=== PATIENT | female | born 1960 | race Caucasian/White ===

== ENCOUNTER 2019-12-07 16:00 | Inpatient (IN) | payer MEDICARE, SELFPAY ==
[2019-12-07] VITALS (21 sets, daily range): BP systolic 151–164; BP diastolic 84–93; PULSE 75–108; RESP 14–24; TEMP 36.2–36.4; O2SAT 92–100; BMI 41.8
--- NOTE | ~2019-12-07 | XR_ITS ---
EXAMINATION: XR chest 1V portable INDICATION: Shortness of breath TECHNIQUE: Portable AP chest at 1655 hours COMPARISON: 07/29/2019, 01/17/2019 FINDINGS: There is stable cardiomegaly. There are airspace opacities of the left lung base. No pleura l effusion or pneumothorax is identified. A triple lead cardiac pacemaker of the left chest wall ends with leads in expected locations. IMPRESSION: 1. Airspace opacity of the left lung base, consistent with atelectasis versus pneumonia. 2. Stable cardiomegaly. Reviewed, dictated and finalized at location A. IMPRESSION: 1. Airspace opacity of the left lung base, consistent with atelectasis versus p neumonia. 2. Stable cardiomegaly.
--- NOTE | 2019-12-07 16:13 | ECG_ITS ---
Measurements Intervals [place] Rate: 86 P: 59 IA: 135 QRS: 261 QRSD: 250 T: 64 QT: 494 QTc: 594 Interpretive Statements ATRIAL SENSE- ELECTRONIC VENTRICULAR PACEMAKER BASELINE ARTIFACT- I, III, AVL NO FURTHER INTERPRETATION IS POSSIBLE ATYPICAL ECG Electronically Signed On 12-07-2019 16:51:43 CDT by Juan R Avilez D.O.
--- NOTE | 2019-12-07 16:13 | ED.SOB ---
HPI - SOB/Dyspnea General Chief Complaint: Shortness of Breath/Dyspnea Stated Complaint: DIFF BREATHING Time Seen by Provider: 12/07/19 16:03 Source: patient and RN notes reviewed Mode of arrival: EMS Limitations: no limitations History of Present Illness HPI Narrative: A 58 y/o female presents to the ED via EMS with worsening SOB for the past 4 days. Patient denies any sick contacts. She has been using breathing treatments without improvement. No chest pain/pressure/dizziness. She denies runny nose/sore throat. Mild cough but cannot report if it is productive. She reports initially she noticed that some IN her family had increased her oxygen to 5 L and she was concerned she is becoming hypercapnic. She began wearing her BiPAP more frequently in an effort to fix this issue but still feels like she is often more short of breath and weak. MD elicited complaint: shortness of breath Pertinent past history: COPD, congestive heart failure and pneumonia Onset (ago): day(s) (4) Known history of: COPD and congestive heart failure Treatment prior to arrival: oxygen Related Data Home Medications Medication Instructions Recorded Confirmed albuterol sulfate [Ventolin HFA] 2 puff INHALATION PRN PRN 07/29/19 12/07/19 atorvastatin 40 mg PO HS 07/29/19 12/07/19 buspirone 15 mg PO TID 07/29/19 12/07/19 carvedilol 25 mg PO BID 07/29/19 12/07/19 citalopram 40 mg PO DAILY 07/29/19 12/07/19 diazepam 5 mg PO Q8-10H PRN 07/29/19 12/07/19 furosemide 20 mg PO DAILY 07/29/19 12/07/19 ropinirole 0.25 mg PO DAILY 07/29/19 12/07/19 spironolactone 25 mg PO DAILY 07/29/19 12/07/19 tramadol 50 mg PO Q6-8H PRN 07/29/19 12/07/19 azithromycin 500 mg PO DAILY 12/07/19 12/07/19 prednisone 50 mg PO DAILY 12/07/19 12/07/19 tiotropium-olodaterol [Stiolto 2 puff INHALATION DAILY 12/07/19 12/07/19 Respimat] Allergies Allergy/AdvReac Type Severity Reaction Status Date / Time No Known Allergies Allergy Unverified 12/07/19 16:12 Review of Systems Review of Systems: All systems reviewed & are unremarkable except as noted in HPI and below Respiratory: Respiratory: Reports dyspnea PMFSH Past Medical History Medical History (Updated 12/07/19 @ 23:28 by Hussein Camilo MD) Anxiety Back pain Bronchitis CHF (congestive heart failure) Chronic respiratory failure with hypoxia and hypercapnia 1 prior intubation about 10 years ago COPD (chronic obstructive pulmonary disease) Depression Emphysema of lung Essential hypertension History of rectal polyps Hyperlipidemia Morbid obesity with BMI of 45.0-49.9, adult Nonischemic cardiomyopathy Present since 2006. With EF as low as 10% in June 2017. Thought to be due to viral myocarditis with subsequent AICD placement. Obesity hypoventilation syndrome Obstructive sleep apnea On BiPAP 19/06 with 3 L of oxygen bleed in at home Rectal polyp Surgical History Surgical History (Updated 12/07/19 @ 21:25 by Rosalva Limon DO) Biventricular cardiac pacemaker in situ Placed in 2006 History of cardiac cath With no significant coronary artery disease noted with last cardiac catheterization June 2017 demonstrating only 30-40% lesion of the left anterior descending artery. History of colonoscopy September 2017 with rectal polypectomy History of dilation and curettage November 2016 History of tubal ligation 1989 Family History Family History (Updated 12/07/19 @ 20:56 by Rosalva Limon DO) Mother Diabetes mellitus Acute myocardial infarction Hypertension Sibling Diabetes mellitus Acute myocardial infarction Cerebrovascular accident Hypertension Schizophrenia Father Congestive heart failure Cerebrovascular accident Hypertension Schizophrenia Social History Social History (Updated 12/07/19 @ 20:54 by Rosalva Limon DO) Social History: 2 of the patient's children who struggle with drug addiction. Primary care physician: Dr. Darren Barnes Code status: Full code
[2019-12-07 16:40] LABS: Basophils Percent Auto 0.5 % (0.2-1.2); Eosinophils Percent Auto 0.1 % (0-4.4); Hematocrit 43.4 % (37.0-47.0); Hemoglobin 12.6 g/dL (12.0-15.0); Immature Granulocyte Absolute 0.03 K/mm3 (0.00-0.031); Immature Granulocyte Percent A 0.4 % (0-0.5); Lymphocytes Absolute Auto 0.43 K/mm3 (0.9-3.2); Lymphocytes Percent Auto 5.2 % (18.3-44.2); Mean Corpuscular Hemoglobin 28.6 pg (26-34); Mean Corpuscular Volume 98.6 fl (80-100); Mean Platelet Volume 9.9 fl (7.4-10.4); Monocytes Absolute Auto 0.3 K/mm3 (0.1-0.6); Neutrophils Absolute Auto 7.6 K/mm3 (1.3-6.7); Neutrophils Percent Auto 90.8 % (45.5-73.1); Platelet Count Result 250 k/mm3 (150-375); Red Cell Distribution Width 12.8 % (11.5-14.5); White Blood Count 8.3 K/mm3 (4.5-10.0)
[2019-12-07 16:58] LABS: Blood Urea Nitrogen 19 mg/dL (7-17); Carbon Dioxide > 40 mmol/L (22-30); Chloride 89 mmol/L (98-107); Estimated Glomerular Filt Rate > 60; Glucose 115 mg/dL (65-105); Potassium 4.5 mmol/L (3.4-5.0); Sodium 135 mmol/L (137-145)
[2019-12-07 17:07] LABS: Hypochromasia 1+ (NORMAL); Platelet Estimate Adequate (Adequate); Stomatocytes 2+ (NORMAL)
[2019-12-07 17:51] LABS: Alveolar/Arterial O2 Gradient 41.2 mmHg; Base Excess ABG 13.6 mEq/l (+/-2.0); Carboxyhemoglobin 1.9 % THb (0-2.0); Fractional Inspired Oxygen 28 %; HCO3 ABG 42.7 mEq/l (22.0-26.0); Methemoglobin ABG 0.2 %THb (0-1.5); Oxygen Saturation ABG 91.9 % (95.0-100.0); Oxyhemoglobin 91.2 % THb (90.0-100.0); PO2 ABG 67.6 mmHg (80.0-100.0); PO2 FiO2 Ratio Arterial Blood 2.41 %; Reduced Hemoglobin 6.7 %THb (0-5.0); pH ABG 7.362 (7.350-7.450)
[2019-12-07 17:54] LABS: Modified Allen's Test Pass; Site Drawn RIGHT RADIAL
[2019-12-07 17:55] LABS: Device NASAL CANNULA
--- NOTE | 2019-12-07 20:47 | PM.IMHP ---
H&P: HPI History of Present Illness Chief complaint: Shortness of breath for 4 days Narrative: Date and time of patient contact: 12/27/2019 at 10:00 p.m. Olivia Burdick is a 58 year old female with a past medical history of nonischemic cardiomyopathy, COPD and chronic hypoxic hypercapnic respiratory failure who presented to the ER with shortness of breath for 4 days. The patient reports that she has been feeling great compared to when I saw her 2 years ago. She has also 100 lb through diet and lifestyle modification. This had significantly improved her shortness of breath and functional status. However she still requires 2 L nasal cannula at all times with activity. However over the last 4 days she has noticed significant dyspnea on exertion and orthopnea. She denies any lower extremity swelling but has never really had much lower extremity swelling with her history of CHF. She states that she has become discouraged with the scale because last time she wait a little over week ago her weight had jumped from 212 lb up to 220 lb. It is only been a couple of days between those 2 weights. She reports in the fast that her edema is usually in her abdomen. However she has significant loose skin now and cannot tell is easily for closer fitting differently. She denies having any chest pain, pressure, palpitations or dizziness. She has been compliant with her home medications. She has a mild nonproductive cough but has not had any recent ill contacts. She does live at home with her daughter, son-in-law and their 3 children. However both her daughter and son-in-law traffic workforce representative and the children have been off of school. Her daughter has been leaving the house to do shopping but goes through a cleaning process as she brings materials into the house. She denies any unexpected arthralgias, fatigue, fevers or chills. She has tried using her nebulizers every 4 hours at home for the last few days but this has not been helping her shortness of breath. She has been feeling more anxious due to air hunger. She has been having hypoxia when she lays down with oxygen saturations down to 83% despite increasing her oxygen to 3 L nasal cannula and wearing her BiPAP. She had also noticed over the last 24-48 hours some periods of confusion and she was concerned that her carbon dioxide may be climbing. She thought that some of her symptoms could be due to her home oxygen concentrator accidentally being increased to 5 L nasal cannula. She has been in contact with her primary care physician through tele medicine she had started prednisone on the morning of the 3rd as well as azithromycin. Despite antibiotic steroids and breathing treatments her shortness of breath was persisting and she was still hypoxic with lying down. She even tried taking an extra dose of her home Valium to help with her anxiety and shortness of breath but her shortness of breath persisted and she decided to come to the ER. Review of Systems Review of Systems: Narrative: 12 systems were reviewed with pertinent positives and negatives per HPI. Except as documented in the HPI, all other systems were reviewed and are negative. [facility] Past Medical History Medical History (Updated 12/08/19 @ 01:40 by Rosalva Limon DO) Anxiety Back pain Bronchitis CHF (congestive heart failure) Chronic respiratory failure with hypoxia and hypercapnia 1 prior intubation about 10 years ago COPD (chronic obstructive pulmonary disease) Depression Emphysema of lung Essential hypertension History of rectal polyps Hyperlipidemia Nonischemic cardiomyopathy Present since 2006. With EF as low as 10% in June 2017. Thought to be due to viral myocarditis with subsequent AICD placement. Obesity hypoventilation syndrome Obstructive sleep apnea On BiPAP 19/06 with 3 L of oxygen bleed in at home Rectal polyp Surgical History Surgical History (Updated 12/07/19 @ 21:25 by Rosalva Limon DO) Biventricula
--- NOTE | 2019-12-07 21:14 | ADMIMU ---
This patient, Olivia Burdick, was admitted to IMU status, and placed in IMU Room 200-01 on 12/07/19 at 2024. Patient/family oriented to hospital policies and general routines including ID bracelet, bed and alarms, visiting hours, pain management, procedures, bathroom and other care routines, personal items, smoking policy, room service/diet, and visiting hours. Valuables list has been completed. Information on how to activate the Rapid Response Team has been discussed. Patient/Family are encouraged to report perceived risks to care and to ask questions if they do not understand what they are told or what they should do.
[2019-12-07] MEDS: CALCIUM CARBONATE (TUMS) 500 MG (200 MG ELEMENTAL) PO (21:40)
[2019-12-08] VITALS (20 sets, daily range): BP systolic 101–138; BP diastolic 60–85; PULSE 68–98; RESP 18–20; TEMP 35.6–36.5; O2SAT 92–98
[2019-12-08] MEDS: FUROSEMIDE INJ 40 MG/4 ML VIAL IV PUSH ×2 (01:34→16:47)
[2019-12-08] MEDS: ALBUTEROL SULFATE NEB 2.5 MG/0.5 ML INH 5 MG INHALATION ×4 (02:07→20:57)
[2019-12-08] MEDS: IPRATROPIUM BR 0.02% INH SOLN 0.5 MG/2.5 ML VIAL INHALATION ×4 (02:08→20:57)
[2019-12-08 06:08] LABS: Sodium 136 mmol/L (137-145)
[2019-12-08] MEDS: DIAZEPAM 5 MG TABLET PO ×2 (06:09→14:12)
[2019-12-08 07:52] LABS: Blood Urea Nitrogen 19 mg/dL (7-17); Calcium 9.3 mg/dL (8.4-10.2); Carbon Dioxide > 40 mmol/L (22-30); Chloride 89 mmol/L (98-107); Estimated CRCL calculation 82 ml/min; Estimated Glomerular Filt Rate > 60; Glucose 64 mg/dL (65-105); Potassium 4.1 mmol/L (3.4-5.0)
[2019-12-08 08:07] LABS: Glucose Point of Care 82 (65-105)
[2019-12-08] MEDS: SPIRONOLACTONE 25 MG TABLET PO (08:56)
[2019-12-08] MEDS: predniSONE 20 MG TABLET 40 MG PO (08:56)
[2019-12-08] MEDS: busPIRone HCL 5 MG TABLET 15 MG PO ×3 (08:56→16:46)
[2019-12-08] MEDS: CITALOPRAM HYDROBROMIDE 20 MG TABLET 40 MG PO (08:56)
[2019-12-08] MEDS: predniSONE 10 MG TABLET PO (08:56)
[2019-12-08] MEDS: ENOXAPARIN 40 MG/0.4 ML SYRINGE SUB-Q (08:57)
[2019-12-08] MEDS: carvediloL 25 MG TABLET PO ×2 (08:57→21:46)
--- NOTE | 2019-12-08 11:35 | PM.CNCAR ---
Assessment and Plan Assessment and plan (1) CHF exacerbation: Code(s): I50.9 - Heart failure, unspecified Status: Acute Assessment and Plan: 58-year-old female with severe nonischemic cardiomyopathy, status post Bi V ICD placement. She presents with 4 day history worsening shortness of breath. Of worsening dyspnea is multifactorial-from CHF exacerbation (acute on chronic systolic and diastolic CHF), and COPD exacerbation. EKG shows atrial sensed ventricular paced rhythm. -continue diuresis with IV furosemide, may switch to p.o. tomorrow if patient continues to have improvement in volume status and symptoms. Monitor ins and outs, BMP. -check NT BNP -continue carvedilol, spironolactone. Review of patient's medical records do not show any ACEI or Arb. Will start low-dose sacubitril/valsartan, dose to be optimized as tolerated. (2) COPD exacerbation: Code(s): J44.1 - Chronic obstructive pulmonary disease with (acute) exacerbation Status: Acute Assessment and Plan: Supplemental oxygen, BiPAP, steroids, bronchodilators as per primary team (3) Acute on chronic respiratory failure with hypoxia and hypercapnia: Code(s): J96.21 - Acute and chronic respiratory failure with hypoxia; J96.22 - Acute and chronic respiratory failure with hypercapnia Status: Acute Assessment and Plan: Management as per primary team History of Present Illness History of Present Illness Consult date/time: 12/08/19 11:35 Date of consult-12/08/2019 Requesting physician- Ashleigh Figueroa PA-C Reason for consult-congestive heart failure Chief complaint-worsening shortness of breath x4 days [id number]-oxph-old female with severe nonischemic cardiomyopathy, status post Bi V ICD placement; COPD and chronic hypoxic hypercapnic respiratory failure. Patient [facility] 12[facility]07[facility] via EMS with worsening shortness of breath that started about 4 days prior to arrival. At baseline, she has NYHA function class 3 symptoms. For last few days, she has been experiencing worsening shortness of breath associated with abdominal distention. She denies chest pain, palpitation, dizziness or syncope. She denies fever, chills, or recent sick contacts. She denies any recent ICD shocks. Patient reports compliance with medical regimen and low-salt diet. She is on home O2, and also uses BiPAP at night. EKG on admission which I personally evaluated showed atrial sensed, ventricular paced rhythm. Chest x-ray showed airspace opacity of the left lung base, consistent with atelectasis versus pneumonia; stable cardiomegaly. ABG showed hypoxemic and hypercarbic respiratory failure with CO2 77, O2 67. Review of patient's previous medical records indicate that she had echocardiogram done on 06/14/2017 which reported moderate LVH, severe LV systolic and diastolic dysfunction, ejection fraction 10%, severe left atrial enlargement, RV hypokinesis. 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 She follows up with for cardiac care Reason For Visit: Shortness of breath for 4 days Review of Systems Constitutional: Constitutional: Denies chills, Denies fatigue, Denies fever(s) and Denies headache(s) Eyes: Eyes: Reports as per HPI, Denies change in vision, Denies loss of vision and Denies eye pain ENT: Reports as per HPI, Reports Normal hearing present, Denies headache(s), Denies lip swelling, Denies epistaxis and Denies sore throat Cardiovascular: Cardiovascular: Reports as per HPI, Denies chest pain, Denies syncope, Denies irregular heart rhythm, Denies lightheadedness and Reports dyspnea Respiratory: Respiratory: Reports as per HPI, Reports dyspnea and Reports wheezing Gastrointestinal: Gastrointestinal: Reports as per HPI, Denies melena, Denies nausea and Denies vomiting Comments: Abdominal distension Michelle
--- NOTE | 2019-12-08 12:05 | PM.IMPN ---
Progress Note: A&P Assessment and Plan (1) Acute on chronic respiratory failure with hypoxia and hypercapnia: Code(s): J96.21 - Acute and chronic respiratory failure with hypoxia; J96.22 - Acute and chronic respiratory failure with hypercapnia Status: Acute Assessment and Plan: -----patient had significant shortness of breath upon presentation. Chest x-ray reviewed which shows atelectasis versus pneumonia but with her clinical history (sudden weight gain) and labs I suspect this to be more CHF. She has an increased CO2 level but a normal pH and elevated bicarb. Will continue her normal BiPAP at night. She is feeling much better with IV diuretics today which also decreases the likelihood of pneumonia as an etiology at this time. Patient is usually on 20 mg of Lasix and she received 1 time dose of 40 mg overnight IV. We will continue with 40 mg of IV Lasix b.i.d. at this time. She looks like she has had 1200 in and 800 out so far today. I will place her on a fluid restriction. She is also on oral steroids for possible COPD exacerbation. Patient is doing well today and has showed improvement. Okay to move out of the IMU and possible discharge in 1-2 days if she continues to improve (2) COPD exacerbation: Code(s): J44.1 - Chronic obstructive pulmonary disease with (acute) exacerbation Status: Acute Assessment and Plan: -------Given her decreased breath sounds patient may have a component of COPD exacerbation but again I feel CHF is the more likely culprit as stated above. Will continue the patient on p.o. prednisone 50 mg a day for 5 days. She started the prednisone on the morning of the . Scheduled albuterol and Atrovent nebulizers have been ordered. Continue on her 2L of o2 that she takes at home. (3) CHF exacerbation: Qualifiers: Heart failure type: systolic Qualified Code(s): I50.23 - Acute on chronic systolic (congestive) heart failure Code(s): I50.9 - Heart failure, unspecified Status: Acute Assessment and Plan: ------As stated above. Last EF 10%. Lasix now BID and Entresto started. continue fluid restriction and daily weights. Cardiology following. (4) Morbid obesity with BMI of 40.0-44.9, adult: Code(s): E66.01 - Morbid (severe) obesity due to excess calories; Z68.41 - Body mass index (BMI) 40.0-44.9, adult Status: Acute Assessment and Plan: ------ weight loss of 100 lb over the last 2 years. Previous provider discussed low-sodium diet. She is not eating any canned foods or prepackaged foods. Time Spent With Patient Time with patient: 25 - 35 minutes Subjective Date/time seen: 12/08/19 12:05 Interval history: Pt is a 58-year-old female here for CHF exacerbation. Patient was seen today and states she is doing a lot better compared to yesterday. She said yesterday she could not even talk without feeling short of breath. She is not able to sit up in her bed and have a conversation and work on the computer. She says that she has not had any lower extremity swelling but never does usually. She says her diet has not significantly changed but does drink a good amount of fluids. Her dyspnea on exertion and orthopnea have improved as well but she is still not 100%. She is wearing her BiPAP at night. She denies nausea, vomiting, fevers, chills, abdominal pain, or chest pain Review of Systems Review of Systems: All systems reviewed & are unremarkable except as noted in HPI and below Exam Narrative: Exam Narrative: General: Well developed well nourished patient resting comfortably in bed in NAD HEENT: normocephalic Neck: supple Neuro: Alert and oriented x4 CV:RRR. Telemetry shows V paced Resp: Decreased breath sounds with slight crackling. Able to speak in full sentences without conversational dyspnea. 2 L of O2 applied Abd: Soft, non distended. No pain to palpation. Positive bowel sounds Extremities: No swelling,
[2019-12-08 12:23] LABS: NT Pro B Type Natriuretic Pept 5580 PG/ML (5-100)
--- NOTE | 2019-12-08 14:20 | PC.NURSE ---
This patient, Olivia Burdick, was transferred to [facility] on 12/08/19 at 1420. Personal belongings sent with patient. Belongings list checked and signed with receiving RN. Report given to DARCI Marquez. Appropriate documentation sent with patient.
--- NOTE | 2019-12-08 14:37 | PC.NURSE ---
Received patient from IMU. Patient alert and oriented resting comfortably at this time. Will continue to monitor patient.
[2019-12-08] MEDS: ATORVASTATIN 40 MG TABLET PO (21:46)
[2019-12-08] MEDS: SACUBITRIL/VALSARTAN 24-26 MG TABLET 1 TAB PO (21:46)
[2019-12-09] VITALS (10 sets, daily range): BP systolic 111–136; BP diastolic 66–86; PULSE 62–94; RESP 14–20; TEMP 36.4; O2SAT 93–98
[2019-12-09] MEDS: DIAZEPAM 5 MG TABLET PO ×2 (00:27→11:22)
[2019-12-09] MEDS: ALBUTEROL SULFATE NEB 2.5 MG/0.5 ML INH 5 MG INHALATION ×2 (02:46→08:02)
[2019-12-09] MEDS: IPRATROPIUM BR 0.02% INH SOLN 0.5 MG/2.5 ML VIAL INHALATION ×2 (02:46→08:02)
[2019-12-09 06:22] LABS: Blood Urea Nitrogen 20 mg/dL (7-17); Calcium 8.6 mg/dL (8.4-10.2); Carbon Dioxide 39 mmol/L (22-30); Chloride 91 mmol/L (98-107); Estimated CRCL calculation 94 ml/min; Estimated Glomerular Filt Rate > 60; Glucose 64 mg/dL (65-105); Potassium 4.3 mmol/L (3.4-5.0); Sodium 136 mmol/L (137-145)
[2019-12-09] MEDS: predniSONE 20 MG TABLET 40 MG PO (08:45)
[2019-12-09] MEDS: busPIRone HCL 5 MG TABLET 15 MG PO ×2 (08:46→12:52)
[2019-12-09] MEDS: carvediloL 25 MG TABLET PO (08:46)
[2019-12-09] MEDS: CITALOPRAM HYDROBROMIDE 20 MG TABLET 40 MG PO (08:46)
[2019-12-09] MEDS: predniSONE 10 MG TABLET PO (08:46)
[2019-12-09] MEDS: FUROSEMIDE INJ 40 MG/4 ML VIAL IV PUSH (08:47)
[2019-12-09] MEDS: ENOXAPARIN 40 MG/0.4 ML SYRINGE SUB-Q (08:47)
[2019-12-09] MEDS: SPIRONOLACTONE 25 MG TABLET PO (08:48)
[2019-12-09] MEDS: SACUBITRIL/VALSARTAN 24-26 MG TABLET 1 TAB PO (08:48)
--- NOTE | 2019-12-09 11:46 | PM.PNCARD ---
Progress Note: A&P Assessment and Plan (1) CHF exacerbation: Qualifiers: Heart failure type: systolic Qualified Code(s): I50.23 - Acute on chronic systolic (congestive) heart failure Code(s): I50.9 - Heart failure, unspecified Status: Acute Assessment and Plan: 58-year-old female with severe nonischemic cardiomyopathy, status post Bi V ICD placement. She presents with 4 day history worsening shortness of breath. Of worsening dyspnea is multifactorial-from CHF exacerbation (acute on chronic systolic and diastolic CHF), and COPD exacerbation. EKG shows atrial sensed ventricular paced rhythm. Patient is symptomatically better today. - Change IV furosemide to p.o. furosemide 40 mg p.o. b.i.d. for maintenance diuresis. -continue carvedilol, spironolactone. Review of patient's medical records Did not show any ACEI or Arb. yesterday, she was started on low-dose sacubitril/valsartan, dose to be optimized as tolerated as an outpatient. - okay to discharge home from cardiac standpoint. Follow up with Dr. Soliman as an outpatient. (2) Acute on chronic respiratory failure with hypoxia and hypercapnia: Code(s): J96.21 - Acute and chronic respiratory failure with hypoxia; J96.22 - Acute and chronic respiratory failure with hypercapnia Status: Acute Subjective Date/time seen: 12/09/19 11:46 DATE OF SERVICE: 12/09/2019 Chief complaint: Shortness of breath 8-year-old female with severe nonischemic cardiomyopathy, status post Bi V ICD placement. She presents with 4 day history worsening shortness of breath. Of worsening dyspnea is multifactorial-from CHF exacerbation (acute on chronic systolic and diastolic CHF), and COPD exacerbation. EKG shows atrial sensed ventricular paced rhythm. 12/09/2019-patient reports improvement in shortness of breath.She denies chest pain. She is eager to go home. Exam Const: General: no acute distress, alert and awake HENMT: Head: normocephalic and atraumatic Ears: hearing grossly normal bilaterally and external ears normal General nose exam: Normal external nose present and no epistaxis Face and sinus: normal facial exam and no ecchymosis Mouth: Yes tongue normal and Yes moist mucous membranes Teeth and gingiva: dentition normal Eyes: Conjunctivae: conjunctivae normal Sclera: sclerae normal Pupils: Equal, round and reactive pupils present EOM: EOMs intact bilaterally Neck: Neck: normal visual inspection, supple and no JVD Thyroid: thyroid normal Carotids: normal carotid upstroke Resp: Effort & Inspection: normal respiratory effort and able to speak in complete sentences Auscultation: diminished lung sounds Cardio: Jugular venous distension: no JVD Rate: regular rate Rhythm: regular rhythm (Paced rhythm) Heart sounds: Other heart sounds present (Distant heart sounds) GI: Inspection: distended Auscultation: normal bowel sounds Skin: Other: no rash on exposed areas, no cyanosis Neuro: Cranial nerves: Yes Equal, round and reactive pupils present and Yes Normal hearing present Other: alert, oriented, no major focal deficits on gross neurological examination Extrem: Other: no edema, no cyanosis, no major deformities Psych: Appearance: grossly normal Mental Status: mental status grossly normal Objective Data Vital Signs Vital Signs: Vital Signs - 24 hr 12/08/19 12:00 12/08/19 14:30 12/08/19 15:12 Temperature 35.6 C L 36.3 C L Pulse Rate 69 72 73 Respiratory Rate 18 18 18 Blood Pressure 101/60 138/85 Pulse Oximetry 96 94 12/08/19 15:20 12/08/19 16:00 12/08/19 20:00 Temperature 36.4 C L 36.5 C Pulse Rate 89 86 75 Respiratory Rate 18 18 18 Blood Pressure 129/76 136/77 Pulse Oximetry 97 97 12/08/19 20:59 12/08/19 21:02 12/08/19 21:11 Temperature Pulse Rate 88 79 Respiratory Rate 20 20 Blood Pressure Pulse Oximetry 92 12/08/19 21:46 12/08/19 22:35 12/09/19 00:00 Temperature 36.4 C Pulse Rate 68 70 62
--- NOTE | 2019-12-09 13:42 | PM.DS ---
DS: Diagnosis Admitting Diagnosis Admitting Diagnosis: Acute and chronic respiratory failure with hypoxia Discharge Diagnosis (1) Acute on chronic respiratory failure with hypoxia and hypercapnia: Code(s): J96.21 - Acute and chronic respiratory failure with hypoxia; J96.22 - Acute and chronic respiratory failure with hypercapnia Status: Acute (2) COPD exacerbation: Code(s): J44.1 - Chronic obstructive pulmonary disease with (acute) exacerbation Status: Acute (3) CHF exacerbation: Qualifiers: Heart failure type: systolic Qualified Code(s): I50.23 - Acute on chronic systolic (congestive) heart failure Code(s): I50.9 - Heart failure, unspecified Status: Acute Assessment and Plan: ------ Last EF 10%. Lasix now BID and Entresto started. (4) Morbid obesity with BMI of 40.0-44.9, adult: Code(s): E66.01 - Morbid (severe) obesity due to excess calories; Z68.41 - Body mass index (BMI) 40.0-44.9, adult Status: Acute DS: Summary Hospital Course Reason for hospitalization: respiratory failure Hospital Course: Pt is a 58 y/o female who presented to the ED for SOB. Temp 97.2, pulse 91, RR 18, bp 152/87, pulse o2 98% on home o2. CBC WNL. BMP WNL exception of co2 which was >40. CXR: 1. Airspace opacity of the left lung base, consistent with atelectasis versus pneumonia. 2. Stable cardiomegaly. pH 7.362, pco2 77, p02 67, Hco3 42.7. Pt was started on bipap (she also wears it at home), give IV diuretics, and was admitted to the hospitalist service. Pt improved significantly with this treatment. She was placed on steroids for a possible COPD exacerbation as well. Cardiology was consulted and had her last Echo which showed an EF of 10% and made medicine adjustments as showned below. Pt imporoved significantly with this treatment and was able to be discharged on 12/09/19 in stable condition. she is to follow up with her pcp in 1-2 weeks as well as cardiology. Status at Discharge Functional status at discharge: independent ambulation Overall status at discharge: patient is back to baseline Time Spent with Patient Time attestation: Total time spent providing and/or coordinating discharge services:34 min Exam Narrative: Exam Narrative: General: Well developed well nourished patient resting comfortably in bed in NAD HEENT: normocephalic Neck: supple Neuro: Alert and oriented x4 CV:RRR. Telemetry shows V paced Resp: Decreased breath sounds with slight crackling. Able to speak in full sentences without conversational dyspnea. 2 L of O2 applied Abd: Soft, non distended. No pain to palpation. Positive bowel sounds Extremities: No swelling, erythema, or pain to palpation. DS: Data Data Completed and Pending Labs on day of discharge: Labs from last 24 hours 12/09/19 12/09/19 04:58 04:58 Sodium 136 L Potassium 4.3 Chloride 91 L Carbon Dioxide 39 H BUN 20 H Creatinine 0.60 L Estim Creat Clear Calc 94 Estimated GFR > 60 Glucose 64 L Calcium 8.6 TSH (Reflex) 1.720 Discharge Plan Discharge Attending physician on discharge: Irma Escalera Consulting providers: Larry Menendez ; Ashleigh Pagan ; Juan R Avilez ; Diego Aragon Discharging Clinician: Ashleigh Pagan Patient Disposition: Home, Self-Care Activity: as tolerated Diet: heart healthy Discharge Instructions: -please note your medications have changed. Take them as directed. Finish your steroids that you have at home. -follow-up with your primary care physician in 1-2 weeks about this stay. -follow-up with her angiographer. Call them for an appointment.You need a blood draw in one week. This result will be sent to the angiographer. -worrisome signs and symptoms to come back to emergency room for: Fevers 100.4 or greater, chest pain, worsening shortness of breath, progressive significant weakness, or any other worrisome symptom Patient Instructions: Antibiotic F
--- NOTE | 2019-12-09 14:20 | PC.NURSE ---
Called Ashleigh HARVEY to clarify discharge order for IV Doxycycline. Left voice message for Ashleigh. Patient has a ride waiting downstairs. Discharged patient and instructed her that I would call her at home to notify her of instructions for po antibiotic to be ordered.
--- NOTE | 2019-12-09 14:40 | PC.NURSE ---
Received call from Ashleigh HARVEY clarifying po antibiotic order for discharge. Called patient's daughter Kia at home (patient lives with her) and notified her that antibiotic will be Doxycycline 100 mg po daily. Also instructed her that medication was transmitted to [facility] and that next dose is not due until tomorrow. Daughter Kia verbalized her understanding.
== END 2019-12-09 14:20 | disposition home or self-care (01) | DRG 291 ==
LOC: ANHED 19:16 → ANHIMU 19:47 → ANH3MED 12-09 13:42 → ANHIMU 12-12 09:07
PROVIDERS: Internal Medicine Cardiovascular Disease; Physician Assistant; Admitting Provider Internal Medicine; Emergency Provider Emergency Medicine; Visit Provider Family Medicine
DX: I11.0 Hypertensive heart disease with heart failure (principal); J96.22 Acute and chronic respiratory failure with hypercapnia; J18.9 Pneumonia, unspecified organism; J96.21 Acute and chronic respiratory failure with hypoxia; J44.0 Chronic obstructive pulmonary disease with (acute) lower respiratory infection; Z68.41 Body mass index [BMI] 40.0-44.9, adult; E66.2 Morbid (severe) obesity with alveolar hypoventilation; J44.1 Chronic obstructive pulmonary disease with (acute) exacerbation; I50.23 Acute on chronic systolic (congestive) heart failure; E78.5 Hyperlipidemia, unspecified
CPT/HCPCS: 36415; 36600; 71045; 80048; 82375; 82805; 83050; 83880; 84443; 85025; 93005; 94640; 96365; 99285; A9270; J0456; J0696; J1650; J1940; J7512

== ENCOUNTER 2020-04-19 18:55 | Inpatient (IN) | payer MEDICARE, MEDICAID, SELFPAY ==
--- NOTE | ~2020-04-19 | XR_ITS ---
EXAMINATION: XR chest 2V DATE: 04/23/2020 08:41 INDICATION: Increased shortness of breath TECHNIQUE: Frontal and lateral views of the chest are obtained COMPARISON: 04/19/2020 FINDINGS: Bibasilar airspace opacities persist but have decreased. There is stable cardiomegaly. No p leural effusion or pneumothorax is identified. A triple lead cardiac pacemaker of the left chest wall ends with leads in expected locations. There is mild thoracic spondylosis. IMPRESSION: 1. Stable cardiomegaly. 2. Persistent but decreased airspace opacities of the lung bases, likely atelectasis. Reviewed, dictated and finalized at location A. IMPRESSION: 1. Stable cardiomegaly. 2. Persistent but decreased airspace opacities of the lung bases, likely atelec tasis.
--- NOTE | ~2020-04-19 | XR_ITS ---
XR chest 1V portable DATE: 04/19/2020 20:30 INDICATION: Shortness of breath. COPD. TECHNIQUE: Portable AP chest on 04/19/2020 at 2031 hours COMPARISON: 12/07/2019 portable AP chest at 1655 hours FINDINGS: There is cardiomegaly. There is pulmonary vascular congestion and redistribution. There is mild prominence of the minor fissure. There are mild infiltrates or atelectasis in the right lower yesenia ng and increased density in the left pericardiac area consistent with left lower lobe atelectasis and /or consolidation. Left pleural effusion is not excluded. No pneumothorax is evident. Left-sided defibrillator/triple lead pacemaker device. Diffuse osteopenia. IMPRESSION: Congestive heart failure Left lower lobe atelectasis//or consolidation Reviewed, dictated and finalized at location A.
--- NOTE | ~2020-04-19 | CT_ITS ---
EXAMINATION: CTA chest PE protocol DATE: 04/19/2020 21:11 INDICATION: TECHNIQUE: Computed tomography angiography (CTA) of the chest was performed with 100 mL Omnipaque-350 intravenous contrast timed to evaluate the pulmonary arteries. Coronal maximum intensity projection 3D-reconstructions were created by the technologist. Automated exposure control and iterative reconst ruction technique were employed. Exam dose: 877.31 mGy-cm total exam DLP. COMPARISON: None. FINDINGS: There is diagnostic contrast enhancement of the pulmonary arteries. There is no evidence of pulmonary embolism. There is severe cardiomegaly. There is mild pericardial effusion. Triple lead pacemaker device. No thoracic aortic aneurysm is evident. No hilar or mediastinal mass lesion or lymphadenopathy is detected. There is left lower lobe discoid atelectasis. There are patchy groundglass infiltrates scattered in b oth lungs. No pleural effusion. No pneumothorax. Degenerative changes of the cervical, thoracic and lumbar spine. IMPRESSION: No evidence of pulmonary embolus Severe cardiomegaly Mild pericardial effusion Patchy bilateral groundglass infiltrates and left lower lobe discoid atelectasis Reviewed, dictated and finalized at Location A. Reviewed, dictated and finalized at location A. IMPRESSION: No evidence of pulmonary embolus Severe cardiomegaly Mild pericardial effusion Patchy bilateral groundglass infiltrates and left lower lobe discoid atelectasi s
[2020-04-19 18:58] VITALS: BP 124/70; PULSE 81; RESP 18; TEMP 36.7; O2SAT 100
--- NOTE | 2020-04-19 18:59 | ED.SOB ---
HPI - SOB/Dyspnea General Chief Complaint: Shortness of Breath/Dyspnea Stated Complaint: sob Time Seen by Provider: 04/19/20 18:59 Source: patient and EMS Mode of arrival: EMS Limitations: no limitations History of Present Illness HPI Narrative: The patient is a 59 yo female with a history of COPD, chronically on 3 L at home, congestive heart failure, CABG, hypertension who presents for evaluation of shortness of breath. Patient reports a 2-day history of worsening shortness of breath. She states that she has been having some extreme anxiety although she can identify a trigger. She denies current chest pain, states that she has increased her oxygen from 3 to 3-1/2 L with some improvement in her oxygen saturations. Patient denies any wheezing or productive cough, no fever or chills. She reports a chronic runny nose. Denies any sore throat. Patient states she is having some extreme body aches and fatigue. She states she feels sore all over. She denies any rashes. She denies recent falls or injury. No recent sick contacts that she is aware of. Patient also reports a 2-week history of intermittent dull, aching epigastric pain. No current nausea or vomiting. Patient reports diarrhea yesterday, resolved today. Related Data Home Medications Medication Instructions Recorded Confirmed albuterol sulfate [Ventolin HFA] 2 puff INHALATION PRN PRN 07/29/19 04/19/20 atorvastatin 40 mg PO HS 07/29/19 04/19/20 buspirone 15 mg PO TID 07/29/19 04/19/20 carvedilol 25 mg PO BID 07/29/19 04/19/20 citalopram 40 mg PO DAILY 07/29/19 04/19/20 diazepam 5 mg PO Q8-10H PRN 07/29/19 04/19/20 ropinirole 0.25 mg PO DAILY 07/29/19 04/19/20 spironolactone 25 mg PO DAILY 07/29/19 04/19/20 tramadol 50 mg PO Q6-8H PRN 07/29/19 04/19/20 Stiolto Respimat 2 puff INHALATION DAILY 12/07/19 04/19/20 Allergies Allergy/AdvReac Type Severity Reaction Status Date / Time No Known Allergies Allergy Verified 04/19/20 20:57 Review of Systems Review of Systems: Narrative: CONSTITUTIONAL: Denies fever, chills, or sweats. EYES: Denies visual changes, redness, or discharge. ENT: Reports rhinorrhea, denies sore throat or otalgia CARDIOVASCULAR: Denies chest pain, palpitations, or edema. RESPIRATORY: Denies cough, reports shortness of breath GASTROINTESTINAL: Reports history of epigastric abdominal pain, denies nausea or vomiting, reports history of diarrhea GENITOURINARY: Denies dysuria or hematuria. SKIN: Denies rash or itching. MUSCULOSKELETAL: Denies back pain, joint pain, reports myalgias throughout body NEUROLOGIC: Denies headache, numbness, or weakness. PSYCHIATRIC: Reports anxiety PMFSH Past Medical History Medical History Anxiety Back pain Bronchitis CHF (congestive heart failure) Chronic respiratory failure with hypoxia and hypercapnia 1 prior intubation about 10 years ago COPD (chronic obstructive pulmonary disease) Depression Emphysema of lung Essential hypertension History of rectal polyps Hyperlipidemia Nonischemic cardiomyopathy Present since 2006. With EF as low as 10% in June 2017. Thought to be due to viral myocarditis with subsequent AICD placement. Obesity hypoventilation syndrome Obstructive sleep apnea On BiPAP 19/06 with 3 L of oxygen bleed in at home Rectal polyp Surgical History Surgical History Biventricular cardiac pacemaker in situ Placed in 2006 History of cardiac cath With no significant coronary artery disease noted with last cardiac catheterization June 2017 demonstrating only 30-40% lesion of the left anterior descending artery. History of colonoscopy September 2017 with rectal polypectomy History of dilation and curettage November 2016 History of tubal ligation 1989 Social History Social History Social History: 2 of the patient's children who struggle
[2020-04-19 19:05] VITALS: PULSE 83
[2020-04-19 19:21] VITALS: BP 120/50; PULSE 84; RESP 18; O2SAT 100
--- NOTE | 2020-04-19 19:27 | ECG_ITS ---
Measurements Intervals [place] Rate: 73 P: 43 AK: 136 QRS: 267 QRSD: 249 T: 77 QT: 518 QTc: 574 Interpretive Statements ATRIAL SENSE- ELECTRONIC VENTRICULAR PACEMAKER NO FURTHER INTERPRETATION IS POSSIBLE ATYPICAL ECG Electronically Signed On 04-20-2020 7:54:27 CDT by Juan R Avilez D.O.
[2020-04-19] MEDS: methylPREDNISolone SOD SUCC 125 MG VIAL IV PUSH (19:36)
[2020-04-19] MEDS: MAGNESIUM SULF 2 GM/WATER 50ML 2 GM/50 ML BAG IVPB (19:37)
[2020-04-19 19:53] LABS: Base Excess ABG 13.3 mEq/l (+/-2.0); Fractional Inspired Oxygen 32 %; HCO3 ABG 43.2 mEq/l (22.0-26.0); Oxygen Saturation ABG 98.2 % (95.0-100.0); Oxyhemoglobin 96.6 % THb (90.0-100.0); PO2 FiO2 Ratio Arterial Blood 4.09 %; Total Hemoglobin 13.1 g/dL (12.0-18.0)
[2020-04-19 19:55] LABS: Device NASAL CANNULA; Modified Allen's Test Pass; PCO2 ABG 85.7 mmHg (35.0-45.0); Site Drawn RIGHT RADIAL
[2020-04-19 20:12] LABS: Basophils Percent Auto 0.4 % (0.2-1.2); Eosinophils Percent Auto 0.4 % (0-4.4); Hematocrit 42.1 % (37.0-47.0); Hemoglobin 12.4 g/dL (12.0-15.0); Immature Granulocyte Absolute 0.04 K/mm3 (0.00-0.031); Immature Granulocyte Percent A 0.5 % (0-0.5); Lymphocytes Absolute Auto 1.32 K/mm3 (0.9-3.2); Lymphocytes Percent Auto 17.4 % (18.3-44.2); Mean Corpuscular HGB Conc 29.5 g/dl (32-36); Mean Corpuscular Hemoglobin 29.1 pg (26-34); Mean Corpuscular Volume 98.8 fl (80-100); Mean Platelet Volume 9.9 fl (7.4-10.4); Monocytes Absolute Auto 0.6 K/mm3 (0.1-0.6); Monocytes Percent Auto 8.2 % (2.6-8.5); Neutrophils Absolute Auto 5.6 K/mm3 (1.3-6.7); Neutrophils Percent Auto 73.1 % (45.5-73.1); Platelet Count Result 153 k/mm3 (150-375); Red Blood Count 4.26 M/mm3 (4.2-5.4); Red Cell Distribution Width 12.1 % (11.5-14.5); White Blood Count 7.6 K/mm3 (4.5-10.0)
[2020-04-19 20:25] LABS: INR 0.9; Prothrombin Time 11.9 Seconds (11.1-14.7)
[2020-04-19 20:26] LABS: Alanine Aminotransferase 10 U/L (4-35); Albumin Level 3.7 g/dL (3.5-5.1); Alkaline Phosphatase 58 U/L (38-126); Anion Gap 5.99999 mmol/L (8-16); Aspartate Amino Transferase 18 U/L (14-36); Bilirubin,Total 0.2 mg/dL (0.2-1.3); Blood Urea Nitrogen 16 mg/dL (7-17); Calcium 8.1 mg/dL (8.4-10.2); Carbon Dioxide > 40 mmol/L (22-30); Chloride 89 mmol/L (98-107); Estimated CRCL calculation 94 ml/min; Estimated Glomerular Filt Rate > 60; Glucose 96 mg/dL (65-105); Lipase 62 U/L (23-300); Partial Thromboplastin Time 26.9 SECONDS (22.3-36.8); Sodium 135 mmol/L (137-145)
[2020-04-19 20:30] LABS: Platelet Estimate Adequate (Adequate)
[2020-04-19 20:31] LABS: Hypochromasia 1+ (NORMAL)
[2020-04-19 20:38] LABS: NT Pro B Type Natriuretic Pept 949 PG/ML (5-100); Troponin I 0.043 ng/mL (0.000-0.034)
[2020-04-19 20:53] LABS: Add Urine Microscopic? YES; Appearance Urine Clear (Clear); Bilirubin Urine Negative (Negative); Blood Urine Negative (Negative); Color Urine Straw (Yellow); Glucose Urine UA Negative (Negative); Ketones Urine Negative (Negative); Leukocyte Esterase Ur Trace LEU/UL (Negative); Nitrate Urine Negative (Negative); Protein Urine Negative (Negative); RBC Urine 0-2 /hpf (0-2); Squamous Epithelial Cell Urine Occasional /hpf (Few); Urobilinogen Urine Negative mg/dL (<2.0)
[2020-04-19] MEDS: FUROSEMIDE INJ 40 MG/4 ML VIAL IV PUSH (21:25)
[2020-04-19 21:28] VITALS: BP 125/75; PULSE 82; RESP 16; O2SAT 96
[2020-04-19 22:43] VITALS: BP 129/88; PULSE 76; RESP 18; O2SAT 97
[2020-04-19 22:56] VITALS: BP 133/88; PULSE 85; RESP 18; O2SAT 98
--- NOTE | 2020-04-19 23:09 | PM.IMHP ---
H&P: HPI History of Present Illness Date/Time: 04/19/20 23:09 Chief complaint: Increased shortness of breath Narrative: This is a morbidly obese female with known chronic respiratory failure on 3 liters of home oxygen, Systolic CHF w/ EF of 10%, and COPD who presented to the hospital with a complaint of three days of increased shortness of breath. The patient has had to increase her home supplemental oxygen to maintain her oxygen sats. She also reports mild increased abdominal distension which is characteristic for when she is fluid overloaded but denies any LE swelling. She also denies any significant fevers, chills, cough, chest pain, palpitations, dysuria, hematuria, nausea, vomiting or diarrhea. Associated symptoms include body aches. She reports that overnight the past week she has not been compliant with her normal low sodium diet and that their family stayed at a [place] and [facility] and she has been eating very poorly. She reports drinking soda, eating pizza, and nichole. She realizes that this has likely contributed to her current condition. The patient was evaluated in the ER tonight and routine labs were obtained. CTA chest demonstrated patchy bilateral groundglass infiltrates. The patient was treated with IV lasix and swabbed for coronavirus. Review of Systems Review of Systems: All systems reviewed & are unremarkable except as noted in HPI and below PMFSH Past Medical History Medical History Anxiety Back pain Bronchitis CHF (congestive heart failure) Chronic respiratory failure with hypoxia and hypercapnia 1 prior intubation about 10 years ago COPD (chronic obstructive pulmonary disease) Depression Emphysema of lung Essential hypertension History of rectal polyps Hyperlipidemia Nonischemic cardiomyopathy Present since 2006. With EF as low as 10% in June 2017. Thought to be due to viral myocarditis with subsequent AICD placement. Obesity hypoventilation syndrome Obstructive sleep apnea On BiPAP 19/06 with 3 L of oxygen bleed in at home Rectal polyp Surgical History Surgical History Biventricular cardiac pacemaker in situ Placed in 2006 History of cardiac cath With no significant coronary artery disease noted with last cardiac catheterization June 2017 demonstrating only 30-40% lesion of the left anterior descending artery. History of colonoscopy September 2017 with rectal polypectomy History of dilation and curettage November 2016 History of tubal ligation 1989 Family History Family History Mother Diabetes mellitus Acute myocardial infarction Hypertension Sibling Diabetes mellitus Acute myocardial infarction Cerebrovascular accident Hypertension Schizophrenia Father Congestive heart failure Cerebrovascular accident Hypertension Schizophrenia Social History Social History Social History: 2 of the patient's children who struggle with drug addiction. Primary care physician: Dr. Darren Barnes Code status: Full code Smoking packs per day: 1 Smoking cigarettes per day: 20.0 Years smoked: 34 Smoking pack-years: 34.00 Smoking status: Former smoker Tobacco type: cigarettes Second hand tobacco smoke exposure: Yes Smoking end date: 09/05/09 Alcohol intake: never Substance use: never Substance use type: does not use Other substance usage details: used to abuse prescription pills Last use: 2014 Additional living arrangements comments: She lives with her daughter and son-in-law all and their children. Additional occupation/education comments: She is on disability due to her chronic respiratory failure and nonischemic cardiomyopathy. Gender identity (if verbalized by the patient): Female Spiritual care concerns: No Agree to blood product
--- NOTE | 2020-04-19 23:17 | PC.NURSE ---
charge nurse rn is going to attempt new IV on pt.
[2020-04-19] MEDS: MORPHINE SULFATE 4 MG/ML INJ IV PUSH (23:52)
[2020-04-20] VITALS (22 sets, daily range): BP systolic 98–145; BP diastolic 51–83; PULSE 65–88; RESP 14–94; TEMP 34.7–36.8; O2SAT 93–98; BMI 41.8
--- NOTE | 2020-04-20 | ADMGEN ---
This patient, Olivia Burdick, was admitted to Intensive Care Unit-5. Patient/family oriented to hospital policies and general routines including ID bracelet, bed and alarms, visiting hours, pain management, procedures, bathroom and other care routines, personal items, smoking policy, room service/diet, and visiting hours. Valuables list has been completed. Information on how to activate the Rapid Response Team has been discussed. Patient/Family are encouraged to report perceived risks to care and to ask questions if they do not understand what they are told or what they should do.
[2020-04-20 01:00] LABS: Troponin I 0.049 ng/mL (0.000-0.034)
[2020-04-20] MEDS: IPRATROPIUM BR 0.02% INH SOLN 0.5 MG/2.5 ML VIAL INHALATION ×2 (01:38→08:43)
[2020-04-20] MEDS: ALBUTEROL SULFATE NEB 2.5 MG/0.5 ML INH 5 MG INHALATION ×2 (01:39→08:43)
[2020-04-20] MEDS: diazePAM 5 MG TABLET PO ×2 (02:26→20:49)
[2020-04-20] MEDS: ACETAMINOPHEN 325 MG TABLET 650 MG PO ×2 (02:26→18:18)
[2020-04-20 03:14] LABS: Troponin I 0.045 ng/mL (0.000-0.034)
[2020-04-20 03:38] LABS: Anion Gap 8.99999 mmol/L (8-16); Blood Urea Nitrogen 16 mg/dL (7-17); Calcium 8.5 mg/dL (8.4-10.2); Carbon Dioxide > 40 mmol/L (22-30); Chloride 86 mmol/L (98-107); Estimated CRCL calculation 94 ml/min; Estimated Glomerular Filt Rate > 60; Glucose 142 mg/dL (65-105); Potassium 4.2 mmol/L (3.4-5.0); Sodium 135 mmol/L (137-145)
[2020-04-20 05:18] LABS: Alveolar/Arterial O2 Gradient 105.4 mmHg; Base Excess ABG 14.4 mEq/l (+/-2.0); Fractional Inspired Oxygen 35 %; HCO3 ABG 42.9 mEq/l (22.0-26.0); Oxygen Saturation ABG 90.2 % (95.0-100.0); Oxyhemoglobin 91.4 % THb (90.0-100.0); PO2 ABG 60.9 mmHg (80.0-100.0); PO2 FiO2 Ratio Arterial Blood 1.74 %; pH ABG 7.395 (7.350-7.450)
[2020-04-20 05:20] LABS: Device NON-INVASIVE VENT; Modified Allen's Test Pass; Non-Invasive Expiratory Pressure 6 CMH2O; Non-Invasive Inspiratory Pressure 12 CMH2O; Non-Invasive Vent Rate 4 /MIN; PCO2 ABG 71.6 mmHg (35.0-45.0); Site Drawn LEFT RADIAL
[2020-04-20] MEDS: SPIRONOLACTONE 25 MG TABLET PO (08:23)
[2020-04-20] MEDS: traMADol HCL 50 MG TABLET PO ×3 (08:24→21:52)
[2020-04-20] MEDS: CITALOPRAM HYDROBROMIDE 20 MG TABLET 40 MG PO (08:24)
[2020-04-20] MEDS: busPIRone HCL 5 MG TABLET 15 MG PO ×3 (08:24→16:15)
[2020-04-20] MEDS: carvediloL 25 MG TABLET PO ×2 (08:24→16:15)
[2020-04-20] MEDS: FUROSEMIDE INJ 40 MG/4 ML VIAL IV PUSH (08:24)
--- NOTE | 2020-04-20 12:48 | PC.NURSE ---
This patient, Olivia Burdick, was transferred to [facility] on 04/20/20 at 1240. Personal belongings sent with patient. Belongings list checked. Report given to Gloria BEJARANO. Appropriate documentation sent with patient.
--- NOTE | 2020-04-20 13:00 | PC.NURSE ---
This patient, Olivia Burdick, was received from [ICU] on 04/20/20 at 1242. Personal belongings list checked and signed. Patient/family oriented to unit policies and routines
--- NOTE | 2020-04-20 15:03 | PCRCNOTE ---
Patient is a PUI. She cannot receive a nebulizer treatment while in med/surg. Dr. Gauthier has been notified.
[2020-04-20] MEDS: ALBUTEROL SULFATE (*SP) AEROSOL 1 PUFF 2 PUFF INHALATION ×2 (16:20→20:48)
--- NOTE | 2020-04-20 17:27 | PM.IMPN ---
Progress Note: A&P Assessment and Plan (1) Acute on chronic respiratory failure with hypoxia and hypercapnia: Code(s): J96.21 - Acute and chronic respiratory failure with hypoxia; J96.22 - Acute and chronic respiratory failure with hypercapnia Status: Acute Assessment and Plan: Appears to be secondary to CHF exacerbation. r/o possible COVID-19 infection though low probability - Continue IV antibiotics and wean when approrpiate. Continue treatment for CHF. Continue oxygen supplementation to maintain pulse ox > 92%. albuterol meter dose inhaler with Spiriva (2) CHF exacerbation: Qualifiers: Heart failure type: systolic Qualified Code(s): I50.23 - Acute on chronic systolic (congestive) heart failure Code(s): I50.9 - Heart failure, unspecified Status: Acute Assessment and Plan: Systolic heart failure w/known EF of 10% likely secondary to increased sodium diet this past week. Continue IV lasix therapy. low-sodium diet (3) Suspected 2019 novel coronavirus infection: Code(s): Z20.828 - Contact with and (suspected) exposure to other viral communicable diseases Status: Acute Assessment and Plan: COVID-19 results pending. though suspect will be negative. Dexamethasone 6 mg IV daily. (4) COPD (chronic obstructive pulmonary disease): Qualifiers: COPD type: unspecified COPD Qualified Code(s): J44.9 - Chronic obstructive pulmonary disease, unspecified Code(s): J44.9 - Chronic obstructive pulmonary disease, unspecified Status: Chronic Assessment and Plan: Continue bronchodilators. (5) Essential hypertension: Code(s): I10 - Essential (primary) hypertension Status: Chronic Assessment and Plan: Monitor blood pressure. Continue Coreg (6) Obstructive sleep apnea: Code(s): G47.33 - Obstructive sleep apnea (adult) (pediatric) Status: Chronic Assessment and Plan: Continue bipap. Subjective Date/time seen: 04/20/20 17:27 Interval history: date of visit 04/20. 51-year-old hypertensive white female with nonischemic cardiomyopathy and COPD with chronic respiratory failure admitted with increasing shortness of breath and abdominal distension. BNP was elevated and CT of the chest showed ground-glass opacities so patient was swabbed and admitted to ICU. She has had no fever or chills and does feel better after IV diuresis. Exam Narrative: Exam Narrative: Blood pressure 116/54 pulse is 66 regular sat 98% on 2 L pupils equal reactive to light sclera anicteric lungs clear CV regular rate rhythm no murmurs abdomen is soft nontender no masses extremities without edema good distal pulses neuro alert pleasant cooperative no focal deficits Objective Data Vital Signs Vital Signs: Vital Signs - 24 hr 04/19/20 18:58 04/19/20 19:05 04/19/20 19:21 Temperature 36.7 C Pulse Rate 81 83 84 Respiratory Rate 18 18 Blood Pressure 124/70 120/50 L Pulse Oximetry 100 100 04/19/20 21:28 04/19/20 22:43 04/19/20 22:56 Temperature Pulse Rate 82 76 85 Respiratory Rate 16 18 18 Blood Pressure 125/75 129/88 133/88 Pulse Oximetry 96 97 98 04/20/20 00:00 04/20/20 01:50 04/20/20 01:51 Temperature 36.1 C L Pulse Rate 79 77 77 Respiratory Rate 16 18 18 Blood Pressure 145/78 H Pulse Oximetry 97 96 04/20/20 02:00 04/20/20 04:00 04/20/20 05:14 Temperature 35.6 C L Pulse Rate 88 81 72 Respiratory Rate 18 16 Blood Pressure 139/83 Pulse Oximetry 94 97 04/20/20 06:00 04/20/20 08:00 04/20/20 08:24 Temperature 34.7 C L Pulse Rate 77 71 71 Respiratory Rate 14 Blood Pressure 132/75 Pulse Oximetry 98 04/20/20 08:44 04/20/20 08:50 04/20/20 08:51 Temperature Pulse Rate 70 68 66 Respiratory Rate 16 94 H Blood Pressure Pulse Oximetry 94 04/20/20 08:52 04/20/20 10:00 04/20/20 11:27 Temperature 36.4 C L Pulse Rate 73 72 67 Respiratory Rate 19 18 Bl
[2020-04-20] MEDS: ATORVASTATIN 40 MG TABLET PO (20:48)
[2020-04-20] MEDS: rOPINIRole HCL 0.25 MG TABLET PO (20:48)
[2020-04-21] VITALS (15 sets, daily range): BP systolic 102–127; BP diastolic 48–65; PULSE 65–89; RESP 16–20; TEMP 36.2–36.7; O2SAT 93–98
[2020-04-21] MEDS: diazePAM 5 MG TABLET PO ×2 (05:25→22:57)
[2020-04-21 08:26] LABS: Anion Gap 7.99999 mmol/L (8-16); Blood Urea Nitrogen 25 mg/dL (7-17); Calcium 8.3 mg/dL (8.4-10.2); Carbon Dioxide > 40 mmol/L (22-30); Chloride 85 mmol/L (98-107); Estimated CRCL calculation 84 ml/min; Estimated Glomerular Filt Rate > 60; Glucose 86 mg/dL (65-105); Potassium 4.8 mmol/L (3.4-5.0); Sodium 133 mmol/L (137-145)
[2020-04-21] MEDS: ACETAMINOPHEN 325 MG TABLET 650 MG PO (08:35)
[2020-04-21] MEDS: carvediloL 25 MG TABLET PO ×2 (08:36→17:18)
[2020-04-21] MEDS: CITALOPRAM HYDROBROMIDE 20 MG TABLET 40 MG PO (08:36)
[2020-04-21] MEDS: FUROSEMIDE INJ 40 MG/4 ML VIAL IV PUSH (08:36)
[2020-04-21] MEDS: busPIRone HCL 5 MG TABLET 15 MG PO ×3 (08:36→17:18)
[2020-04-21] MEDS: SPIRONOLACTONE 25 MG TABLET PO (08:37)
[2020-04-21 12:10] LABS: SARS-CoV-2 RNA PCR Negative
--- NOTE | 2020-04-21 12:56 | PM.IMPN ---
Progress Note: A&P Assessment and Plan (1) Acute on chronic respiratory failure with hypoxia and hypercapnia: Code(s): J96.21 - Acute and chronic respiratory failure with hypoxia; J96.22 - Acute and chronic respiratory failure with hypercapnia Status: Acute Assessment and Plan: Appears to be secondary to CHF exacerbation. COVID-19 negative. stop IV antibiotics with no evidence of infection. Continue IV Lasix beta-ayla and add a ZEESHAN (2) CHF exacerbation: Qualifiers: Heart failure type: systolic Qualified Code(s): I50.23 - Acute on chronic systolic (congestive) heart failure Code(s): I50.9 - Heart failure, unspecified Status: Acute Assessment and Plan: Systolic heart failure w/known EF of 10% likely secondary to increased sodium diet this past week. Continue IV lasix therapy. low-sodium diet beta-ayla and add ZEESHAN. had been on Entresto short time in the past but insurance would not pay for it. no coronary disease at cath before (3) Suspected 2019 novel coronavirus infection: Code(s): Z20.828 - Contact with and (suspected) exposure to other viral communicable diseases Status: Acute Assessment and Plan: COVID-19 results negative. (4) COPD (chronic obstructive pulmonary disease): Qualifiers: COPD type: unspecified COPD Qualified Code(s): J44.9 - Chronic obstructive pulmonary disease, unspecified Code(s): J44.9 - Chronic obstructive pulmonary disease, unspecified Status: Chronic Assessment and Plan: Continue bronchodilators. (5) Essential hypertension: Code(s): I10 - Essential (primary) hypertension Status: Chronic Assessment and Plan: Continue Coreg and add zeeshan too for chf. bp actually toward low side which is expected with poor EF (6) Obstructive sleep apnea: Code(s): G47.33 - Obstructive sleep apnea (adult) (pediatric) Status: Chronic Assessment and Plan: Continue bipap. Subjective Date/time seen: 04/21/20 12:56 Interval history: date of visit 04/21. 51-year-old hypertensive white female with nonischemic cardiomyopathy and COPD with chronic respiratory failure admitted with increasing shortness of breath and abdominal distension. BNP was elevated and CT of the chest showed ground-glass opacities so patient was swabbed and admitted . She has had no fever or chills and does feel better after IV diuresis but headache and nausea this am Exam Narrative: Exam Narrative: Blood pressure 106/50 pulse is 68 regular sat 98% on 2 L pupils equal reactive to light sclera anicteric lungs bibasilar post crackles CV regular rate rhythm no murmurs abdomen is soft nontender no masses extremities without edema good distal pulses neuro alert pleasant cooperative no focal deficits Objective Data Vital Signs Vital Signs: Vital Signs - 24 hr 04/20/20 13:35 04/20/20 16:00 04/20/20 16:15 Temperature 36.5 C Pulse Rate 67 79 75 Respiratory Rate 18 18 Blood Pressure 108/52 L Pulse Oximetry 98 93 04/20/20 16:21 04/20/20 20:00 04/20/20 20:45 Temperature 36.8 C Pulse Rate 79 77 Respiratory Rate 18 Blood Pressure 110/51 L Pulse Oximetry 93 93 04/21/20 00:00 04/21/20 04:00 04/21/20 08:00 Temperature 36.6 C 36.4 C 36.4 C L Pulse Rate 71 70 70 Respiratory Rate 18 20 20 Blood Pressure 104/65 102/49 L 127/61 Pulse Oximetry 95 96 94 04/21/20 08:36 04/21/20 08:56 04/21/20 09:00 Temperature Pulse Rate 70 70 Respiratory Rate 18 Blood Pressure Pulse Oximetry 94 93 04/21/20 12:00 Temperature 36.5 C Pulse Rate 68 Respiratory Rate 16 Blood Pressure 107/48 L Pulse Oximetry 97 Intake/Output Intake/Output: Intake & Output 04/18/20 04/19/20 04/20/20 04/21/20 23:59 23:59 23:59 23:59 Intake Total 2150 120 Output Total 900 Balance 1250 120 Meds/Results Medications: Active Medications Generic Name Dose Route Start Last
[2020-04-21] MEDS: ALBUTEROL SULFATE NEB 2.5 MG/0.5 ML INH 5 MG INHALATION ×2 (13:28→21:01)
[2020-04-21] MEDS: lisinopriL 2.5 MG TABLET PO (13:45)
[2020-04-21] MEDS: ONDANSETRON INJ 4 MG/2 ML VIAL IV PUSH (18:31)
[2020-04-21] MEDS: ATORVASTATIN 40 MG TABLET PO (20:16)
[2020-04-21] MEDS: ENOXAPARIN 40 MG/0.4 ML SYRINGE SUB-Q (20:16)
[2020-04-21] MEDS: rOPINIRole HCL 0.25 MG TABLET PO (20:16)
[2020-04-22] VITALS (13 sets, daily range): BP systolic 104–114; BP diastolic 47–59; PULSE 68–79; RESP 13–20; TEMP 36.1–36.9; O2SAT 93–96
[2020-04-22] MEDS: ALBUTEROL SULFATE NEB 2.5 MG/0.5 ML INH 5 MG INHALATION ×4 (01:43→22:20)
[2020-04-22] MEDS: ONDANSETRON INJ 4 MG/2 ML VIAL IV PUSH ×2 (02:53→20:34)
[2020-04-22] MEDS: traMADol HCL 50 MG TABLET PO ×5 (05:53→23:46)
[2020-04-22 06:51] LABS: Anion Gap 6.99999 mmol/L (8-16); Blood Urea Nitrogen 26 mg/dL (7-17); Calcium 8.1 mg/dL (8.4-10.2); Carbon Dioxide > 40 mmol/L (22-30); Chloride 87 mmol/L (98-107); Estimated CRCL calculation 77 ml/min; Estimated Glomerular Filt Rate > 60; Glucose 76 mg/dL (65-105); Potassium 4.7 mmol/L (3.4-5.0); Sodium 134 mmol/L (137-145)
[2020-04-22] MEDS: ACETAMINOPHEN 325 MG TABLET 650 MG PO ×2 (10:00→11:00)
[2020-04-22] MEDS: CITALOPRAM HYDROBROMIDE 20 MG TABLET 40 MG PO (10:01)
[2020-04-22] MEDS: SPIRONOLACTONE 25 MG TABLET PO (10:02)
[2020-04-22] MEDS: lisinopriL 2.5 MG TABLET PO (10:02)
[2020-04-22] MEDS: busPIRone HCL 5 MG TABLET 15 MG PO (10:03)
[2020-04-22] MEDS: diazePAM 5 MG TABLET PO ×2 (11:13→22:48)
--- NOTE | 2020-04-22 11:44 | PM.IMPN ---
Progress Note: A&P Assessment and Plan (1) Acute on chronic respiratory failure with hypoxia and hypercapnia: Code(s): J96.21 - Acute and chronic respiratory failure with hypoxia; J96.22 - Acute and chronic respiratory failure with hypercapnia Status: Acute Assessment and Plan: Appears to be secondary to CHF exacerbation. COVID-19 negative. IV antibiotics stopped with no evidence of infection. Continue IV Lasix beta-ayla and ZEESHAN. Monitor BP closely. (2) CHF exacerbation: Qualifiers: Heart failure type: systolic Qualified Code(s): I50.23 - Acute on chronic systolic (congestive) heart failure Code(s): I50.9 - Heart failure, unspecified Status: Acute Assessment and Plan: Systolic heart failure w/known EF of 10% likely secondary to increased sodium diet this past week. Continue IV lasix therapy. Continue low-sodium diet; continue beta-ayla and add ZEESHAN. had been on Entresto short time in the past but insurance would not pay for it. no coronary disease at cath before. Repeat CXR in the morning. Watch BP (3) Suspected 2019 novel coronavirus infection: Code(s): Z20.828 - Contact with and (suspected) exposure to other viral communicable diseases Status: Acute Assessment and Plan: COVID-19 results negative. (4) COPD (chronic obstructive pulmonary disease): Qualifiers: COPD type: unspecified COPD Qualified Code(s): J44.9 - Chronic obstructive pulmonary disease, unspecified Code(s): J44.9 - Chronic obstructive pulmonary disease, unspecified Status: Chronic Assessment and Plan: Stable. Continue bronchodilators. (5) Essential hypertension: Code(s): I10 - Essential (primary) hypertension Status: Chronic Assessment and Plan: Patient's blood pressure was reviewed on 04/22/20 Blood pressure remains well controlled. Will continue current medications with Coreg, lisinopril bp actually toward low side which is expected with poor EF (6) Obstructive sleep apnea: Code(s): G47.33 - Obstructive sleep apnea (adult) (pediatric) Status: Chronic Assessment and Plan: stable.Continue bipap. Subjective Date/time seen: 04/22/20 11:44 Interval history: date of visit 04/22. 59-year-old hypertensive white female with nonischemic cardiomyopathy and COPD with chronic respiratory failure admitted with increasing shortness of breath and abdominal distension. BNP was elevated and CT of the chest showed ground-glass opacities. COVID negative. slept well last night. She did tolerate the mask last night. She wears this nightly at home. She did have a headache and nausea yesterday but better today. She believes the headache was related to being off the mask the night before due to COVID testing. She has been up walking to the bathroom with only minimal dyspnea on exertion. She is on home O2 2 L nasal cannula chronically. She denies any chest pain or palpitations. Shortness of breath is better. She feels that her abdominal bloating has improved. She never has pedal edema she states. Exam Narrative: Exam Narrative: AF 106/50 68 16 96% 2L Gen - NARD Lying semi recumbent in bed Chest - bibasilar inspiratory rhonchi. Normal respiratory rate. CV - RRR S1/S2. 2/6 systolic murmur heard loudest left lower sternal border Abd - soft. Obese. Nontender. Positive bowel sounds Ext - No pedal edema Psych - Nml mood and affect Skin - Warm and dry Objective Data Vital Signs Vital Signs: Vital Signs - 24 hr 04/21/20 12:00 04/21/20 13:31 04/21/20 13:38 Temperature 97.7 F Pulse Rate 68 67 89 Respiratory Rate 16 18 20 Blood Pressure 107/48 L Pulse Oximetry 97 04/21/20 14:00 04/21/20 17:18 04/21/20 21:06 Temperature 98.0 F Pulse Rate 65 78 70 Respiratory Rate 16 18 Blood Pressure 115/53 L Pulse Oximetry 98 04/21/20 21:07 04/21/20 21:20 04/21/20
[2020-04-22] MEDS: ATORVASTATIN 40 MG TABLET PO (20:35)
[2020-04-22] MEDS: ENOXAPARIN 40 MG/0.4 ML SYRINGE SUB-Q (20:35)
[2020-04-22] MEDS: rOPINIRole HCL 0.25 MG TABLET PO (20:36)
--- NOTE | 2020-04-23 02:43 | PC.NURSE ---
Tanesha Garza RN came onto shift at 1900 04/22/20 and noticed that medications from 0900 and 1700 on 04/22/20 were still in red and not scanned as given in the MAR. Dinora Webb RN was the day shift nurse. Patient stated that she received her medication at both 0900 and 1700. Medications were marked as non-administered by Tanesha Garza RN.
[2020-04-23 03:02] VITALS: PULSE 68; RESP 13; O2SAT 94
[2020-04-23] MEDS: ALBUTEROL SULFATE NEB 2.5 MG/0.5 ML INH 5 MG INHALATION ×2 (03:05→09:08)
[2020-04-23 03:06] VITALS: PULSE 68; RESP 13
[2020-04-23 03:10] VITALS: PULSE 67; RESP 15
[2020-04-23] MEDS: traMADol HCL 50 MG TABLET PO (05:38)
[2020-04-23 06:00] VITALS: BP 115/54; PULSE 76; RESP 20; TEMP 36.3; O2SAT 98
[2020-04-23 06:32] LABS: Anion Gap 6.99999 mmol/L (8-16); Blood Urea Nitrogen 18 mg/dL (7-17); Calcium 8.9 mg/dL (8.4-10.2); Carbon Dioxide > 40 mmol/L (22-30); Chloride 89 mmol/L (98-107); Estimated CRCL calculation 87 ml/min; Estimated Glomerular Filt Rate > 60; Glucose 82 mg/dL (65-105); Magnesium 2.6 mg/dL (1.6-2.3); Potassium 4.8 mmol/L (3.4-5.0); Sodium 136 mmol/L (137-145)
[2020-04-23 09:20] VITALS: PULSE 68; RESP 20; O2SAT 93
[2020-04-23] MEDS: busPIRone HCL 5 MG TABLET 15 MG PO ×4 (09:40→16:37)
[2020-04-23 09:41] VITALS: PULSE 80
[2020-04-23] MEDS: carvediloL 25 MG TABLET PO ×3 (09:41→16:38)
[2020-04-23] MEDS: SPIRONOLACTONE 25 MG TABLET PO (09:42)
[2020-04-23] MEDS: lisinopriL 2.5 MG TABLET PO (09:42)
[2020-04-23] MEDS: CITALOPRAM HYDROBROMIDE 20 MG TABLET 40 MG PO (09:42)
[2020-04-23] MEDS: FUROSEMIDE INJ 40 MG/4 ML VIAL IV PUSH ×2 (09:43→15:50)
[2020-04-23] MEDS: ONDANSETRON INJ 4 MG/2 ML VIAL IV PUSH ×2 (09:49→16:36)
--- NOTE | 2020-04-23 14:58 | PM.DS ---
DS: Admitting Diagnosis Admitting Diagnosis Admitting Diagnosis: Increased shortness of breath DS: Discharge Diagnosis Discharge Diagnosis (1) Acute on chronic respiratory failure with hypoxia and hypercapnia: Code(s): J96.21 - Acute and chronic respiratory failure with hypoxia; J96.22 - Acute and chronic respiratory failure with hypercapnia Status: Acute Assessment and Plan: ABG showing 7.32/86/131 on 3L. Secondary to CHF exacerbation and possibly uncontrolled (noncomplinat?) ZAHEER. COVID-19 negative. IV antibiotics stopped with no evidence of infection. Treated with IV Lasix. Repeat ABG better. Clinically improved. Still has chronic hypercapnea and hypoxia. Able to wean her down to her home levels of 2L NC while awake. (2) CHF exacerbation: Qualifiers: Heart failure type: systolic Qualified Code(s): I50.23 - Acute on chronic systolic (congestive) heart failure Code(s): I50.9 - Heart failure, unspecified Status: Acute Assessment and Plan: Acute on chronic systolic heart failure w/known EF of 10% likely secondary to increased sodium diet this past week. She had gained 12# prior to admission. Treated with IV lasix therapy. Continue low-sodium diet; continue beta-ayla and added ZEESHAN. She had been on Entresto short time in the past but insurance would not pay for it. No coronary disease at cath before. Repeat CXR today showing atelectasis. (3) Suspected 2019 novel coronavirus infection: Code(s): Z20.828 - Contact with and (suspected) exposure to other viral communicable diseases Status: Acute Assessment and Plan: COVID-19 results negative. (4) COPD (chronic obstructive pulmonary disease): Qualifiers: COPD type: unspecified COPD Qualified Code(s): J44.9 - Chronic obstructive pulmonary disease, unspecified Code(s): J44.9 - Chronic obstructive pulmonary disease, unspecified Status: Chronic Assessment and Plan: Stable. Continue bronchodilators. (5) Essential hypertension: Code(s): I10 - Essential (primary) hypertension Status: Chronic Assessment and Plan: Patient's blood pressure was reviewed closely Blood pressure remained well controlled. We continued current medications with Coreg, lisinopril (6) Obstructive sleep apnea: Code(s): G47.33 - Obstructive sleep apnea (adult) (pediatric) Status: Chronic Assessment and Plan: stable.Continue bipap. DS: Summary Hospital Course Reason for hospitalization: 59yo female here for CHF exacerbation. Please see H&P for details Hospital Course: As above Time Spent with Patient Time attestation: Total time spent providing and/or coordinating discharge services:32 minutes Time spent: Greater than 30 minutes Exam Narrative: Exam Narrative: Slept well. no CP. SOB better. Up walking in the room AF 115/54 80 20 93% 2L Gen - NARD lying semi recumbent in bed Chest - few scattered basilar rhonchi o/w clear. Normal respiratory rate. CV - RRR S1/S2 Abd - soft. Obese. Nontender. Positive bowel sounds Ext - No pedal edema Psych - Nml mood and affect Skin - Warm and dry DS: Data Data Completed and Pending Labs on day of discharge: Labs from last 24 hours 04/23/20 05:53 Sodium 136 L Potassium 4.8 Chloride 89 L Carbon Dioxide > 40 H Anion Gap 6.36102 L BUN 18 H Creatinine 0.70 Estim Creat Clear Calc 87 Estimated GFR > 60 Glucose 82 Calcium 8.9 Magnesium 2.6 H Discharge Plan Discharge Attending physician on discharge: Nolberto Roa Discharging Clinician: Nolberto Roa Anticipated Discharge Date/Time: 04/23/20 15:11 Patient Disposition: Home, Self-Care Activity: as tolerated Diet: heart healthy Discharge Instructions: Please avoid large gathering, wear face coverings in public and practice social distance. Take precautions to avoid falls. Renialdo
== END 2020-04-23 17:24 | disposition home or self-care (01) | DRG 291 ==
LOC: ANHED 22:53 → ANHICU 23:01 → ANH3MEDSUR 04-20 16:44 → ANHICU 04-24 13:17
PROVIDERS: Internal Medicine; Admitting Provider Family Medicine; Emergency Provider Emergency Medicine; PCP Family Medicine; Visit Provider Internal Medicine
DX: I11.0 Hypertensive heart disease with heart failure (principal); J96.21 Acute and chronic respiratory failure with hypoxia; J96.22 Acute and chronic respiratory failure with hypercapnia; E66.2 Morbid (severe) obesity with alveolar hypoventilation; Z68.41 Body mass index [BMI] 40.0-44.9, adult; I50.23 Acute on chronic systolic (congestive) heart failure; I42.8 Other cardiomyopathies; Z99.81 Dependence on supplemental oxygen; Z20.828 Contact with and (suspected) exposure to other viral communicable diseases; J43.9 Emphysema, unspecified; E78.5 Hyperlipidemia, unspecified; F41.9 Anxiety disorder, unspecified; Z79.899 Other long term (current) drug therapy
CPT/HCPCS: 36415; 36600; 71045; 71046; 71275; 80048; 80053; 81001; 82805; 83690; 83735; 83880; 84484; 85025; 85610; 85730; 87086; 87088; 87635; 93005; 94002; 94003; 94640; 96365; 96366; 96368; 96375; 96376; 99291; A9270; C9803; G0378; J0456; J0696; J1650; J1940; J2060; J2270; J2405; J2930; J3475; Q9967; U0003

== ENCOUNTER 2020-05-17 02:36 | Observation (INO) | payer MEDICARE, MEDICAID, SELFPAY ==
[2020-05-17] VITALS (24 sets, daily range): BP systolic 100–178; BP diastolic 57–95; PULSE 62–107; RESP 16–20; TEMP 35.7–36.6; O2SAT 94–100; BMI 42.7; BMI 42.6
--- NOTE | ~2020-05-17 | XR_ITS ---
XR chest 1V portable 05/17/2020 03:18 Indication: Shortness of breath. COPD. Procedure: AP portable chest Comparison: Comparison to multiple prior studies sequentially, with oldest reviewed study dated 07/07. Findings: Cardiomegaly. Mild interstitial edema. This may relate are stable. Retrocardiac airspace di sease may represent atelectasis or pneumonia. Possible small left effusion. Impression: 1: Cardiomegaly with interstitial edema. 2: Retrocardiac consolidation, atelectasis versus pneumonia. Reviewed, dictated and finalized at location A. Impression: 1: Cardiomegaly with interstitial edema. 2: Retrocardiac consolidation, atelectasis versus pneumonia.
[2020-05-17 02:54] LABS: Basophils Percent Auto 0.6 % (0.2-1.2); Eosinophils Absolute Auto 0.1 K/mm3 (0-0.3); Eosinophils Percent Auto 0.7 % (0-4.4); Hematocrit 44.7 % (37.0-47.0); Hemoglobin 12.6 g/dL (12.0-15.0); Immature Granulocyte Absolute 0.03 K/mm3 (0.00-0.031); Immature Granulocyte Percent A 0.4 % (0-0.5); Lymphocytes Absolute Auto 1.07 K/mm3 (0.9-3.2); Lymphocytes Percent Auto 15.4 % (18.3-44.2); Mean Corpuscular HGB Conc 28.2 g/dl (32-36); Mean Corpuscular Hemoglobin 29.4 pg (26-34); Mean Corpuscular Volume 104.2 fl (80-100); Mean Platelet Volume 9.8 fl (7.4-10.4); Monocytes Absolute Auto 0.7 K/mm3 (0.1-0.6); Monocytes Percent Auto 10.2 % (2.6-8.5); Neutrophils Absolute Auto 5.1 K/mm3 (1.3-6.7); Neutrophils Percent Auto 72.7 % (45.5-73.1); Platelet Count Result 152 k/mm3 (150-375); Red Blood Count 4.29 M/mm3 (4.2-5.4); Red Cell Distribution Width 12.6 % (11.5-14.5)
[2020-05-17 03:10] LABS: Alanine Aminotransferase 11 U/L (4-35); Albumin Level 3.9 g/dL (3.5-5.1); Alkaline Phosphatase 56 U/L (38-126); Anion Gap 10.99999 mmol/L (8-16); Aspartate Amino Transferase 26 U/L (14-36); Bilirubin,Total 0.5 mg/dL (0.2-1.3); Blood Urea Nitrogen 20 mg/dL (7-17); Calcium 8.4 mg/dL (8.4-10.2); Carbon Dioxide > 40 mmol/L (22-30); Chloride 88 mmol/L (98-107); Estimated CRCL calculation 114 ml/min; Estimated Glomerular Filt Rate > 60; Glucose 115 mg/dL (65-105); Potassium 4.6 mmol/L (3.4-5.0); Sodium 139 mmol/L (137-145)
--- NOTE | 2020-05-17 03:35 | ED.SOB ---
HPI - SOB/Dyspnea General Chief Complaint: Shortness of Breath/Dyspnea Stated Complaint: sob History of Present Illness HPI Narrative: 59 yo female w/ CHF, COPD, CAD presents for SOB. She was hospitalized here about a month ago for a CHF exacerbation. She reports that ever since that time she has continued to be SOB. She says that she is barely able to get around the house due to her symtpoms. Is on 2 liters O2 all the time. Related Data Home Medications Medication Instructions Recorded Confirmed albuterol sulfate [Ventolin HFA] 2 puff INHALATION PRN PRN 07/29/19 05/17/20 atorvastatin 40 mg PO HS 07/29/19 05/17/20 buspirone 15 mg PO TID 07/29/19 05/17/20 carvedilol 25 mg PO BID 07/29/19 05/17/20 citalopram 40 mg PO DAILY 07/29/19 05/17/20 diazepam 5 mg PO Q8-10H PRN 07/29/19 05/17/20 ropinirole 0.25 mg PO HS 07/29/19 05/17/20 spironolactone 25 mg PO DAILY 07/29/19 05/17/20 tramadol 50 mg PO Q6-8H PRN 07/29/19 05/17/20 Stiolto Respimat 2 puff INHALATION DAILY 12/07/19 05/17/20 furosemide 20 mg PO DAILY 04/20/20 05/17/20 Allergies Allergy/AdvReac Type Severity Reaction Status Date / Time No Known Allergies Allergy Verified 04/19/20 20:57 Review of Systems Review of Systems: All systems reviewed & are unremarkable except as noted in HPI and below Constitutional: Constitutional: Denies fever(s) Cardiovascular: Cardiovascular: Reports chest pain Respiratory: Respiratory: Reports cough and Reports dyspnea Gastrointestinal: Gastrointestinal: Denies abdominal pain Musculoskeletal: Musculoskeletal: Reports back pain Neurologic: Reports weakness PMFSH Past Medical History Medical History Anxiety Back pain Bronchitis CHF (congestive heart failure) Chronic respiratory failure with hypoxia and hypercapnia 1 prior intubation about 10 years ago COPD (chronic obstructive pulmonary disease) Depression Emphysema of lung Essential hypertension History of rectal polyps Hyperlipidemia Nonischemic cardiomyopathy Present since 2006. With EF as low as 10% in June 2017. Thought to be due to viral myocarditis with subsequent AICD placement. Obesity hypoventilation syndrome Obstructive sleep apnea On BiPAP 19/06 with 3 L of oxygen bleed in at home Rectal polyp Surgical History Surgical History Biventricular cardiac pacemaker in situ Placed in 2006 History of cardiac cath With no significant coronary artery disease noted with last cardiac catheterization June 2017 demonstrating only 30-40% lesion of the left anterior descending artery. History of colonoscopy September 2017 with rectal polypectomy History of dilation and curettage November 2016 History of tubal ligation 1989 Family History Family History Mother Diabetes mellitus Acute myocardial infarction Hypertension Sibling Diabetes mellitus Acute myocardial infarction Cerebrovascular accident Hypertension Schizophrenia Father Congestive heart failure Cerebrovascular accident Hypertension Schizophrenia Social History Social History Social History: 2 of the patient's children who struggle with drug addiction. Primary care physician: Dr. Darren Barnes Code status: Full code Smoking packs per day: 1 Smoking cigarettes per day: 20.0 Years smoked: 40 Smoking pack-years: 40.00 Smoking status: Heavy tobacco smoker Tobacco type: cigarettes Second hand tobacco smoke exposure: No Smoking end date: 09/05/09 Alcohol intake: never Substance use: never Substance use type: does not use Other substance usage details: used to abuse prescription pills Last use: 2014 Additional living arrangements comments: She lives with her daughter and son-in-law all and their children. Additional
[2020-05-17 04:37] LABS: Partial Thromboplastin Time 29.2 SECONDS (22.3-36.8); Prothrombin Time 12.5 Seconds (11.1-14.7)
[2020-05-17 04:39] LABS: NT Pro B Type Natriuretic Pept 963 PG/ML (5-100); Troponin I 0.052 ng/mL (0.000-0.034)
--- NOTE | 2020-05-17 06:08 | PC.NURSE ---
This patient, Olivia Burdick, was admitted to IMU Room 210-01. Patient/family oriented to hospital policies and general routines including ID bracelet, bed and alarms, visiting hours, pain management, procedures, bathroom and other care routines, personal items, smoking policy, room service/diet, and visiting hours. Valuables list has been completed. Information on how to activate the Rapid Response Team has been discussed. Patient/Family are encouraged to report perceived risks to care and to ask questions if they do not understand what they are told or what they should do.
--- NOTE | 2020-05-17 08:33 | ECG_ITS ---
Measurements Intervals [place] Rate: 86 P: 53 WY: 146 QRS: -67 QRSD: 233 T: 59 QT: 479 QTc: 575 Interpretive Statements ATRIAL SENSE- ELECTRONIC VENTRICULAR PACEMAKER NO FURTHER INTERPRETATION IS POSSIBLE ATYPICAL ECG Electronically Signed On 05-17-2020 11:44:05 CDT by Juan R Avilez D.O.
[2020-05-17 08:56] LABS: Troponin I 0.064 ng/mL (0.000-0.034)
[2020-05-17] MEDS: diazePAM 5 MG TABLET PO (09:12)
[2020-05-17] MEDS: FUROSEMIDE INJ 40 MG/4 ML VIAL IV PUSH ×2 (09:13→21:35)
[2020-05-17] MEDS: IPRATROPIUM BR 0.02% INH SOLN 0.5 MG/2.5 ML VIAL INHALATION ×3 (09:41→21:57)
[2020-05-17] MEDS: ALBUTEROL SULFATE NEB 2.5 MG/0.5 ML INH 5 MG INHALATION ×3 (09:41→21:57)
[2020-05-17 11:43] LABS: Troponin I 0.053 ng/mL (0.000-0.034)
[2020-05-17] MEDS: busPIRone HCL 5 MG TABLET 15 MG PO ×2 (12:37→17:43)
--- NOTE | 2020-05-17 13:04 | PM.IMHP ---
H&P: HPI History of Present Illness Date/Time: 05/17/20 13:04 Chief complaint: CHF exacerbation Narrative: Olivia Burdick is a 59 year old female with history of chronic hypoxemic/hypercarbic respiratory failure due to COPD, CHF with systolic dysfunction EF 10%, ZAHEER, obesity that presented to the hospital with gradual onset of progressive dyspnea with orthopnea and chest pain. The chest pain is not associated with physical activity and has no specific radiation. She also denies cough, fever, chills, no urinary of GI symptoms. Denies syncope or presyncope. She reports some improvement on her symptoms after she received furosemide. She states that she might have been drinking more fluids than usual and probably not watching her salt intake. Review of Systems Review of Systems: All systems reviewed & are unremarkable except as noted in HPI and below PMFSH Past Medical History Medical History Anxiety Back pain Bronchitis CHF (congestive heart failure) Chronic respiratory failure with hypoxia and hypercapnia 1 prior intubation about 10 years ago COPD (chronic obstructive pulmonary disease) Depression Emphysema of lung Essential hypertension History of rectal polyps Hyperlipidemia Nonischemic cardiomyopathy Present since 2006. With EF as low as 10% in June 2017. Thought to be due to viral myocarditis with subsequent AICD placement. Obesity hypoventilation syndrome Obstructive sleep apnea On BiPAP 15/10 with 3 L of oxygen bleed in at home Rectal polyp Surgical History Surgical History Biventricular cardiac pacemaker in situ Placed in 2006 History of cardiac cath With no significant coronary artery disease noted with last cardiac catheterization June 2017 demonstrating only 30-40% lesion of the left anterior descending artery. History of colonoscopy September 2017 with rectal polypectomy History of dilation and curettage November 2016 History of tubal ligation 1989 Family History Family History Mother Diabetes mellitus Acute myocardial infarction Hypertension Sibling Diabetes mellitus Acute myocardial infarction Cerebrovascular accident Hypertension Schizophrenia Father Congestive heart failure Cerebrovascular accident Hypertension Schizophrenia Social History Social History Social History: 2 of the patient's children who struggle with drug addiction. Primary care physician: Dr. Darren Schoenherr Code status: Full code Smoking packs per day: 1 Smoking cigarettes per day: 20.0 Years smoked: 40 Smoking pack-years: 40.00 Smoking status: Heavy tobacco smoker Tobacco type: cigarettes Second hand tobacco smoke exposure: No Smoking end date: 09/05/09 Alcohol intake: never Substance use: never Substance use type: does not use Other substance usage details: used to abuse prescription pills Last use: 2014 Additional living arrangements comments: She lives with her daughter and son-in-law all and their children. Additional occupation/education comments: She is on disability due to her chronic respiratory failure and nonischemic cardiomyopathy. Gender identity (if verbalized by the patient): Female Spiritual care concerns: No Agree to blood products: Yes Meds Home Medications and Allergies Home Medications Medication Instructions Recorded Confirmed Type albuterol sulfate [Ventolin HFA] 2 puff INHALATION PRN PRN 07/29/19 05/17/20 History atorvastatin 40 mg PO HS 07/29/19 05/17/20 History buspirone 15 mg PO TID 07/29/19 05/17/20 History carvedilol 25 mg PO BID 07/29/19 05/17/20 History citalopram 40 mg PO DAILY 07/29/19 05/17/20 History diazepam 5 mg PO Q8-10H PRN 07/29/19 05/17/20 History ropinirole 0.25 m
--- NOTE | 2020-05-17 14:14 | PM.CNCAR ---
Assessment and Plan Additional Plan 59-year-old patient with a well characterize nonischemic cardiomyopathy presenting with some shortness of breath and very mild pulmonary vascular congestion on x-ray. There is an error in her medication as I mentioned above which I will correct in the orders. She is taking Entresto , not lisinopril. I did have a long talk with the patient about noncompliance with follow-up. She has missed at least 6-7 consecutive appointments with my partner was supposed to follow her in the office and obviously this is unacceptable and we are not capable of providing reasonable care to this patient if she does not come in for appointments. She understands this and indicates that she will make a new effort to try to be compliant. On the positive side she did lose a considerable amount of weight which will help her health many ways including her cardiomyopathy. We will follow her with you while she is in the hospital for now she is also receiving some IV furosemide which I think is appropriate for at least 24-48 hours. Patrick Mccabe MD [facility] History of Present Illness History of Present Illness Consult date/time: 05/17/20 14:14 Consult reason: shortness of breath Reason For Visit: CHF exacerbation Narrative: this is a 59-year-old woman I am seeing at the request of the hospitalist for evaluation and management of her cardiomyopathy. The patient has a known history of a documented nonischemic cardiomyopathy since 2006. Entered the hospital yesterday with increasing problems with shortness of breath for a number of days and came into the emergency room where her chest x-ray demonstrated some mild pulmonary interstitial congestion she was admitted for evaluation and management of a decompensation in her heart failure. She is not reporting any accumulating lower extremity edema she has some mild positional dyspnea as well. The patient was previously seen initially by another cardiology group who evaluated her with cardiac catheterization at the time of diagnosis and at least once since then and has been known to have normal coronary arteries. The patient had a very low ejection fraction of 10% at the time of her initial diagnosis which subsequently improved to 30 to 40% with medical treatment. The patient several years ago requested to transition her care from her previous cardiology is to our practice. I was consulted to see her today for assistance with her case. I went to the office to review her records to find that she has not been seen by Dr. Soliman for over 2 years because she has failed at least 6 or 7 appointments in that period of time. For that reason she also has not had her ICD checked for a long time. She was seen in this hospital by Dr. Correa in December of this year for some shortness of breath and he recommended transitioning her from lisinopril to Entresto. The patient states that she is taking the Entresto at the dosage and that her primary care physician with whom she is following is providing refills for this and samples. The medication list provided here at [place] is not correct it still lists lisinopril as her vaso dilator. Patient states that she is regret full and remorseful for not making so many appointments with Dr. Soliman and would like to reestablish follow-up with him. She appears to be quite comfortable upon entering the room to see her in does not appear to be in any distress of any kind. Even though she is known not to have coronary artery disease troponin levels were sampled they are minimally elevated but as expected not indicative of an acute coronary syndrome. Review of Systems Constitutional: Constitutional: Reports no additional constitutional complaints Eyes: Eyes: Reports no additional eye complaints ENT: Reports system reviewed and no additional complaints, except as documented Cardiovascular: Cardiovascular: Reports as per HPI Respiratory: Respiratory: Reports dyspne
[2020-05-17] MEDS: ENOXAPARIN 40 MG/0.4 ML SYRINGE SUB-Q (15:19)
[2020-05-17] MEDS: carvediloL 25 MG TABLET PO (17:43)
[2020-05-17] MEDS: ATORVASTATIN 40 MG TABLET PO (21:35)
[2020-05-17] MEDS: SACUBITRIL/VALSARTAN 24-26 MG TABLET 1 TAB PO (21:35)
[2020-05-17] MEDS: rOPINIRole HCL 0.25 MG TABLET PO (21:35)
[2020-05-18] VITALS (27 sets, daily range): BP systolic 85–134; BP diastolic 41–81; PULSE 63–91; RESP 16–20; TEMP 35.7–36.1; O2SAT 93–99
[2020-05-18] MEDS: diazePAM 5 MG TABLET PO ×2 (00:13→09:16)
[2020-05-18] MEDS: IPRATROPIUM BR 0.02% INH SOLN 0.5 MG/2.5 ML VIAL INHALATION ×4 (03:04→20:05)
[2020-05-18] MEDS: ALBUTEROL SULFATE NEB 2.5 MG/0.5 ML INH 5 MG INHALATION ×4 (03:04→20:05)
[2020-05-18 04:53] LABS: Basophils Percent Auto 0.6 % (0.2-1.2); Eosinophils Absolute Auto 0.1 K/mm3 (0-0.3); Eosinophils Percent Auto 0.9 % (0-4.4); Hematocrit 44.1 % (37.0-47.0); Hemoglobin 13.1 g/dL (12.0-15.0); Immature Granulocyte Absolute 0.02 K/mm3 (0.00-0.031); Immature Granulocyte Percent A 0.3 % (0-0.5); Lymphocytes Absolute Auto 1.55 K/mm3 (0.9-3.2); Lymphocytes Percent Auto 23.8 % (18.3-44.2); Mean Corpuscular HGB Conc 29.7 g/dl (32-36); Mean Corpuscular Hemoglobin 29.8 pg (26-34); Mean Corpuscular Volume 100.2 fl (80-100); Mean Platelet Volume 9.9 fl (7.4-10.4); Monocytes Absolute Auto 0.7 K/mm3 (0.1-0.6); Monocytes Percent Auto 11.1 % (2.6-8.5); Neutrophils Absolute Auto 4.1 K/mm3 (1.3-6.7); Neutrophils Percent Auto 63.3 % (45.5-73.1); Platelet Count Result 163 k/mm3 (150-375); Red Cell Distribution Width 12.8 % (11.5-14.5); White Blood Count 6.5 K/mm3 (4.5-10.0)
[2020-05-18 08:23] LABS: Anion Gap 9.99999 mmol/L (8-16); Blood Urea Nitrogen 22 mg/dL (7-17); Calcium 8.4 mg/dL (8.4-10.2); Carbon Dioxide > 40 mmol/L (22-30); Chloride 85 mmol/L (98-107); Estimated CRCL calculation 95 ml/min; Estimated Glomerular Filt Rate > 60; Glucose 99 mg/dL (65-105); Potassium 3.7 mmol/L (3.4-5.0); Sodium 135 mmol/L (137-145)
[2020-05-18] MEDS: busPIRone HCL 5 MG TABLET 15 MG PO ×2 (09:10→13:01)
[2020-05-18] MEDS: carvediloL 25 MG TABLET PO (09:10)
[2020-05-18] MEDS: SACUBITRIL/VALSARTAN 24-26 MG TABLET 1 TAB PO ×2 (09:10→21:38)
[2020-05-18] MEDS: ENOXAPARIN 40 MG/0.4 ML SYRINGE SUB-Q (09:11)
[2020-05-18] MEDS: SPIRONOLACTONE 25 MG TABLET PO (09:11)
[2020-05-18] MEDS: FUROSEMIDE INJ 40 MG/4 ML VIAL IV PUSH (09:11)
--- NOTE | 2020-05-18 10:44 | PM.PNCARD ---
Progress Note: A&P Additional Plan 59-year-old female with significant dilated nonischemic cardiomyopathy. Short of breath on admission with very modest CHF decompensation. She seems to be euvolemic by exam today. I am going to stop her IV furosemide and transition back to her baseline dose of oral furosemide. Patient states she is anticipating discharge tomorrow which is fine with me. We will arrange for reconnecting with follow-up with Dr. Soliman as well as with our pacemaker[facility]ibrill[facility] in the office. She does follow up regularly with her PCP but I did stress the today and previously that follow-up in our office is also important Patrick Mccabe MD [facility] Subjective Date/time seen: Date of service: 05/18/20 10:44 Interval history: Follow-up visit in this 59-year-old woman with nonischemic dilated cardiomyopathy. Long history of noncompliance with follow-up with our practice Patient looks and feels well today no longer short of breath. She states she for some reason is very nervous about the concept of being discharged. Not really clear as to the reason for this as her cardiomyopathy diagnosis is not new. Exam Const: General: comfortable and no acute distress HENMT: Mouth: Yes moist mucous membranes Eyes: Sclera: sclerae normal Pupils: Equal, round and reactive pupils present Neck: Neck: supple and no JVD Thyroid: thyroid normal Resp: Effort & Inspection: normal respiratory effort Auscultation: clear to auscultation bilaterally Other: Breath sounds distant but clear Cardio: Rate: regular rate Rhythm: regular rhythm Other: PMI not palpable GI: Auscultation: normal bowel sounds Skin: General skin exam: normal color Neuro: Cognition (Neuro): normal cognition Extrem: General: normal to inspection Objective Data Vital Signs Vital Signs: Vital Signs - 24 hr 05/17/20 11:58 05/17/20 12:00 05/17/20 14:00 Temperature 35.7 C L Pulse Rate 79 78 80 Respiratory Rate 16 Blood Pressure 100/78 Pulse Oximetry 98 05/17/20 14:37 05/17/20 14:45 05/17/20 16:00 Temperature 36.2 C L Pulse Rate 89 89 86 Respiratory Rate 16 16 16 Blood Pressure 121/57 L Pulse Oximetry 94 05/17/20 17:43 05/17/20 18:00 05/17/20 19:42 Temperature 36.0 C L Pulse Rate 78 84 64 Respiratory Rate 16 Blood Pressure 130/64 Pulse Oximetry 97 05/17/20 20:00 05/17/20 21:57 05/17/20 22:00 Temperature Pulse Rate 64 64 65 Respiratory Rate 18 Blood Pressure Pulse Oximetry 97 05/17/20 22:06 05/17/20 22:07 05/17/20 23:52 Temperature 36.1 C L Pulse Rate 64 62 68 Respiratory Rate 18 18 Blood Pressure 138/71 Pulse Oximetry 97 98 05/18/20 00:00 05/18/20 02:00 05/18/20 03:05 Temperature Pulse Rate 72 66 69 Respiratory Rate 18 Blood Pressure Pulse Oximetry 98 05/18/20 03:11 05/18/20 03:50 05/18/20 04:00 Temperature 36.1 C L Pulse Rate 72 73 70 Respiratory Rate 18 16 Blood Pressure 134/68 Pulse Oximetry 96 96 05/18/20 06:00 05/18/20 08:00 05/18/20 08:05 Temperature Pulse Rate 71 69 78 Respiratory Rate 18 Blood Pressure Pulse Oximetry 96 05/18/20 08:16 05/18/20 08:45 05/18/20 09:10 Temperature 35.9 C L Pulse Rate 80 75 91 Respiratory Rate 18 16 Blood Pressure 115/57 L Pulse Oximetry 97 05/18/20 10:09 Temperature Pulse Rate 85 Respiratory Rate Blood Pressure Pulse Oximetry Intake/Output Intake/Output: Intake & Output 05/15/20 05/16/20 05/17/20 05/18/20 23:59 23:59 23:59 23:59 Intake Total 1170 400 Output Total 1150 1500 Balance 20 -1100 Meds/Results Medications: Active Medications Generic Name Dose Route Start Last Admin Trade Name Freq PRN Reason Stop Dose Admin Hydrocodone Bitart/Acetaminophen 1 tab 05/17/20 08:47 05/18/20 06:50 Reeds 5-325 Mg PO 1 tab Q6H PRN Administration Pain Rated 4-6 Albuterol 5 mg 05/17/20 08:00 05/18/20 08:05 Albuterol Sulf Neb 2.
--- NOTE | 2020-05-18 13:52 | ECG_ITS ---
Measurements Intervals [place] Rate: 72 P: 39 DC: 135 QRS: 239 QRSD: 263 T: 33 QT: 557 QTc: 611 Interpretive Statements ATRIAL SENSE- ELECTRONIC VENTRICULAR PACEMAKER NO FURTHER INTERPRETATION IS POSSIBLE ATYPICAL ECG Electronically Signed On 05-18-2020 15:43:56 CDT by Juan R Avilez D.O.
--- NOTE | 2020-05-18 14:52 | PM.IMPN ---
Progress Note: A&P Assessment and Plan (1) CHF exacerbation: Qualifiers: Heart failure type: unspecified Qualified Code(s): I50.9 - Heart failure, unspecified Code(s): I50.9 - Heart failure, unspecified Status: Acute Assessment and Plan: Per previous records she has systolic dysfunction with an EF of 10%. Furosemide switched to PO today, fluid balance -740 ml. Chest x ray showed pulmonary edema. She is on carvedilol, lisinopril and aldactone. This exacerbation was triggered most likely due to non compliance with diet. Likely going home tomorrow. (2) Acute and chronic respiratory failure: Code(s): J96.20 - Acute and chronic respiratory failure, unspecified whether with hypoxia or hypercapnia Status: Acute Assessment and Plan: Her oxygen requirement is back to baseline. Most likely due to CHF exacerbation (3) Troponin level elevated: Code(s): R79.89 - Other specified abnormal findings of blood chemistry Status: Acute Assessment and Plan: Likely demand ischemia from CHF, her troponin elevation is mild. Cardiology has been consulted. (4) QT prolongation: Code(s): R94.31 - Abnormal electrocardiogram [ECG] [EKG] Status: Acute Assessment and Plan: Qtc still prolonged, avoid medications that prologue the Qt interval. Stop tramadol and citalopram for now. (5) Essential hypertension: Code(s): I10 - Essential (primary) hypertension Status: Chronic Assessment and Plan: Resume her home meidcations. (6) COPD (chronic obstructive pulmonary disease): Qualifiers: COPD type: unspecified COPD Qualified Code(s): J44.9 - Chronic obstructive pulmonary disease, unspecified Code(s): J44.9 - Chronic obstructive pulmonary disease, unspecified Status: Chronic Assessment and Plan: Currently compensated, no wheezing on exam, she is not coughing, no fever. (7) Obstructive sleep apnea: Code(s): G47.33 - Obstructive sleep apnea (adult) (pediatric) Status: Chronic Subjective Date/time seen: Doing better, getting closer to her baseline. 05/18/20 14:52 Exam Const: General: comfortable and no acute distress Eyes: Pupils: Equal, round and reactive pupils present Neck: Neck: supple and no JVD Resp: Effort & Inspection: normal respiratory effort Auscultation: rales and diminished lung sounds Other: Mild rales at the bases, no wheezing. Cardio: Rate: regular rate Rhythm: regular rhythm Other: No bradycardia or tachycardia. GI: Other: Non distended, no rebound tenderness. Neuro: Cranial nerves: Yes Equal, round and reactive pupils present Speech: normal speech Motor exam (neuro): 5/5 motor strength present throughout and Normal motor muscle tone present throughout Sensory Exam: normal sensation Extrem: General: normal to inspection Other: No edema, no peripheral cyanosis. Psych: Mental Status: mental status grossly normal Objective Data Vital Signs Vital Signs: Vital Signs - 24 hr 05/17/20 16:00 05/17/20 17:43 05/17/20 18:00 Temperature 97.1 F L Pulse Rate 86 78 84 Respiratory Rate 16 Blood Pressure 121/57 L Pulse Oximetry 94 05/17/20 19:42 05/17/20 20:00 05/17/20 21:57 Temperature 96.8 F L Pulse Rate 64 64 64 Respiratory Rate 16 18 Blood Pressure 130/64 Pulse Oximetry 97 97 05/17/20 22:00 05/17/20 22:06 05/17/20 22:07 Temperature Pulse Rate 65 64 62 Respiratory Rate 18 Blood Pressure Pulse Oximetry 97 05/17/20 23:52 05/18/20 00:00 05/18/20 02:00 Temperature 96.9 F L Pulse Rate 68 72 66 Respiratory Rate 18 Blood Pressure 138/71 Pulse Oximetry 98 98 05/18/20 03:05 05/18/20 03:11 05/18/20 03:50 Temperature 97 F L Pulse Rate 69 72 73 Respiratory Rate 18 18 16 Blood Pressure 134/68 Pulse Oximetry 96 05/18/20 04:00 05/18/20 06:00 05/18/20 08:00 Temperature Pulse Rate 70 71 69
[2020-05-18] MEDS: ATORVASTATIN 40 MG TABLET PO (21:38)
[2020-05-18] MEDS: rOPINIRole HCL 0.25 MG TABLET PO (21:38)
[2020-05-19] VITALS (14 sets, daily range): BP systolic 80–104; BP diastolic 40–63; PULSE 65–80; RESP 18–22; TEMP 36.2–36.9; O2SAT 94–100
[2020-05-19] MEDS: IPRATROPIUM BR 0.02% INH SOLN 0.5 MG/2.5 ML VIAL INHALATION ×3 (02:29→14:08)
[2020-05-19] MEDS: ALBUTEROL SULFATE NEB 2.5 MG/0.5 ML INH 5 MG INHALATION ×3 (02:29→14:08)
[2020-05-19 05:05] LABS: Basophils Percent Auto 0.5 % (0.2-1.2); Eosinophils Absolute Auto 0.1 K/mm3 (0-0.3); Eosinophils Percent Auto 1.4 % (0-4.4); Hematocrit 43.6 % (37.0-47.0); Immature Granulocyte Absolute 0.03 K/mm3 (0.00-0.031); Immature Granulocyte Percent A 0.5 % (0-0.5); Mean Corpuscular HGB Conc 29.8 g/dl (32-36); Mean Corpuscular Volume 100.7 fl (80-100); Monocytes Absolute Auto 0.7 K/mm3 (0.1-0.6); Neutrophils Absolute Auto 3.2 K/mm3 (1.3-6.7); Neutrophils Percent Auto 55.6 % (45.5-73.1); Platelet Count Result 140 k/mm3 (150-375); Red Blood Count 4.33 M/mm3 (4.2-5.4); Red Cell Distribution Width 13.1 % (11.5-14.5); White Blood Count 5.7 K/mm3 (4.5-10.0)
[2020-05-19 05:24] LABS: Anion Gap 7.99999 mmol/L (8-16); Blood Urea Nitrogen 28 mg/dL (7-17); Calcium 8.3 mg/dL (8.4-10.2); Carbon Dioxide > 40 mmol/L (22-30); Chloride 88 mmol/L (98-107); Estimated CRCL calculation 74 ml/min; Estimated Glomerular Filt Rate > 60; Glucose 92 mg/dL (65-105); Sodium 136 mmol/L (137-145)
[2020-05-19 08:31] LABS: Glucose Point of Care 73 (65-105)
[2020-05-19] MEDS: ENOXAPARIN 40 MG/0.4 ML SYRINGE SUB-Q (08:36)
[2020-05-19] MEDS: busPIRone HCL 5 MG TABLET 15 MG PO ×2 (08:37→12:42)
[2020-05-19] MEDS: carvediloL 25 MG TABLET PO (08:37)
[2020-05-19] MEDS: SACUBITRIL/VALSARTAN 24-26 MG TABLET 1 TAB PO (08:38)
[2020-05-19] MEDS: SPIRONOLACTONE 25 MG TABLET PO (08:38)
[2020-05-19] MEDS: FUROSEMIDE 20 MG TABLET PO (08:38)
--- NOTE | 2020-05-19 09:05 | ECG_ITS ---
Measurements Intervals [place] Rate: 75 P: 48 ND: 145 QRS: 261 QRSD: 276 T: 64 QT: 563 QTc: 629 Interpretive Statements ATRIAL SENSE- ELECTRONIC VENTRICULAR PACEMAKER NO FURTHER INTERPRETATION IS POSSIBLE ATYPICAL ECG Electronically Signed On 05-19-2020 11:17:02 CDT by Juan R Avilez D.O.
--- NOTE | 2020-05-19 12:32 | PM.PNCARD ---
Progress Note: A&P Assessment and Plan (1) CHF exacerbation: Qualifiers: Heart failure type: unspecified Qualified Code(s): I50.9 - Heart failure, unspecified Code(s): I50.9 - Heart failure, unspecified Status: Acute Assessment and Plan: Acute on chronic heart failure with reduced ejection fraction. Dilated nonischemic cardiomyopathy. Diuresed well. Transitioned back to baseline dose of oral furosemide. Continue carvedilol , Entresto and spironolactone. Long discussion regarding sodium restriction. Also discussed this fluid intake. Will check BMP and magnesium in a week. Follow-up appointments for her ICD check as well as to be seen in the office have been provided. (2) Obstructive sleep apnea: Code(s): G47.33 - Obstructive sleep apnea (adult) (pediatric) Status: Chronic Assessment and Plan: Compliant with CPAP. Additional Plan OK to discharge from cardiac standpoint. Plan discussed with Dr. Mccabe [id number] 05/19/2020 Subjective Date/time seen: 05/19/20 12:32 Interval history: Follow-up for:nonischemic dilated cardiomyopathy, [employer] ICD, history of noncompliance with follow-up with our practice Date of service: 05/19/2020 Subjective: Feeling much better. Denied chest discomfort. Shortness of breath significantly improved. Able to sleep through the night with CPAP. No lightheadedness or palpitations. Review of Systems Constitutional: Constitutional: Denies chills and Denies fatigue Eyes: Eyes: Denies blurry vision ENT: Reports Normal hearing present Cardiovascular: Cardiovascular: Denies dyspnea, Denies dyspnea on exertion and Denies orthopnea Respiratory: Respiratory: Denies dyspnea Gastrointestinal: Gastrointestinal: Denies abdominal pain, Denies nausea and Denies vomiting Musculoskeletal: Musculoskeletal: Denies joint swelling Integumentary/Breasts: Skin/Breast: Denies unusual bruising Neurologic: Reports Normal hearing present and Denies dizziness Psychiatric: Psychiatric: Reports anxiety Endocrine: Endocrine: Denies fatigue Hematologic/Lymphatic: Hematologic/Lymphatic: Denies easy bruising Allergic/Immunologic: Allergic/Immunologic: Denies lip swelling and Denies throat swelling Exam Const: General: comfortable and no acute distress Other: Laying comfortably in bed. No distress. Cooperative. Pleasant. HENMT: Mouth: Yes moist mucous membranes Eyes: Sclera: sclerae normal Pupils: Equal, round and reactive pupils present Neck: Neck: supple and no JVD Resp: Effort & Inspection: normal respiratory effort Auscultation: clear to auscultation bilaterally Cardio: Rate: regular rate Rhythm: regular rhythm GI: GI Palp: Yes Soft to palpation Auscultation: normal bowel sounds Skin: General skin exam: normal color and no rashes or lesions noted Neuro: General: patient oriented x3 Cranial nerves: Yes Equal, round and reactive pupils present Cognition (Neuro): normal cognition Speech: normal speech Extrem: General: normal to inspection and no clubbing, cyanosis or edema Psych: Appearance: grossly normal Speech and movement: Normal speech and movement present Affect: normal affect Attitude: cooperative Thought process: Normal thought process present Thought content: Yes Normal thought content present Insight: Good insight present (Psych) Judgement: Good judgement present (Psych) Objective Data Vital Signs Vital Signs: Vital Signs - 24 hr 05/18/20 14:00 05/18/20 14:41 05/18/20 14:51 Temperature Pulse Rate 73 77 79 Respiratory Rate 18 18 Blood Pressure Pulse Oximetry 05/18/20 16:00 05/18/20 17:24 05/18/20 18:00 Temperature 35.8 C L Pulse Rate 72 68 70 Respiratory Rate 16 Blood Pressure 85/41 L Pulse Oximetry 99 05/18/20 20:00 05/18/20 20:06 05/18/20 20:14 Temperature 35.9 C L Pulse Rate 71 74 74 Respiratory Rate 18 18 18 Blood Pressure 95/55 L
[2020-05-19] MEDS: diazePAM 5 MG TABLET PO (12:43)
--- NOTE | 2020-05-19 14:18 | PC.NURSE ---
Discharge instructions provided, patient awaiting ride home.
--- NOTE | 2020-05-19 16:45 | PM.DS ---
DS: Admitting Diagnosis Admitting Diagnosis Admitting Diagnosis: CHF exacerbation DS: Discharge Diagnosis Discharge Diagnosis (1) CHF exacerbation: Qualifiers: Heart failure type: unspecified Qualified Code(s): I50.9 - Heart failure, unspecified Code(s): I50.9 - Heart failure, unspecified Status: Acute (2) QT prolongation: Code(s): R94.31 - Abnormal electrocardiogram [ECG] [EKG] Status: Acute (3) Troponin level elevated: Code(s): R79.89 - Other specified abnormal findings of blood chemistry Status: Acute (4) Essential hypertension: Code(s): I10 - Essential (primary) hypertension Status: Chronic (5) Acute and chronic respiratory failure: Code(s): J96.20 - Acute and chronic respiratory failure, unspecified whether with hypoxia or hypercapnia Status: Acute (6) COPD (chronic obstructive pulmonary disease): Qualifiers: COPD type: unspecified COPD Qualified Code(s): J44.9 - Chronic obstructive pulmonary disease, unspecified Code(s): J44.9 - Chronic obstructive pulmonary disease, unspecified Status: Chronic (7) Obstructive sleep apnea: Code(s): G47.33 - Obstructive sleep apnea (adult) (pediatric) Status: Chronic DS: Summary Hospital Course Reason for hospitalization: CHF exacerbation Hospital Course: 59 yo with history of CHF with systolic dysfunction EF around 10%, chronic hypoxemic/hypercapneic resp failure , COPD presented to the hospital with an acute exacerbation of CHF, she had evidence of pulmonary edema on chest x ray, the most likely underlying cause of this exacerbation is non compliance with diet and fluid restriction. The patient received Iv lasix , had good urine output and now is back at her baseline home oxygen dose, she feels better. There was no evidence of ischemia on her admission EKG, of notice she had evidence of Qt prolongation. I stopped her citalopram and tramadol however her QT interval remains prolonged. She is hesitant about stopping her citalopram for instance I advised her to at least decrease the dose to half and eventually stop if the Qt stays prolonged. The rest of her home medications will remain the same. Status at Discharge Cognitive/behavioral status at discharge: Alert and oriented. Functional status at discharge: independent ambulation Overall status at discharge: patient is back to baseline Time Spent with Patient Time attestation: Total time spent providing and/or coordinating discharge services: Time spent: Greater than 30 minutes Exam Const: General: comfortable and no acute distress Eyes: Pupils: Equal, round and reactive pupils present Neck: Neck: supple and no JVD Resp: Effort & Inspection: normal respiratory effort Auscultation: diminished lung sounds Other: No rales, no wheezing. Cardio: Rate: regular rate Rhythm: regular rhythm Other: No bradycardia or tachycardia. GI: Other: Non distended, no rebound tenderness. Neuro: Cranial nerves: Yes Equal, round and reactive pupils present Speech: normal speech Motor exam (neuro): 5/5 motor strength present throughout and Normal motor muscle tone present throughout Sensory Exam: normal sensation Extrem: General: normal to inspection Other: No edema, no peripheral cyanosis. Psych: Mental Status: mental status grossly normal DS: Data Data Completed and Pending Labs on day of discharge: Labs from last 24 hours 05/19/20 05/19/20 05/19/20 07:48 05:00 05:00 WBC 5.7 RBC 4.33 Hgb 13.0 Hct 43.6 MCV 100.7 H MCH 30.0 MCHC 29.8 L RDW 13.1 Plt Count 140 L MPV 10.0 Immature Gran % (Auto) 0.5 Neut % (Auto) 55.6 Lymph % (Auto) 30.0 [place] % (Auto) 12.0 H Eos % (Auto) 1.4 Baso % (Auto) 0.5 Lymph # (Auto) 1.70 [place] # (Auto) 0.7 H Eos # (Auto) 0.1 Baso # (Auto) 0.0 Abs Immat Gran (auto) 0.03 Absolute Neuts (auto) 3.2 Absolute Nucleated RBC 0.0
== END 2020-05-19 16:42 | disposition home or self-care (01) ==
LOC: ANHED 03:28 → ANHIMU 06:08
PROVIDERS: Admitting Provider Family Medicine; Emergency Provider Emergency Medicine; Visit Provider Hospitalist
DX: I11.0 Hypertensive heart disease with heart failure (principal); I50.23 Acute on chronic systolic (congestive) heart failure; J96.20 Acute and chronic respiratory failure, unspecified whether with hypoxia or hypercapnia; I43 Cardiomyopathy in diseases classified elsewhere; J43.9 Emphysema, unspecified; I45.81 Long QT syndrome; Z95.0 Presence of cardiac pacemaker; G47.33 Obstructive sleep apnea (adult) (pediatric); F17.210 Nicotine dependence, cigarettes, uncomplicated; Z91.19 Patient's noncompliance with other medical treatment and regimen; E78.5 Hyperlipidemia, unspecified; F41.9 Anxiety disorder, unspecified
CPT/HCPCS: 36415; 71045; 80048; 80053; 83880; 84484; 85025; 85610; 85730; 93005; 94640; 96372; 96374; 96376; 99285; A9270; G0378; J1650; J1940

== ENCOUNTER 2020-05-26 16:13 | Outpatient (CLI) | payer MEDICARE, MEDICAID, SELFPAY ==
[2020-05-26 16:52] LABS: Anion Gap 4 mmol/L (8-16); Blood Urea Nitrogen 25 mg/dL (7-17); Calcium 8.4 mg/dL (8.4-10.2); Carbon Dioxide 37 mmol/L (22-30); Chloride 94 mmol/L (98-107); Estimated Glomerular Filt Rate > 60; Glucose 97 mg/dL (65-105); Magnesium 2.1 mg/dL (1.6-2.3); Potassium 5.4 mmol/L (3.4-5.0); Sodium 135 mmol/L (137-145)
== END 2020-05-26 16:14 | disposition home or self-care (01) ==
LOC: ANHLAB 16:27
PROVIDERS: Visit Provider Nurse Practitioner Adult Health
DX: I50.20 Unspecified systolic (congestive) heart failure (principal)
CPT/HCPCS: 36415; 80048; 83735

== ENCOUNTER 2020-06-04 14:58 | Outpatient (CLI) | payer MEDICARE, MEDICAID, SELFPAY ==
[2020-06-04 15:42] LABS: Anion Gap 5.99999 mmol/L (8-16); Blood Urea Nitrogen 23 mg/dL (7-17); Calcium 8.7 mg/dL (8.4-10.2); Carbon Dioxide > 40 mmol/L (22-30); Chloride 93 mmol/L (98-107); Estimated Glomerular Filt Rate > 60; Glucose 94 mg/dL (65-105); Potassium 4.8 mmol/L (3.4-5.0); Sodium 139 mmol/L (137-145)
== END 2020-06-04 14:59 | disposition home or self-care (01) ==
LOC: ANHLAB 15:01
PROVIDERS: Visit Provider Nurse Practitioner Adult Health
DX: I50.9 Heart failure, unspecified (principal)
CPT/HCPCS: 36415; 80048

== ENCOUNTER 2020-12-31 18:00 | Outpatient (RCR) | payer MEDICARE, MEDICAID, SELFPAY ==
[2020-10-02 12:26] VITALS: BP 138/70; PULSE 68; RESP 20; TEMP 36.4; O2SAT 98
[2020-10-02 12:33] VITALS: PULSE 68
--- NOTE | 2020-10-20 13:18 | PCCPR ---
Absent today due to inclement weather.
--- NOTE | 2020-10-23 18:21 | PCCPR ---
Absent-states she fell on the ice walking to the car & has a scraped up knee.
--- NOTE | 2020-11-06 08:11 | PCCPR ---
pt [facility] on 3 due to not feeling well, plans to return 11/06
--- NOTE | 2020-12-17 16:56 | PCCPR ---
Olivia absent tonight, not feeling well.
--- NOTE | 2020-12-29 18:23 | PCCPR ---
Absent Called to say she over slept and is not feeling well.
--- NOTE | 2021-01-07 18:19 | PCCPR ---
Addendum entered by Thalia Vieira RN 01/14/21 18:26: Msg left for Olivia letting her know tomorrow is her last scheduled day in Cardiac rehab. We hope all is well with her however if we do not hear from her tomorrow we willsend a note to her MD cain dc her from the program. She has not attended since 12/31/20 without call or show. Original Note: Absent for the past 3 sessions-Called Crystal to check in as she has no called/no showed the last 3 sessions. Unable to reach-left voicemail.
== END 2021-01-15 18:38 | disposition home or self-care (01) ==
LOC: ANHCPREHAB 18:00
PROVIDERS: Visit Provider Nurse Practitioner Adult Health
DX: I50.89 Other heart failure (principal)
CPT/HCPCS: 93798

== ENCOUNTER 2021-04-01 14:43 | Inpatient (IN) | payer MEDICARE, MEDICAID, SELFPAY ==
[2021-04-01] VITALS (14 sets, daily range): BP systolic 91–142; BP diastolic 57–88; PULSE 71–82; RESP 13–26; TEMP 36.4–37; O2SAT 96–100; BMI 46.5
--- NOTE | ~2021-04-01 | XR_ITS ---
EXAMINATION: XR thoracic spine 2V DATE: 04/04/2021 10:17 INDICATION: Upper back pain TECHNIQUE: AP, lateral and lateral swimmer's views of the thoracic spine were obtained. COMPARISON: None. FINDINGS: There is no fracture. The vertebral body heights and alignment are normal. There is mild lo ss of intervertebral disc space height at multiple levels in the thoracic spine. Small degenerative o steophytes project from the anterior endplates of multiple vertebral bodies. Moderate to severe cervi jenni spondylosis is incidentally noted. IMPRESSION: 1. Mild thoracic spondylosis without acute findings. Reviewed, dictated and finalized at location A.
--- NOTE | ~2021-04-01 | XR_ITS ---
EXAMINATION: XR chest 1V portable INDICATION: Shortness of breath, history of COPD TECHNIQUE: Portable AP chest at 1617 hours COMPARISON: 05/17/2020 FINDINGS: Cardiomegaly is noted. There is a mild diffuse interstitial pattern. No pleural effusion or pneumothorax is identified. A triple lead cardiac pacemaker of the left chest wall ends with leads i n expected locations. IMPRESSION: 1. Cardiomegaly with likely mild pulmonary edema. Reviewed, dictated and finalized at location A.
--- NOTE | ~2021-04-01 | XR_ITS ---
EXAMINATION: XR knee LT min 4V DATE: 04/01/2021 16:26 INDICATION: Left knee pain after fall TECHNIQUE: Four views of the left knee were obtained. COMPARISON: None. FINDINGS: Alignment is normal. No fracture or osteochondral lesion. There is mild tricompartmental os teoarthritis characterized by tiny marginal osteophytes. No joint effusion/synovitis. Soft tissues a re unremarkable. IMPRESSION: 1. No acute osseous abnormality. Reviewed, dictated and finalized at location A.
--- NOTE | ~2021-04-01 | XR_ITS ---
EXAMINATION: XR shoulder RT min 2V INDICATION: Right shoulder pain TECHNIQUE: Four views of the left shoulder are submitted. COMPARISON: None FINDINGS: Normal alignment. No fracture. There is mild osteoarthritis of the glenohumeral and acromio clavicular joints. Soft tissues are unremarkable. IMPRESSION: 1. Mild osteoarthritis without acute findings. Reviewed, dictated and finalized at location A.
--- NOTE | 2021-04-01 15:16 | ECG_ITS ---
Measurements Intervals [place] Rate: 72 P: 77 [place]: 148 QRS: 239 QRSD: 254 T: 64 QT: 530 QTc: 581 Interpretive Statements ELECTRONIC VENTRICULAR PACEMAKER BASELINE ARTIFACT- I, III, AVL NO FURTHER INTERPRETATION IS POSSIBLE ATYPICAL ECG Electronically Signed On 04-01-2021 16:11:50 CDT by Juan R Avilez D.O.
--- NOTE | 2021-04-01 15:20 | ED.FALL ---
HPI - Fall General Chief Complaint: Fall Stated Complaint: fall Time Seen by Provider: 04/01/21 15:01 Source: patient Mode of arrival: ambulatory Limitations: no limitations History of Present Illness HPI Narrative: This is 60 year old female with history of COPD, on home oxygen 2 L NC who presents for evaluation of left knee pain and lethargy. She reports she has been lethargic for the past 2 weeks. She reports increased sleepiness. She denies chest pain, worsening cough or shortness of breath. She denies abdominal pain , nausea or vomiting. Her family has been requesting for her to come to ER but she refused. She finally came in today because she hurt her left knee this morning. This morning accidentally tripped over the oxygen hose, and she fell down the stairs. She denies hitting her head or LOC. She also denies neck pain. She has left anterior knee pain. She has been able to walk but with pain. Related Data Home Medications Medication Instructions Recorded Confirmed albuterol sulfate [Ventolin HFA] 2 puff INHALATION PRN PRN 07/29/19 05/17/20 atorvastatin 40 mg PO HS 07/29/19 05/17/20 buspirone 15 mg PO TID 07/29/19 05/17/20 carvedilol 25 mg PO BID 07/29/19 05/17/20 diazepam 5 mg PO Q8-10H PRN 07/29/19 05/17/20 ropinirole 0.25 mg PO HS 07/29/19 05/17/20 spironolactone 25 mg PO DAILY 07/29/19 05/17/20 Stiolto Respimat 2 puff INHALATION USEASDIRECTD PRN 12/07/19 10/02/20 furosemide 20 mg PO DAILY 04/20/20 05/17/20 sacubitril-valsartan [Entresto] 1 tablet PO BID 10/02/20 10/02/20 Allergies Allergy/AdvReac Type Severity Reaction Status Date / Time No Known Allergies Allergy Verified 04/19/20 20:57 Review of Systems Review of Systems: All systems reviewed & are unremarkable except as noted in HPI and below PMFSH Past Medical History Medical History (Updated 04/01/21 @ 19:36 by Kinsey Aaron MD) Anxiety Back pain Bronchitis CHF (congestive heart failure) Chronic respiratory failure with hypoxia and hypercapnia 1 prior intubation about 10 years ago COPD (chronic obstructive pulmonary disease) Depression Emphysema of lung Essential hypertension History of rectal polyps Hyperlipidemia Nonischemic cardiomyopathy Present since 2006. With EF as low as 10% in June 2017. Thought to be due to viral myocarditis with subsequent AICD placement. Obesity hypoventilation syndrome Obstructive sleep apnea On BiPAP 15/10 with 3 L of oxygen bleed in at home Rectal polyp Surgical History Surgical History Biventricular cardiac pacemaker in situ Placed in 2006 History of cardiac cath With no significant coronary artery disease noted with last cardiac catheterization June 2017 demonstrating only 30-40% lesion of the left anterior descending artery. History of colonoscopy September 2017 with rectal polypectomy History of dilation and curettage November 2016 History of tubal ligation 1989 Family History Family History Mother Diabetes mellitus Acute myocardial infarction Hypertension Sibling Diabetes mellitus Acute myocardial infarction Cerebrovascular accident Hypertension Schizophrenia Father Congestive heart failure Cerebrovascular accident Hypertension Schizophrenia Social History Social History Social History: 2 of the patient's children who struggle with drug addiction. Primary care physician: Dr. Darren Barnes Code status: Full code Smoking packs per day: 1 Smoking cigarettes per day: 20.0 Years smoked: 30 Smoking pack-years: 30.00 Smoking status: Former smoker Tobacco type: cigarettes Second hand tobacco smoke exposure: No Smoking end date: 09/05/06 Alcohol intake: never Substance use: never Substance use type: does not use Other substance usage details:
[2021-04-01 15:41] LABS: Carboxyhemoglobin 1.5 % THb (0-2.0); Fractional Inspired Oxygen 21 %; HCO3 ABG 38.7 mEq/l (22.0-26.0); Methemoglobin ABG 0.1 %THb (0-1.5); Oxygen Content ABG 14.4 %vol (16.0-22.0); Oxyhemoglobin 79.6 % THb (90.0-100.0); Reduced Hemoglobin 18.8 %THb (0-5.0); Total Hemoglobin 12.9 g/dL (12.0-18.0)
[2021-04-01 15:42] LABS: pH ABG 7.242 (7.350-7.450)
[2021-04-01 15:43] LABS: Device ROOM AIR; Modified Allen's Test Pass; PO2 ABG 41.9 mmHg (80.0-100.0); Site Drawn RIGHT RADIAL
[2021-04-01 15:58] LABS: Basophils Percent Auto 0.4 % (0.2-1.2); Eosinophils Absolute Auto 0.1 K/mm3 (0-0.3); Eosinophils Percent Auto 1.1 % (0-4.4); Hematocrit 42.7 % (37.0-47.0); Hemoglobin 12.4 g/dL (12.0-15.0); Immature Granulocyte Absolute 0.06 K/mm3 (0.00-0.031); Immature Granulocyte Percent A 0.6 % (0-0.5); Lymphocytes Absolute Auto 1.28 K/mm3 (0.9-3.2); Lymphocytes Percent Auto 13.8 % (18.3-44.2); Mean Corpuscular Hemoglobin 30.4 pg (26-34); Mean Corpuscular Volume 104.7 fl (80-100); Mean Platelet Volume 9.7 fl (7.4-10.4); Monocytes Absolute Auto 0.7 K/mm3 (0.1-0.6); Monocytes Percent Auto 7.6 % (2.6-8.5); Neutrophils Absolute Auto 7.1 K/mm3 (1.3-6.7); Neutrophils Percent Auto 76.5 % (45.5-73.1); Platelet Count Result 225 k/mm3 (150-375); Red Blood Count 4.08 M/mm3 (4.2-5.4); Red Cell Distribution Width 12.5 % (11.5-14.5); White Blood Count 9.3 K/mm3 (4.5-10.0)
[2021-04-01 16:09] LABS: Lactic Acid Reflex 0.7 mmol/L (0.7-2.1)
[2021-04-01 16:10] LABS: Alanine Aminotransferase 16 U/L (4-35); Albumin Level 4.2 g/dL (3.5-5.1); Alkaline Phosphatase 68 U/L (38-126); Anion Gap 5 mmol/L (8-16); Aspartate Amino Transferase 26 U/L (14-36); Bilirubin,Total 0.4 mg/dL (0.2-1.3); Blood Urea Nitrogen 29 mg/dL (7-17); Calcium 8.5 mg/dL (8.4-10.2); Carbon Dioxide 38 mmol/L (22-30); Chloride 95 mmol/L (98-107); Estimated CRCL calculation 61 ml/min; Estimated Glomerular Filt Rate 57; Glucose 93 mg/dL (65-110); Potassium 5.5 mmol/L (3.4-5.0); Sodium 138 mmol/L (137-145)
[2021-04-01 16:11] LABS: Magnesium 2.2 mg/dL (1.6-2.3)
[2021-04-01 16:19] LABS: NT Pro B Type Natriuretic Pept 468 pg/mL (5-100)
[2021-04-01 16:23] LABS: Hypochromasia 1+ (NORMAL); Platelet Estimate Adequate (Adequate)
[2021-04-01 17:24] LABS: INR 0.8; Prothrombin Time 10.9 Seconds (11.1-14.7)
[2021-04-01 17:30] LABS: Partial Thromboplastin Time 25.5 SECONDS (22.3-36.8)
[2021-04-01 18:16] LABS: Alveolar/Arterial O2 Gradient 49.3 mmHg; Base Excess ABG 8.3 mEq/l (+/-2.0); Fractional Inspired Oxygen 60 %; HCO3 ABG 38.9 mEq/l (22.0-26.0); Oxygen Content ABG 18.2 %vol (16.0-22.0); Oxygen Saturation ABG 99.5 % (95.0-100.0); Oxyhemoglobin 97.5 % THb (90.0-100.0); PO2 ABG 278.5 mmHg (80.0-100.0); PO2 FiO2 Ratio Arterial Blood 4.64 %; Total Hemoglobin 12.8 g/dL (12.0-18.0)
[2021-04-01 18:17] LABS: pH ABG 7.249 (7.350-7.450)
[2021-04-01 18:18] LABS: Device NON-INVASIVE VENT; Modified Allen's Test Pass; Non-Invasive Expiratory Pressure 6 CMH2O; Non-Invasive Inspiratory Pressure 14 CMH2O; Non-Invasive Vent Rate 4 /MIN; PCO2 ABG 90.9 mmHg (35.0-45.0); Site Drawn RIGHT RADIAL
[2021-04-01] MEDS: predniSONE 20 MG TABLET 60 MG PO (18:18)
[2021-04-01 18:43] LABS: Add Urine Microscopic? YES; Appearance Urine Clear (Clear); Bacteria Urine Trace /hpf; Bilirubin Urine Negative (Negative); Blood Urine Negative (Negative); Color Urine Yellow (Yellow); Glucose Urine UA Negative (Negative); Hyaline Casts Urine 15-19 /lpf; Ketones Urine Negative (Negative); Leukocyte Esterase Ur 2+ LEU/UL (Negative); Mucus Urine Rare /lpf; Nitrate Urine Negative (Negative); Protein Urine Negative (Negative); RBC Urine 0-2 /hpf (0-2); Specific Grav Ur 1.015 (1.001-1.035); Squamous Epithelial Cell Urine Few /hpf (Few); Urobilinogen Urine Negative mg/dL (<2.0); WBC Urine 21-30 /hpf
--- NOTE | 2021-04-01 19:40 | PC.NURSE ---
Report received from DARCI Angela.
--- NOTE | 2021-04-01 20:24 | ADMGEN ---
This patient, Olivia Burdick, was admitted to IMU Room 210-01 on 04-01-21 at 2019. Patient/family oriented to hospital policies and general routines including ID bracelet, bed and alarms, visiting hours, pain management, procedures, bathroom and other care routines, personal items, smoking policy, room service/diet, and visiting hours. Information on how to activate the Rapid Response Team has been discussed. Patient/Family are encouraged to report perceived risks to care and to ask questions if they do not understand what they are told or what they should do.
[2021-04-01] MEDS: ALBUTEROL SULFATE (*SP) AEROSOL 1 PUFF 4 PUFF INHALATION (21:21)
[2021-04-01] MEDS: ALBUTEROL SULFATE NEB 2.5 MG/0.5 ML INH 5 MG INHALATION (21:21)
[2021-04-02] VITALS (19 sets, daily range): BP systolic 87–106; BP diastolic 33–75; PULSE 60–88; RESP 16–20; TEMP 36.1–37.2; O2SAT 94–100
[2021-04-02] MEDS: traMADol HCL (*CRX) 50 MG TABLET PO (01:07)
--- NOTE | 2021-04-02 04:26 | PM.IMHP ---
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 PATIENT PRESENTED TO THE EMERGENCY ROOM AFTER SHE HAD A FALL DOWNSTAIRS AFTER SHE TRIPPED OVER HER OXYGEN TUBING. STATES THAT SHE HAS BEEN VERY SLEEPY AND TIRED LATELY WITH LACK OF ENERGY PRELIMINARY WORKUP WAS SIGNIFICANT ABG WITH PH OF 7.241, PCO2 OF 92 AND PO2 41 A REPEAT ARTERIAL BLOOD GAS SHOWED A PH OF 7.249, PCO2 OF 90 AND PO2 OF 278. X-RAY OF THE KNEE WAS NOT SIGNIFICANT FOR ACUTE FRACTURE. Review of Systems Review of Systems: FALL, ALTERED MENTAL STATUS Constitutional: Constitutional: Denies chills, Reports daytime sleepiness, Reports fatigue and Reports lethargy Eyes: Eyes: Denies change in vision ENT: Denies dysphagia, Denies nasal discharge and Denies odynophagia Cardiovascular: Cardiovascular: Denies edema, Denies irregular heart rhythm, Denies lightheadedness, Denies radiating jaw, neck or arm pain, Denies palpitations, Denies dyspnea on exertion and Denies orthopnea Respiratory: Respiratory: Denies cough, Denies dyspnea, Denies stridor and Denies wheezing Comments: WORSE OF 4 L BY NASAL CANNULA OF OXYGEN BIPAP AT NIGHTTIME AND DURING DAYTIME FOR NAPS Gastrointestinal: Gastrointestinal: Denies abdominal pain, Denies nausea and Denies vomiting Genitourinary: Genitourinary: Reports no additional female genitourinary complaints Musculoskeletal: Musculoskeletal: Reports arthralgias ( LEFT KNEE AFTER FALL) Integumentary/Breasts: Skin/Breast: Reports system reviewed and no additional complaints, except as docu Neurologic: Reports system reviewed and no additional complaints, except as documented Psychiatric: Psychiatric: Reports no additional psychiatric complaints Endocrine: Endocrine: Reports no additional endocrine complaints Hematologic/Lymphatic: Hematologic/Lymphatic: Reports no additional hematologic/lymphatic complaints Allergic/Immunologic: Allergic/Immunologic: Reports no additional allergic/immunologic complaints [facility] Past Medical History Medical History (Updated 04/02/21 @ 04:43 by Francisco Maciel MD) Anxiety Back pain Bronchitis CHF (congestive heart failure) Chronic respiratory failure with hypoxia and hypercapnia 1 prior intubation about 10 years ago COPD (chronic obstructive pulmonary disease) Depression Emphysema of lung Essential hypertension History of rectal polyps Hyperlipidemia Nonischemic cardiomyopathy Present since 2006. With EF as low as 10% in June 2017. Thought to be due to viral myocarditis with subsequent AICD placement. Obesity hypoventilation syndrome Obstructive sleep apnea On BiPAP 19/06 with 3 L of oxygen bleed in at home Rectal polyp Surgical History Surgical History Biventricular cardiac pacemaker in situ Placed in 2006 History of cardiac cath With no significant coronary artery disease noted with last cardiac catheterization June 2017 demonstrating only 30-40% lesion of the left anterior descending artery. History of colonoscopy September 2017 with rectal polypectomy History of dilation and curettage November 2016 History of tubal ligation 1989 Family History Family History Mother Diabetes mellitus Acute myocardial infarction Hypertension Sibling Diabetes mellitus Acute myocardial infarction Cerebrovascular accident Hypertension Schizophrenia Father Congestive heart failure Cerebrovascular accident Hypertension Schizophrenia Social History Social History Social History:
[2021-04-02 05:20] LABS: Basophils Percent Auto 0.1 % (0.2-1.2); Hematocrit 40.1 % (37.0-47.0); Hemoglobin 11.7 g/dL (12.0-15.0); Immature Granulocyte Absolute 0.03 K/mm3 (0.00-0.031); Immature Granulocyte Percent A 0.4 % (0-0.5); Lymphocytes Absolute Auto 0.61 K/mm3 (0.9-3.2); Lymphocytes Percent Auto 9.1 % (18.3-44.2); Mean Corpuscular HGB Conc 29.2 g/dl (32-36); Mean Corpuscular Hemoglobin 29.3 pg (26-34); Mean Corpuscular Volume 100.5 fl (80-100); Mean Platelet Volume 9.7 fl (7.4-10.4); Monocytes Absolute Auto 0.1 K/mm3 (0.1-0.6); Monocytes Percent Auto 1.6 % (2.6-8.5); Neutrophils Absolute Auto 5.9 K/mm3 (1.3-6.7); Neutrophils Percent Auto 88.8 % (45.5-73.1); Platelet Count Result 232 k/mm3 (150-375); Red Blood Count 3.99 M/mm3 (4.2-5.4); Red Cell Distribution Width 12.1 % (11.5-14.5); White Blood Count 6.7 K/mm3 (4.5-10.0)
[2021-04-02 05:31] LABS: Alanine Aminotransferase 16 U/L (4-35); Albumin Level 3.9 g/dL (3.5-5.1); Alkaline Phosphatase 66 U/L (38-126); Anion Gap 3 mmol/L (8-16); Aspartate Amino Transferase 24 U/L (14-36); Bilirubin,Total 0.3 mg/dL (0.2-1.3); Blood Urea Nitrogen 23 mg/dL (7-17); Calcium 8.4 mg/dL (8.4-10.2); Carbon Dioxide 37 mmol/L (22-30); Chloride 95 mmol/L (98-107); Estimated CRCL calculation 88 ml/min; Estimated Glomerular Filt Rate > 60; Glucose 100 mg/dL (65-110); Potassium 5.1 mmol/L (3.4-5.0); Sodium 135 mmol/L (137-145)
[2021-04-02] MEDS: ALBUTEROL SULFATE (*SP) AEROSOL 1 PUFF 4 PUFF INHALATION ×4 (08:00→20:14)
[2021-04-02] MEDS: busPIRone HCL 5 MG TABLET 15 MG PO ×2 (09:31→17:57)
[2021-04-02] MEDS: CITALOPRAM HYDROBROMIDE 20 MG TABLET PO (09:32)
[2021-04-02] MEDS: SPIRONOLACTONE 25 MG TABLET PO (09:36)
[2021-04-02] MEDS: carvediloL 25 MG TABLET PO ×2 (09:36→17:57)
[2021-04-02] MEDS: SACUBITRIL/VALSARTAN 49-51 MG TABLET 1 TABLET PO ×2 (09:36→20:22)
--- NOTE | 2021-04-02 16:56 | PM.IMPN ---
Progress Note: A&P Assessment and Plan (1) Acute on chronic respiratory failure with hypoxia and hypercapnia: Code(s): J96.21 - Acute and chronic respiratory failure with hypoxia; J96.22 - Acute and chronic respiratory failure with hypercapnia Status: Acute Assessment and Plan: CONTINUES BIPAP CONTINUE HOME MEDS BREATHING TREATMENTS CONTINUOUS PULSE OX (2) Obstructive sleep apnea: Code(s): G47.33 - Obstructive sleep apnea (adult) (pediatric) Status: Chronic Assessment and Plan: PATIENT IS ON BIPAP AT NIGHTTIME She will get her home in (3) Nonischemic cardiomyopathy: Code(s): I42.8 - Other cardiomyopathies Status: Acute Assessment and Plan: BNP WITHIN NORMAL LIMITS CONTINUE ENTRESTO CONTINUE SPIRONOLACTONE CONTINUE CARVEDILOL WILL HOLD LASIX DUE TO CONTRACTION ALKALOSIS (4) Contusion of knee, left: Code(s): S80.02XA - Contusion of left knee, initial encounter Status: Acute Assessment and Plan: NO FRACTURE SUPPORTIVE CARE PT OT (5) Morbid obesity with BMI of 40.0-44.9, adult: Code(s): E66.01 - Morbid (severe) obesity due to excess calories; Z68.41 - Body mass index [BMI]40.0-44.9, adult Status: Acute Assessment and Plan: LIFESTYLE AND DIET MODIFICATION 1800 CALORIE RESTRICTED DIET CARB CONSISTENT Additional Plan THIS IS A 60-YEAR-OLD FEMALE WITH PAST MEDICAL HISTORY SIGNIFICANT FOR COPD / EMPHYSEMA CHRONICALLY ON 4 L OF OXYGEN AT HOME AND BIPAP AT NIGHTTIME AND DURING THE DAYTIME FOR NAPS ALSO NONISCHEMIC CARDIOMYOPATHY PACEMAKER IMPLANTED CHRONIC HYPERCARBIC RESPIRATORY FAILURE 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 PATIENT PRESENTED TO THE EMERGENCY ROOM AFTER SHE HAD A FALL DOWNSTAIRS AFTER SHE TRIPPED OVER HER OXYGEN TUBING. STATES THAT SHE HAS BEEN VERY SLEEPY AND TIRED LATELY WITH LACK OF ENERGY PRELIMINARY WORKUP WAS SIGNIFICANT ABG WITH PH OF 7.241, PCO2 OF 92 AND PO2 41 A REPEAT ARTERIAL BLOOD GAS SHOWED A PH OF 7.249, PCO2 OF 90 AND PO2 OF 278. X-RAY OF THE KNEE WAS NOT SIGNIFICANT FOR ACUTE FRACTURE. Fall no obvious fracture Increased somnolence the past 2 weeks Acute on chronic respiratory failure with hypercapnea and hypoxia chest x-ray with mild pulmonary edema with cardiomegaly will resume 20 mg IV Lasix was given p.o. prednisone for possible COPD flare up will continue that as well Obstructive sleep apnea On BiPAP 15/10 with 3 L oxygen bleed in at home Questionable UTI given ceftriaxone yesterday will continue same follow urine culture Nonischemic cardiomyopathy Left knee contusion pacemaker placement in 2006 Hypertension COPD home oxygen history of rectal polyp DVT prophylaxis Lovenox Subjective Date/time seen: 04/02/21 16:56 Interval history: Patient feels much better. Reports no shortness of breath or chest pain. No fever chills Review of Systems Review of Systems: - CONSTITUTIONAL: Denies weight loss, fever and chills. - HEENT: Denies changes in vision and hearing - RESPIRATORY: Denies SOB and cough. - CV: Denies palpitations and CP. - GI: Denies abdominal pain, nausea, vomiting and diarrhea. - : Denies dysuria and urinary frequency. - MSK: Denies myalgia and joint pain. - SKIN: Denies rash and pruritus. - NEUROLOGICAL: Denies headache and syncope. - PSYCHIATRIC: Denies recent changes in mood. Denies anxiety and depression. All systems reviewed & are unremarkable except as noted in HPI and below Constitutional: Constitutional: Reports fatigue and Reports weakness Neurologic: Reports weakness Endocrine: Endocrine: Reports fatigue Exam Narrative: GENERAL: The patient is well developed, not in acute distress HEENT: Nonicteric sclerae, PERRLA, EOMI. Oropharynx clear. Moist mucous membranes. Conjunctivae appear well perfused. CHEST: Chest wall is nontender. HEART: Regular rate and rhythm without murmur, rubs, or gallops LUNGS: Clear to auscultation bilaterally. no respirato
[2021-04-02] MEDS: FUROSEMIDE INJ 40 MG/4 ML VIAL 20 MG IV PUSH (17:56)
[2021-04-02] MEDS: ACETAMINOPHEN/CODEINE (*CRX) 300/30 MG TABLET 1 TAB PO (20:21)
[2021-04-02] MEDS: ATORVASTATIN 40 MG TABLET PO (20:22)
[2021-04-02] MEDS: rOPINIRole HCL 0.25 MG TABLET PO (20:22)
[2021-04-03] VITALS (15 sets, daily range): BP systolic 80–132; BP diastolic 35–67; PULSE 63–77; RESP 14–22; TEMP 35.9–36.4; O2SAT 90–98
--- NOTE | 2021-04-03 | ECHO_ITS ---
Patient Info Name: Olivia Burdick Age: 60 years : 1960 Gender: Female Ht: 61 in Wt: 251 lbs BSA: 2.29 m2 HR: 72 bpm BP: 109 / 67 mmHg Heart Rhythm: Paced Exam Date: 04/03/2021 10:00 AM Exam Location: [facility] Patient Status: Inpatient Admit Date: 04/01/2021 Staff Ordering Physician: Jan Jimenez MD Cheese Sprayer: Scott Coates, RDCS, RT Attending Provider: Sophie Bergman MD Exam Type: CA echo dop color flow w con Study Info Indications I50.9 - Heart failure, unspecified Complete two-dimensional, color flow and Doppler transthoracic echocardiogram is performed with contrast to opacify the left ventricle and to improve the deliniation of the left ventricle endocardial borders. Summary 1. Technically difficult echocardiogram, definity contrast injected to improve visualization. 2. Left ventricular dilation with moderate global systolic dysfunction estimated ejection fraction 35%. 3. Calcified mitral valve annulus. 4. Pacemaker leads identified. Left Ventricle Left ventricular chamber dimension is moderately enlarged. Left ventricular systolic function is moderately reduced, estimated at 35-40%. The left ventricular diastolic function is indeterminate. Right Ventricle Right ventricular chamber dimension is normal. Linear artifact in right ventricle suggestive of catheter(s), pacemaker lead(s), or ICD lead(s). Left Atria Left atrial chamber dimension is moderately enlarged. Right Atria Right atrial chamber dimension is normal. Aortic Valve The aortic valve is not well visualized. Pulmonic Valve The pulmonic valve is not well visualized. Mitral Valve The mitral valve has normal leaflets. The mitral valve annulus is moderately calcified. Tricuspid Valve The tricuspid valve leaflets are not well visualized. Pericardium/Pleural The pericardium appears normal. Aorta The aortic root size at the sinus of Valsalva is normal. Left Ventricular Outflow Tract Name Value Normal LVOT 2D LVOT Diameter 2.11 cm LVOT Doppler LVOT Peak Gradient 6 mmHg LVOT Mean Gradient 3 mmHg LVOT VTI 25.41 cm LVOT VTI/AV VTI Ratio 0.68 LVOT Stroke Volume 89.13 ml LVOT CO 4.96 l/min LVOT CI 2.17 L/min/m2 Mitral Valve Name Value Normal MV Doppler MV Decel [place] 376.37 cm/s2 MV PHT 0 s MV Area (PHT) 3.16 cm2 4.00-5.00 MV Diastolic Function MV E Peak Velocity 90.46 cm/s MV A Peak Velocity 113.03 cm/s MV E/A
[2021-04-03] MEDS: ACETAMINOPHEN/CODEINE (*CRX) 300/30 MG TABLET 1 TAB PO ×4 (02:56→20:49)
[2021-04-03 05:54] LABS: Basophils Absolute Auto 0.1 K/mm3 (0.0-0.1); Basophils Percent Auto 0.8 % (0.2-1.2); Eosinophils Absolute Auto 0.1 K/mm3 (0-0.3); Eosinophils Percent Auto 1.3 % (0-4.4); Hematocrit 39.3 % (37.0-47.0); Hemoglobin 11.3 g/dL (12.0-15.0); Immature Granulocyte Absolute 0.03 K/mm3 (0.00-0.031); Immature Granulocyte Percent A 0.5 % (0-0.5); Lymphocytes Absolute Auto 1.77 K/mm3 (0.9-3.2); Lymphocytes Percent Auto 28.8 % (18.3-44.2); Mean Corpuscular HGB Conc 28.8 g/dl (32-36); Mean Corpuscular Hemoglobin 29.7 pg (26-34); Mean Corpuscular Volume 103.4 fl (80-100); Monocytes Absolute Auto 0.6 K/mm3 (0.1-0.6); Monocytes Percent Auto 10.3 % (2.6-8.5); Neutrophils Absolute Auto 3.6 K/mm3 (1.3-6.7); Neutrophils Percent Auto 58.3 % (45.5-73.1); Platelet Count Result 211 k/mm3 (150-375); Red Cell Distribution Width 12.5 % (11.5-14.5); White Blood Count 6.1 K/mm3 (4.5-10.0)
[2021-04-03 06:10] LABS: Anion Gap 6 mmol/L (8-16); Blood Urea Nitrogen 27 mg/dL (7-17); Calcium 8.1 mg/dL (8.4-10.2); Carbon Dioxide 34 mmol/L (22-30); Chloride 93 mmol/L (98-107); Estimated CRCL calculation 79 ml/min; Estimated Glomerular Filt Rate > 60; Glucose 87 mg/dL (65-110); Potassium 4.7 mmol/L (3.4-5.0); Sodium 133 mmol/L (137-145)
[2021-04-03 06:16] LABS: Alveolar/Arterial O2 Gradient 31.2 mmHg; Base Excess ABG 7.5 mEq/l (+/-2.0); Fractional Inspired Oxygen 28 %; HCO3 ABG 36.2 mEq/l (22.0-26.0); Oxygen Content ABG 16.5 %vol (16.0-22.0); Oxygen Saturation ABG 94.4 % (95.0-100.0); Oxyhemoglobin 94.2 % THb (90.0-100.0); PO2 FiO2 Ratio Arterial Blood 2.89 %; Total Hemoglobin 12.4 g/dL (12.0-18.0); pH ABG 7.307 (7.350-7.450)
[2021-04-03 06:20] LABS: Device NASAL CANNULA; Modified Allen's Test Pass; PCO2 ABG 74.1 mmHg (35.0-45.0); Site Drawn LEFT RADIAL
--- NOTE | 2021-04-03 07:45 | WPDCDIQUERY2 ---
CDI Query Clarification Request 1) - chest x-ray with mild pulmonary edema with cardiomegaly will resume 20 mg IV Lasix has been documented -Coders cannot code diagnosis from CXR findings Please further specify: if pulmonary edema is a current diagnosis, please document as a problem instead of a CXR finding. Also, if it is a current diagnosis, also specify acuity: acute, chronic, acute on chronic, unable to determine. 2) - was given p.o. prednisone for possible COPD flare up will continue that as well was documented. Please further clarify COPD flare up: COPD exacerbation, COPD stable, other, unable to determine. <Zayra Lindo RN - Last Filed: 04/03/21 07:52> Clarified Diagnosis (1) CHF exacerbation: Qualifiers: Heart failure type: unspecified Qualified Code(s): I50.9 - Heart failure, unspecified <Zayra Lindo RN - Last Filed: 04/03/21 07:52> Code(s): I50.9 - Heart failure, unspecified <Zayra Lindo RN - Last Filed: 04/03/21 07:52> Status: Acute <Zayra Lindo RN - Last Filed: 04/03/21 07:52> (2) Acute on chronic systolic heart failure: Code(s): I50.23 - Acute on chronic systolic (congestive) heart failure <Zayra Lindo RN - Last Filed: 04/03/21 07:52> Status: Acute <Zayra Lindo RN - Last Filed: 04/03/21 07:52> (3) COPD exacerbation: Code(s): J44.1 - Chronic obstructive pulmonary disease with (acute) exacerbation <Zayra Lindo RN - Last Filed: 04/03/21 07:52> Status: Acute <Zayra Lindo RN - Last Filed: 04/03/21 07:52>
[2021-04-03] MEDS: ENOXAPARIN 40 MG/0.4 ML SYRINGE SUB-Q (08:49)
[2021-04-03] MEDS: busPIRone HCL 5 MG TABLET 15 MG PO ×3 (08:49→17:42)
[2021-04-03] MEDS: CITALOPRAM HYDROBROMIDE 20 MG TABLET PO (08:50)
[2021-04-03] MEDS: predniSONE 20 MG TABLET 40 MG PO (08:50)
[2021-04-03] MEDS: ALBUTEROL SULFATE (*SP) AEROSOL 1 PUFF 4 PUFF INHALATION ×3 (09:34→21:07)
[2021-04-03] MEDS: PERFLUTREN LIPID MICROSPHERES 1.5 ML VIAL DILUTED TO 10 ML TOTAL VOLUME IV PUSH (10:30)
[2021-04-03] MEDS: carvediloL 25 MG TABLET PO ×2 (11:32→17:42)
[2021-04-03] MEDS: SACUBITRIL/VALSARTAN 49-51 MG TABLET 1 TABLET PO ×2 (11:32→20:40)
[2021-04-03] MEDS: FUROSEMIDE INJ 40 MG/4 ML VIAL 20 MG IV PUSH (11:33)
[2021-04-03] MEDS: SPIRONOLACTONE 25 MG TABLET PO (11:33)
--- NOTE | 2021-04-03 14:09 | PM.IMPN ---
Progress Note: A&P Assessment and Plan (1) CHF exacerbation: Qualifiers: Heart failure type: unspecified Qualified Code(s): I50.9 - Heart failure, unspecified Code(s): I50.9 - Heart failure, unspecified Status: Acute (2) Acute on chronic systolic heart failure: Code(s): I50.23 - Acute on chronic systolic (congestive) heart failure Status: Acute (3) COPD exacerbation: Code(s): J44.1 - Chronic obstructive pulmonary disease with (acute) exacerbation Status: Acute Additional Plan THIS IS A 60-YEAR-OLD FEMALE WITH PAST MEDICAL HISTORY SIGNIFICANT FOR COPD / EMPHYSEMA CHRONICALLY ON 4 L OF OXYGEN AT HOME AND BIPAP AT NIGHTTIME AND DURING THE DAYTIME FOR NAPS ALSO NONISCHEMIC CARDIOMYOPATHY PACEMAKER IMPLANTED CHRONIC HYPERCARBIC RESPIRATORY FAILURE 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 PATIENT PRESENTED TO THE EMERGENCY ROOM AFTER SHE HAD A FALL DOWNSTAIRS AFTER SHE TRIPPED OVER HER OXYGEN TUBING. STATES THAT SHE HAS BEEN VERY SLEEPY AND TIRED LATELY WITH LACK OF ENERGY PRELIMINARY WORKUP WAS SIGNIFICANT ABG WITH PH OF 7.241, PCO2 OF 92 AND PO2 41 A REPEAT ARTERIAL BLOOD GAS SHOWED A PH OF 7.249, PCO2 OF 90 AND PO2 OF 278. X-RAY OF THE KNEE WAS NOT SIGNIFICANT FOR ACUTE FRACTURE. Fall no obvious fracture on Tylenol 3 p.r.n. for pain control Increased somnolence the past 2 weeks more alert and awake air. Acute on chronic respiratory failure with hypercapnea and hypoxia chest x-ray with mild pulmonary edema with cardiomegaly will resume 20 mg IV Lasix was given p.o. prednisone for possible COPD flare up will continue that as well Continue with IV 20 mg Lasix and prednisone 40 mg a day as ordered ABG slightly better 04/03 will recheck it in the morning continue with BiPAP during night and p.r.n. during daytime Obstructive sleep apnea On BiPAP 15/10 with 3 L oxygen bleed in at home Questionable UTI given ceftriaxone yesterday will continue same follow urine culture. Urine culture with multiple organisms will finish the course of ceftriaxone Nonischemic cardiomyopathy Left knee contusion pacemaker placement in 2006 Hypertension COPD home oxygen history of rectal polyp DVT prophylaxis Lovenox 04/03 see above recheck ABG in a.m. labs reviewed Subjective Date/time seen: 04/03/21 14:09 Interval history: patient is sore but otherwise doing okay. Shortness of breath on exertion however is improving. No fever chills Review of Systems Review of Systems: All systems reviewed & are unremarkable except as noted in HPI and below Exam Narrative: GENERAL: The patient is well developed, not in acute distress HEENT: Nonicteric sclerae, PERRLA, EOMI. Oropharynx clear. Moist mucous membranes. Conjunctivae appear well perfused. CHEST: Chest wall is nontender. HEART: Regular rate and rhythm without murmur, rubs, or gallops LUNGS: Clear to auscultation bilaterally. no respiratory distress ABDOMEN: Soft, positive bowel sounds, non-tender, no organomegaly. SKIN: No rash, no excessive bruising, petechiae, or purpura. NEUROLOGIC: Cranial nerves II-XII intact, alert and oriented x 3, no gross motor deficits EXTREMITIES: no edema, cyanosis or clubbing Objective Data Vital Signs Vital Signs: Vital Signs - 24 hr 04/02/21 16:00 04/02/21 17:04 04/02/21 17:57 Temperature 99.0 F Pulse Rate 76 75 Respiratory Rate 17 Blood Pressure 87/59 L 105/75 Pulse Oximetry 94 04/02/21 19:38 04/02/21 20:00 04/02/21 20:53 Temperature 97 F L Pulse Rate 74 69 72 Respiratory Rate 16 20 20 Blood Pressure 106/33 L Pulse Oximetry 97 96 96 04/02/21 22:00 04/03/21 00:00 04/03/21 00:45 Temperature 96.6 F L Pulse Rate 70 63 Respiratory Rate 16 22 H Blood Pressure 80/35 L Pulse Oximetry 98 04/03/21 02:00 04/03/21 04:00 04/03/21 06:14 Temperature 96.9 F L Pulse Rate 74 69 76 Respiratory Rate 16 Blood Pressure 109/67 Pulse Oximetry 96 04/03/21 08:00 04/03/21 09:38 04/03/21 10:49 [place]
--- NOTE | 2021-04-03 15:51 | PC.NURSE ---
This patient, Olivia Burdick, was transferred to [facility] on 04/03/21 at 1551. Personal belongings sent with patient. Report given to DARCI Echeverria. Appropriate documentation sent with patient.
[2021-04-03] MEDS: rOPINIRole HCL 0.25 MG TABLET PO (20:40)
[2021-04-03] MEDS: ATORVASTATIN 40 MG TABLET PO (20:40)
[2021-04-04] VITALS (13 sets, daily range): BP systolic 109–126; BP diastolic 51–65; PULSE 67–76; RESP 16–22; TEMP 35.8–36.4; O2SAT 87–100
[2021-04-04] MEDS: ACETAMINOPHEN/CODEINE (*CRX) 300/30 MG TABLET 1 TAB PO ×2 (00:34→05:10)
[2021-04-04 04:45] LABS: Alveolar/Arterial O2 Gradient 38.3 mmHg; Base Excess ABG 8.4 mEq/l (+/-2.0); Fractional Inspired Oxygen 30 %; HCO3 ABG 36.3 mEq/l (22.0-26.0); Oxygen Content ABG 17.8 %vol (16.0-22.0); Oxygen Saturation ABG 96.9 % (95.0-100.0); PO2 ABG 96.9 mmHg (80.0-100.0); PO2 FiO2 Ratio Arterial Blood 3.23 %; Total Hemoglobin 13.1 g/dL (12.0-18.0); pH ABG 7.352 (7.350-7.450)
[2021-04-04 04:47] LABS: Device NON-INVASIVE VENT; Modified Allen's Test Pass; Non-Invasive Expiratory Pressure 6 CMH2O; Non-Invasive Inspiratory Pressure 20 CMH2O; Non-Invasive Vent Rate 20 /MIN; Site Drawn LEFT RADIAL
[2021-04-04 05:01] LABS: Basophils Percent Auto 0.4 % (0.2-1.2); Eosinophils Percent Auto 0.2 % (0-4.4); Hematocrit 40.4 % (37.0-47.0); Hemoglobin 12.1 g/dL (12.0-15.0); Immature Granulocyte Absolute 0.05 K/mm3 (0.00-0.031); Immature Granulocyte Percent A 0.6 % (0-0.5); Lymphocytes Absolute Auto 1.45 K/mm3 (0.9-3.2); Lymphocytes Percent Auto 17.9 % (18.3-44.2); Mean Corpuscular Volume 100.2 fl (80-100); Mean Platelet Volume 9.6 fl (7.4-10.4); Monocytes Absolute Auto 0.7 K/mm3 (0.1-0.6); Monocytes Percent Auto 8.3 % (2.6-8.5); Neutrophils Absolute Auto 5.9 K/mm3 (1.3-6.7); Neutrophils Percent Auto 72.6 % (45.5-73.1); Platelet Count Result 226 k/mm3 (150-375); Red Blood Count 4.03 M/mm3 (4.2-5.4); Red Cell Distribution Width 12.3 % (11.5-14.5); White Blood Count 8.1 K/mm3 (4.5-10.0)
[2021-04-04 05:14] LABS: Anion Gap 8 mmol/L (8-16); Blood Urea Nitrogen 18 mg/dL (7-17); Calcium 8.5 mg/dL (8.4-10.2); Carbon Dioxide 35 mmol/L (22-30); Chloride 89 mmol/L (98-107); Estimated CRCL calculation 102 ml/min; Estimated Glomerular Filt Rate > 60; Glucose 77 mg/dL (65-110); Potassium 4.6 mmol/L (3.4-5.0); Sodium 132 mmol/L (137-145)
[2021-04-04] MEDS: ALBUTEROL SULFATE (*SP) AEROSOL 1 PUFF 4 PUFF INHALATION ×2 (09:05→11:36)
[2021-04-04] MEDS: carvediloL 25 MG TABLET PO ×2 (09:25→17:08)
[2021-04-04] MEDS: SACUBITRIL/VALSARTAN 49-51 MG TABLET 1 TABLET PO (09:25)
[2021-04-04] MEDS: busPIRone HCL 5 MG TABLET 15 MG PO ×3 (09:26→17:09)
[2021-04-04] MEDS: predniSONE 20 MG TABLET 40 MG PO (09:26)
[2021-04-04] MEDS: ENOXAPARIN 40 MG/0.4 ML SYRINGE SUB-Q (09:26)
[2021-04-04] MEDS: CITALOPRAM HYDROBROMIDE 20 MG TABLET PO (09:26)
[2021-04-04] MEDS: SPIRONOLACTONE 25 MG TABLET PO (09:27)
[2021-04-04] MEDS: FUROSEMIDE INJ 40 MG/4 ML VIAL 20 MG IV PUSH (09:27)
[2021-04-04] MEDS: traMADol HCL (*CRX) 50 MG TABLET PO ×2 (09:37→15:37)
--- NOTE | 2021-04-04 12:07 | HOMEO2EVAL ---
Evaluation was performed at [facility] Home Oxygen Evaluation RC: Home Oxygen (O2) Evaluation Start: 04/04/21 09:32 Freq: ONCE Status: Active Protocol: RPE Activity Type Activity Date Activity User E-Sign Co-Sign Detail Recorded Client Recorded Date Recorded By Document 04/04/21 11:38 CLC [email or web address] 04/04/21 12:07 CLC Document 04/04/21 12:06 CLC [email or web address] 04/04/21 12:07 CLC Document 04/04/21 12:06 CLC [email or web address] 04/04/21 12:07 CLC Document 04/04/21 12:07 CLC [email or web address] 04/04/21 12:07 CLC 04/04/21 04/04/21 04/04/21 11:38 12:06 12:06 Home O2 Evaluation Test Phase Resting Resting Exercise Oxygen Delivery Room Air Nasal Cannula Nasal Cannula Oxygen Flow Rate (L/min) 2 2 Pulse Oximetry (90-100 %) 87 L 92 87 L Pulse Rate (60-100 beats/min) 68 67 75 Activity Tolerance Fair Rating of Perceived Dyspnea (PD) +2 Mild, Some Difficulty, Noticeable to the Observer Rate of Perceived Exertion (PE) 13 Somewhat Hard Ambulation Distance (feet) 100 Treatment Charges O2 Evaluation - Inpatient 04/04/21 12:07 Home O2 Evaluation Test Phase Exercise Oxygen Delivery Nasal Cannula Oxygen Flow Rate (L/min) 3 Pulse Oximetry (90-100 %) 92 Pulse Rate (60-100 beats/min) 72 Activity Tolerance Rating of Perceived Dyspnea (PD) Rate of Perceived Exertion (PE) Ambulation Distance (feet) Treatment Charges
--- NOTE | 2021-04-04 16:40 | PM.DS ---
DS: Admitting Diagnosis Admitting Diagnosis fall, hypercapnic respiratory failure, CHF DS: Discharge Diagnosis Discharge Diagnosis (1) Back pain: Code(s): M54.9 - Dorsalgia, unspecified Status: Acute (2) Right shoulder pain: Code(s): M25.511 - Pain in right shoulder Status: Acute (3) Acute on chronic systolic heart failure: Code(s): I50.23 - Acute on chronic systolic (congestive) heart failure Status: Acute (4) Nonischemic cardiomyopathy: Code(s): I42.8 - Other cardiomyopathies Status: Acute (5) Hyperkalemia: Code(s): E87.5 - Hyperkalemia Status: Acute (6) UTI (urinary tract infection): Code(s): N39.0 - Urinary tract infection, site not specified Status: Acute (7) Obstructive sleep apnea: Code(s): G47.33 - Obstructive sleep apnea (adult) (pediatric) Status: Chronic (8) Essential hypertension: Code(s): I10 - Essential (primary) hypertension Status: Chronic (9) Acute and chronic respiratory failure: Code(s): J96.20 - Acute and chronic respiratory failure, unspecified whether with hypoxia or hypercapnia Status: Acute (10) COPD exacerbation: Code(s): J44.1 - Chronic obstructive pulmonary disease with (acute) exacerbation Status: Acute DS: Summary Hospital Course Hospital Course: THIS IS A 60-YEAR-OLD FEMALE WITH PAST MEDICAL HISTORY SIGNIFICANT FOR COPD / EMPHYSEMA CHRONICALLY ON 4 L OF OXYGEN AT HOME AND BIPAP AT NIGHTTIME AND DURING THE DAYTIME FOR NAPS ALSO NONISCHEMIC CARDIOMYOPATHY PACEMAKER IMPLANTED CHRONIC HYPERCARBIC RESPIRATORY FAILURE 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 PATIENT PRESENTED TO THE EMERGENCY ROOM AFTER SHE HAD A FALL DOWNSTAIRS AFTER SHE TRIPPED OVER HER OXYGEN TUBING. STATES THAT SHE HAS BEEN VERY SLEEPY AND TIRED LATELY WITH LACK OF ENERGY PRELIMINARY WORKUP WAS SIGNIFICANT ABG WITH PH OF 7.241, PCO2 OF 92 AND PO2 41 A REPEAT ARTERIAL BLOOD GAS SHOWED A PH OF 7.249, PCO2 OF 90 AND PO2 OF 278. X-RAY OF THE KNEE WAS NOT SIGNIFICANT FOR ACUTE FRACTURE. She was admitted for further evaluation and management. Her chest x-ray showed mild pulmonary edema with cardiomegaly. This started on IV diuresis with 20 mg IV Lasix there is also possibility of COPD exacerbation and hands prednisone 40 mg a day was also ordered. ABG was monitored on a daily basis with continued improvement with continued BiPAP at nighttime and p.r.n. during daytime. She had a questionable UTI and was given ceftriaxone. Her urine culture grew multiple organisms likely relating contamination. She finished a course of ceftriaxone. Her ABG was normal on the day of discharge on 04/04/2021. She did complain of right shoulder pain which is chronic and back pain for which x-rays were performed which showed no acute fractures but arthritis. She was on tramadol p.r.n. for pain at home which was switched to Tylenol 3 here risks with narcotic use along with benzodiazepines were discussed during the hospital stay. She was evaluated for home oxygen therapy during the hospital stay and was at baseline level. She also had an echocardiogram done which showed ejection fraction of 30% which is much improved from will Originally noted of 10% in the past. she did well with physical therapy and will be discharged home. For her right shoulder pains he has a follow-up schedule with orthopedics in near future with her fall and increased pain she would benefit from having physical therapy initiated which is ordered at the time of discharge for her to continue as an outpatient basis. Status at Discharge Overall status at discharge: patient is progressing back to baseline Time Spent with Patient Time attestation: Total time spent providing and/or coordinating discharge services: 45 minutes Exam Narrative: GENERAL: The patient is well developed, not in acute distress HEENT: Nonicteric sclerae, PERRLA, EOMI. Oropharynx clear. Moist mucous membrane
== END 2021-04-04 18:35 | disposition home or self-care (01) | DRG 291 ==
LOC: ANHED 16:10 → ANHIMU 19:36 → ANH2MED 04-04 16:34 → ANHIMU 04-06 17:03
PROVIDERS: Admitting Provider Hospitalist; Emergency Provider General Practice; Visit Provider Internal Medicine
DX: I11.0 Hypertensive heart disease with heart failure (principal); J96.21 Acute and chronic respiratory failure with hypoxia; J96.22 Acute and chronic respiratory failure with hypercapnia; N39.0 Urinary tract infection, site not specified; Z68.42 Body mass index [BMI] 45.0-49.9, adult; J44.1 Chronic obstructive pulmonary disease with (acute) exacerbation; I50.23 Acute on chronic systolic (congestive) heart failure; I42.8 Other cardiomyopathies; E87.5 Hyperkalemia; T14.8XXA Other injury of unspecified body region, initial encounter; W10.9XXA Fall (on) (from) unspecified stairs and steps, initial encounter; G47.33 Obstructive sleep apnea (adult) (pediatric); J44.9 Chronic obstructive pulmonary disease, unspecified; E66.01 Morbid (severe) obesity due to excess calories; Z99.81 Dependence on supplemental oxygen; M54.9 Dorsalgia, unspecified
CPT/HCPCS: 36415; 36600; 71045; 72070; 73030; 73564; 80048; 80053; 81001; 82375; 82805; 83050; 83605; 83735; 83880; 85025; 85610; 85730; 87086; 87088; 93005; 94002; 94003; 94618; 94640; 94660; 97165; 99285; A9270; C8929; J0131; J0696; J1650; J1940; J7512; Q9957

== ENCOUNTER 2021-11-30 14:12 | Inpatient (IN) | payer MEDICARE, MEDICAID, SELFPAY ==
[2021-11-30] VITALS (23 sets, daily range): BP systolic 72–108; BP diastolic 38–60; PULSE 74–89; RESP 17–25; TEMP 36.1–36.7; O2SAT 93–100; BMI 49.8
--- NOTE | ~2021-11-30 | CT_ITS ---
EXAMINATION: CT abdomen pelvis w con DATE: 11/30/2021 16:30 INDICATION: Upper abdominal pain. TECHNIQUE: Computed tomography (CT) of the abdomen and pelvis was performed with 100 mL Omnipaque 350 intravenous contrast. Automated exposure control and iterative reconstruction technique were employe d. The dose-length product was 1458.78 mGy-cm. COMPARISON: Chest CT 04/19/2020 FINDINGS: The visualized portions of the lung bases demonstrate mild atelectasis in left lower lobe. There is mild bronchiectasis in right lower lobe. There is a 4 mm nodule in right lower lobe without change, likely benign. There is mild emphysema. No pleural effusion. Cardiomegaly is noted. There are pacer wires in right atrium, right ventricle, and coronary sinus. No pericardial effusion. The liver and gallbladder are normal. Calcifications in the spleen are consistent with old granulomatous disea se. The pancreas and right adrenal gland are normal. There is a 12 mm mass in left adrenal gland deon uring low-attenuation, consistent with an adenoma. There are cysts in the kidneys measuring up to 18 mm on the left. There is a large volume of stool in the distal colon. There are no dilated loops of b owel. The appendix is normal. There are no pathologically enlarged lymph nodes. There is no free intr aperitoneal fluid. There is a 6.6 cm cystic lesion of the left ovary. There is mild thoracolumbar spo ndylosis. IMPRESSION: 1. 6.6 cm cystic lesion of the left ovary, likely benign. Pelvis ultrasound is recommended. Reviewed, dictated and finalized at location A.
--- NOTE | ~2021-11-30 | US_ITS ---
EXAMINATION: US pelvic complete w TV EXAM DATE: 12/01/2021 11:13 INDICATION: Left ovary cystic lesion on CT. TECHNIQUE: Pelvic transabdominal and transvaginal sonogram was performed. There are multiple graysca le and Doppler images available for interpretation. Comparison is made to prior examination from 11/30. FINDINGS: Uterus measures 5.5 x 3.2 x 3.1 cm, and is morphologically normal. Endometrial stripe claudette sures 5 mm, within normal limits. There is no free pelvic fluid. There is cystic region, uncertain which ovary this is associated with, measuring 6.1 x 2.5 x 6.6 cm, more likely left ovarian origin than right. No evidence of complexity. Could be a periadnexal cyst or cystic ovarian neoplasm but appearance favors benign histology. Low resistance Doppler flow confirme d adjacent to this cyst, probably in the left ovary. Right adnexal region unremarkable. IMPRESSION: Simple cystic ovarian or periadnexal lesion. Favor benign histology. Reviewed, dictated and finalized at location B. IMPRESSION: Simple cystic ovarian or periadnexal lesion. Favor benign histology .
--- NOTE | ~2021-11-30 | XR_ITS ---
EXAMINATION: XR chest 2V DATE: 11/30/2021 15:14 INDICATION: Shortness of breath. TECHNIQUE: Frontal and lateral views of the chest were obtained. COMPARISON: Chest single view 04/01/2021, chest CT 04/19/2020 FINDINGS: The patient is rotated to her left. Sensitivity is decreased by obesity. There is mild atel ectasis in lingula. No pleural effusion or pneumothorax. Cardiomegaly is noted. There is a left chest pacer/defibrillator with leads in right atrium, right ventricle, and coronary sinus. IMPRESSION: 1. Mild atelectasis in lingula. 2. Severe cardiomegaly. Reviewed, dictated and finalized at location A.
--- NOTE | 2021-11-30 14:28 | ECG_ITS ---
Measurements Intervals [place] Rate: 73 P: -35 NC: 108 QRS: 255 QRSD: 182 T: 78 QT: 492 QTc: 545 Interpretive Statements ELECTRONIC VENTRICULAR PACEMAKER MARKED RIGHT AXIS DEVIATION [QRS AXIS > 100] NO FURTHER INTERPRETATION IS POSSIBLE ABNORMAL ECG COMPARED TO ECG 04/01/2021 16:01:49 NO SIGNIFICANT CHANGE NOTED Electronically Signed On 11-30-2021 16:57:17 CDT by Cristo Rasmussen M.D.
--- NOTE | 2021-11-30 14:39 | ED.GENADULT ---
HPI - General Adult General Chief complaint: Shortness of Breath/Dyspnea Stated complaint: Weakness Time Seen by Provider: 11/30/21 14:22 Source: patient History of Present Illness HPI narrative: 60-year-old female with history of CHF and COPD with BiPAP use at home presented to the emergency department for evaluation of not feeling well. Patient states that she has had nondescript illness for the past week. Patient states that she was scheduled to have a mammogram today. Patient states that when she was out to lunch with family members they felt that she was slow to respond and acting strangely. For this reason patient presented to the emergency department for evaluation. Patient does have some upper abdominal pain that she reports is intermittent and has been ongoing for a number of months. Patient denies any acute change in this pain.. Patient denies any associated nausea or vomiting. Patient denies any chest pain. Patient states she has had some exertional shortness of breath but denied any shortness of breath during the exam. Patient does have a prior history of CHF and COPD. Patient also has history of hypercapnia. Related Data Home Medications Medication Instructions Recorded Confirmed atorvastatin 40 mg PO HS 07/29/19 08/25/21 buspirone 15 mg PO TID 07/29/19 08/25/21 carvedilol 25 mg PO BID 07/29/19 08/25/21 diazepam 5 mg PO Q8-10H PRN 07/29/19 08/25/21 ropinirole 0.25 mg PO HS 07/29/19 08/25/21 spironolactone 25 mg PO DAILY 07/29/19 08/25/21 Entresto 1 tablet PO BID 10/02/20 08/25/21 Allergies Allergy/AdvReac Type Severity Reaction Status Date / Time No Known Allergies Allergy Verified 08/25/21 09:02 Review of Systems Review of Systems: CONSTITUTIONAL: Increased generalized weakness and some altered mental status today EYES: Denies visual changes, redness, or discharge. ENT: Denies rhinorrhea, congestion, sore throat, or otalgia. CARDIOVASCULAR: Denies chest pain, palpitations, or edema. RESPIRATORY: Denies cough or dyspnea. GASTROINTESTINAL: Intermittent abdominal pain GENITOURINARY: Denies dysuria or hematuria. SKIN: Denies rash or itching. MUSCULOSKELETAL: Denies back pain, joint pain, or myalgia. NEUROLOGIC: Denies headache, numbness, or weakness. [facility] Past Medical History Medical History Anxiety Back pain Bronchitis CHF (congestive heart failure) Chronic respiratory failure with hypoxia and hypercapnia 1 prior intubation about 10 years ago COPD (chronic obstructive pulmonary disease) Depression Emphysema of lung Essential hypertension History of rectal polyps Hyperlipidemia Nonischemic cardiomyopathy Present since 2006. With EF as low as 10% in June 2017. Thought to be due to viral myocarditis with subsequent AICD placement. Obesity hypoventilation syndrome Obstructive sleep apnea On BiPAP 19/06 with 3 L of oxygen bleed in at home Rectal polyp Surgical History Surgical History Biventricular cardiac pacemaker in situ Placed in 2006 History of cardiac cath With no significant coronary artery disease noted with last cardiac catheterization June 2017 demonstrating only 30-40% lesion of the left anterior descending artery. History of colonoscopy September 2017 with rectal polypectomy History of dilation and curettage November 2016 History of tubal ligation 1989 Family History Family History Mother Diabetes mellitus Acute myocardial infarction Hypertension Sibling Diabetes mellitus Acute myocardial infarction Cerebrovascular accident Hypertension Schizophrenia Father Congestive heart failure Cerebrovascular accident Hypertension Schizophrenia Social History Social History Social History: 2 of the patient's children who struggle with drug addiction.
[2021-11-30 14:58] LABS: Basophils Absolute Auto 0.1 K/mm3 (0.0-0.1); Basophils Percent Auto 0.5 % (0.2-1.2); Eosinophils Percent Auto 0.3 % (0-4.4); Hematocrit 42.8 % (37.0-47.0); Hemoglobin 12.2 g/dL (12.0-15.0); Immature Granulocyte Absolute 0.03 K/mm3 (0.00-0.031); Immature Granulocyte Percent A 0.3 % (0-0.5); Lymphocytes Absolute Auto 0.84 K/mm3 (0.9-3.2); Lymphocytes Percent Auto 8.3 % (18.3-44.2); Mean Corpuscular HGB Conc 28.5 g/dl (32-36); Mean Corpuscular Hemoglobin 30.6 pg (26-34); Mean Corpuscular Volume 107.3 fl (80-100); Mean Platelet Volume 10.3 fl (7.4-10.4); Monocytes Absolute Auto 0.8 K/mm3 (0.1-0.6); Monocytes Percent Auto 7.6 % (2.6-8.5); Neutrophils Absolute Auto 8.4 K/mm3 (1.3-6.7); Platelet Count Result 201 k/mm3 (150-375); Red Blood Count 3.99 M/mm3 (4.2-5.4); Red Cell Distribution Width 12.7 % (11.5-14.5); White Blood Count 10.1 K/mm3 (4.5-10.0)
[2021-11-30 15:10] LABS: Lactic Acid Reflex 1.1 mmol/L (0.7-2.1)
[2021-11-30] MEDS: SODIUM CHLORIDE 0.9% IV 1,000 ML 250 ML IV CONT (15:12)
[2021-11-30 15:13] LABS: Alanine Aminotransferase 10 U/L (4-35); Alkaline Phosphatase 73 U/L (38-126); Anion Gap 6 mmol/L (8-16); Aspartate Amino Transferase 25 U/L (14-36); Bilirubin,Total 0.6 mg/dL (0.2-1.3); Blood Urea Nitrogen 20 mg/dL (7-17); Carbon Dioxide 36 mmol/L (22-30); Chloride 96 mmol/L (98-107); Estimated CRCL calculation 72 ml/min; Estimated Glomerular Filt Rate > 60; Glucose 112 mg/dL (65-110); Lipase 46 U/L (23-300); Potassium 4.5 mmol/L (3.4-5.0); Sodium 138 mmol/L (137-145)
[2021-11-30 15:19] LABS: NT Pro B Type Natriuretic Pept 645 pg/mL (5-100)
[2021-11-30 15:29] LABS: Troponin I 0.039 ng/mL (0.000-0.034)
[2021-11-30] MEDS: ALBUTEROL SULFATE NEB 2.5 MG/0.5 ML INH 5 MG INHALATION ×2 (15:53→20:50)
--- NOTE | 2021-11-30 16:30 | PM.IMHP ---
H&P: HPI History of Present Illness Date/Time: 11/30/21 16:30 Chief Complaint: Weak. Narrative: This is a very pleasant 60-year-old female with chronic respiratory failure on oxygen, non-ischemic cardiomyopathy, obstructive sleep apnea on BiPAP, and chronic obstructive pulmonary disease who presented to the ED via private vehicle for evaluation of weakness. She has just not been feeling like herself for the past 1 week with generalized weakness, fatigue, and a decrease in energy. She cannot really pinpoint and exact cause but she is wondering if it may be related to her blood pressures which have been running lower than usual for the past couple of months. According to the patient she was started on Entresto perhaps 6 months ago and not long thereafter she began monitoring her salt intake much more closely and she is wondering if a combination of these factors is causing her drop in blood pressure. She is starting to become a bit symptomatic with low blood pressures, becoming lightheaded and dizzy when bending forward and with changing positions. Additionally she has noticed increasing dyspnea on lesser and lesser exertion. She was afebrile on arrival to the emergency department and her SpO2 has been in the mid 90s on her typical 2 L. her blood pressures however have remained soft in the high 80s to low 100 systolic where she has apparently been running for the last month or so. Her initial troponin was a bit elevated at 0.039 and her proBNP is also mildly elevated at 645. Her chest x-ray did not demonstrate any acute findings. A CT of the abdomen and pelvis was ordered to evaluate intermittent right upper quadrant pain and that was also negative for acute findings. Her serum carbon dioxide was 36 prompting a blood gas which showed worsening CO2 retention with a pH of 7.231 and a pCO2 of 91.6. With further questioning she states 100% compliance with her BiPAP at nighttime however she has not had a recent polysomnogram with titration recently (last being over 10 years ago) and she is supposed to have 1 in the next coming months. At this time she is being admitted to IMU on BiPAP. She has no current complaints and specifically denies fever, chills, sweats, headache, neck ache, cold and flu symptoms, chest pain, pleuritic pain, cough, nausea, vomiting, diarrhea, and dysuria. Review of Systems Review of Systems: Twelve systems were reviewed. She thinks she may have lost a few lb but nothing drastic. She has chronic orthopnea and that is unchanged. She denies lower extremity edema. No paroxysmal nocturnal dyspnea. No wheezing. She denies dysphagia and concerns for aspiration. Except as documented, all other systems were reviewed and are negative. [facility] Past Medical History Medical History (Updated 11/30/21 @ 21:29 by Yee Herrera PA-C) Anxiety Back pain Bronchitis Chronic respiratory failure with hypoxia and hypercapnia 1 prior intubation about 10 years ago Congestive heart failure COPD (chronic obstructive pulmonary disease) Depression Emphysema of lung Essential hypertension History of rectal polyps Hyperlipidemia Nonischemic cardiomyopathy Present since 2006, thought to be due to a viral myocarditis. EF was as low as 10% in June 2017 but patient reports improvement in her EF to 32% most recently. She is followed by Dr. Soliman. ICD in-situ. Obesity hypoventilation syndrome Obstructive sleep apnea On BiPAP 22/02 with 3 L of oxygen bleed in. Rectal polyp Surgical History Surgical History (Updated 11/30/21 @ 21:27 by Yee Herrera PA-C) Biventricular cardiac pacemaker in situ (2006) History of cardiac cath With no significant coronary artery disease noted with last cardiac catheterization June 2017 demonstrating only 30-40% lesion of the left anterior descending artery. History of colonoscopy (09/2017) History of dilation and curettage (11/2016) History of tubal ligation (1989) Family History Family History (Reviewed 11/30/21 @ 21:35
[2021-11-30 17:11] LABS: Carboxyhemoglobin 1.1 % THb (0-2.0); Fractional Inspired Oxygen 36 %; HCO3 ABG 37.6 mEq/l (22.0-26.0); Oxygen Content ABG 16.9 %vol (16.0-22.0); Oxygen Saturation ABG 93.8 % (95.0-100.0); PO2 ABG 84.4 mmHg (80.0-100.0); PO2 FiO2 Ratio Arterial Blood 2.34 %; Reduced Hemoglobin 3.9 %THb (0-5.0); Total Hemoglobin 12.6 g/dL (12.0-18.0)
[2021-11-30 17:14] LABS: Device NASAL CANNULA; Modified Allen's Test Pass; PCO2 ABG 91.6 mmHg (35.0-45.0); Site Drawn LEFT RADIAL; pH ABG 7.231 (7.350-7.450)
[2021-11-30 18:05] LABS: Troponin I 0.026 ng/mL (0.000-0.034)
--- NOTE | 2021-11-30 18:55 | PC.NURSE ---
ok per Dr. Umana to transport patient on [place] to floor
--- NOTE | 2021-11-30 19:25 | ADMGEN ---
This patient, Olivia Burdick, was admitted to IMU Room 206-02. Patient/family oriented to hospital policies and general routines including ID bracelet, bed and alarms, visiting hours, pain management, procedures, bathroom and other care routines, personal items, smoking policy, room service/diet, and visiting hours. Information on how to activate the Rapid Response Team has been discussed. Patient/Family are encouraged to report perceived risks to care and to ask questions if they do not understand what they are told or what they should do.
[2021-11-30 21:59] LABS: Alveolar/Arterial O2 Gradient 66.5 mmHg; Base Excess ABG 5.4 mEq/l (+/-2.0); Fractional Inspired Oxygen 30 %; HCO3 ABG 33.7 mEq/l (22.0-26.0); Oxygen Content ABG 15.8 %vol (16.0-22.0); Oxygen Saturation ABG 90.5 % (95.0-100.0); Oxyhemoglobin 93.4 % THb (90.0-100.0); PO2 ABG 66.3 mmHg (80.0-100.0); PO2 FiO2 Ratio Arterial Blood 2.21 %; pH ABG 7.306 (7.350-7.450)
[2021-11-30 22:01] LABS: Device NON-INVASIVE VENT; Modified Allen's Test Pass; Site Drawn RIGHT RADIAL
[2021-11-30 22:02] LABS: Non-Invasive Expiratory Pressure 6 CMH2O; Non-Invasive Inspiratory Pressure 20 CMH2O; Non-Invasive Vent Rate 20 /MIN
[2021-11-30 22:17] LABS: Add Urine Microscopic? NO; Appearance Urine Clear (Clear); Bilirubin Urine Negative (Negative); Blood Urine Negative (Negative); Color Urine Yellow (Yellow); Glucose Urine UA Negative (Negative); Ketones Urine Negative (Negative); Leukocyte Esterase Ur Negative LEU/UL (Negative); Nitrate Urine Negative (Negative); Protein Urine Negative (Negative); Urobilinogen Urine Negative mg/dL (<2.0)
[2021-11-30 22:18] LABS: Specific Grav Ur 1.055 (1.001-1.035)
--- NOTE | 2021-11-30 23:00 | PC.NURSE ---
Patient off bipap for dinner. States she does not want it back on until she's ready. Patient encouraged to wear bipap as it will improve her ABG.
[2021-11-30] MEDS: diazePAM (*CRX) 5 MG TABLET PO (23:31)
[2021-11-30] MEDS: traMADol HCL (*CRX) 50 MG TABLET PO (23:31)
[2021-12-01] VITALS (31 sets, daily range): BP systolic 98–130; BP diastolic 43–78; PULSE 67–87; RESP 18–22; TEMP 35.7–36.6; O2SAT 91–100
--- NOTE | 2021-12-01 01:45 | PC.NURSE ---
Patient placed back on bipap
[2021-12-01] MEDS: ALBUTEROL SULFATE NEB 2.5 MG/0.5 ML INH 5 MG INHALATION ×4 (02:51→19:43)
[2021-12-01 05:17] LABS: Hematocrit 38.4 % (37.0-47.0); Hemoglobin 10.9 g/dL (12.0-15.0); Mean Corpuscular HGB Conc 28.4 g/dl (32-36); Mean Corpuscular Hemoglobin 30.6 pg (26-34); Mean Corpuscular Volume 107.9 fl (80-100); Platelet Count Result 158 k/mm3 (150-375); Red Blood Count 3.56 M/mm3 (4.2-5.4); Red Cell Distribution Width 12.7 % (11.5-14.5); White Blood Count 6.2 K/mm3 (4.5-10.0)
[2021-12-01 07:31] LABS: Blood Urea Nitrogen 18 mg/dL (7-17); Calcium 7.7 mg/dL (8.4-10.2); Carbon Dioxide > 40 mmol/L (22-30); Chloride 97 mmol/L (98-107); Estimated CRCL calculation 80 ml/min; Estimated Glomerular Filt Rate > 60; Glucose 73 mg/dL (65-110); Magnesium 2.1 mg/dL (1.6-2.3); Potassium 4.5 mmol/L (3.4-5.0); Sodium 140 mmol/L (137-145)
[2021-12-01 08:04] LABS: Thyroid Stimulating Hormone Reflex 0.875 uIU/mL (0.465-4.68)
[2021-12-01] MEDS: UMECLIDINIUM/VILANTEROL 62.5-25 MCG ELLIPTA 1 PUFF INHALATION (08:17)
[2021-12-01] MEDS: CITALOPRAM HYDROBROMIDE 20 MG TABLET 40 MG PO (09:07)
[2021-12-01] MEDS: SACUBITRIL/VALSARTAN 49-51 MG TABLET 1 TABLET PO ×2 (09:07→17:38)
[2021-12-01] MEDS: carvediloL 25 MG TABLET PO (09:07)
[2021-12-01] MEDS: ENOXAPARIN 40 MG/0.4 ML SYRINGE SUB-Q (09:07)
[2021-12-01] MEDS: busPIRone HCL 5 MG TABLET 15 MG PO ×3 (09:07→17:38)
[2021-12-01] MEDS: FUROSEMIDE 20 MG TABLET PO (09:07)
[2021-12-01] MEDS: SPIRONOLACTONE 25 MG TABLET PO (09:07)
[2021-12-01] MEDS: traMADol HCL (*CRX) 50 MG TABLET PO (09:12)
--- NOTE | 2021-12-01 09:47 | PM.IMPN ---
Progress Note: A&P Assessment and Plan (1) Acute and chronic respiratory failure: Code(s): J96.20 - Acute and chronic respiratory failure, unspecified whether with hypoxia or hypercapnia Status: Acute Assessment and Plan: Patient with chronic respiratory failure on 2 L O2 nasal cannula chronically. Patient presents with acute respiratory failure with increased work of breathing and ABG showing 7.23/92/84 on 4 L. she was placed on BiPAP. Blood gas a few hours later shows 7.31/69/66 on BiPAP. She does state that pressure with the current BiPAP is stronger than she is used to. She did wear the BiPAP all day yesterday and overnight. She came off the BiPAP this morning but no blood gas ordered. She is currently on settings 22/02 with a right of 20. Will discuss with respiratory about having her BiPAP adjusted for home. Continue BiPAP here at night and with naps and repeat ABG in the morning. (2) Hypotension: Code(s): I95.9 - Hypotension, unspecified Status: Acute Assessment and Plan: SBP mostly 80-90 range on admission. This has been an ongoing issue for the last several months. She is on carvedilol, lasix, spironolactone, and Entresto. Cardiology was consulted but her home meds were resumed at home doses. She may be experiencing these symptoms related to her poorly controlled ZAHEER. Doubt infectious process. BP better controlled now but was off her medications last night. Follow on home regiment. (3) Elevated troponin: Code(s): R77.8 - Other specified abnormalities of plasma proteins Status: Acute Assessment and Plan: Troponin was only very mildly elevated and EKG showing paced rhythm. Repeat Troponin normal. She is not having any chest pain. Not felt unlikely to represent acute coronary syndrome. (4) General weakness: Code(s): R53.1 - Weakness Status: Acute Assessment and Plan: Likely related to a combination of soft blood pressures and hypercarbia. Treatment as above. Increase activity here. (5) Nonischemic cardiomyopathy: Code(s): I42.8 - Other cardiomyopathies Status: Acute Assessment and Plan: EF was as low as 10% status post ICD insertion. Echo in March 2021 showing EF 35-40% and indeterminate diastolic dysfunction. CXR showing mild atelectasis in lingula. No evidence of fluid overload. Continue current medical regiment with Entresto, lasix, Spironolactone and Coreg. With murmur on exam. Will defer to Cardiology about repeating the Echo. (6) Cyst of left ovary: Code(s): N83.202 - Unspecified ovarian cyst, left side Status: Acute Assessment and Plan: CT showed a 6.6 cm cystic lesion of the left ovary, likely benign. Pelvic ultrasound has been ordered for further evaluation. (7) Obstructive sleep apnea: Code(s): G47.33 - Obstructive sleep apnea (adult) (pediatric) Status: Chronic Assessment and Plan: As above. (8) Morbid obesity: Code(s): E66.01 - Morbid (severe) obesity due to excess calories Status: Acute Assessment and Plan: BMI 50. This is contributing to her other medical problems. Encouraged healthy lifestyle choices. (9) DVT prophylaxis: Code(s): Z29.9 - Encounter for prophylactic measures, unspecified Status: Acute Assessment and Plan: Lovenox Additional Plan Abd pain - patiet with mild abd pain and suspect more likely gastritis then GB disease. CT scan showing normal GB and symptoms not consistent with cholecystitis. She does have GERD. Will add Protonix. Subjective Date/time seen: 12/01/21 09:47 Interval history: 60yo female with ZAHEER, Chronic respiratory failure on 2L, NICMP and PM here for weakness and shortness of breath. Patient is compliant with her BiPAP at night. She is more fatigued during the day and admits that she does not wear the BiPAP when she sleeps during the day. Is been quite sometime since her
[2021-12-01] MEDS: PANTOPRAZOLE 40 MG TABLET PO (13:11)
[2021-12-01] MEDS: diazePAM (*CRX) 5 MG TABLET PO ×2 (13:13→21:08)
--- NOTE | 2021-12-01 13:25 | PM.CNCAR ---
Assessment and Plan Assessment and plan (1) Nonischemic cardiomyopathy: Code(s): I42.8 - Other cardiomyopathies Status: Acute Assessment and Plan: Established and documented history of NICM with BiV ICD in place. Echocardiogram from June 2021 showed Severe LV dysfunction with EF 16%. Grade I diastolic dysfunction. Trace aortic valve regurgitation. Appears to be well compensated at this time. She had her ICD interrogated in September 2020 with normal functioning. No recent ICD discharges. She is on GDMT with coreg, entresto, spironolactone, and furosemide. (2) Hypotension: Code(s): I95.9 - Hypotension, unspecified Status: Acute Assessment and Plan: Reported hypotension for a couple of months and multiple BP measurements in the hospital demonstrating SBP in the 80-90 range. For now, will decrease coreg to 12.5mh p.o. b.i.d and observe her response. (3) Acute and chronic respiratory failure: Code(s): J96.20 - Acute and chronic respiratory failure, unspecified whether with hypoxia or hypercapnia Status: Acute Assessment and Plan: Improved. Management per hospitalist service. History of Present Illness History of Present Illness Consult date/time: 12/01/21 13:25 Ms. Burdick is a 60-year-old female with a medical history nonischemic cardiomyopathy status post ICD implantation, ZAHEER, chronic hypercapnic respiratory failure on home oxygen and COPD. This is a patient who is followed in our office by Dr. Soliman. She brought herself to the hospital because she had been feeling weak and ?off. ? She states that she was also having trouble staying awake during the day. She also reports that her blood pressures have been running lower than usual for the past few months. Denies any chest pain, palpitations, orthopnea, PND. Denies any ICD discharges. An ABG was drawn as part of her initial workup that revealed hypercapnia with a pH of 7.231 and a pCO2 of 91.6. She was placed on BiPAP and admitted for further evaluation and treatment. Today, she is feeling better and is currently on 2 L of O2 which is her home oxygen requirement. Her blood pressures have been soft since presentation and per patient report they have been running low at home as well. Her systolic blood pressures are mostly in the 90s and 80s. This is the reason we have consulted and seeing her in the setting Requesting physician: Yee Herrera PA-C Consult reason: hypotension Reason For Visit: Gen weakness/elevated trop Review of Systems Review of Systems: All systems reviewed & are unremarkable except as noted in HPI and below Constitutional: Constitutional: Reports fatigue, Reports lethargy and Reports weakness Eyes: Eyes: Denies change in vision ENT: Reports Normal hearing present, Denies nasal congestion and Denies nasal discharge Cardiovascular: Cardiovascular: Denies chest pain, Denies chest pain at rest, Denies pedal edema, Denies leg edema, Denies palpitations, Denies dyspnea, Denies dyspnea on exertion and Denies paroxysmal nocturnal dyspnea Respiratory: Respiratory: Denies dyspnea and Denies dyspnea on exertion Gastrointestinal: Gastrointestinal: Denies abdominal pain, Denies constipation and Denies diarrhea Genitourinary: Genitourinary: Denies hematuria and Denies dysuria Musculoskeletal: Musculoskeletal: Denies back pain, Denies arthralgias, Denies joint swelling and Denies neck pain Integumentary/Breasts: Skin/Breast: Denies erythema, Denies unusual bruising and Denies wounds Neurologic: Denies Abnormal speech present and Denies confusion Psychiatric: Psychiatric: Denies anxiety Endocrine: Endocrine: Denies excessive sweating and Denies fatigue Hematologic/Lymphatic: Hematologic/Lymphatic: Denies easy bleeding and Denies easy bruising Allergic/Immunologic: Allergic/Immunologic: Denies GI upset with certain foods and Denies lip swelling PMFSH Past Medical History Medical History (Review
[2021-12-01] MEDS: carvediloL 12.5 MG TABLET PO (17:38)
[2021-12-01] MEDS: rOPINIRole HCL 0.25 MG TABLET PO (21:08)
[2021-12-01] MEDS: ATORVASTATIN 40 MG TABLET PO (21:08)
--- NOTE | 2021-12-01 22:39 | PC.NURSE ---
Patient complaining of upper abdominal pain similar to the pain she had in ED. She inquired about receiving different pain medication as her at home PRN medication doesn't help. Physician was contacted, and made aware. No new orders at this time. Will continue to monitor.
[2021-12-02] VITALS (20 sets, daily range): BP systolic 112–139; BP diastolic 57–71; PULSE 69–98; RESP 16–22; TEMP 36–36.4; O2SAT 86–99
[2021-12-02] MEDS: ALBUTEROL SULFATE NEB 2.5 MG/0.5 ML INH 5 MG INHALATION ×3 (02:14→13:50)
[2021-12-02] MEDS: traMADol HCL (*CRX) 50 MG TABLET PO ×3 (02:32→16:07)
[2021-12-02 05:25] LABS: Alveolar/Arterial O2 Gradient 62.9 mmHg; Base Excess ABG 12.1 mEq/l (+/-2.0); Fractional Inspired Oxygen 28 %; Oxygen Content ABG 15.5 %vol (16.0-22.0); Oxyhemoglobin 90.6 % THb (90.0-100.0); PO2 ABG 54.6 mmHg (80.0-100.0); PO2 FiO2 Ratio Arterial Blood 1.95 %; Total Hemoglobin 12.2 g/dL (12.0-18.0); pH ABG 7.377 (7.350-7.450)
[2021-12-02 05:28] LABS: Device NASAL CANNULA; Modified Allen's Test Pass; Oxygen Saturation ABG 86.4 % (95.0-100.0); PCO2 ABG 69.6 mmHg (35.0-45.0); Site Drawn RIGHT RADIAL
[2021-12-02 05:45] LABS: Blood Urea Nitrogen 18 mg/dL (7-17); Calcium 8.2 mg/dL (8.4-10.2); Carbon Dioxide > 40 mmol/L (22-30); Chloride 94 mmol/L (98-107); Estimated CRCL calculation 90 ml/min; Estimated Glomerular Filt Rate > 60; Glucose 88 mg/dL (65-110); Potassium 4.4 mmol/L (3.4-5.0); Sodium 136 mmol/L (137-145)
[2021-12-02] MEDS: UMECLIDINIUM/VILANTEROL 62.5-25 MCG ELLIPTA 1 PUFF INHALATION (08:59)
[2021-12-02] MEDS: busPIRone HCL 5 MG TABLET 15 MG PO ×2 (09:33→13:18)
[2021-12-02] MEDS: CITALOPRAM HYDROBROMIDE 20 MG TABLET 40 MG PO (09:33)
[2021-12-02] MEDS: PANTOPRAZOLE 40 MG TABLET PO (09:35)
[2021-12-02] MEDS: SPIRONOLACTONE 25 MG TABLET PO (09:35)
[2021-12-02] MEDS: carvediloL 12.5 MG TABLET PO (09:35)
[2021-12-02] MEDS: FUROSEMIDE 20 MG TABLET PO (09:35)
[2021-12-02] MEDS: SACUBITRIL/VALSARTAN 49-51 MG TABLET 1 TABLET PO (09:35)
[2021-12-02] MEDS: ENOXAPARIN 40 MG/0.4 ML SYRINGE SUB-Q (09:35)
[2021-12-02] MEDS: diazePAM (*CRX) 5 MG TABLET PO (09:38)
--- NOTE | 2021-12-02 10:28 | PM.DS ---
DS: Admitting Diagnosis Discharge Date 12/02/21 Admitting Diagnosis Shortness of breath DS: Discharge Diagnosis Discharge Diagnosis (1) Acute and chronic respiratory failure: Code(s): J96.20 - Acute and chronic respiratory failure, unspecified whether with hypoxia or hypercapnia Status: Acute Assessment and Plan: Patient with chronic respiratory failure on 2 L O2 nasal cannula chronically. Patient presents with acute respiratory failure with increased work of breathing and ABG showing 7.23/92/84 on 4 L. She was placed on BiPAP. Blood gas a few hours later shows 7.31/69/66 on BiPAP. She does state that pressure with the current BiPAP is stronger than she is used to. Spoke with her industrial training specialist (Dr Lemons) who stated that she is on 15/10 with 2L bleed in. She was on settings 20/6 with a rate of 20. Patient needs noninvasive ventilation with AVAPS AE to treat her hypercarbic acute on chronic respiratory failure. Plan for patient to return home today and to continue her NIV. Discussed with Respiratory and Dr Lemons. Home O2 evaluation pending. (2) Hypotension: Code(s): I95.9 - Hypotension, unspecified Status: Acute Assessment and Plan: SBP was in the 80-90 range on admission. This has been an ongoing issue for the last several months per patient. She is on carvedilol, lasix, spironolactone, and Entresto. Cardiology was consulted and her Coreg dose was decreased. BP became better controlled. (3) Elevated troponin: Code(s): R77.8 - Other specified abnormalities of plasma proteins Status: Acute Assessment and Plan: Troponin was only very mildly elevated and EKG showing paced rhythm. Repeat Troponin normal. She is not having any chest pain. [place] not related to acute coronary syndrome but more likely from her respiratory failure. (4) General weakness: Code(s): R53.1 - Weakness Status: Acute Assessment and Plan: Likely related to a combination of soft blood pressures and hypercarbia. Treatment as above. Increase activity here. (5) Nonischemic cardiomyopathy: Code(s): I42.8 - Other cardiomyopathies Status: Acute Assessment and Plan: EF was as low as 10% status post ICD insertion. Echo in March 2021 showing EF 35-40% and indeterminate diastolic dysfunction. CXR showing mild atelectasis in lingula. No evidence of fluid overload. Continue current medical regiment with Entresto, lasix, Spironolactone and Coreg. Appreciate Cardiology input. (6) Cyst of left ovary: Code(s): N83.202 - Unspecified ovarian cyst, left side Status: Acute Assessment and Plan: CT showed a 6.6 cm cystic lesion of the left ovary, likely benign. Pelvic ultrasound also notes cystic lesion felt to be benign. (7) Obstructive sleep apnea: Code(s): G47.33 - Obstructive sleep apnea (adult) (pediatric) Status: Chronic Assessment and Plan: As above. (8) Morbid obesity: Code(s): E66.01 - Morbid (severe) obesity due to excess calories Status: Acute Assessment and Plan: BMI 50. This is contributing to her other medical problems. Encouraged healthy lifestyle choices. DS: Summary Hospital Course Reason for hospitalization: 60yo female with ZAHEER, Chronic respiratory failure on 2L, NICMP and PM here for weakness and shortness of breath. Please see H&P for details. Hospital Course: Please see above for details of hospital course. Status at Discharge Cognitive/behavioral status at discharge: Stable Time Spent with Patient Time attestation: Total time spent providing and/or coordinating discharge services: 38 minutes Time spent: Greater than 30 minutes Exam Narrative: AF 96.8 139/71 77 18 95% 2L Gen - NARD sitting up in bed Chest - few basilar rhonchi o/w clear. nml RR CV - RRR with a distant S1/S2; Tele showing paced rhythm Abd - Soft, obese, NT, +BS Ext - No pedal edema. P
--- NOTE | 2021-12-02 10:34 | PM.PNCARD ---
Progress Note: A&P Assessment and Plan (1) Nonischemic cardiomyopathy: Code(s): I42.8 - Other cardiomyopathies Status: Acute Assessment and Plan: Established and documented history of NICM with BiV ICD in place. Echocardiogram from June 2021 showed Severe LV dysfunction with EF 16%. Grade I diastolic dysfunction. Trace aortic valve regurgitation. Appears to be well compensated at this time. She had her ICD interrogated in September 2020 with normal functioning. No recent ICD discharges. She is on GDMT with coreg, entresto, spironolactone, and furosemide. BP much improved, carvedilol reduced to 12.5 mg twice daily. Tolerating spironolactone, Entresto, and furosemide. Continue medical therapy. Stable for discharge from cardiac perspective. Follow-up in the office within [address] Soliman. Monitor BP at home. Ambulate with caution. (2) Acute and chronic respiratory failure: Qualifiers: Respiratory failure complication: hypoxia and hypercapnia Qualified Code(s): J96.21 - Acute and chronic respiratory failure with hypoxia; J96.22 - Acute and chronic respiratory failure with hypercapnia Code(s): J96.20 - Acute and chronic respiratory failure, unspecified whether with hypoxia or hypercapnia Status: Acute Assessment and Plan: Improved. Management per hospitalist service. Most likely secondary to CO2 narcosis and under treatment for ZAHEER on BiPAP. Additional BiPAP titration studies planned as outpatient with pulmonology. (3) Hypotension: Qualifiers: Hypotension type: hypotension due to drug Qualified Code(s): I95.2 - Hypotension due to drugs Code(s): I95.9 - Hypotension, unspecified Status: Acute Assessment and Plan: Reported hypotension for a couple of months and multiple BP measurements in the hospital demonstrating SBP in the 80-90 range. BP stable, carvedilol reduced to 12.5 mg twice daily. Tolerating additional home guideline directed medical therapy. Monitor BP, call with readings and or recurrent symptoms. Ambulate with caution as above. Subjective Date/time seen: Date of service: 12/02/21 10:34 Follow-up for hypertension, cardiomyopathy Patient feeling much better, essentially baseline. Denies significant dizziness, denies shortness of breath, chest pain or palpitations. No new issues overnight. Blood pressure much improved tolerating medications thus far. Review of Systems Review of Systems: All systems reviewed & are unremarkable except as noted in HPI and below Constitutional: Constitutional: Reports as per HPI, Denies excessive sweating, Denies fatigue, Reports lethargy and Denies weakness Eyes: Eyes: Reports as per HPI and Denies change in vision ENT: Reports Normal hearing present, Denies lip swelling, Denies nasal congestion, Denies nasal discharge and Denies neck pain Cardiovascular: Cardiovascular: Denies chest pain, Denies chest pain at rest, Denies pedal edema, Denies leg edema, Denies palpitations, Denies dyspnea, Denies dyspnea on exertion and Denies paroxysmal nocturnal dyspnea Respiratory: Respiratory: Denies dyspnea and Denies dyspnea on exertion Gastrointestinal: Gastrointestinal: Denies abdominal pain, Denies constipation and Denies diarrhea Genitourinary: Genitourinary: Denies hematuria and Denies dysuria Musculoskeletal: Musculoskeletal: Denies back pain, Denies arthralgias, Denies joint swelling and Denies neck pain Integumentary/Breasts: Skin/Breast: Denies erythema, Denies unusual bruising and Denies wounds Neurologic: Reports Normal hearing present, Denies Abnormal speech present, Denies confusion and Reports weakness Psychiatric: Psychiatric: Denies anxiety and Denies confusion Endocrine: Endocrine: Denies excessive sweating, Denies fatigue and Denies palpitations Hematologic/Lymphatic: Hematologic/Lymphatic: Denies easy bleeding and Denies easy bruising Allergic/Immunologic: Allergic/Immunologi
--- NOTE | 2021-12-02 12:34 | PCRCNOTE ---
Home Trilogy being arranged with patient's DME, [facility]. [phone]
--- NOTE | 2021-12-02 14:58 | HOMEO2EVAL ---
Evaluation was performed at [facility] Oxygen Evaluation RC: Home Oxygen (O2) Evaluation Start: 12/02/21 13:58 Freq: Status: Active Protocol: RPE Activity Type Activity Date Activity User E-Sign Co-Sign Detail Recorded Client Recorded Date Recorded By Document 12/02/21 13:20 [email or web address] [email or web address] 12/02/21 14:02 DJO Document 12/02/21 13:25 [email or web address] [email or web address] 12/02/21 14:02 DJO Document 12/02/21 13:30 [email or web address] [email or web address] 12/02/21 14:02 DJO Document 12/02/21 13:30 [email or web address] [email or web address] 12/02/21 14:02 DJO Document 12/02/21 13:35 [email or web address] [email or web address] 12/02/21 14:02 DJO Document 12/02/21 13:45 [email or web address] [email or web address] 12/02/21 14:02 DJO 12/02/21 12/02/21 12/02/21 13:20 13:25 13:30 Home O2 Evaluation Test Phase Resting Resting Resting Oxygen Delivery Room Air Nasal Cannula Nasal Cannula Oxygen Flow Rate (L/min) 1 2 Pulse Oximetry (90-100 %) 86 L 88 L 90 Pulse Rate (60-100 beats/min) 78 76 77 Treatment Charges O2 Evaluation - Inpatient 12/02/21 12/02/21 12/02/21 13:30 13:35 13:45 Home O2 Evaluation Test Phase Exercise Exercise Resting Oxygen Delivery Nasal Cannula Nasal Cannula Nasal Cannula Oxygen Flow Rate (L/min) 3 2 2 Pulse Oximetry (90-100 %) 90 88 L 91 Pulse Rate (60-100 beats/min) 98 96 77 Treatment Charges
== END 2021-12-02 16:53 | disposition home or self-care (01) | DRG 189 ==
LOC: ANHED 16:08 → ANHIMU 17:31
PROVIDERS: Physician Assistant; Admitting Provider Internal Medicine; Emergency Provider Emergency Medicine; Visit Provider Internal Medicine
DX: J96.22 Acute and chronic respiratory failure with hypercapnia (principal); I42.8 Other cardiomyopathies; Z68.42 Body mass index [BMI] 45.0-49.9, adult; E66.2 Morbid (severe) obesity with alveolar hypoventilation; N83.202 Unspecified ovarian cyst, left side; G47.33 Obstructive sleep apnea (adult) (pediatric); E78.5 Hyperlipidemia, unspecified; K21.9 Gastro-esophageal reflux disease without esophagitis; F41.9 Anxiety disorder, unspecified; I11.0 Hypertensive heart disease with heart failure; I50.9 Heart failure, unspecified; F32.A Depression, unspecified; I95.9 Hypotension, unspecified; R79.89 Other specified abnormal findings of blood chemistry; Z87.891 Personal history of nicotine dependence; Z99.81 Dependence on supplemental oxygen; Z95.810 Presence of automatic (implantable) cardiac defibrillator
CPT/HCPCS: 36415; 36600; 71046; 74177; 76830; 76856; 80048; 80053; 81003; 82375; 82607; 82746; 82805; 83050; 83605; 83690; 83735; 83880; 84443; 84484; 85025; 85027; 93005; 94618; 94640; 99285; A9270; G0378; J1650; J7030; Q9967

== ENCOUNTER 2021-12-23 14:30 | Inpatient (IN) | payer MEDICARE, MEDICAID, SELFPAY ==
[2021-12-23] VITALS (52 sets, daily range): BP systolic 102–144; BP diastolic 54–95; PULSE 80–112; RESP 13–28; TEMP 35.9–36.6; O2SAT 88–100; BMI 47.3; BMI 49.6
--- NOTE | ~2021-12-23 | XR_ITS ---
EXAMINATION: XR chest 2V DATE: 12/23/2021 15:16 INDICATION: Shortness of breath. TECHNIQUE: Frontal and lateral views of the chest were obtained. COMPARISON: Chest 2 views 11/30/2021, CT abdomen and pelvis 11/30/2021 FINDINGS: There is mild atelectasis at left lung base. No pleural effusion or pneumothorax. Cardiomeg jared is noted. There is a left chest pacer/defibrillator with leads in right atrium, right ventricle, and coronary sinus. IMPRESSION: 1. Mild atelectasis at left lung base. 2. Cardiomegaly. Reviewed, dictated and finalized at location B.
--- NOTE | 2021-12-23 14:37 | ECG_ITS ---
Measurements Intervals [place] Rate: 96 P: -53 [place]: 140 QRS: 246 QRSD: 196 T: 68 QT: 422 QTc: 536 Interpretive Statements ELECTRONIC VENTRICULAR PACEMAKER NO FURTHER INTERPRETATION POSSIBLE COMPARED TO ECG 11/30/2021 14:32:37 NO SIGNIFICANT CHANGES Electronically Signed On 12-23-2021 18:15:08 CDT by Cristo Rasmussen M.D.
--- NOTE | 2021-12-23 14:54 | PC.NURSE ---
Pt reports family having COVID 2 weeks ago but she stayed in the basement. Pt is vaccinated. Will alert .
[2021-12-23 15:07] LABS: Basophils Absolute Auto 0.1 K/mm3 (0.0-0.1); Basophils Percent Auto 0.6 % (0.2-1.2); Eosinophils Percent Auto 0.2 % (0-4.4); Hemoglobin 12.1 g/dL (12.0-15.0); Immature Granulocyte Absolute 0.04 K/mm3 (0.00-0.031); Immature Granulocyte Percent A 0.5 % (0-0.5); Lymphocytes Absolute Auto 1.07 K/mm3 (0.9-3.2); Lymphocytes Percent Auto 12.1 % (18.3-44.2); Mean Corpuscular HGB Conc 28.1 g/dl (32-36); Mean Corpuscular Hemoglobin 30.5 pg (26-34); Mean Corpuscular Volume 108.3 fl (80-100); Mean Platelet Volume 10.2 fl (7.4-10.4); Monocytes Absolute Auto 0.7 K/mm3 (0.1-0.6); Monocytes Percent Auto 7.6 % (2.6-8.5); Platelet Count Result 215 k/mm3 (150-375); Red Blood Count 3.97 M/mm3 (4.2-5.4); Red Cell Distribution Width 12.6 % (11.5-14.5); White Blood Count 8.8 K/mm3 (4.5-10.0)
[2021-12-23 15:22] LABS: Alanine Aminotransferase 11 U/L (4-35); Albumin Level 4.3 g/dL (3.5-5.1); Alkaline Phosphatase 77 U/L (38-126); Aspartate Amino Transferase 22 U/L (14-36); Bilirubin,Total 0.3 mg/dL (0.2-1.3); Blood Urea Nitrogen 20 mg/dL (7-17); Calcium 8.3 mg/dL (8.4-10.2); Carbon Dioxide > 40 mmol/L (22-30); Chloride 95 mmol/L (98-107); Estimated CRCL calculation 89 ml/min; Estimated Glomerular Filt Rate > 60; Glucose 113 mg/dL (65-110); Potassium 4.6 mmol/L (3.4-5.0); Sodium 140 mmol/L (137-145)
[2021-12-23 15:28] LABS: Platelet Estimate Adequate (Adequate)
[2021-12-23 15:29] LABS: Hypochromasia 1+ (NORMAL)
[2021-12-23 16:01] LABS: Alveolar/Arterial O2 Gradient 34.6 mmHg; Base Excess ABG 11.1 mEq/l (+/-2.0); Fractional Inspired Oxygen 28 %; HCO3 ABG 40.5 mEq/l (22.0-26.0); Oxygen Content ABG 15.7 %vol (16.0-22.0); Oxyhemoglobin 92.2 % THb (90.0-100.0); PO2 ABG 66.3 mmHg (80.0-100.0); PO2 FiO2 Ratio Arterial Blood 2.37 %; Total Hemoglobin 12.1 g/dL (12.0-18.0); pH ABG 7.303 (7.350-7.450)
[2021-12-23 16:02] LABS: Device NASAL CANNULA; Modified Allen's Test Pass; PCO2 ABG 83.7 mmHg (35.0-45.0); Site Drawn LEFT RADIAL
[2021-12-23 16:20] LABS: NT Pro B Type Natriuretic Pept 1570 pg/mL (5-100)
[2021-12-23] MEDS: ALBUTEROL SULFATE NEB 2.5 MG/0.5 ML INH 5 MG INHALATION (16:35)
[2021-12-23] MEDS: IPRATROPIUM BR 0.02% INH SOLN 0.5 MG/2.5 ML VIAL INHALATION (16:35)
[2021-12-23] MEDS: FUROSEMIDE INJ 40 MG/4 ML VIAL IV PUSH (17:00)
[2021-12-23] MEDS: methylPREDNISolone SOD SUCC 125 MG VIAL IV PUSH (17:00)
[2021-12-23 17:53] LABS: Alveolar/Arterial O2 Gradient 49.5 mmHg; Base Excess ABG 12.8 mEq/l (+/-2.0); Fractional Inspired Oxygen 28 %; HCO3 ABG 41.4 mEq/l (22.0-26.0); Modified Allen's Test Pass; Oxygen Content ABG 16.4 %vol (16.0-22.0); Oxygen Saturation ABG 89.5 % (95.0-100.0); Oxyhemoglobin 91.8 % THb (90.0-100.0); PCO2 ABG 75.2 mmHg (35.0-45.0); PO2 ABG 61.4 mmHg (80.0-100.0); PO2 FiO2 Ratio Arterial Blood 2.19 %; Site Drawn LEFT RADIAL; Total Hemoglobin 12.7 g/dL (12.0-18.0); pH ABG 7.359 (7.350-7.450)
[2021-12-23 17:54] LABS: Device NON-INVASIVE VENT; Non-Invasive Expiratory Pressure 6 CMH2O; Non-Invasive Inspiratory Pressure 20 CMH2O; Non-Invasive Vent Rate 18 /MIN
--- NOTE | 2021-12-23 18:04 | ED.SOB ---
HPI - SOB/Dyspnea General Chief Complaint: Shortness of Breath/Dyspnea Stated Complaint: cant breathe Time Seen by Provider: 12/23/21 15:47 Source: patient Mode of arrival: ambulatory Limitations: no limitations History of Present Illness HPI Narrative: 61-year-old female with history of COPD presents today with complaints of shortness of breath that started yesterday. Patient recently seen in the ER for similar symptoms. Patient trilogy home with neb treatments. Patient states she has been using her trilogy but last night she did not use it the entire night. Put on her old BiPAP this morning. Patient unable to do nebulizer treatments at home due to shortness of breath. Nebulizer treatment was in the closet and she could not ambulate to get it. Patient denies cough, fevers, chest pain, or recent sick contacts. Related Data Home Medications Medication Instructions Recorded Confirmed atorvastatin 40 mg PO HS 07/29/19 11/30/21 buspirone 15 mg PO TID 07/29/19 11/30/21 carvedilol 25 mg PO BID 07/29/19 11/30/21 diazepam 5 mg PO Q8H PRN 07/29/19 11/30/21 ropinirole 0.25 mg PO HS 07/29/19 11/30/21 spironolactone 25 mg PO DAILY 07/29/19 11/30/21 Entresto 1 tablet PO BID 10/02/20 11/30/21 citalopram 40 mg PO DAILY 11/30/21 11/30/21 furosemide 20 mg PO DAILY 11/30/21 11/30/21 tramadol 50 mg PO Q6H PRN 11/30/21 11/30/21 Allergies Allergy/AdvReac Type Severity Reaction Status Date / Time No Known Allergies Allergy Verified 12/23/21 14:55 Review of Systems Review of Systems: CONSTITUTIONAL: Denies fever, chills, or sweats. EYES: Denies visual changes, redness, or discharge. ENT: Denies rhinorrhea, congestion, sore throat, or otalgia. CARDIOVASCULAR: Denies chest pain, palpitations, or edema. RESPIRATORY: Dyspnea at rest and on exertion. Denies cough. GASTROINTESTINAL: Denies abdominal pain, nausea, vomiting, or diarrhea. GENITOURINARY: Denies dysuria or hematuria. SKIN: Denies rash or itching. MUSCULOSKELETAL: Denies back pain, joint pain, or myalgia. NEUROLOGIC: Denies headache, numbness, dizziness, or weakness. PSYCHIATRIC: Denies anxiety or depression. [facility] Past Medical History Medical History Anxiety Back pain Bronchitis Chronic respiratory failure with hypoxia and hypercapnia 1 prior intubation about 10 years ago Congestive heart failure COPD (chronic obstructive pulmonary disease) Depression Emphysema of lung Essential hypertension History of rectal polyps Hyperlipidemia Morbid obesity Nonischemic cardiomyopathy Present since 2006, thought to be due to a viral myocarditis. EF was as low as 10% in June 2017 but patient reports improvement in her EF to 32% most recently. She is followed by Dr. Soliman. ICD in-situ. Obesity hypoventilation syndrome Obstructive sleep apnea On BiPAP 22/02 with 3 L of oxygen bleed in. Rectal polyp Surgical History Surgical History Biventricular cardiac pacemaker in situ (2006) History of cardiac cath With no significant coronary artery disease noted with last cardiac catheterization June 2017 demonstrating only 30-40% lesion of the left anterior descending artery. History of colonoscopy (09/2017) History of dilation and curettage (11/2016) History of tubal ligation (1989) Family History Family History Mother Diabetes mellitus Acute myocardial infarction Hypertension Sibling Diabetes mellitus Acute myocardial infarction Cerebrovascular accident Hypertension Schizophrenia Father Congestive heart failure Cerebrovascular accident Hypertension Schizophrenia Social History Social History Social History: Surrogate decision maker: Kia Garcia, daughter. Code status: Full code Smoking packs per day: 1 Smoking cigarettes per day: 20.0 Years
--- NOTE | 2021-12-23 18:15 | PM.IMHP ---
H&P: HPI History of Present Illness Date/Time: 12/23/21 18:15 Chief Complaint: Shortness of breath. Narrative: This is a very pleasant 61-year-old female with chronic respiratory failure on oxygen, non-ischemic cardiomyopathy, obstructive sleep apnea on Trilogy, and chronic obstructive pulmonary disease who presented to the emergency department for evaluation of shortness of breath. She has chronic dyspnea on exertion though reports worsening shortness of breath over the last day and half. This morning she was so short of breath that she was unable to remove her BiPAP long enough to give herself a nebulizer treatment and thus she came in for evaluation. She is chronically on 2 L however on arrival to triage she was on 4 L with an SpO2 of 88%. ABG showed a pH of 7.303 and a pCO2 of 83.7 and she was placed on BiPAP with improvement in her work of breathing. It is noted that the patient is actually on a Trilogy unit at nighttime though she has been wearing her BiPAP the past few nights as she has not been staying in her own home and the Trilogy is too heavy for her to transport. She reports that she has been using her BiPAP instead though apparently she did not wear it the entire night last night. She is not staying at home at this time as several of her family members in her household are currently sick with COVID though she denies contact with them and she has no symptoms of such. She denies fever, chills, sweats, sinus congestion, sore throat, pleuritic pain, significant cough, nausea, vomiting, diarrhea, and body aches. Review of Systems Review of Systems: Twelve systems were reviewed. No confusion or hypersomnolence. Appetite has been okay. No pleuritic pain or lower extremity edema. Except as documented, all other systems were reviewed and are negative. [facility] Past Medical History Medical History (Updated 12/23/21 @ 22:31 by Yee Herrera PA-C) Anxiety Back pain Bronchitis Chronic obstructive pulmonary disease Chronic respiratory failure with hypoxia and hypercapnia 1 prior intubation about 10 years ago Congestive heart failure Depression Emphysema of lung Essential hypertension History of rectal polyps Hyperlipidemia Morbid obesity Nonischemic cardiomyopathy Present since 2006, thought to be due to a viral myocarditis. EF was as low as 10% in June 2017 but patient reports improvement in her EF to 32% most recently. She is followed by Dr. Soliman. ICD in-situ. Obesity hypoventilation syndrome Obstructive sleep apnea On Trilogy unit, previously on BiPAP 22/02 with 3 L of oxygen bleed in. Rectal polyp Surgical History Surgical History Biventricular cardiac pacemaker in situ (2006) History of cardiac cath With no significant coronary artery disease noted with last cardiac catheterization June 2017 demonstrating only 30-40% lesion of the left anterior descending artery. History of colonoscopy (09/2017) History of dilation and curettage (11/2016) History of tubal ligation (1989) Family History Family History Mother Diabetes mellitus Acute myocardial infarction Hypertension Sibling Diabetes mellitus Acute myocardial infarction Cerebrovascular accident Hypertension Schizophrenia Father Congestive heart failure Cerebrovascular accident Hypertension Schizophrenia Social History Social History Social History: Surrogate decision maker: Kia Garcia, daughter. Code status: Full code Smoking packs per day: 1 Smoking cigarettes per day: 20.0 Years smoked: 30 Smoking pack-years: 30.00 Smoking status: Former smoker Tobacco type: cigarettes Second hand tobacco smoke exposure: No Alcohol intake: never Substance use: never Substance use type: does not use Other substance usage details: used to abuse prescription pills Last
--- NOTE | 2021-12-23 19:34 | PC.NURSE ---
Report called to IMU. Respiratory on the way to ED to assist with transport while on bipap.
--- NOTE | 2021-12-23 21:43 | ADMGEN ---
This patient, Olivia Burdick, was admitted to IMU Room 201-01 at 1955 on 12/23/21. Patient/family oriented to hospital policies and general routines including ID bracelet, bed and alarms, visiting hours, pain management, procedures, bathroom and other care routines, personal items, smoking policy, room service/diet, and visiting hours. Information on how to activate the Rapid Response Team has been discussed. Patient/Family are encouraged to report perceived risks to care and to ask questions if they do not understand what they are told or what they should do.
[2021-12-23] MEDS: SACUBITRIL/VALSARTAN 49-51 MG TABLET 1 TABLET PO (23:56)
[2021-12-23] MEDS: ATORVASTATIN 40 MG TABLET PO (23:56)
[2021-12-23] MEDS: traMADol HCL (*CRX) 50 MG TABLET PO (23:56)
[2021-12-23] MEDS: carvediloL 12.5 MG TABLET PO (23:57)
[2021-12-23] MEDS: rOPINIRole HCL 0.25 MG TABLET PO (23:58)
[2021-12-24] VITALS (33 sets, daily range): BP systolic 102–160; BP diastolic 61–78; PULSE 68–117; RESP 20–22; TEMP 36–36.7; O2SAT 96–100
[2021-12-24 04:51] LABS: Basophils Percent Auto 0.2 % (0.2-1.2); Hematocrit 42.8 % (37.0-47.0); Hemoglobin 12.6 g/dL (12.0-15.0); Immature Granulocyte Absolute 0.02 K/mm3 (0.00-0.031); Immature Granulocyte Percent A 0.4 % (0-0.5); Lymphocytes Absolute Auto 0.44 K/mm3 (0.9-3.2); Lymphocytes Percent Auto 9.6 % (18.3-44.2); Mean Corpuscular HGB Conc 29.4 g/dl (32-36); Mean Corpuscular Hemoglobin 30.1 pg (26-34); Mean Corpuscular Volume 102.1 fl (80-100); Mean Platelet Volume 10.1 fl (7.4-10.4); Monocytes Absolute Auto 0.1 K/mm3 (0.1-0.6); Neutrophils Percent Auto 87.8 % (45.5-73.1); Platelet Count Result 208 k/mm3 (150-375); Red Blood Count 4.19 M/mm3 (4.2-5.4); Red Cell Distribution Width 12.3 % (11.5-14.5); White Blood Count 4.6 K/mm3 (4.5-10.0)
[2021-12-24 04:59] LABS: Alanine Aminotransferase 12 U/L (4-35); Albumin Level 4.1 g/dL (3.5-5.1); Alkaline Phosphatase 83 U/L (38-126); Aspartate Amino Transferase 22 U/L (14-36); Bilirubin,Total 0.3 mg/dL (0.2-1.3); Blood Urea Nitrogen 22 mg/dL (7-17); Calcium 8.7 mg/dL (8.4-10.2); Carbon Dioxide > 40 mmol/L (22-30); Chloride 91 mmol/L (98-107); Estimated CRCL calculation 89 ml/min; Estimated Glomerular Filt Rate > 60; Glucose 130 mg/dL (65-110); Potassium 4.5 mmol/L (3.4-5.0); Sodium 136 mmol/L (137-145)
[2021-12-24] MEDS: IPRATROPIUM BR 0.02% INH SOLN 0.5 MG/2.5 ML VIAL INHALATION ×4 (05:23→20:09)
[2021-12-24] MEDS: ALBUTEROL SULFATE NEB 2.5 MG/0.5 ML INH 5 MG INHALATION ×4 (05:23→20:09)
[2021-12-24 05:42] LABS: Alveolar/Arterial O2 Gradient 64.1 mmHg; Base Excess ABG 10.9 mEq/l (+/-2.0); Fractional Inspired Oxygen 28 %; HCO3 ABG 37.9 mEq/l (22.0-26.0); Oxygen Content ABG 17.7 %vol (16.0-22.0); Oxygen Saturation ABG 91.8 % (95.0-100.0); Oxyhemoglobin 92.6 % THb (90.0-100.0); PO2 ABG 63.4 mmHg (80.0-100.0); PO2 FiO2 Ratio Arterial Blood 2.26 %; Total Hemoglobin 13.6 g/dL (12.0-18.0); pH ABG 7.411 (7.350-7.450)
[2021-12-24 05:45] LABS: Device NON-INVASIVE VENT; Modified Allen's Test Pass; PCO2 ABG 61.1 mmHg (35.0-45.0); Site Drawn LEFT RADIAL
[2021-12-24 05:46] LABS: Non-Invasive Expiratory Pressure 6 CMH2O; Non-Invasive Inspiratory Pressure 20 CMH2O; Non-Invasive Vent Rate 20 /MIN
[2021-12-24 07:03] LABS: Magnesium 2.1 mg/dL (1.6-2.3)
[2021-12-24] MEDS: UMECLIDINIUM/VILANTEROL 62.5-25 MCG ELLIPTA 1 PUFF INHALATION (08:21)
[2021-12-24] MEDS: SPIRONOLACTONE 25 MG TABLET PO (08:48)
[2021-12-24] MEDS: SACUBITRIL/VALSARTAN 49-51 MG TABLET 1 TABLET PO ×2 (08:48→20:27)
[2021-12-24] MEDS: PANTOPRAZOLE 40 MG TABLET PO (08:48)
[2021-12-24] MEDS: FUROSEMIDE 20 MG TABLET PO (08:48)
[2021-12-24] MEDS: ENOXAPARIN 40 MG/0.4 ML SYRINGE SUB-Q (08:49)
[2021-12-24] MEDS: carvediloL 12.5 MG TABLET PO ×3 (08:49→20:27)
[2021-12-24] MEDS: busPIRone HCL 5 MG TABLET 15 MG PO ×3 (08:49→17:46)
[2021-12-24] MEDS: CITALOPRAM HYDROBROMIDE 20 MG TABLET 40 MG PO (08:49)
[2021-12-24] MEDS: traMADol HCL (*CRX) 50 MG TABLET PO ×2 (08:55→20:26)
--- NOTE | 2021-12-24 10:31 | PM.IMPN ---
Progress Note: A&P Assessment and Plan (1) Acute on chronic respiratory failure with hypoxia and hypercapnia: Code(s): J96.21 - Acute and chronic respiratory failure with hypoxia; J96.22 - Acute and chronic respiratory failure with hypercapnia Status: Acute Assessment and Plan: Likely related to patient not being able to use her Trilogy as she has not been staying at home the last 5 days or so due to members of her household having come down with COVID. She has been started on BiPAP 20/ with improvement in blood gas. Continue BiPAP. Discussed regular use of her trilogy at the time discharge. ABG has improved significantly today recheck. (2) Obstructive sleep apnea: Code(s): G47.33 - Obstructive sleep apnea (adult) (pediatric) Status: Chronic Assessment and Plan: Continue BiPAP at nighttime and with naps. Resume Trilogy upon discharge. (3) Chronic obstructive pulmonary disease: Code(s): J44.9 - Chronic obstructive pulmonary disease, unspecified Status: Acute Assessment and Plan: No acute bronchospasm. Continue usual respiratory regimen. (4) Nonischemic cardiomyopathy: Code(s): I42.8 - Other cardiomyopathies Status: Acute Assessment and Plan: Clinically compensated. Continue Entresto, carvedilol, and spironolactone. Subjective Date/time seen: 12/24/21 10:31 Interval history: HPI:This is a very pleasant 61-year-old female with chronic respiratory failure on oxygen, non-ischemic cardiomyopathy, obstructive sleep apnea on Trilogy, and chronic obstructive pulmonary disease who presented to the emergency department for evaluation of shortness of breath. She has chronic dyspnea on exertion though reports worsening shortness of breath over the last day and half. This morning she was so short of breath that she was unable to remove her BiPAP long enough to give herself a nebulizer treatment and thus she came in for evaluation. She is chronically on 2 L however on arrival to triage she was on 4 L with an SpO2 of 88%. ABG showed a pH of 7.303 and a pCO2 of 83.7 and she was placed on BiPAP with improvement in her work of breathing. It is noted that the patient is actually on a Trilogy unit at nighttime though she has been wearing her BiPAP the past few nights as she has not been staying in her own home and the Trilogy is too heavy for her to transport. She reports that she has been using her BiPAP instead though apparently she did not wear it the entire night last night. She is not staying at home at this time as several of her family members in her household are currently sick with COVID though she denies contact with them and she has no symptoms of such. She denies fever, chills, sweats, sinus congestion, sore throat, pleuritic pain, significant cough, nausea, vomiting, diarrhea, and body aches. 12/24/2021 she is feeling much better today back to her baseline level. She is thinking much better. She states she was may not been using her normal trilogy and was using her over unit since her last discharge. Review of Systems Review of Systems: All systems reviewed & are unremarkable except as noted in HPI and below (HPI) Exam Narrative: General: A well-developed female sitting up in bed not in acute distress HEENT: PERRL, EOMI. Sclerae anicteric. Neck: Supple. No JVD or lymphadenopathy. Respiratory: Bilateral clear to auscultation no respiratory distress Cardiovascular: Regular rate and rhythm with S1-S2. Soft systolic murmur heard at the left upper sternal border. Gastrointestinal: Abdomen is soft, nontender, and nondistended with positive bowel sounds. Skin: Warm and dry. No rash or lesions on limited exam. Extremities: No cyanosis, clubbing, or edema. Radial and pedal pulses intact. Neurological: Alert. Cranial nerves 2-12 are grossly intact. No gross focal deficits to casual conversation. Psychiatric: Pleasant and cooperative with normal mood and affec
[2021-12-24] MEDS: rOPINIRole HCL 0.25 MG TABLET PO (20:27)
[2021-12-24] MEDS: diazePAM (*CRX) 5 MG TABLET PO (20:27)
[2021-12-24] MEDS: ATORVASTATIN 40 MG TABLET PO (20:27)
[2021-12-25] VITALS (22 sets, daily range): BP systolic 104–110; BP diastolic 51–89; PULSE 62–89; RESP 18–22; TEMP 35.7–36.6; O2SAT 94–98
[2021-12-25] MEDS: ALBUTEROL SULFATE NEB 2.5 MG/0.5 ML INH 5 MG INHALATION ×3 (02:08→14:20)
[2021-12-25] MEDS: IPRATROPIUM BR 0.02% INH SOLN 0.5 MG/2.5 ML VIAL INHALATION ×3 (02:08→14:20)
[2021-12-25 05:24] LABS: Alveolar/Arterial O2 Gradient 55.6 mmHg; Base Excess ABG 9.2 mEq/l (+/-2.0); Fractional Inspired Oxygen 28 %; HCO3 ABG 35.1 mEq/l (22.0-26.0); Oxygen Content ABG 17.5 %vol (16.0-22.0); Oxyhemoglobin 95.4 % THb (90.0-100.0); PCO2 ABG 53.8 mmHg (35.0-45.0); PO2 ABG 80.6 mmHg (80.0-100.0); PO2 FiO2 Ratio Arterial Blood 2.88 %; pH ABG 7.433 (7.350-7.450)
[2021-12-25 05:25] LABS: Device NASAL CANNULA; Modified Allen's Test Pass; Site Drawn LEFT RADIAL
[2021-12-25] MEDS: UMECLIDINIUM/VILANTEROL 62.5-25 MCG ELLIPTA 1 PUFF INHALATION (07:32)
[2021-12-25 07:37] LABS: Basophils Absolute Auto 0.1 K/mm3 (0.0-0.1); Basophils Percent Auto 0.8 % (0.2-1.2); Eosinophils Absolute Auto 0.1 K/mm3 (0-0.3); Hemoglobin 13.3 g/dL (12.0-15.0); Immature Granulocyte Absolute 0.02 K/mm3 (0.00-0.031); Immature Granulocyte Percent A 0.3 % (0-0.5); Lymphocytes Absolute Auto 1.61 K/mm3 (0.9-3.2); Lymphocytes Percent Auto 22.5 % (18.3-44.2); Mean Corpuscular HGB Conc 28.3 g/dl (32-36); Mean Corpuscular Hemoglobin 29.8 pg (26-34); Mean Corpuscular Volume 105.4 fl (80-100); Mean Platelet Volume 10.3 fl (7.4-10.4); Monocytes Absolute Auto 0.7 K/mm3 (0.1-0.6); Monocytes Percent Auto 9.9 % (2.6-8.5); Neutrophils Absolute Auto 4.7 K/mm3 (1.3-6.7); Neutrophils Percent Auto 65.5 % (45.5-73.1); Platelet Count Result 218 k/mm3 (150-375); Red Blood Count 4.46 M/mm3 (4.2-5.4); Red Cell Distribution Width 12.9 % (11.5-14.5); White Blood Count 7.2 K/mm3 (4.5-10.0)
[2021-12-25 07:47] LABS: Alanine Aminotransferase 11 U/L (4-35); Albumin Level 3.8 g/dL (3.5-5.1); Alkaline Phosphatase 78 U/L (38-126); Aspartate Amino Transferase 24 U/L (14-36); Bilirubin,Total 0.4 mg/dL (0.2-1.3); Blood Urea Nitrogen 24 mg/dL (7-17); Carbon Dioxide > 40 mmol/L (22-30); Chloride 91 mmol/L (98-107); Estimated CRCL calculation 80 ml/min; Estimated Glomerular Filt Rate > 60; Glucose 81 mg/dL (65-110); Potassium 4.1 mmol/L (3.4-5.0); Sodium 135 mmol/L (137-145)
[2021-12-25] MEDS: busPIRone HCL 5 MG TABLET 15 MG PO ×2 (08:10→12:38)
[2021-12-25] MEDS: CITALOPRAM HYDROBROMIDE 20 MG TABLET 40 MG PO (08:10)
[2021-12-25] MEDS: FUROSEMIDE 20 MG TABLET PO (08:11)
[2021-12-25] MEDS: SPIRONOLACTONE 25 MG TABLET PO (08:11)
[2021-12-25] MEDS: ENOXAPARIN 40 MG/0.4 ML SYRINGE SUB-Q (08:11)
[2021-12-25] MEDS: PANTOPRAZOLE 40 MG TABLET PO (08:11)
[2021-12-25] MEDS: SACUBITRIL/VALSARTAN 49-51 MG TABLET 1 TABLET PO (08:11)
[2021-12-25] MEDS: traMADol HCL (*CRX) 50 MG TABLET PO (08:11)
--- NOTE | 2021-12-25 13:11 | PM.DS ---
DS: Admitting Diagnosis Discharge Date 12/25/2021 Admitting Diagnosis Shortness of breath DS: Discharge Diagnosis Discharge Diagnosis (1) Acute on chronic respiratory failure with hypoxia and hypercapnia: Code(s): J96.21 - Acute and chronic respiratory failure with hypoxia; J96.22 - Acute and chronic respiratory failure with hypercapnia Status: Acute Assessment and Plan: Likely related to patient not being able to use her Trilogy as she has not been staying at home the last 5 days prior to admission or so due to members of her household having come down with COVID. She has been started on BiPAP / with improvement in blood gas. Continue BiPAP. ABG has improved significantly and back to normal with regular use of her normal setting in her BiPAP. Discussed regular use of her trilogy at the time of discharge (2) Obstructive sleep apnea: Code(s): G47.33 - Obstructive sleep apnea (adult) (pediatric) Status: Chronic Assessment and Plan: Continue BiPAP at nighttime and with naps. Resume Trilogy upon discharge. (3) Chronic obstructive pulmonary disease: Code(s): J44.9 - Chronic obstructive pulmonary disease, unspecified Status: Acute Assessment and Plan: No acute bronchospasm. Continue usual respiratory regimen. (4) Nonischemic cardiomyopathy: Code(s): I42.8 - Other cardiomyopathies Status: Acute Assessment and Plan: Clinically compensated. Continue Entresto, carvedilol, and spironolactone. DS: Summary Hospital Course Hospital Course: See above Time Spent with Patient Time attestation: Total time spent providing and/or coordinating discharge services: 40 minutes Exam Narrative: General: A well-developed female sitting up in bed not in acute distress HEENT: PERRL, EOMI. Sclerae anicteric. Neck: Supple. No JVD or lymphadenopathy. Respiratory: Bilateral decreased breath sound at bases, no respiratory distress Cardiovascular: Regular rate and rhythm with S1-S2. Soft systolic murmur heard at the left upper sternal border. Gastrointestinal: Abdomen is soft, nontender, and nondistended with positive bowel sounds. Skin: Warm and dry. No rash or lesions on limited exam. Extremities: No cyanosis, clubbing, or edema. Radial and pedal pulses intact. Neurological: Alert. Cranial nerves 2-12 are grossly intact. No gross focal deficits to casual conversation. Psychiatric: Pleasant and cooperative with normal mood and affect. In good spirits. DS: Data Data Completed and Pending Labs on day of discharge: Labs from last 24 hours 12/25/21 12/25/21 12/25/21 07:12 07:12 05:00 WBC 7.2 RBC 4.46 Hgb 13.3 Hct 47.0 MCV 105.4 H MCH 29.8 MCHC 28.3 L RDW 12.9 Plt Count 218 MPV 10.3 Immature Gran % (Auto) 0.3 Neut % (Auto) 65.5 Lymph % (Auto) 22.5 Foard % (Auto) 9.9 H Eos % (Auto) 1.0 Baso % (Auto) 0.8 Lymph # (Auto) 1.61 Foard # (Auto) 0.7 H Eos # (Auto) 0.1 Baso # (Auto) 0.1 Abs Immat Gran (auto) 0.02 Absolute Neuts (auto) 4.7 Absolute Nucleated RBC 0.0 Nucleated RBC % 0.0 Puncture Site Left radial ABG pH 7.433 ABG pCO2 53.8 H ABG pO2 80.6 ABG PO2/FiO2 Ratio 2.88 ABG HCO3 35.1 H ABG O2 Saturation 96.0 ABG O2 Content 17.5 ABG Base Excess 9.2 A-a Gradient 55.6 Oxyhemoglobin 95.4 Total Hemoglobin 13.0 O2 Delivery Device Nasal cannula O2 Liters/Min 2.0 FiO2 28 Sodium 135 L Potassium 4.1 Chloride 91 L Carbon Dioxide > 40 H Anion Gap BUN 24 H Creatinine 0.80 Estim Creat Clear Calc 80 Estimated GFR > 60 Glucose 81 Calcium 8.0 L Total Bilirubin 0.4 AST 24 ALT 11 Alkaline Phosphatase 78 Total Protein 7.0 Albumin 3.8 Imaging Radiologist's impression: ITS Impressions Chest X-Ray 12/23/21 15:16 IMPRESSION: 1. Mild atelectasis at left lung base. 2. Card
--- NOTE | 2021-12-25 14:53 | PC.NURSE ---
1445-discharge instructions given and explained to pt. questions answered.
--- NOTE | 2021-12-25 17:04 | PC.NURSE ---
1642-pt discharged via wheelchair with daughter at patients side. pt belongings with pt upon discharge, including clothes, laptop, and cell phone.
== END 2021-12-25 16:42 | disposition home or self-care (01) | DRG 189 ==
LOC: ANHED 18:04 → ANHIMU 19:00
PROVIDERS: Emergency Medicine; Physician Assistant; Admitting Provider Family Medicine; Emergency Provider Nurse Practitioner Family; Visit Provider Internal Medicine
DX: J96.21 Acute and chronic respiratory failure with hypoxia (principal); I42.8 Other cardiomyopathies; Z68.43 Body mass index [BMI] 50.0-59.9, adult; E66.01 Morbid (severe) obesity due to excess calories; Z91.19 Patient's noncompliance with other medical treatment and regimen; G47.33 Obstructive sleep apnea (adult) (pediatric); J96.22 Acute and chronic respiratory failure with hypercapnia; J44.9 Chronic obstructive pulmonary disease, unspecified; I11.0 Hypertensive heart disease with heart failure; I50.9 Heart failure, unspecified; E78.5 Hyperlipidemia, unspecified; F32.A Depression, unspecified; F41.9 Anxiety disorder, unspecified; Z95.0 Presence of cardiac pacemaker; Z87.891 Personal history of nicotine dependence; Z99.81 Dependence on supplemental oxygen
CPT/HCPCS: 36415; 36600; 71046; 80053; 82805; 83735; 83880; 85025; 93005; 94002; 94003; 94640; 96374; 96375; 99285; A9270; J1650; J1940; J2930

== ENCOUNTER 2022-01-15 11:24 | Inpatient (IN) | payer MEDICARE, MEDICAID, SELFPAY ==
[2022-01-15] VITALS (18 sets, daily range): BP systolic 88–133; BP diastolic 62–76; PULSE 81–142; RESP 16–32; TEMP 36.3–36.6; O2SAT 76–100; BMI 49.7
--- NOTE | ~2022-01-15 | XR_ITS ---
EXAMINATION: XR chest 1V portable DATE: 01/19/2022 05:43 INDICATION: Recheck of pulmonary vascular congestion TECHNIQUE: frontal view of the chest was obtained. COMPARISON: Chest radiograph dated 01/18/2022 FINDINGS: Linear band of discoid atelectasis/scarring at the medial left lower lung zone. No other airspace opa cities, pulmonary edema, pleural effusion or pneumothorax. Cardiomegaly. Three lead pacemaker/AICD se en with leads projecting over the expected locations of the right atrial appendage, apex of the right ventricle and overlying the left ventricle likely having traversed the coronary sinus. IMPRESSION: 1. Linear discoid atelectasis/scarring in the left lower lung zone. 2. Cardiomegaly with resolution of prior pulmonary vascular congestion. Reviewed, dictated and finalized at location A.
--- NOTE | ~2022-01-15 | XR_ITS ---
EXAMINATION: XR chest 1V portable INDICATION: Hypoxia and shortness of breath TECHNIQUE: Portable AP chest at 1209 hours COMPARISON: 12/23/2021 FINDINGS: Cardiomegaly is noted. There is minimal opacification in the left lung base. No pneumothora x is identified. A triple lead cardiac pacemaker of the left chest wall ends with leads in expected l ocations. IMPRESSION: 1. Cardiomegaly 2. Left basilar airspace opacity consistent with atelectasis and/or pneumonia/or small pleural effusi on. Reviewed, dictated and finalized at location A. IMPRESSION: 1. Cardiomegaly 2. Left basilar airspace opacity consistent with atelectasis and/or pneumonia/o r small pleural effusion.
--- NOTE | ~2022-01-15 | XR_ITS ---
XR chest 1V portable 01/18/2022 09:47 Indication: Worsening cough. Procedure: AP portable chest Comparison: Comparison to multiple prior studies sequentially, with oldest reviewed study dated 04/01. Findings: Cardiomegaly. There is pulmonary vascular congestion. There is retrocardiac opacification w hich may represent atelectasis or pneumonia. Probable small left effusion. No pneumothorax. No acute osseous abnormality. Pacemaker/AICD leads stable. Impression: 1: Retrocardiac opacification may represent atelectasis and/or pneumonia. 2: Cardiomegaly with pulmonary vascular congestion. Reviewed, dictated and finalized at location A. Impression: 1: Retrocardiac opacification may represent atelectasis and/or pneumonia. 2: Cardiomegaly with pulmonary vascular congestion.
--- NOTE | 2022-01-15 11:27 | ECG_ITS ---
Measurements Intervals [place] Rate: 105 P: 21 [place]: 273 QRS: 217 QRSD: 216 T: 36 QT: 440 QTc: 582 Interpretive Statements ATRIAL SENS- ELECTRONIC VENTRICULAR PACEMAKER UNDERLYING SINUS TACHYCARDIA NO FURTHER INTERPRETATION IS POSSIBLE BORDERLINE ECG Electronically Signed On 01-15-2022 11:56:33 CDT by Juan R Avilez D.O.
--- NOTE | 2022-01-15 11:28 | PC.NURSE ---
Pt noted to be 58-60% on 2 lpm nc . relief charge nurse called for immediate bed placement. Pt taken via w/c to room 9.
[2022-01-15 12:09] LABS: Basophils Percent Auto 0.5 % (0.2-1.2); Eosinophils Absolute Auto 0.2 K/mm3 (0-0.3); Eosinophils Percent Auto 2.1 % (0-4.4); Hematocrit 46.4 % (37.0-47.0); Hemoglobin 12.7 g/dL (12.0-15.0); Immature Granulocyte Absolute 0.04 K/mm3 (0.00-0.031); Immature Granulocyte Percent A 0.5 % (0-0.5); Lymphocytes Percent Auto 10.4 % (18.3-44.2); Mean Corpuscular HGB Conc 27.4 g/dl (32-36); Mean Corpuscular Hemoglobin 30.2 pg (26-34); Mean Corpuscular Volume 110.5 fl (80-100); Mean Platelet Volume 10.1 fl (7.4-10.4); Monocytes Absolute Auto 0.7 K/mm3 (0.1-0.6); Monocytes Percent Auto 8.1 % (2.6-8.5); Neutrophils Absolute Auto 6.8 K/mm3 (1.3-6.7); Neutrophils Percent Auto 78.4 % (45.5-73.1); Platelet Count Result 169 k/mm3 (150-375); Red Cell Distribution Width 12.8 % (11.5-14.5); White Blood Count 8.6 K/mm3 (4.5-10.0)
[2022-01-15 12:30] LABS: Alanine Aminotransferase 10 U/L (6-35); Albumin Level 3.9 g/dL (3.5-5.1); Alkaline Phosphatase 99 U/L (38-126); Aspartate Amino Transferase 22 U/L (14-36); Bilirubin,Total 0.6 mg/dL (0.2-1.3); Blood Urea Nitrogen 21 mg/dL (7-17); Calcium 8.5 mg/dL (8.4-10.2); Carbon Dioxide > 40 mmol/L (22-30); Chloride 85 mmol/L (98-107); Estimated Glomerular Filt Rate > 60; Glucose 117 mg/dL (65-110); Potassium 3.6 mmol/L (3.4-5.0); Sodium 138 mmol/L (137-145)
[2022-01-15 12:40] LABS: Alveolar/Arterial O2 Gradient 7.3 mmHg; Base Excess ABG 22.8 mEq/l (+/-2.0); Carboxyhemoglobin 1.4 % THb (0-2.0); Fractional Inspired Oxygen 40 %; Methemoglobin ABG 0.1 %THb (0-1.5); Oxygen Content ABG 18.3 %vol (16.0-22.0); Oxygen Saturation ABG 98.2 % (95.0-100.0); Oxyhemoglobin 96.8 % THb (90.0-100.0); PO2 ABG 139.1 mmHg (80.0-100.0); PO2 FiO2 Ratio Arterial Blood 3.48 %; Reduced Hemoglobin 1.7 %THb (0-5.0); Total Hemoglobin 13.3 g/dL (12.0-18.0)
[2022-01-15 12:42] LABS: pH ABG 7.284 (7.350-7.450)
[2022-01-15 12:43] LABS: PCO2 ABG 120.7 mmHg (35.0-45.0)
[2022-01-15 12:44] LABS: Device NASAL CANNULA; Modified Allen's Test Pass; Site Drawn RIGHT RADIAL
[2022-01-15 13:09] LABS: NT Pro B Type Natriuretic Pept 1290 pg/mL (5-100)
[2022-01-15 14:05] LABS: Anisocytosis 1+ (NORMAL); Hypochromasia 1+ (NORMAL); Platelet Estimate Adequate (Adequate); Stomatocytes 2+ (NORMAL)
--- NOTE | 2022-01-15 14:05 | ED.SOB ---
HPI - SOB/Dyspnea General Chief Complaint: Shortness of Breath/Dyspnea Stated Complaint: sob Time Seen by Provider: 01/15/22 11:32 History of Present Illness HPI Narrative: Patient is a 61-year-old female who presents ER with shortness of breath. Worsening over the last week. Has history of hypercapnic respiratory failure in the past. Supposed to wear trilogy at home. Reports she thinks she may be having heart failure exacerbation. Reports compliance with home medication. Hypoxic at 76% on home O2 upon arrival here. No chest pain or chest pressure. Endorses cough but no new fevers or chills. Related Data Home Medications Medication Instructions Recorded Confirmed atorvastatin 40 mg PO HS 07/29/19 12/23/21 buspirone 15 mg PO TID 07/29/19 12/23/21 carvedilol 12.5 mg PO BID 07/29/19 12/23/21 diazepam 5 mg PO Q8H PRN 07/29/19 12/23/21 ropinirole 0.25 mg PO HS 07/29/19 12/23/21 spironolactone 25 mg PO DAILY 07/29/19 12/23/21 Entresto 1 tablet PO BID 10/02/20 12/23/21 citalopram 40 mg PO DAILY 11/30/21 12/23/21 furosemide 20 mg PO DAILY 11/30/21 12/23/21 tramadol 50 mg PO Q6H PRN 11/30/21 12/23/21 Allergies Allergy/AdvReac Type Severity Reaction Status Date / Time No Known Allergies Allergy Verified 01/15/22 12:50 Review of Systems Review of Systems: All systems reviewed & are unremarkable except as noted in HPI and below Constitutional: Constitutional: Denies chills, Reports fatigue, Denies fever(s) and Reports weakness ENT: Denies nasal congestion and Denies sore throat Cardiovascular: Cardiovascular: Denies chest pain, Denies rapid heart rate and Denies radiating jaw, neck or arm pain Respiratory: Respiratory: Reports chest congestion, Reports cough, Reports dyspnea and Denies wheezing Gastrointestinal: Gastrointestinal: Denies nausea and Denies vomiting [facility] Past Medical History Medical History (Updated 01/15/22 @ 17:16 by Hussein Camilo MD) Anxiety Back pain Bronchitis Chronic obstructive pulmonary disease Chronic respiratory failure with hypoxia and hypercapnia 1 prior intubation about 10 years ago Congestive heart failure Depression Emphysema of lung Essential hypertension History of rectal polyps Hyperlipidemia Morbid obesity Nonischemic cardiomyopathy Present since 2006, thought to be due to a viral myocarditis. EF was as low as 10% in June 2017 but patient reports improvement in her EF to 32% most recently. She is followed by Dr. Soliman. ICD in-situ. Obesity hypoventilation syndrome Obstructive sleep apnea On Trilogy unit, previously on BiPAP 22/02 with 3 L of oxygen bleed in. Rectal polyp Surgical History Surgical History Biventricular cardiac pacemaker in situ (2006) History of cardiac cath With no significant coronary artery disease noted with last cardiac catheterization June 2017 demonstrating only 30-40% lesion of the left anterior descending artery. History of colonoscopy (09/2017) History of dilation and curettage (11/2016) History of tubal ligation (1989) Family History Family History Mother Diabetes mellitus Acute myocardial infarction Hypertension Sibling Diabetes mellitus Acute myocardial infarction Cerebrovascular accident Hypertension Schizophrenia Father Congestive heart failure Cerebrovascular accident Hypertension Schizophrenia Social History Social History Social History: Surrogate decision maker: Kia Garcia, daughter. Code status: Full code Smoking packs per day: 1 Smoking cigarettes per day: 20.0 Years smoked: 30 Smoking pack-years: 30.00 Smoking status: Former smoker Tobacco type: cigarettes Second hand tobacco smoke exposure: No Alcohol intake: never Substance use: never Substance use type: does not use Other substance usage details:
--- NOTE | 2022-01-15 15:30 | PM.IMHP ---
H&P: HPI History of Present Illness Date/Time: 01/15/22 15:30 Chief Complaint: Shortness of breath. Narrative: This is a very pleasant 61-year-old female with chronic respiratory failure on oxygen, non-ischemic cardiomyopathy, obstructive sleep apnea, and chronic obstructive pulmonary disease who presented to the emergency department for evaluation of shortness of breath. She is known to myself and the hospitalist service from admissions over the years with her most recent admission being within the past 1 month at which time she was admitted under similar circumstances with acute on chronic respiratory failure. At that time it was thought that she had decompensated because she had been wearing her BiPAP and not her Trilogy for 5 days. Unfortunately she has a difficult time with that unit and she complains of pain stemming from the mask so it sounds as though she does not use it often. She reports wearing her BiPAP each night however. The past 1 week she endorses progressive shortness of breath on lesser and lesser exertion with intermittent confusion and mild cough. On arrival to triage she was reportedly 58% on her home oxygen. ABG showed a pH of 7.284 and a pCO2 of 120.7 and she was placed on BiPAP. She is being admitted in this setting for further evaluation and treatment. She has no current complaints and she specifically denies chest pain, pleuritic pain, fever, chills, sweats, nausea, and vomiting. No sick contacts. Review of Systems Review of Systems: Twelve systems were reviewed. Some sweats but no fever or chills. Endorses a mild cough productive of clear phlegm. Her appetite has not been great the past few days with intermittent nausea. No vomiting. She does have occasional loose stools. No orthopnea, PND, or edema. Except as documented, other systems reviewed and are negative. [facility] Past Medical History Medical History Anxiety Back pain Bronchitis Chronic obstructive pulmonary disease Chronic respiratory failure with hypoxia and hypercapnia 1 prior intubation about 10 years ago Congestive heart failure Depression Emphysema of lung Essential hypertension History of rectal polyps Hyperlipidemia Morbid obesity Nonischemic cardiomyopathy Present since 2006, thought to be due to a viral myocarditis. EF was as low as 10% in June 2017 but patient reports improvement in her EF to 32% most recently. She is followed by Dr. Soliman. ICD in-situ. Obesity hypoventilation syndrome Obstructive sleep apnea On Trilogy unit, previously on BiPAP 22/02 with 3 L of oxygen bleed in. Rectal polyp Surgical History Surgical History Biventricular cardiac pacemaker in situ (2006) History of cardiac cath With no significant coronary artery disease noted with last cardiac catheterization June 2017 demonstrating only 30-40% lesion of the left anterior descending artery. History of colonoscopy (09/2017) History of dilation and curettage (11/2016) History of tubal ligation (1989) Family History Family History Mother Diabetes mellitus Acute myocardial infarction Hypertension Sibling Diabetes mellitus Acute myocardial infarction Cerebrovascular accident Hypertension Schizophrenia Father Congestive heart failure Cerebrovascular accident Hypertension Schizophrenia Social History Social History Social History: Surrogate decision maker: Kia Garcia, daughter. Code status: Full code Smoking packs per day: 1 Smoking cigarettes per day: 20.0 Years smoked: 30 Smoking pack-years: 30.00 Smoking status: Former smoker Tobacco type: cigarettes Second hand tobacco smoke exposure: No Alcohol intake: never Substance use: never Substance use type: does not use Other substance usage details: use
[2022-01-15 16:20] LABS: SARS-CoV-2 RNA PCR Negative
--- NOTE | 2022-01-15 16:55 | PC.NURSE ---
Dinner tray ordered for pt
[2022-01-15 17:47] LABS: Alveolar/Arterial O2 Gradient 100.1 mmHg; Base Excess ABG 20.3 mEq/l (+/-2.0); Carboxyhemoglobin 1.5 % THb (0-2.0); Fractional Inspired Oxygen 40 %; HCO3 ABG 50.6 mEq/l (22.0-26.0); Methemoglobin ABG 0.1 %THb (0-1.5); Oxygen Content ABG 17.2 %vol (16.0-22.0); Oxygen Saturation ABG 94.6 % (95.0-100.0); Oxyhemoglobin 94.4 % THb (90.0-100.0); PO2 ABG 80.2 mmHg (80.0-100.0); Total Hemoglobin 12.9 g/dL (12.0-18.0); pH ABG 7.362 (7.350-7.450)
[2022-01-15 17:48] LABS: Modified Allen's Test Pass; PCO2 ABG 91.2 mmHg (35.0-45.0); Site Drawn RIGHT RADIAL
[2022-01-15 17:49] LABS: Device NASAL CANNULA
--- NOTE | 2022-01-15 17:55 | ADMGEN ---
This patient, Olivia Burdick, was admitted to IMU Room 231-01. Patient/family oriented to hospital policies and general routines including ID bracelet, bed and alarms, visiting hours, pain management, procedures, bathroom and other care routines, personal items, smoking policy, room service/diet, and visiting hours. Information on how to activate the Rapid Response Team has been discussed. Patient/Family are encouraged to report perceived risks to care and to ask questions if they do not understand what they are told or what they should do.
[2022-01-15] MEDS: rOPINIRole HCL 0.25 MG TABLET PO (22:06)
[2022-01-15] MEDS: carvediloL 12.5 MG TABLET PO (22:06)
[2022-01-15] MEDS: busPIRone HCL 5 MG TABLET 15 MG PO (22:06)
[2022-01-15] MEDS: ATORVASTATIN 40 MG TABLET PO (22:06)
[2022-01-16] VITALS (25 sets, daily range): BP systolic 72–116; BP diastolic 46–87; PULSE 71–94; RESP 20–24; TEMP 36.3–36.8; O2SAT 90–98
[2022-01-16] MEDS: ONDANSETRON INJ 4 MG/2 ML VIAL IV PUSH (01:00)
[2022-01-16] MEDS: diazePAM (*CRX) 5 MG TABLET PO ×2 (01:01→09:54)
[2022-01-16 05:33] LABS: Alveolar/Arterial O2 Gradient 108.4 mmHg; Base Excess ABG 20.6 mEq/l (+/-2.0); Fractional Inspired Oxygen 40 %; HCO3 ABG 49.1 mEq/l (22.0-26.0); Oxygen Content ABG 16.6 %vol (16.0-22.0); Oxygen Saturation ABG 96.4 % (95.0-100.0); Oxyhemoglobin 95.3 % THb (90.0-100.0); PO2 ABG 88.1 mmHg (80.0-100.0); Total Hemoglobin 12.3 g/dL (12.0-18.0); pH ABG 7.422 (7.350-7.450)
[2022-01-16 05:34] LABS: PCO2 ABG 77.1 mmHg (35.0-45.0)
[2022-01-16 05:35] LABS: Device NON-INVASIVE VENT; Modified Allen's Test Pass; Site Drawn RIGHT RADIAL
[2022-01-16 05:36] LABS: Non-Invasive Expiratory Pressure 6 CMH2O; Non-Invasive Inspiratory Pressure 20 CMH2O; Non-Invasive Vent Rate 20 /MIN
[2022-01-16] MEDS: busPIRone HCL 5 MG TABLET 15 MG PO ×3 (05:37→20:31)
[2022-01-16] MEDS: traMADol HCL (*CRX) 50 MG TABLET PO ×2 (05:41→17:46)
[2022-01-16] MEDS: UMECLIDINIUM/VILANTEROL 62.5-25 MCG ELLIPTA 1 PUFF INHALATION (06:00)
[2022-01-16] MEDS: CITALOPRAM HYDROBROMIDE 20 MG TABLET 40 MG PO (08:50)
[2022-01-16] MEDS: ENOXAPARIN 40 MG/0.4 ML SYRINGE SUB-Q (08:50)
[2022-01-16] MEDS: SPIRONOLACTONE 25 MG TABLET PO (08:50)
[2022-01-16] MEDS: PANTOPRAZOLE 40 MG TABLET PO (08:51)
[2022-01-16] MEDS: carvediloL 12.5 MG TABLET PO (08:51)
[2022-01-16] MEDS: FUROSEMIDE 20 MG TABLET PO (08:51)
[2022-01-16] MEDS: SACUBITRIL/VALSARTAN 49-51 MG TABLET 1 TABLET PO ×2 (08:51→17:42)
--- NOTE | 2022-01-16 09:51 | PM.IMPN ---
Progress Note: A&P Assessment and Plan (1) Acute on chronic respiratory failure with hypoxia and hypercapnia: Code(s): J96.21 - Acute and chronic respiratory failure with hypoxia; J96.22 - Acute and chronic respiratory failure with hypercapnia Status: Acute Assessment and Plan: Likely secondary to noncompliance with Triology. Repeat ABG is improving; continue BiPAP 20/6, rate 20, FiO2 0.4 Bring in home Trilogy. Pulmonology to assist with titration. Trial on Venti mask 40% for eating and while awake. F/u ABGs (2) Chronic obstructive pulmonary disease: Qualifiers: COPD type: unspecified COPD Qualified Code(s): J44.9 - Chronic obstructive pulmonary disease, unspecified Code(s): J44.9 - Chronic obstructive pulmonary disease, unspecified Status: Acute Assessment and Plan: No acute exacerbation. Continue maintenance inhalers. (3) Nonischemic cardiomyopathy: Code(s): I42.8 - Other cardiomyopathies Status: Acute Assessment and Plan: Clinically compensated. Monitor volume status. Continue Entresto. Subjective Date/time seen: 01/16/22 09:51 Interval history: Admitted with acute respiratory failure. Not compliant with trilogy at home due to claustrophobia and discomfort. Uses BiPAP at home most of the time. 01/16 visit. Feels much better. Denies shortness of breath at rest. Denied chest pain or edema. Denied GI or issues. Exam Narrative: HEENT: PERRL, sclerae nonicteric, pharyngeal mucosa pink and intact NECK: No JVD, adenopathy, or thyromegaly CHEST: DECREASED BS. Normal effort. HEART: NL S1/S2, regular, no murmur ABDOMEN: BS+, soft, nontender, no mass, no bruits EXTREMITIES: No cyanosis, edema, or clubbing NEUROLOGIC: CN intact and symmetric to inspection. MUSCULOSKELETAL: Tone and strength symmetric. PSYCH: Alert. Oriented to person, place, and time. Objective Data Vital Signs Vital Signs: Vital Signs - 24 hr 01/15/22 11:25 01/15/22 11:41 01/15/22 11:43 Temperature 97.6 F Pulse Rate 142 H 106 H Respiratory Rate 32 H 19 Blood Pressure 115/72 129/72 Pulse Oximetry 76 L 98 98 01/15/22 12:11 01/15/22 12:46 01/15/22 13:05 Temperature Pulse Rate 99 96 87 Respiratory Rate 16 22 H Blood Pressure 107/72 Pulse Oximetry 100 98 01/15/22 14:02 01/15/22 15:53 01/15/22 17:45 Temperature Pulse Rate 89 81 85 Respiratory Rate 19 21 H Blood Pressure 98/76 L 104/64 Pulse Oximetry 100 98 99 01/15/22 18:00 01/15/22 18:08 01/15/22 20:00 Temperature 97.4 F L 97.9 F Pulse Rate 92 91 89 Respiratory Rate 20 21 H Blood Pressure 88/62 L 125/66 Pulse Oximetry 97 97 01/15/22 20:20 01/15/22 20:21 01/15/22 21:56 Temperature Pulse Rate 86 Respiratory Rate 21 H Blood Pressure Pulse Oximetry 97 97 01/15/22 22:06 01/15/22 23:20 01/15/22 23:30 Temperature 97.6 F Pulse Rate 87 91 Respiratory Rate 21 H 20 Blood Pressure 133/68 Pulse Oximetry 98 98 01/16/22 00:00 01/16/22 00:50 01/16/22 01:14 Temperature Pulse Rate 81 74 Respiratory Rate 20 22 H Blood Pressure Pulse Oximetry 98 97 01/16/22 02:29 01/16/22 03:06 01/16/22 03:41 Temperature 97.7 F Pulse Rate 74 74 Respiratory Rate 24 H 20 20 Blood Pressure 107/52 L Pulse Oximetry 98 98 98 01/16/22 04:00 01/16/22 05:21 01/16/22 05:57 Temperature Pulse Rate 74 75 Respiratory Rate 22 H Blood Pressure Pulse Oximetry 97 01/16/22 08:00 01/16/22 08:51 Temperature 97.3 F L Pulse Rate 80 87 Respiratory Rate 20 Blood Pressure 116/87 Pulse Oximetry 97 Intake/Output Intake/Output: Intake & Output 01/13/22 01/14/22 01/15/22 01/16/22 23:59 23:59 23:59 23:59 Output Total 300 850 Balance -300 -850 Meds/Results Medications: Active Medications Generic Name Dose Route Start Last Admin Trade Name Freq PRN Reason Stop Dose Admin Acetaminophen 650 mg 01/15/22 14:06 Acet
[2022-01-16 10:39] LABS: Hematocrit 42.9 % (37.0-47.0); Hemoglobin 11.7 g/dL (12.0-15.0); Mean Corpuscular HGB Conc 27.3 g/dl (32-36); Mean Corpuscular Hemoglobin 29.3 pg (26-34); Mean Corpuscular Volume 107.3 fl (80-100); Mean Platelet Volume 10.6 fl (7.4-10.4); Platelet Count Result 183 k/mm3 (150-375); Red Cell Distribution Width 12.8 % (11.5-14.5); White Blood Count 6.2 K/mm3 (4.5-10.0)
[2022-01-16 11:01] LABS: Blood Urea Nitrogen 22 mg/dL (7-17); Calcium 8.4 mg/dL (8.4-10.2); Carbon Dioxide > 40 mmol/L (22-30); Chloride 86 mmol/L (98-107); Estimated CRCL calculation 88 ml/min; Estimated Glomerular Filt Rate > 60; Glucose 166 mg/dL (65-110); Magnesium 1.9 mg/dL (1.6-2.3); Potassium 3.6 mmol/L (3.4-5.0); Sodium 134 mmol/L (137-145)
[2022-01-16 11:23] LABS: Thyroid Stimulating Hormone Reflex 0.953 uIU/mL (0.465-4.68)
--- NOTE | 2022-01-16 11:52 | PCCCNOTE ---
On 01/14/22, the student, [Hannah Jovel], provided care and completed [facility] documentation on this patient. I have reviewed the student's documentation and agree with the findings.
[2022-01-16 13:02] LABS: Alveolar/Arterial O2 Gradient 109.3 mmHg; Base Excess ABG 17.6 mEq/l (+/-2.0); Fractional Inspired Oxygen 40 %; HCO3 ABG 46.8 mEq/l (22.0-26.0); Oxygen Content ABG 16.8 %vol (16.0-22.0); Oxygen Saturation ABG 95.2 % (95.0-100.0); Oxyhemoglobin 94.7 % THb (90.0-100.0); PO2 ABG 81.9 mmHg (80.0-100.0); PO2 FiO2 Ratio Arterial Blood 2.05 %; Total Hemoglobin 12.6 g/dL (12.0-18.0); pH ABG 7.376 (7.350-7.450)
[2022-01-16 13:05] LABS: Device NASAL CANNULA; Modified Allen's Test Pass; PCO2 ABG 81.7 mmHg (35.0-45.0); Site Drawn RIGHT RADIAL
--- NOTE | 2022-01-16 15:51 | PM.PNPUL ---
Progress Note: A&P Assessment and Plan (1) Acute on chronic respiratory failure with hypoxia and hypercapnia: Code(s): J96.21 - Acute and chronic respiratory failure with hypoxia; J96.22 - Acute and chronic respiratory failure with hypercapnia Status: Acute Assessment and Plan: Multifactorial; * she has not been using her NPPV at home, using a BiPAP. Has a poor mask fit, no compliance data, did not know who her DME is. It is [facility] but she can't recall that. . * undertreated for COPD. She takes Anoro, a dual bronchodilator. * She has been using excessive amounts of oxygen using 3-4 L. * She now has a metabolic alkalosis as a result of chronically elevated pCO2. * atelectasis; possible infiltrate; has normal WBC with left shift * obesity PLAN: TURN DOWN O2. She is running in the high 90s here. Use BiPAP 20/6, get Trilogy setting and see if she can get a mask re-fit; acetazolamide to waste bicarb, increase COPD regimen, assure f/u after discharge. Ivonne valve, She was admitted last month, did not use Trilogy at all after discharge, has not seen our office since her first visit last August. Never had repeat testing. Part non-compliance & part poor brain function due to high CO2. It's s real problem. I took all her equipment out that she brought from home; Trilogy JOLIE, BiPAP, Banks Paykel humidifier; wiped down, and see tomorrow what settings and info we can obtain. (2) COPD (chronic obstructive pulmonary disease): Qualifiers: COPD type: unspecified COPD Qualified Code(s): J44.9 - Chronic obstructive pulmonary disease, unspecified Code(s): J44.9 - Chronic obstructive pulmonary disease, unspecified Status: Chronic Assessment and Plan: see above Subjective Date/time seen: 01/16/22 15:51 reason for consult: NEW CONSULT: Olivia Burdick is a 61 year old female with acute on chronic respiratory failure on O2 at home, has other chronic medical conditions admitted yesterday with a similar presentation to her admission last month. She has increased shortness of breath and high pCO2, 120.7 yesterday with serum bicarb 56. Prior ABG December 25 shows the bicarb in the around 35. She tells me that she totally dislikes her Trilogy machine and cannot use it because it hurts her face. She describes mask leak with a poor fit. She used the trilogy over a month ago, mainly is using the bipap. She is not certain how old her devices or how old the mask is. She has been running her oxygen at higher settings than instructed. Her last visit with Dr. Lemons was August 25 however she did not follow-up with testing or a return visit. She was admitted to the hospital in December after multiple family members had COVID, and she left the house with her Trilogy and went somewhere else with her BiPAP. AFter discharged, she did not make a f/u appt or use the Trilogy again. This admission, she became more confused and short of breath. She has been using O2 at 3-4 L/min. Her saturation running between 96 and 100%, above the ideal range. This is contributing to her excessive pCO2 levels. Seh had chest pain on arrival to the ER, but not at home. She denies leg swelling, cough, sputum, wheezing or sore throat. She does not have seasonal allergies. She says that she is on Spiriva; med list shows Anoro. She uses albuterol rescue inhaler, not often. She has a nebulizer, rarely uses. PMH : Chronic hypercapnic hypoxemic respiratory failure on O2, COPD, ZAHEER, nonischemic cardiomyopathy. DATA 05/22/2018 : Normal alpha-1 genotype and level, 125 Review of Systems Review of Systems: All systems reviewed & are unremarkable except as noted in HPI and below Exam Narrative: GEN: Alert, oriented, not in distress. Poor memory. Really struggling to recall events of the last month. HEENT:
[2022-01-16] MEDS: acetaZOLAMIDE SODIUM FOR INJ 500 MG VIAL 250 MG IV PUSH (17:52)
[2022-01-16] MEDS: rOPINIRole HCL 0.25 MG TABLET PO (20:31)
[2022-01-16] MEDS: ATORVASTATIN 40 MG TABLET PO (20:31)
[2022-01-16] MEDS: carvediloL 6.25 MG TABLET PO (20:31)
[2022-01-17] VITALS (21 sets, daily range): BP systolic 76–117; BP diastolic 36–61; PULSE 69–91; RESP 12–24; TEMP 35.9–36.4; O2SAT 93–100
[2022-01-17] MEDS: busPIRone HCL 5 MG TABLET 15 MG PO ×3 (05:15→20:53)
[2022-01-17 06:06] LABS: Base Excess ABG 9.6 mEq/l (+/-2.0); Carboxyhemoglobin 0.7 % THb (0-2.0); Fractional Inspired Oxygen 40 %; HCO3 ABG 37.6 mEq/l (22.0-26.0); Methemoglobin ABG 0.1 %THb (0-1.5); Oxygen Content ABG 16.9 %vol (16.0-22.0); Oxygen Saturation ABG 96.3 % (95.0-100.0); Oxyhemoglobin 95.7 % THb (90.0-100.0); PO2 ABG 90.2 mmHg (80.0-100.0); PO2 FiO2 Ratio Arterial Blood 2.25 %; Reduced Hemoglobin 3.5 %THb (0-5.0); Total Hemoglobin 12.5 g/dL (12.0-18.0); pH ABG 7.356 (7.350-7.450)
[2022-01-17 06:07] LABS: Device NON-INVASIVE VENT; Modified Allen's Test Pass; PCO2 ABG 68.7 mmHg (35.0-45.0); Site Drawn RIGHT RADIAL
[2022-01-17 06:08] LABS: Non-Invasive Expiratory Pressure 6 CMH2O; Non-Invasive Inspiratory Pressure 20 CMH2O; Non-Invasive Vent Rate 20 /MIN
[2022-01-17 06:31] LABS: Hematocrit 44.6 % (37.0-47.0); Hemoglobin 12.2 g/dL (12.0-15.0); Immature Reticulocyte Fraction 25.5 % (3.0-15.9); Mean Corpuscular HGB Conc 27.4 g/dl (32-36); Mean Corpuscular Hemoglobin 29.2 pg (26-34); Mean Corpuscular Volume 106.7 fl (80-100); Mean Platelet Volume 10.6 fl (7.4-10.4); Platelet Count Result 182 k/mm3 (150-375); Red Blood Count 4.18 M/mm3 (4.2-5.4); Red Cell Distribution Width 12.9 % (11.5-14.5); Reticulocyte Hemoglobin Conten 26.7 pg (28.2-35.7); Reticulocyte Percent 2.34 % (0.7-4.3)
[2022-01-17 06:41] LABS: Anion Gap 6 mmol/L (8-16); Blood Urea Nitrogen 20 mg/dL (7-17); Calcium 8.5 mg/dL (8.4-10.2); Carbon Dioxide 39 mmol/L (22-30); Chloride 93 mmol/L (98-107); Estimated CRCL calculation 70 ml/min; Estimated Glomerular Filt Rate > 60; Glucose 81 mg/dL (65-110); Potassium 4.1 mmol/L (3.4-5.0); Sodium 138 mmol/L (137-145)
[2022-01-17] MEDS: UMECLIDINIUM/VILANTEROL 62.5-25 MCG ELLIPTA 1 PUFF INHALATION (07:56)
[2022-01-17] MEDS: FUROSEMIDE 20 MG TABLET PO (09:00)
[2022-01-17] MEDS: CITALOPRAM HYDROBROMIDE 20 MG TABLET 40 MG PO (09:00)
[2022-01-17] MEDS: PANTOPRAZOLE 40 MG TABLET PO (09:00)
[2022-01-17] MEDS: SPIRONOLACTONE 25 MG TABLET PO (09:00)
[2022-01-17] MEDS: SACUBITRIL/VALSARTAN 49-51 MG TABLET 1 TABLET PO ×2 (09:00→17:08)
[2022-01-17] MEDS: ENOXAPARIN 40 MG/0.4 ML SYRINGE SUB-Q (09:01)
[2022-01-17] MEDS: carvediloL 6.25 MG TABLET PO ×2 (09:01→20:53)
--- NOTE | 2022-01-17 09:06 | PM.IMPN ---
Progress Note: A&P Assessment and Plan (1) Acute on chronic respiratory failure with hypoxia and hypercapnia: Code(s): J96.21 - Acute and chronic respiratory failure with hypoxia; J96.22 - Acute and chronic respiratory failure with hypercapnia Status: Acute Assessment and Plan: Likely secondary to noncompliance with Triology. Repeat ABG is improving; continue BiPAP 20/6, rate 20, FiO2 0.4 Bring in home Trilogy. Pulmonology to assist with titration. Trial on Venti mask 40% for eating and while awake. F/u ABGs improving May go home when stable with new Trilogy mask and settings (2) Chronic obstructive pulmonary disease: Qualifiers: COPD type: unspecified COPD Qualified Code(s): J44.9 - Chronic obstructive pulmonary disease, unspecified Code(s): J44.9 - Chronic obstructive pulmonary disease, unspecified Status: Acute Assessment and Plan: No acute exacerbation. Continue maintenance inhalers. (3) Nonischemic cardiomyopathy: Code(s): I42.8 - Other cardiomyopathies Status: Acute Assessment and Plan: Clinically compensated. Monitor volume status. Continue Entresto. Subjective Date/time seen: 01/17/22 09:06 Interval history: Admitted with acute respiratory failure. Not compliant with trilogy at home due to claustrophobia and discomfort. Uses BiPAP at home most of the time. 01/16 visit. Feels much better. Denies shortness of breath at rest. Denied chest pain or edema. Denied GI or issues. Review of Systems Review of Systems: All systems reviewed & are unremarkable except as noted in HPI and below Exam Narrative: HEENT: PERRL, sclerae nonicteric, pharyngeal mucosa pink and intact NECK: No JVD, adenopathy, or thyromegaly CHEST: DECREASED BS. Normal effort. HEART: NL S1/S2, regular, no murmur ABDOMEN: BS+, soft, nontender, no mass, no bruits EXTREMITIES: No cyanosis, edema, or clubbing NEUROLOGIC: CN intact and symmetric to inspection. MUSCULOSKELETAL: Tone and strength symmetric. PSYCH: Alert. Oriented to person, place, and time. Objective Data Vital Signs Vital Signs: Vital Signs - 24 hr 01/16/22 10:00 01/16/22 10:34 01/16/22 12:00 Temperature Pulse Rate 83 71 Respiratory Rate Blood Pressure Pulse Oximetry 90 90 01/16/22 12:25 01/16/22 14:00 01/16/22 16:00 Temperature 97.7 F 97.5 F L Pulse Rate 83 77 78 Respiratory Rate 20 20 Blood Pressure 72/46 L 111/55 L Pulse Oximetry 93 96 01/16/22 18:00 01/16/22 20:00 01/16/22 20:31 Temperature 97.7 F Pulse Rate 79 86 76 Respiratory Rate 20 Blood Pressure 114/60 Pulse Oximetry 96 01/16/22 22:00 01/16/22 22:33 01/16/22 22:34 Temperature Pulse Rate 89 80 Respiratory Rate 20 Blood Pressure Pulse Oximetry 94 94 01/16/22 23:35 01/16/22 23:56 01/17/22 00:00 Temperature 98.3 F Pulse Rate 74 74 71 Respiratory Rate 20 20 Blood Pressure 109/60 Pulse Oximetry 98 98 01/17/22 01:26 01/17/22 02:12 01/17/22 04:00 Temperature 97.5 F L Pulse Rate 69 72 73 Respiratory Rate 22 H 21 H Blood Pressure 117/55 L Pulse Oximetry 93 99 01/17/22 05:55 01/17/22 06:00 01/17/22 07:58 Temperature Pulse Rate 69 71 74 Respiratory Rate 22 H 12 Blood Pressure Pulse Oximetry 96 01/17/22 08:00 01/17/22 09:01 Temperature 96.6 F L Pulse Rate 79 89 Respiratory Rate 20 Blood Pressure 87/36 L Pulse Oximetry 97 Intake/Output Intake/Output: Intake & Output 01/14/22 01/15/22 01/16/22 01/17/22 23:59 23:59 23:59 23:59 Intake Total 1880 490 Output Total 300 2250 2900 Balance -300 -371 -2419 Meds/Results Medications: Active Medications Generic Name Dose Route Start Last Admin Trade Name Freq PRN Reason Stop Dose Admin Acetaminophen 650 mg 01/15/22 14:06 Acetaminophen 325 Mg Tablet PO Q4H PRN Mild Pain (1-3) or Fever Acetazolamide Sodium 250 mg 01/16/22 17:15 01/17/22 09:00
[2022-01-17] MEDS: traMADol HCL (*CRX) 50 MG TABLET PO (09:09)
--- NOTE | 2022-01-17 12:23 | PM.PNPUL ---
Progress Note: A&P Assessment and Plan (1) Acute on chronic respiratory failure with hypoxia and hypercapnia: Code(s): J96.21 - Acute and chronic respiratory failure with hypoxia; J96.22 - Acute and chronic respiratory failure with hypercapnia Status: Acute Assessment and Plan: Multifactorial; * she has not been using her NPPV at home, using a BiPAP. Has a poor mask fit, no compliance data, did not know who her DME is. * undertreated for COPD. She takes Anoro, a dual bronchodilator. * She has been using excessive amounts of oxygen using 3-4 L. * metabolic alkalosis improved with acetazolamide * atelectasis improved; she has fewer crackles using Cornet * obesity PLAN: TURN DOWN O2, and keep saturation 90-94% using O2. Her saturation was 100% today on 3 L/min. The respiratory therapist located her Trilogy settings which will used tonight. A good mask fit is essential. Continue COPD regimen, assure f/u after discharge. Continue Cornet valve, increased to 2nd setting today. She was admitted last month, did not use Trilogy at all after discharge, has not seen our office since her first visit last August. Never had repeat testing. Part non-compliance & part poor brain function due to high CO2. It's s real problem. (2) COPD (chronic obstructive pulmonary disease): Qualifiers: COPD type: unspecified COPD Qualified Code(s): J44.9 - Chronic obstructive pulmonary disease, unspecified Code(s): J44.9 - Chronic obstructive pulmonary disease, unspecified Status: Chronic Assessment and Plan: see above Subjective Date/time seen: 01/17/22 12:23 Olivia Burdick is 61 years old, seen in follow up for acte on chronic resp failure, COPD, Has home trilogy which she has not been using, using her BiPAP most of the time. She did not sleep a full night last night, however she feels better compared to admission. Her thinking is clearer. She is still short of breath with exertion. She had one dose of acetazolamide 250 mg Sat night, and her bicarbonate dropped more than expected. She does not need additional doses. She is on 3 L/min with saturation 100%. I turned her down to 2 L/min and asked her nurse to continue to monitor, goal is not providing too much O2. This is part of what caused her decompensation and brought her in to the hospital. Review of Systems Review of Systems: All systems reviewed & are unremarkable except as noted in HPI and below Exam Narrative: GEN: Alert, oriented, not in distress. Still has poor memory. HEENT: pupils are equal, EOMI, symmetrical face; oral membranes moist, Mallampati III airway, natural teeth. NECK: Trachea is midline CHEST: Equal air entry, symmetric excursion, no more crackles; these have cleared. CV: Distant heart tones. Paced rhythm. ABD : (+) bowel sounds, obese, nontender. Extremities : no clubbing, cyanosis, or edema. Ankles are thin, no calf tenderness. No rashes. PSYCH: normal thought, normal speech, gait is not tested. She is in bed, cooperative. Objective Data Vital Signs Vital Signs: Vital Signs - 24 hr 01/16/22 12:25 01/16/22 14:00 01/16/22 16:00 Temperature 36.5 C 36.4 C L Pulse Rate 83 77 78 Respiratory Rate 20 20 Blood Pressure 72/46 L 111/55 L Pulse Oximetry 93 96 01/16/22 18:00 01/16/22 20:00 01/16/22 20:31 Temperature 36.5 C Pulse Rate 79 86 76 Respiratory Rate 20 Blood Pressure 114/60 Pulse Oximetry 96 01/16/22 22:00 01/16/22 22:33 01/16/22 22:34 Temperature Pulse Rate 89 80 Respiratory Rate 20 Blood Pressure Pulse Oximetry 94 94 01/16/22 23:35 01/16/22 23:56 01/17/22 00:00 Temperature 36.8 C Pulse Rate 74 74 71 Respiratory Rate 20 20 Blood Pressure 109/60 Pulse Oximetry 98 98 01/17/22 01:26 01/17/22 02:12 01/17/22 04:00 Tem
--- NOTE | 2022-01-17 18:10 | PC.NURSE ---
Patient does not have IV access and Dr. Neri is aware. Multiple attempts to start an IV was mad with no success. Patient is to discharge as soon as her trilogy mask is fitted.
[2022-01-17] MEDS: ATORVASTATIN 40 MG TABLET PO (20:53)
[2022-01-17] MEDS: rOPINIRole HCL 0.25 MG TABLET PO (20:53)
--- NOTE | 2022-01-17 21:50 | PCRCNOTE ---
For future reference...Home Trilogy AVAPS settings: 500 mL, Max Pressure 30, EPAP minimum/maximum 5/15, Pressure Support minimum / maximum 5/25, RR 20, Rise 2, I time 1.5 seconds
[2022-01-18] VITALS (23 sets, daily range): BP systolic 94–120; BP diastolic 57–71; PULSE 68–87; RESP 20–28; TEMP 35.6–36.6; O2SAT 91–99
--- NOTE | 2022-01-18 | ECHO_ITS ---
Patient Info Name: Olivia Burdick Age: 61 years : 1960 Gender: Female Ht: 61 in Wt: 261 lbs BSA: 2.33 m2 BP: 119 / 71 mmHg Heart Rhythm: Paced Technical Quality: Poor Exam Date: 01/18/2022 1:11 PM Exam Location: [facility] Patient Status: Inpatient Admit Date: 01/16/2022 Staff Ordering Physician: Grzegorz Harris MD Archeologist Classical: Tana Norris RDCS Attending Provider: Mónica Dyson Referring Physician: Kimberly ZAPATA; Exam Type: CA echo dop color flow w con Study Info Indications I50.9 - Heart failure, unspecified Complete two-dimensional, color flow and Doppler transthoracic echocardiogram is performed with contrast to opacify the left ventricle and to improve the deliniation of the left ventricle endocardial borders. Contrast/Agitated Saline Contrast/Ag. Saline: Definity Amount: 4.00 ml Administered By: Tana Norris RDCS Existing IV Access: Yes IV Access Condition: patent with no signs of infiltration Reason for Poor Study: patient body habitus Summary 1. Left ventricular chamber dimension is moderately enlarged. 2. Left ventricular systolic function is severely reduced, estimated at 25-30%. 3. Linear artifact in right ventricle suggestive of catheter(s), pacemaker lead(s), or ICD lead(s). 4. Left atrial chamber dimension is moderately enlarged. 5. There is mild aortic valve sclerosis. 6. Compared with exam from March 2021, no significant difference. Left Ventricle Left ventricular chamber dimension is moderately enlarged. Left ventricular systolic function is severely reduced, estimated at 25-30%. The left ventricular diastolic function is grade I diastolic dysfunction. Right Ventricle Right ventricular chamber dimension is normal. Linear artifact in right ventricle suggestive of catheter(s), pacemaker lead(s), or ICD lead(s). Left Atria Left atrial chamber dimension is moderately enlarged. Right Atria Right atrial chamber dimension is mildly enlarged. Aortic Valve The aortic valve is trileaflet. There is mild aortic valve sclerosis. Pulmonic Valve The pulmonic valve is not well visualized. Mitral Valve The mitral valve has normal leaflets. There is trace mitral valve regurgitation. The mitral valve annulus is mildly calcified. Tricuspid Valve The tricuspid valve leaflets are normal. Pericardium/Pleural The pericardium appears normal. Aorta The aortic root size at the sinus of Valsalva is normal. Left Ventricular Outflow Tract Name Value Normal LVOT 2D LVOT Diameter 2.02 cm LVOT Doppler LVOT Peak Gradient 6 mmHg LVOT Mean Gradient 3 mmHg LVOT VTI 20.93 cm LVOT VTI/AV VTI Ratio 0.69 LVOT Stroke Volume 67.09 ml LVOT CO 4.88 l/min LVOT CI 2.09 L/min/m2 Pulmonic Valve Name
[2022-01-18 04:52] LABS: Hematocrit 41.3 % (37.0-47.0); Mean Corpuscular HGB Conc 29.1 g/dl (32-36); Mean Corpuscular Hemoglobin 30.5 pg (26-34); Mean Corpuscular Volume 104.8 fl (80-100); Mean Platelet Volume 10.4 fl (7.4-10.4); Platelet Count Result 166 k/mm3 (150-375); Red Blood Count 3.94 M/mm3 (4.2-5.4); Red Cell Distribution Width 12.9 % (11.5-14.5); White Blood Count 4.7 K/mm3 (4.5-10.0)
[2022-01-18 05:04] LABS: Anion Gap 4 mmol/L (8-16); Blood Urea Nitrogen 25 mg/dL (7-17); Calcium 8.2 mg/dL (8.4-10.2); Carbon Dioxide 35 mmol/L (22-30); Chloride 97 mmol/L (98-107); Estimated CRCL calculation 63 ml/min; Estimated Glomerular Filt Rate 57; Glucose 106 mg/dL (65-110); Potassium 4.3 mmol/L (3.4-5.0); Sodium 136 mmol/L (137-145)
[2022-01-18] MEDS: busPIRone HCL 5 MG TABLET 15 MG PO ×3 (05:55→20:14)
[2022-01-18 05:58] LABS: Alveolar/Arterial O2 Gradient 53.8 mmHg; Base Excess ABG 8.5 mEq/l (+/-2.0); Fractional Inspired Oxygen 28 %; HCO3 ABG 36.2 mEq/l (22.0-26.0); Oxygen Content ABG 16.2 %vol (16.0-22.0); Oxygen Saturation ABG 91.8 % (95.0-100.0); Oxyhemoglobin 91.9 % THb (90.0-100.0); PO2 ABG 67.1 mmHg (80.0-100.0); Total Hemoglobin 12.5 g/dL (12.0-18.0); pH ABG 7.353 (7.350-7.450)
[2022-01-18 06:02] LABS: Device NON-INVASIVE VENT; Non-Invasive Vent Rate 20 /MIN; PCO2 ABG 66.7 mmHg (35.0-45.0); Site Drawn RIGHT BRACHIAL
[2022-01-18 06:03] LABS: Non-Invasive Expiratory Pressure 15 CMH2O; Non-Invasive Inspiratory Pressure 30 CMH2O
[2022-01-18] MEDS: UMECLIDINIUM/VILANTEROL 62.5-25 MCG ELLIPTA 1 PUFF INHALATION (08:24)
--- NOTE | 2022-01-18 09:43 | PC.NURSE ---
Notified Leticia that patient has worsening congestion, wheezing.
[2022-01-18] MEDS: SPIRONOLACTONE 25 MG TABLET PO (09:49)
[2022-01-18] MEDS: SACUBITRIL/VALSARTAN 49-51 MG TABLET 1 TABLET PO ×2 (09:49→17:15)
[2022-01-18] MEDS: FUROSEMIDE 20 MG TABLET PO (09:50)
[2022-01-18] MEDS: CITALOPRAM HYDROBROMIDE 20 MG TABLET 40 MG PO (09:50)
[2022-01-18] MEDS: carvediloL 6.25 MG TABLET PO ×2 (09:50→20:14)
[2022-01-18] MEDS: ENOXAPARIN 40 MG/0.4 ML SYRINGE SUB-Q (09:50)
[2022-01-18] MEDS: PANTOPRAZOLE 40 MG TABLET PO (09:50)
--- NOTE | 2022-01-18 09:50 | PM.PNPUL ---
Progress Note: A&P Assessment and Plan (1) Chronic obstructive pulmonary disease: Qualifiers: COPD type: unspecified COPD Qualified Code(s): J44.9 - Chronic obstructive pulmonary disease, unspecified Code(s): J44.9 - Chronic obstructive pulmonary disease, unspecified Status: Acute (2) Acute respiratory failure with hypoxia and hypercarbia: Code(s): J96.01 - Acute respiratory failure with hypoxia; J96.02 - Acute respiratory failure with hypercapnia Status: Acute Assessment and Plan: 61-year-old female with a history of morbid obesity obstructive sleep apnea, history of COPD on maintenance LABA/LAMA bronchodilator, on home ventilatory support via BiPAP, presented with acute on chronic hypercapnic respiratory failure and no symptoms to suggest COPD exacerbation. The patient has been treated with ventilatory support via AVAPS with significant improvement. It is not clear whether the acute on chronic hypercapnic respiratory failure was also related to CHF exacerbation as patient has nonischemic cardiomyopathy with previous EF in the range of less than 20%. Plan continue with current BiPAP settings, obtain echocardiogram, will get ApneaLink prior to DC home. (3) Morbid obesity: Code(s): E66.01 - Morbid (severe) obesity due to excess calories Status: Acute (4) Nonischemic cardiomyopathy: Code(s): I42.8 - Other cardiomyopathies Status: Acute (5) Obstructive sleep apnea: Code(s): G47.33 - Obstructive sleep apnea (adult) (pediatric) Status: Chronic Subjective Date/time seen: 01/18/22 09:50 patient admitted with acute on chronic hypercapnic respiratory failure. She has got history of a COPD, with chronic hypoxemic hypercapnic respiratory failure obstructive sleep apnea, on ventilatory support at home via BiPAP although also prescribed trilogy ventilatory support. she has history of nonischemic cardiomyopathy with BiV ICDC with EF in the range of 60% approximately 7 months ago. Review of Systems Review of Systems: All systems reviewed & are unremarkable except as noted in HPI and below Exam Narrative: GEN: Alert, oriented, not in distress. HEENT: pupils are equal, EOMI, symmetrical face; oral membranes moist. NECK: Trachea is midline CHEST: Equal air entry, symmetric excursion, no more crackles; Distant breath sounds, no wheezing. CV: Distant heart tones. Paced rhythm. ABD : (+) bowel sounds, obese, nontender. Extremities : no clubbing, cyanosis, or edema. Neuro: alert oriented x3, normal affect. Objective Data Vital Signs Vital Signs: Vital Signs - 24 hr 01/17/22 10:00 01/17/22 12:00 01/17/22 14:00 Temperature 36.3 C L Pulse Rate 87 82 80 Respiratory Rate 20 Blood Pressure 86/52 L Pulse Oximetry 100 01/17/22 16:00 01/17/22 16:31 01/17/22 18:00 Temperature 36.4 C L Pulse Rate 78 91 Respiratory Rate 24 H Blood Pressure 76/46 L Pulse Oximetry 100 100 01/17/22 20:00 01/17/22 20:53 01/17/22 22:00 Temperature 36.4 C L Pulse Rate 86 84 85 Respiratory Rate 20 Blood Pressure 107/61 Pulse Oximetry 98 01/17/22 23:00 01/17/22 23:41 01/17/22 23:50 Temperature 36.4 C Pulse Rate 72 83 83 Respiratory Rate 22 H 20 20 Blood Pressure 114/60 Pulse Oximetry 97 97 97 01/18/22 00:00 01/18/22 02:00 01/18/22 02:50 Temperature Pulse Rate 80 73 68 Respiratory Rate 22 H Blood Pressure Pulse Oximetry 97 01/18/22 03:45 01/18/22 03:46 01/18/22 04:00 Temperature 36.6 C Pulse Rate 68 72 71 Respiratory Rate 20 20 Blood Pressure 101/66 Pulse Oximetry 97 96 01/18/22 05:29 01/18/22 08:00 01/18/22 08:25 Temperature Pulse Rate 74 79 Respiratory Rate Blood Pressure Pulse Oximetry 93 99 01/18/22 08:30 Temperature 35.6 C L Pulse Rate 77 Respiratory Rate 22 H Blood Pressure 119/71 Pulse Oximetry 93 Intake/Output Intake/Output: Intake & Output 01/15/22
[2022-01-18] MEDS: guaiFENesin 600 MG/DEXTROMETHORPHAN 30 MG SR TAB 12 HR 1 TAB PO ×2 (10:36→20:13)
[2022-01-18] MEDS: PERFLUTREN LIPID MICROSPHERES 1.5 ML VIAL DILUTED TO 10 ML TOTAL VOLUME IV PUSH (13:40)
--- NOTE | 2022-01-18 15:12 | PM.IMPN ---
Progress Note: A&P Assessment and Plan (1) Acute on chronic respiratory failure with hypoxia and hypercapnia: Code(s): J96.21 - Acute and chronic respiratory failure with hypoxia; J96.22 - Acute and chronic respiratory failure with hypercapnia Status: Acute Assessment and Plan: Likely secondary to noncompliance with Triology. Repeat ABG is improving; continue BiPAP 20/6, rate 20, FiO2 0.4 Bring in home Trilogy. Pulmonology to assist with titration. Trial on Venti mask 40% for eating and while awake. F/u ABGs improving May go home when stable with new Trilogy mask and settings - 01/18/22: Pulmonology to manage Trilogy settings and mask. They have ordered an Apnealink for tonight. CXR from this AM based off of her wet sounding cough shows Pulmonary Vascular Congestion. Her Lasix is therefore changed to 40 mg IVP BID from 20 mg po daily. ECHO was performed today that showed a severely reduced LVSF with EF of 25-30%. She also has grade 1 diastolic dysfunction. Will reassess in AM and also repeat CXR. Based upon results, may consider consulting Cardiology. As I am told by the pt's nurse, she is continually drinking soda all day, and therefore, she is placed on a Fluid Restriction of 1200 ml at this time. Will recheck VS and labs in AM and trend as necessary. (2) Chronic obstructive pulmonary disease: Qualifiers: COPD type: unspecified COPD Qualified Code(s): J44.9 - Chronic obstructive pulmonary disease, unspecified Code(s): J44.9 - Chronic obstructive pulmonary disease, unspecified Status: Acute Assessment and Plan: No acute exacerbation. Continue maintenance inhalers. - 01/18/22: Pt. not in a current exacerbation according to Pulmonology. They are managing her COPD treatment and ordered an apnealink test for tonight. Their concern was for possible Heart failure exacerbation. (See above management plan.) (3) Nonischemic cardiomyopathy: Code(s): I42.8 - Other cardiomyopathies Status: Acute Assessment and Plan: Clinically compensated. Monitor volume status. Continue Entresto. - 01/18/22: Appears Hypervolemic today as evidenced by CXR, ECHO and also by Physical Exam. Lasix is changed from 20 mg po to 40 mg IVP BID. She will continue on her Entresto at this time, renal function is at baseline with Creatinine of 1.0 and a BUN of 25. We will continue to monitor her renal function so as to ensure her Cardiorenal balance and status. Will recheck X-ray in AM and consider Cardiology evaluation. Pt also being placed on a fluid restriction as her nurse states she has drank soda all day. Will start at 1200 ml and titrate as needed. Time Spent With Patient Time with patient: 15 - 25 minutes Subjective Date/time seen: 01/18/22 1032 This pt. was examined at the bedside in interval assessment. She reports that she has been improved and she is feeling much better. She has a cough that she has developed within the past few days. Repeat CXR was performed and demonstrated that there was retrocardiac opacification that may represent atelecatsis and/or PNA. In addition she has Cardiomegaly with PVC. She is currently on her home dose of Lasix at 20 mg po. I will increase this to 40 mg IV BID to start tonight and re-evaluate in the AM. We are continuing Spironolactone. She will have a repeat CXR in AM and depending on results of that, may consider consulting cardiology. Pulmonology has consulted and are managing her BiPap settings for home. She will have an Apnealink tonight. Repeat ECHO was performed today that showed a severely reduced LVSF, with EF of 25-30% and Grade 1 Diastolic dysfunction. In addition, she will be placed on a fluid restriction order of 1200 ml/24 hours. Pt. denies any current CP, V/D. She states her Dyspnea is improving. She does complain of some nausea and also of a persistent, wet sounding cough. Review of Systems Review of Systems: All systems reviewed & are unremarkable exc
[2022-01-18] MEDS: FUROSEMIDE INJ 40 MG/4 ML VIAL IV PUSH (17:15)
[2022-01-18] MEDS: rOPINIRole HCL 0.25 MG TABLET PO (20:14)
[2022-01-18] MEDS: ATORVASTATIN 40 MG TABLET PO (20:14)
[2022-01-19] VITALS (12 sets, daily range): BP systolic 89–112; BP diastolic 54–65; PULSE 71–86; RESP 12–20; TEMP 35.7–36.6; O2SAT 91–98
[2022-01-19] MEDS: busPIRone HCL 5 MG TABLET 15 MG PO ×3 (05:13→21:01)
[2022-01-19] MEDS: traMADol HCL (*CRX) 50 MG TABLET PO (05:17)
[2022-01-19 06:32] LABS: Basophils Percent Auto 0.8 % (0.2-1.2); Eosinophils Absolute Auto 0.1 K/mm3 (0-0.3); Eosinophils Percent Auto 1.8 % (0-4.4); Hematocrit 46.3 % (37.0-47.0); Hemoglobin 13.5 g/dL (12.0-15.0); Immature Granulocyte Absolute 0.02 K/mm3 (0.00-0.031); Immature Granulocyte Percent A 0.4 % (0-0.5); Lymphocytes Absolute Auto 1.08 K/mm3 (0.9-3.2); Lymphocytes Percent Auto 21.2 % (18.3-44.2); Mean Corpuscular HGB Conc 29.2 g/dl (32-36); Mean Corpuscular Hemoglobin 29.8 pg (26-34); Mean Corpuscular Volume 102.2 fl (80-100); Mean Platelet Volume 10.4 fl (7.4-10.4); Monocytes Absolute Auto 0.5 K/mm3 (0.1-0.6); Neutrophils Absolute Auto 3.4 K/mm3 (1.3-6.7); Neutrophils Percent Auto 65.8 % (45.5-73.1); Platelet Count Result 187 k/mm3 (150-375); Red Blood Count 4.53 M/mm3 (4.2-5.4); Red Cell Distribution Width 12.9 % (11.5-14.5); White Blood Count 5.1 K/mm3 (4.5-10.0)
[2022-01-19 06:43] LABS: Alanine Aminotransferase 10 U/L (6-35); Albumin Level 4.1 g/dL (3.5-5.1); Alkaline Phosphatase 85 U/L (38-126); Anion Gap 5 mmol/L (8-16); Aspartate Amino Transferase 21 U/L (14-36); Bilirubin,Total 0.3 mg/dL (0.2-1.3); Blood Urea Nitrogen 26 mg/dL (7-17); Calcium 8.5 mg/dL (8.4-10.2); Carbon Dioxide 35 mmol/L (22-30); Chloride 97 mmol/L (98-107); Estimated CRCL calculation 64 ml/min; Estimated Glomerular Filt Rate 57; Glucose 84 mg/dL (65-110); Magnesium 2.3 mg/dL (1.6-2.3); Potassium 4.5 mmol/L (3.4-5.0); Sodium 137 mmol/L (137-145)
--- NOTE | 2022-01-19 08:00 | PM.DS ---
DS: Admitting Diagnosis Discharge Date 01/19/22 Admitting Diagnosis Acute on chronic respiratory failure with hypoxia and hypercapnia, COPD, nonischemic cardiomyopathy, heart failure DS: Discharge Diagnosis Discharge Diagnosis (1) Acute on chronic respiratory failure with hypoxia and hypercapnia: Code(s): J96.21 - Acute and chronic respiratory failure with hypoxia; J96.22 - Acute and chronic respiratory failure with hypercapnia Status: Acute Assessment and Plan: Likely secondary to noncompliance with Triology. Repeat ABG is improving; continue BiPAP 20/6, rate 20, FiO2 0.4 Bring in home Trilogy. Pulmonology to assist with titration. Trial on Venti mask 40% for eating and while awake. F/u ABGs improving May go home when stable with new Trilogy mask and settings - 01/18/22: Pulmonology to manage Trilogy settings and mask. They have ordered an Apnealink for tonight. CXR from this AM based off of her wet sounding cough shows Pulmonary Vascular Congestion. Her Lasix is therefore changed to 40 mg IVP BID from 20 mg po daily. ECHO was performed today that showed a severely reduced LVSF with EF of 25-30%. She also has grade 1 diastolic dysfunction. Will reassess in AM and also repeat CXR. Based upon results, may consider consulting Cardiology. As I am told by the pt's nurse, she is continually drinking soda all day, and therefore, she is placed on a Fluid Restriction of 1200 ml at this time. Will recheck VS and labs in AM and trend as necessary. - 01/19/22, Date of discharge -ApneaLink was performed overnight, and patient had no noted desaturations. Chest x-ray from this a.m. that was repeated after dosing with Lasix IV yesterday showed that the pulmonary vascular congestion that was present yesterday has now resolved. Patient did have good urinary output of 2 L after Lasix was given. Echo was performed yesterday that showed a severely reduced left ventricular systolic function with EF of 25-30% and grade 1 diastolic dysfunction. As patient has improved with her pulmonary congestion consult to cardiology is not needed at this time. Patient did well with a fluid restriction and is breathing easier this morning and is stable for discharge if agreeable with pulmonology. Do appreciate pulmonology's recommendations in to continued settings of patient's BiPAP at night. (2) Chronic obstructive pulmonary disease: Qualifiers: COPD type: unspecified COPD Qualified Code(s): J44.9 - Chronic obstructive pulmonary disease, unspecified Code(s): J44.9 - Chronic obstructive pulmonary disease, unspecified Status: Acute Assessment and Plan: No acute exacerbation. Continue maintenance inhalers. - 01/18/22: Pt. not in a current exacerbation according to Pulmonology. They are managing her COPD treatment and ordered an apnealink test for tonight. Their concern was for possible Heart failure exacerbation. (See above management plan.) - 01/19/22, Date of discharge: Patient will continue maintenance inhalers upon discharge. Any further recommendations per pulmonology will be advised. (3) Nonischemic cardiomyopathy: Code(s): I42.8 - Other cardiomyopathies Status: Acute Assessment and Plan: Clinically compensated. Monitor volume status. Continue Entresto. - 01/18/22: Appears Hypervolemic today as evidenced by CXR, ECHO and also by Physical Exam. Lasix is changed from 20 mg po to 40 mg IVP BID. She will continue on her Entresto at this time, renal function is at baseline with Creatinine of 1.0 and a BUN of 25. We will continue to monitor her renal function so as to ensure her Cardiorenal balance and status. Will recheck X-ray in AM and consider Cardiology evaluation. Pt also being placed on a fluid restriction as her nurse states she has drank soda all day. Will start at 1200 ml and titrate as needed. - 01/19/22, Date of Discharge: Patient appears euvolemic today as evidence by chest x-ray, and physical exam. She d
[2022-01-19] MEDS: UMECLIDINIUM/VILANTEROL 62.5-25 MCG ELLIPTA 1 PUFF INHALATION (08:01)
[2022-01-19] MEDS: ONDANSETRON INJ 4 MG/2 ML VIAL IV PUSH (08:25)
[2022-01-19] MEDS: carvediloL 6.25 MG TABLET PO ×2 (08:26→21:01)
[2022-01-19] MEDS: ENOXAPARIN 40 MG/0.4 ML SYRINGE SUB-Q (08:26)
[2022-01-19] MEDS: SPIRONOLACTONE 25 MG TABLET PO (08:26)
[2022-01-19] MEDS: CITALOPRAM HYDROBROMIDE 20 MG TABLET 40 MG PO (08:26)
[2022-01-19] MEDS: guaiFENesin 600 MG/DEXTROMETHORPHAN 30 MG SR TAB 12 HR 1 TAB PO ×2 (08:26→21:01)
[2022-01-19] MEDS: FUROSEMIDE INJ 40 MG/4 ML VIAL IV PUSH ×2 (08:26→16:49)
[2022-01-19] MEDS: PANTOPRAZOLE 40 MG TABLET PO (08:26)
[2022-01-19] MEDS: SACUBITRIL/VALSARTAN 49-51 MG TABLET 1 TABLET PO ×2 (08:27→16:49)
--- NOTE | 2022-01-19 09:23 | PM.PNPUL ---
Progress Note: A&P Assessment and Plan (1) Chronic obstructive pulmonary disease: Qualifiers: COPD type: unspecified COPD Qualified Code(s): J44.9 - Chronic obstructive pulmonary disease, unspecified Code(s): J44.9 - Chronic obstructive pulmonary disease, unspecified Status: Acute (2) Acute respiratory failure with hypoxia and hypercarbia: Code(s): J96.01 - Acute respiratory failure with hypoxia; J96.02 - Acute respiratory failure with hypercapnia Status: Acute Assessment and Plan: 61-year-old female with a history of OHS, history of COPD on maintenance LABA/LAMA bronchodilator, on home ventilatory support via BiPAP, presented with acute on chronic hypercapnic respiratory failure and no symptoms to suggest COPD exacerbation. The patient has been treated with ventilatory support via AVAPS with significant improvement. It is not clear whether the acute on chronic hypercapnic respiratory failure was also related to CHF exacerbation as patient has nonischemic cardiomyopathy with previous EF in the range of less than 20%. Echocardiogram done yesterday showed ejection fraction in the range of a 25-30%. She is currently on medications for congestive heart failure. A previous trilogy settings showed respiratory rate of 20, tidal volume 500, EPAP 5-15. Plan: will Continue with AVAP settings as follows. Tidal volume 500 respiratory rate 12, EPAP 7. Same a FiO2 will record ApneaLink tonight focusing primarily on oxyhemoglobin saturation. (3) Morbid obesity: Code(s): E66.01 - Morbid (severe) obesity due to excess calories Status: Acute (4) Nonischemic cardiomyopathy: Code(s): I42.8 - Other cardiomyopathies Status: Acute (5) Obstructive sleep apnea: Code(s): G47.33 - Obstructive sleep apnea (adult) (pediatric) Status: Chronic Subjective Date/time seen: 01/19/22 09:23 Patient has no new respiratory symptoms. She did not sleep well last night. Apnea link attempted but recording time was only 14 minutes Review of Systems Review of Systems: All systems reviewed & are unremarkable except as noted in HPI and below Exam Narrative: GEN: Alert, oriented, not in distress. HEENT: pupils are equal, EOMI, symmetrical face; oral membranes moist. NECK: Trachea is midline CHEST: Equal air entry, symmetric excursion, no more crackles; Distant breath sounds, no wheezing. CV: Distant heart tones. Paced rhythm. ABD : (+) bowel sounds, obese, nontender. Extremities : no clubbing, cyanosis, or edema. Neuro: alert oriented x3, normal affect. Objective Data Vital Signs Vital Signs: Vital Signs - 24 hr 01/18/22 09:50 01/18/22 10:00 01/18/22 12:00 Temperature Pulse Rate 86 86 79 Respiratory Rate Blood Pressure Pulse Oximetry 93 01/18/22 12:31 01/18/22 14:00 01/18/22 16:00 Temperature 35.7 C L Pulse Rate 81 87 75 Respiratory Rate 22 H Blood Pressure 95/57 L Pulse Oximetry 93 93 01/18/22 16:57 01/18/22 18:00 01/18/22 20:00 Temperature 35.9 C L 36.4 C Pulse Rate 75 79 85 Respiratory Rate 28 H 20 Blood Pressure 120/69 112/61 Pulse Oximetry 98 91 01/18/22 20:14 01/18/22 22:00 01/18/22 23:27 Temperature 36.2 C L Pulse Rate 87 76 72 Respiratory Rate 20 Blood Pressure 94/71 L Pulse Oximetry 94 01/18/22 23:50 01/19/22 00:00 01/19/22 02:00 Temperature Pulse Rate 74 75 74 Respiratory Rate 21 H Blood Pressure Pulse Oximetry 95 97 01/19/22 04:00 01/19/22 06:00 01/19/22 08:03 Temperature 36.4 C Pulse Rate 71 72 Respiratory Rate 20 Blood Pressure 104/57 L Pulse Oximetry 98 93 01/19/22 08:26 Temperature Pulse Rate 79 Respiratory Rate Blood Pressure Pulse Oximetry Intake/Output Intake/Output: Intake & Output 01/16/22 01/17/22 01/18/22 01/19/22 23:59 23:59 23:59 23:59 Intake Total 1880 0 1740 50 Output Total 5200 8378 2000 [facility] [place] -772 -[id number] -261 -300
--- NOTE | 2022-01-19 11:42 | PM.IMPN ---
Progress Note: A&P Assessment and Plan (1) Acute on chronic respiratory failure with hypoxia and hypercapnia: Code(s): J96.21 - Acute and chronic respiratory failure with hypoxia; J96.22 - Acute and chronic respiratory failure with hypercapnia Status: Acute Assessment and Plan: Likely secondary to noncompliance with Triology. Repeat ABG is improving; continue BiPAP 20/6, rate 20, FiO2 0.4 Bring in home Trilogy. Pulmonology to assist with titration. Trial on Venti mask 40% for eating and while awake. F/u ABGs improving May go home when stable with new Trilogy mask and settings - 01/18/22: Pulmonology to manage Trilogy settings and mask. They have ordered an Apnealink for tonight. CXR from this AM based off of her wet sounding cough shows Pulmonary Vascular Congestion. Her Lasix is therefore changed to 40 mg IVP BID from 20 mg po daily. ECHO was performed today that showed a severely reduced LVSF with EF of 25-30%. She also has grade 1 diastolic dysfunction. Will reassess in AM and also repeat CXR. Based upon results, may consider consulting Cardiology. As I am told by the pt's nurse, she is continually drinking soda all day, and therefore, she is placed on a Fluid Restriction of 1200 ml at this time. Will recheck VS and labs in AM and trend as necessary. - 01/19/22: ApneaLink was performed overnight, and patient had no noted desaturations, but it was only active for 14 minutes. Chest x-ray from this a.m. that was repeated after dosing with Lasix IV yesterday showed that the pulmonary vascular congestion that was present yesterday has now resolved. Patient did have good urinary output of 2 L after Lasix was given. Echo was performed yesterday that showed a severely reduced left ventricular systolic function with EF of 25-30% and grade 1 diastolic dysfunction. As patient has improved with her pulmonary congestion consult to cardiology is not needed at this time. Patient did well with a fluid restriction and is breathing easier this morning and is stable for discharge from a medical standpoint when Pulmonology is agreeable. Do appreciate pulmonology's recommendations in to continued settings of patient's BiPAP at night. (2) Chronic obstructive pulmonary disease: Qualifiers: COPD type: unspecified COPD Qualified Code(s): J44.9 - Chronic obstructive pulmonary disease, unspecified Code(s): J44.9 - Chronic obstructive pulmonary disease, unspecified Status: Acute Assessment and Plan: No acute exacerbation. Continue maintenance inhalers. - 01/18/22: Pt. not in a current exacerbation according to Pulmonology. They are managing her COPD treatment and ordered an apnealink test for tonight. Their concern was for possible Heart failure exacerbation. (See above management plan.) - 01/19/22: Patient will continue maintenance inhalers upon discharge as she is currently stable. Any further recommendations per pulmonology will be advised. (3) Nonischemic cardiomyopathy: Code(s): I42.8 - Other cardiomyopathies Status: Acute Assessment and Plan: Clinically compensated. Monitor volume status. Continue Entresto. - 01/18/22: Appears Hypervolemic today as evidenced by CXR, ECHO and also by Physical Exam. Lasix is changed from 20 mg po to 40 mg IVP BID. She will continue on her Entresto at this time, renal function is at baseline with Creatinine of 1.0 and a BUN of 25. We will continue to monitor her renal function so as to ensure her Cardiorenal balance and status. Will recheck X-ray in AM and consider Cardiology evaluation. Pt also being placed on a fluid restriction as her nurse states she has drank soda all day. Will start at 1200 ml and titrate as needed. - 01/19/22: Patient appears euvolemic today as evidence by chest x-ray, and physical exam. She did well with Lasix 40 mg IV push last evening diuresing more than 2 L after administration. Her repeat chest x-ray this morning shows the pulmonary vascular
--- NOTE | 2022-01-19 14:07 | PC.NURSE ---
This patient, Olivia Burdick, was transferred to [[id number] ] on 01/19/22 at 1407. Personal belongings sent with patient. Report given to [DARCI Hernandez @ [phone] ]. Appropriate documentation sent with patient.
--- NOTE | 2022-01-19 14:14 | PC.NURSE ---
This patient, Olivia Burdick, was received from [[facility] ] on 01/19/22 at 1414. Patient/family oriented to unit policies and routines
[2022-01-19] MEDS: ATORVASTATIN 40 MG TABLET PO (21:01)
[2022-01-19] MEDS: rOPINIRole HCL 0.25 MG TABLET PO (21:01)
[2022-01-20 02:27] VITALS: PULSE 67; RESP 15; O2SAT 94
[2022-01-20] MEDS: busPIRone HCL 5 MG TABLET 15 MG PO ×2 (05:14→14:42)
--- NOTE | 2022-01-20 05:16 | PCRCNOTE ---
Pt ordered 2nd overnight study. At approximately 02:30, pt was found off AVAPS. Pt stated that she had been off for about 25 minutes or so. Pt was placed back on AVAPS for duration of study. Significant desaturation event during study correlates with the time period pt was off AVAPS and on RA. This was noted in the ApneaLink report.
[2022-01-20 05:20] VITALS: BP 108/71; PULSE 74; RESP 18; TEMP 35.8; O2SAT 97
[2022-01-20 08:17] LABS: Basophils Percent Auto 0.7 % (0.2-1.2); Eosinophils Absolute Auto 0.1 K/mm3 (0-0.3); Eosinophils Percent Auto 1.1 % (0-4.4); Hematocrit 44.1 % (37.0-47.0); Hemoglobin 12.5 g/dL (12.0-15.0); Immature Granulocyte Absolute 0.02 K/mm3 (0.00-0.031); Immature Granulocyte Percent A 0.4 % (0-0.5); Lymphocytes Absolute Auto 0.96 K/mm3 (0.9-3.2); Lymphocytes Percent Auto 17.2 % (18.3-44.2); Mean Corpuscular HGB Conc 28.3 g/dl (32-36); Mean Corpuscular Hemoglobin 29.1 pg (26-34); Mean Corpuscular Volume 102.6 fl (80-100); Mean Platelet Volume 10.5 fl (7.4-10.4); Monocytes Absolute Auto 0.6 K/mm3 (0.1-0.6); Monocytes Percent Auto 10.7 % (2.6-8.5); Neutrophils Absolute Auto 3.9 K/mm3 (1.3-6.7); Neutrophils Percent Auto 69.9 % (45.5-73.1); Platelet Count Result 185 k/mm3 (150-375); Red Cell Distribution Width 12.9 % (11.5-14.5); White Blood Count 5.6 K/mm3 (4.5-10.0)
[2022-01-20 08:28] LABS: Alanine Aminotransferase 12 U/L (6-35); Albumin Level 3.8 g/dL (3.5-5.1); Alkaline Phosphatase 83 U/L (38-126); Anion Gap 8 mmol/L (8-16); Aspartate Amino Transferase 21 U/L (14-36); Bilirubin,Total 0.3 mg/dL (0.2-1.3); Blood Urea Nitrogen 28 mg/dL (7-17); Calcium 8.5 mg/dL (8.4-10.2); Carbon Dioxide 36 mmol/L (22-30); Chloride 96 mmol/L (98-107); Estimated CRCL calculation 71 ml/min; Estimated Glomerular Filt Rate > 60; Glucose 83 mg/dL (65-110); Magnesium 2.2 mg/dL (1.6-2.3); Potassium 4.7 mmol/L (3.4-5.0); Sodium 140 mmol/L (137-145)
[2022-01-20] MEDS: UMECLIDINIUM/VILANTEROL 62.5-25 MCG ELLIPTA 1 PUFF INHALATION (08:41)
[2022-01-20 08:43] VITALS: O2SAT 92
[2022-01-20 09:04] VITALS: PULSE 84
[2022-01-20] MEDS: carvediloL 6.25 MG TABLET PO (09:04)
[2022-01-20] MEDS: guaiFENesin 600 MG/DEXTROMETHORPHAN 30 MG SR TAB 12 HR 1 TAB PO (09:04)
[2022-01-20] MEDS: CITALOPRAM HYDROBROMIDE 20 MG TABLET 40 MG PO (09:04)
[2022-01-20] MEDS: ONDANSETRON INJ 4 MG/2 ML VIAL IV PUSH (09:04)
[2022-01-20] MEDS: PANTOPRAZOLE 40 MG TABLET PO (09:04)
[2022-01-20] MEDS: SPIRONOLACTONE 25 MG TABLET PO (09:04)
[2022-01-20] MEDS: SACUBITRIL/VALSARTAN 49-51 MG TABLET 1 TABLET PO (09:04)
[2022-01-20] MEDS: FUROSEMIDE INJ 40 MG/4 ML VIAL IV PUSH (09:04)
[2022-01-20] MEDS: ENOXAPARIN 40 MG/0.4 ML SYRINGE SUB-Q (09:04)
--- NOTE | 2022-01-20 10:22 | PM.PNPUL ---
Progress Note: A&P Assessment and Plan (1) Chronic obstructive pulmonary disease: Qualifiers: COPD type: unspecified COPD Qualified Code(s): J44.9 - Chronic obstructive pulmonary disease, unspecified Code(s): J44.9 - Chronic obstructive pulmonary disease, unspecified Status: Acute (2) Acute respiratory failure with hypoxia and hypercarbia: Code(s): J96.01 - Acute respiratory failure with hypoxia; J96.02 - Acute respiratory failure with hypercapnia Status: Acute Assessment and Plan: 61-year-old female with a history of OHS, history of COPD on maintenance LABA/LAMA bronchodilator, on home ventilatory support via BiPAP, presented with acute on chronic hypercapnic respiratory failure and no symptoms to suggest COPD exacerbation. The patient has been treated with ventilatory support via AVAPS with significant improvement. It is not clear whether the acute on chronic hypercapnic respiratory failure was also related to CHF exacerbation as patient has nonischemic cardiomyopathy with previous EF in the range of less than 20%. Echocardiogram done two days ago showed ejection fraction in the range of a 25-30%. She is currently on medications for congestive heart failure. ApneaLink done last night showed adequate oxygenation on AVAPS with tidal volume 500, backup respiratory rate 12 and EPAP of 7. She had some desaturation with < 88% saturation lasting approximately 14 minutes. Per Respiratory therapist note, this period of oxyhemoglobin desaturation occurred when the patient got disconnected from AVAPS. Plan is as follows: okay to discharge patient home today. She will continue with home ventilatory support using own trilogy ventilator. The trilogy settings will be the same except the respiratory rate will be changed to Auto. in addition the patient will be using a new face mask, the 1 that was fitted with during the hospital stay and also continue with supplemental oxygen at 2 liters/minute at night and during the day. The patient will need to return to pulmonary clinic in approximately 1 month to be evaluated for sleep disordered breathing and COPD. At this point she will continue with same maintenance bronchodilators. (3) Morbid obesity: Code(s): E66.01 - Morbid (severe) obesity due to excess calories Status: Acute (4) Nonischemic cardiomyopathy: Code(s): I42.8 - Other cardiomyopathies Status: Acute (5) Obstructive sleep apnea: Code(s): G47.33 - Obstructive sleep apnea (adult) (pediatric) Status: Chronic Subjective Date/time seen: 01/20/22 10:22 Patient has no new respiratory symptoms. slept well last night on AVAPS and EPAP of 7 cm water pressure. Underwent Apnea Link last night. Review of Systems Review of Systems: All systems reviewed & are unremarkable except as noted in HPI and below Exam Narrative: GEN: Alert, oriented, not in distress. HEENT: pupils are equal, EOMI, symmetrical face; oral membranes moist. NECK: Trachea is midline CHEST: Equal air entry, symmetric excursion, no more crackles; Distant breath sounds, no wheezing. CV: Distant heart tones. Paced rhythm. ABD : (+) bowel sounds, obese, nontender. Extremities : no clubbing, cyanosis, or edema. Neuro: alert oriented x3, normal affect. Objective Data Vital Signs Vital Signs: Vital Signs - 24 hr 01/19/22 15:48 01/19/22 20:46 01/19/22 21:01 Temperature 35.7 C L Pulse Rate 77 80 Respiratory Rate 16 Blood Pressure 96/59 L Pulse Oximetry 93 91 01/19/22 21:35 01/19/22 23:37 01/20/22 02:27 Temperature 35.9 C L Pulse Rate 86 72 67 Respiratory Rate 18 13 15 Blood Pressure 89/54 L Pulse Oximetry 93 97 94 01/20/22 05:20 01/20/22 08:43 01/20/22 09:04 Temperature 35.8 C L Pulse Rate 74 84 Respiratory Rate 18 Blood Pressure 108/71 Pulse Oximetry 97 92 Intake/Output Intake/Output: Intake & Output 01/17/22 01/18/22 01/19/22 0
--- NOTE | 2022-01-20 11:34 | P.DS_ITS ---
DS: Admitting Diagnosis Discharge Date 01/20/2022 Admitting Diagnosis Acute on chronic respiratory failure with hypercapnia DS: Discharge Diagnosis Discharge Diagnosis (1) Acute on chronic respiratory failure with hypoxia and hypercapnia: Code(s): J96.21 - Acute and chronic respiratory failure with hypoxia; J96.22 - Acute and chronic respiratory failure with hypercapnia Status: Acute Assessment and Plan: Likely secondary to noncompliance with Triology. Repeat ABG is improving; continue BiPAP 20/6, rate 20, FiO2 0.4 Bring in home Trilogy. Pulmonology to assist with titration. Trial on Venti mask 40% for eating and while awake. F/u ABGs improving May go home when stable with new Trilogy mask and settings - 01/18/22: Pulmonology to manage Trilogy settings and mask. They have ordered an Apnealink for tonight. CXR from this AM based off of her wet sounding cough shows Pulmonary Vascular Congestion. Her Lasix is therefore changed to 40 mg IVP BID from 20 mg po daily. ECHO was performed today that showed a severely reduced LVSF with EF of 25-30%. She also has grade 1 diastolic dysfunction. Will reassess in AM and also repeat CXR. Based upon results, may consider consulting Cardiology. As I am told by the pt's nurse, she is continually drinking soda all day, and therefore, she is placed on a Fluid Restriction of 1200 ml at this time. Will recheck VS and labs in AM and trend as necessary. - 01/19/22: ApneaLink was performed overnight, and patient had no noted desatura tions, but it was only active for 14 minutes. Chest x-ray from this a.m. that was repeated after dosing with Lasix IV yesterday showed that the pulmonary vascular congestion that was present yesterday has now resolved. Patient did have good urinary output of 2 L after Lasix was given. Echo was performed yesterday that showed a severely reduced left ventricular systolic function with EF of 25-30% and grade 1 diastolic dysfunction. As patient has improved with her pulmonary congestion consult to cardiology is not needed at this time. Patient did well with a fluid restriction and is breathing easier this morning and is stable for discharge from a medical standpoint when Pulmonology is agreeable. Do appreciate pulmonology's recommendations in to continued settings of patient's BiPAP at night. (2) Chronic obstructive pulmonary disease: Qualifiers: COPD type: unspecified COPD Qualified Code(s): J44.9 - Chronic obstructive pulmonary disease, unspecified Code(s): J44.9 - Chronic obstructive pulmonary disease, unspecified Status: Acute Assessment and Plan: No acute exacerbation. Continue maintenance inhalers. - 01/18/22: Pt. not in a current exacerbation according to Pulmonology. They are managing her COPD treatment and ordered an apnealink test for tonight. Their concern was for possible Heart failure exacerbation. (See above management plan.) - 01/19/22: Patient will continue maintenance inhalers upon discharge as she is currently stable. Any further recommendations per pulmonology will be advised. (3) Nonischemic cardiomyopathy: Code(s): I42.8 - Other cardiomyopathies Status: Acute Assessment and Plan: Clinically compensated. Monitor volume status. Continue Entresto. - 01/18/22: Appears Hypervolemic today as evidenced by CXR, ECHO and also by Physical Exam. Lasix is changed from 20 mg po to 40 mg IVP BID. She will continue on her Entresto at this time, renal function is at baseline with Creatinine of 1.0 and a BUN of 25. We will continue to monitor her renal function so as to ensure her Cardiorenal balance and status. Will recheck X-ray in AM and consid
[2022-01-20 13:22] VITALS: BP 82/48; PULSE 71; RESP 16; TEMP 35.5; O2SAT 90
[2022-01-20 15:12] VITALS: BP 101/48
== END 2022-01-20 15:35 | disposition home or self-care (01) | DRG 189 ==
LOC: ANHED 17:16 → ANHIMU 17:34 → ANH3MEDSUR 01-19 14:20 → ANHIMU 01-21 10:58
PROVIDERS: Internal Medicine; Physician Assistant; Admitting Provider Internal Medicine; Emergency Provider Emergency Medicine; Visit Provider Nurse Practitioner Adult Health
DX: J96.21 Acute and chronic respiratory failure with hypoxia (principal); I42.8 Other cardiomyopathies; E66.2 Morbid (severe) obesity with alveolar hypoventilation; Z68.42 Body mass index [BMI] 45.0-49.9, adult; Z20.822 Contact with and (suspected) exposure to COVID-19; Z87.891 Personal history of nicotine dependence; Z95.0 Presence of cardiac pacemaker; Z82.49 Family history of ischemic heart disease and other diseases of the circulatory system; Z83.3 Family history of diabetes mellitus; F32.9 Major depressive disorder, single episode, unspecified; J43.9 Emphysema, unspecified; I50.9 Heart failure, unspecified; J96.22 Acute and chronic respiratory failure with hypercapnia; Z99.81 Dependence on supplemental oxygen; I11.0 Hypertensive heart disease with heart failure; E78.5 Hyperlipidemia, unspecified; F41.9 Anxiety disorder, unspecified; Z79.899 Other long term (current) drug therapy; Z79.51 Long term (current) use of inhaled steroids; Z91.14 Patient's other noncompliance with medication regimen
CPT/HCPCS: 36415; 36600; 71045; 80048; 80053; 82375; 82805; 83050; 83735; 83880; 84443; 85025; 85027; 85046; 93005; 94002; 94003; 94640; 94667; 94762; 96372; 96374; 99291; A9270; C8929; C9803; G0378; J1120; J1650; J1940; J2405; Q9957; U0003; U0005

== ENCOUNTER 2022-02-08 13:41 | Outpatient (CLI) | payer MEDICARE, MEDICAID, SELFPAY ==
[2022-02-08 14:29] LABS: Blood Urea Nitrogen 25 mg/dL (7-17); Calcium 8.1 mg/dL (8.4-10.2); Carbon Dioxide > 40 mmol/L (22-30); Chloride 94 mmol/L (98-107); Estimated Glomerular Filt Rate > 60; Glucose 97 mg/dL (65-110); Potassium 4.6 mmol/L (3.4-5.0); Sodium 138 mmol/L (137-145)
== END 2022-02-08 13:42 | disposition home or self-care (01) ==
PROVIDERS: Visit Provider Internal Medicine Cardiovascular Disease
DX: R53.1 Weakness (principal)
CPT/HCPCS: 36415; 80048

== ENCOUNTER 2022-07-13 21:37 | Inpatient (IN) | payer MEDICARE, MEDICAID, SELFPAY ==
[2022-07-13] VITALS (11 sets, daily range): BP systolic 93; BP diastolic 55; PULSE 81–96; RESP 15–24; TEMP 36.6; O2SAT 92–100
--- NOTE | ~2022-07-13 | CT_ITS ---
EXAMINATION: CTA chest PE protocol DATE: 07/14/2022 00:56 INDICATION: Shortness of breath, hypoxia TECHNIQUE: Computed tomography angiography (CTA) of the chest was performed with 100 mL Omnipaque-350 intravenous contrast timed to evaluate the pulmonary arteries. Coronal maximum intensity projection 3D-reconstructions were created by the technologist. The dose-length product (DLP) was 981.19 mGy-cm. Automated exposure control and iterative reconstruction technique were employed. COMPARISON: 04/19/2020 FINDINGS: The pulmonary arteries are well-opacified. No pulmonary embolism is identified. Cardiomegal y is noted. There are no pathologically enlarged thoracic lymph nodes. There is moderate emphysema. T here is mild atelectasis in the left lower lobe. No pleural effusion or pneumothorax. There is a trac e pericardial effusion. There is moderate thoracic spondylosis. IMPRESSION: 1. No pulmonary embolus. 2. Cardiomegaly. 3. Mild atelectasis in the left lower lobe. 4. Emphysema. Reviewed, dictated and finalized at location B. IGHT TOOTH GEAR GENERATOR OPERATOR
--- NOTE | ~2022-07-13 | XR_ITS ---
EXAMINATION: XR chest 2V DATE: 07/13/2022 23:04 INDICATION: Shortness of breath TECHNIQUE: frontal and lateral views of the chest were obtained. COMPARISON: Chest radiograph dated 12/23/[address] chest dated 07/24/2022 FINDINGS: Cardiomegaly. Eventration along the posterior left hemidiaphragm. Increased lucency and architectural distortion at the bilateral upper lung zones consistent with emphysema. Craniocaudally oriented band like discoid atelectasis/scarring at the medial left lower lung zone. No other airspace opacities, pu lmonary edema, pleural effusion or pneumothorax. Three lead pacemaker/AICD seen with leads projecting over the expected locations of the right atrial appendage, apex of the right ventricle and overlying the left ventricle likely having traversed the coronary sinus. IMPRESSION: 1. Cardiomegaly. 2. Emphysema with discoid atelectasis/scarring at the left lower lobe. Reviewed, dictated and finalized at location A. METRIST PRESIDENT/PRACTICE OWNER
--- NOTE | 2022-07-13 21:53 | ECG_ITS ---
Measurements Intervals [place] Rate: 85 P: 53 MO: 130 QRS: 241 QRSD: 205 T: 68 QT: 480 QTc: 573 Interpretive Statements ATRIAL SENSE- ELECTRONIC VENTRICULAR PACEMAKER BASELINE ARTIFACT- I, III, AVR, AVL, V2-V3 NO FURTHER INTERPRETATION IS POSSIBLE ATYPICAL ECG COMPARED TO ECG 01/15/2022 11:41:56 HEART RATE HAS DECREASED Electronically Signed On 07-14-2022 6:41:59 WINDOWS SERVER SUPPORT TECHNICIAN by Juan R Avilez D.O.
[2022-07-13 22:17] LABS: Basophils Absolute Auto 0.1 K/mm3 (0.0-0.1); Basophils Percent Auto 0.7 % (0.2-1.2); Eosinophils Absolute Auto 0.1 K/mm3 (0-0.3); Eosinophils Percent Auto 1.3 % (0-4.4); Hematocrit 40.2 % (37.0-47.0); Hemoglobin 11.3 g/dL (12.0-15.0); Immature Granulocyte Absolute 0.03 K/mm3 (0.00-0.031); Immature Granulocyte Percent A 0.4 % (0-0.5); Lymphocytes Percent Auto 16.1 % (18.3-44.2); Mean Corpuscular HGB Conc 28.1 g/dl (32-36); Mean Corpuscular Hemoglobin 28.9 pg (26-34); Mean Corpuscular Volume 102.8 fl (80-100); Mean Platelet Volume 9.7 fl (7.4-10.4); Monocytes Absolute Auto 0.7 K/mm3 (0.1-0.6); Monocytes Percent Auto 9.1 % (2.6-8.5); Neutrophils Absolute Auto 5.4 K/mm3 (1.3-6.7); Neutrophils Percent Auto 72.4 % (45.5-73.1); Platelet Count Result 204 k/mm3 (150-375); Red Blood Count 3.91 M/mm3 (4.2-5.4); Red Cell Distribution Width 12.9 % (11.5-14.5); White Blood Count 7.5 K/mm3 (4.5-10.0)
[2022-07-13 22:35] LABS: Alanine Aminotransferase 13 U/L (6-35); Albumin Level 3.6 g/dL (3.5-5.1); Alkaline Phosphatase 75 U/L (38-126); Anion Gap 10 mmol/L (8-16); Aspartate Amino Transferase 21 U/L (14-36); Bilirubin,Total 0.3 mg/dL (0.2-1.3); Blood Urea Nitrogen 25 mg/dL (7-17); Calcium 7.6 mg/dL (8.4-10.2); Carbon Dioxide 38 mmol/L (22-30); Chloride 94 mmol/L (98-107); Estimated CRCL calculation 89 ml/min; Estimated Glomerular Filt Rate > 60; Glucose 100 mg/dL (65-110); Potassium 4.5 mmol/L (3.4-5.0); Sodium 142 mmol/L (137-145)
[2022-07-13 22:35] LABS: Alveolar/Arterial O2 Gradient 86.4 mmHg; Base Excess ABG 10.9 mEq/l (+/-2.0); Carboxyhemoglobin 1.2 % THb (0-2.0); Fractional Inspired Oxygen 36 %; HCO3 ABG 40.6 mEq/l (22.0-26.0); Methemoglobin ABG 0.2 %THb (0-1.5); Oxygen Content ABG 16.1 %vol (16.0-22.0); Oxygen Saturation ABG 91.8 % (95.0-100.0); Oxyhemoglobin 92.6 % THb (90.0-100.0); PO2 ABG 71.7 mmHg (80.0-100.0); PO2 FiO2 Ratio Arterial Blood 1.99 %; Total Hemoglobin 12.3 g/dL (12.0-18.0)
[2022-07-13 22:36] LABS: pH ABG 7.297 (7.350-7.450)
[2022-07-13 22:37] LABS: Device NASAL CANNULA; Modified Allen's Test Pass; Site Drawn RIGHT RADIAL
--- NOTE | 2022-07-13 22:38 | PCRCNOTE ---
Obtaining abg was delayed due to patient not having a room.
[2022-07-13 23:53] LABS: NT Pro B Type Natriuretic Pept 527 pg/mL (5-100)
[2022-07-14] VITALS (24 sets, daily range): BP systolic 114–136; BP diastolic 60–79; PULSE 69–94; RESP 16–23; TEMP 36–36.8; O2SAT 91–99; BMI 51.7
--- NOTE | 2022-07-14 | ECHO_ITS ---
Patient Info Name: Olivia Burdick Age: 61 years : 1960 Gender: Female Ht: 61 in Wt: 274 lbs BSA: 2.40 m2 HR: 86 bpm BP: 128 / 63 mmHg Heart Rhythm: Paced Technical Quality: Poor Exam Date: 07/14/2022 9:50 AM Exam Location: [facility] Patient Status: Inpatient Admit Date: 07/14/2022 Staff Ordering Physician: Francisco Maciel MD Treating Plant Pumper: Luz Maria Shearer RDCS Attending Provider: Francisco Maciel MD Referring Physician: Janell GRIGSBY; Exam Type: CA echo dop color flow w con Study Info Indications R06.02 - Shortness of breath Complete two-dimensional, color flow and Doppler transthoracic echocardiogram is performed with contrast to opacify the left ventricle and to improve the deliniation of the left ventricle endocardial borders. Reason for Poor Study: patient body habitus Summary 1. Left ventricular chamber dimension is severely enlarged. 2. Left ventricular systolic function is moderately reduced, estimated at 35-40%. 3. There is mildly increased left ventricular wall thickness. 4. The left ventricular diastolic function is grade I diastolic dysfunction. 5. Left atrial chamber dimension is moderately enlarged. 6. There is mild mitral valve regurgitation. 7. There is mild pulmonic regurgitation. Left Ventricle Left ventricular chamber dimension is severely enlarged. Left ventricular systolic function is moderately reduced, estimated at 35-40%. There is mildly increased left ventricular wall thickness. The left ventricular diastolic function is grade I diastolic dysfunction. Right Ventricle Right ventricular chamber dimension is normal. Right ventricular systolic function is normal. Linear artifact in right ventricle suggestive of catheter(s), pacemaker lead(s), or ICD lead(s). Left Atria Left atrial chamber dimension is moderately enlarged. Right Atria Right atrial chamber dimension is normal. Atrial Septum Intact interatrial septum visualized by color flow imaging. Aortic Valve The aortic valve is not well visualized. There is mild aortic valve sclerosis. There is no aortic valve stenosis. There is trace aortic valve regurgitation. Pulmonic Valve The pulmonic valve is normal. There is no pulmonic valve stenosis. There is mild pulmonic regurgitation. Mitral Valve The mitral valve has calcified annulus. There is no mitral valve stenosis. There is mild mitral valve regurgitation. Tricuspid Valve The tricuspid valve leaflets are normal. There is no significant tricuspid valve stenosis. There is trace tricuspid valve regurgitation. Pericardium/Pleural The pericardium appears normal. Inferior Vena Cava Dilated inferior vena cava with <50% collapse upon inspiration consistent with elevated right atrial pressure, 15 mmHg. Aorta The aortic root size at the sinus of Valsalva is normal. Left Ventricular Outflow Tract Name Value Normal LVOT 2D LVOT Diameter 2.02 cm LVOT Doppler LVOT Peak Gradient 5 mmHg LVOT Mean Gradient 4 mmHg LVOT VTI 22.1
--- NOTE | 2022-07-14 00:14 | PM.IMHP ---
H&P: HPI History of Present Illness Date/Time: 07/14/22 00:14 Chief Complaint: shortness of breath Narrative: This is a 61-year-old female with past medical history significant for COPD / emphysema, chronic hypoxic respiratory failure, chronic oxygen supplemental by nasal cannula 2 L at rest 3 L with activity, BiPAP at nighttime, dyslipidemia, hypertension, GERD. patient presents to the emergency room due to shortness of breath, fatigue, decreased stamina, after she returned from a trip to [place] for a waiting states that she was very active through the weekend. Patient denies any cough, sputum production, fevers, rigors, chills, leg swelling, chest pain, PND, orthopnea, dizziness, lightheadedness, syncope or near syncope, no nausea, no vomiting, no diarrhea no abdominal pain. Preliminary workup was significant for blood gas pH was 7.215, pCO2 80, PO2 70 patient tested negative for influenza A, influenza B and COVID, a CT angiogram of the chest was negative for acute pulmonary embolism. Patient was placed on BiPAP, admitted for further evaluation management and treatment Review of Systems Review of Systems: fatigue, shortness of breath. Constitutional: Constitutional: Reports body ache(s), Denies chills, Reports fatigue, Denies fever(s), Reports lethargy, Denies malaise and Reports weakness Eyes: Eyes: Denies change in vision ENT: Denies dysphagia, Denies vertigo, Denies dizziness and Denies odynophagia Cardiovascular: Cardiovascular: Denies chest pain and Denies leg edema Respiratory: Respiratory: Denies chest congestion, Denies cough, Denies pain on inspiration, Reports dyspnea and Reports dyspnea on exertion Gastrointestinal: Gastrointestinal: Denies abdominal pain, Denies dyspepsia, Denies heartburn, Denies diarrhea, Denies nausea and Denies vomiting Genitourinary: Genitourinary: Denies dysuria Musculoskeletal: Musculoskeletal: Reports myalgias Integumentary/Breasts: Skin/Breast: Denies rash Neurologic: Denies vertigo, Denies dizziness, Denies focal weakness and Denies Sensory deficit (Neuro) Psychiatric: Psychiatric: Reports no additional psychiatric complaints and Reports as per HPI Endocrine: Endocrine: Denies cold intolerance, Denies flushing, Denies heat intolerance, Denies polyphagia, Denies polydipsia and Denies palpitations Hematologic/Lymphatic: Hematologic/Lymphatic: Reports no additional hematologic/lymphatic complaints and Reports as per HPI Allergic/Immunologic: Allergic/Immunologic: Reports no additional allergic/immunologic complaints and Reports as per HPI [facility] Past Medical History Medical History Anxiety Back pain Bronchitis Chronic obstructive pulmonary disease Chronic respiratory failure with hypoxia and hypercapnia 1 prior intubation about 10 years ago Congestive heart failure Depression Emphysema of lung Essential hypertension History of rectal polyps Hyperlipidemia Morbid obesity Nonischemic cardiomyopathy Present since 2006, thought to be due to a viral myocarditis. EF was as low as 10% in June 2017 but patient reports improvement in her EF to 32% most recently. She is followed by Dr. Soliman. ICD in-situ. Obesity hypoventilation syndrome Obstructive sleep apnea On Trilogy unit, previously on BiPAP 22/02 with 3 L of oxygen bleed in. Rectal polyp Surgical History Surgical History Biventricular cardiac pacemaker in situ (2006) History of cardiac cath With no significant coronary artery disease noted with last cardiac catheterization June 2017 demonstrating only 30-40% lesion of the left anterior descending artery. History of colonoscopy (09/2017) History of dilation and curettage (11/2016) History of tubal ligation (1989) Family History Family History Mother Diabetes mellitus Acute myocardial infarction
--- NOTE | 2022-07-14 00:17 | ED.SOB ---
HPI - SOB/Dyspnea General Chief Complaint: Shortness of Breath/Dyspnea Stated Complaint: SOB Time Seen by Provider: 07/13/22 22:16 History of Present Illness HPI Narrative: Patient is a 61-year-old female who presents ER with shortness of breath. Ongoing over the last 2 to 3 days. Patient recently went to [facility] for a wedding and drove there. She had a worse diet that is typical for her. She has orthopnea and feels like she is having some truncal swelling which is typical when she has a heart failure exacerbation. Denies fevers or chills or sweats. No productive cough. No loss of consciousness. Patient has had to increase her oxygen that she typically wears from 2 L to 4 L due to hypoxia. Related Data Home Medications Medication Instructions Recorded Confirmed atorvastatin 40 mg tablet 40 mg PO HS 07/29/19 07/14/22 buspirone 15 mg tablet 15 mg PO TID 07/29/19 07/14/22 diazepam 5 mg tablet 5 mg PO Q8H PRN Anxiety 07/29/19 07/14/22 ropinirole 0.25 mg tablet 0.25 mg PO HS 07/29/19 07/14/22 citalopram 40 mg tablet 40 mg PO DAILY 11/30/21 07/14/22 furosemide 20 mg tablet 20 mg PO DAILY 11/30/21 07/14/22 tramadol 50 mg tablet 50 mg PO Q6H PRN Pain 11/30/21 07/14/22 carvedilol 6.25 mg tablet (Coreg) 25 mg PO Q12HR 07/14/22 07/14/22 Allergies Allergy/AdvReac Type Severity Reaction Status Date / Time No Known Allergies Allergy Verified 07/13/22 21:46 Review of Systems Review of Systems: All systems reviewed & are unremarkable except as noted in HPI and below Constitutional: Constitutional: Denies chills, Denies fatigue and Denies fever(s) ENT: Denies nasal congestion and Denies sore throat Cardiovascular: Cardiovascular: Denies chest pain, Denies rapid heart rate and Denies radiating jaw, neck or arm pain Respiratory: Respiratory: Denies cough, Reports dyspnea and Denies wheezing Gastrointestinal: Gastrointestinal: Denies abdominal pain, Denies nausea and Denies vomiting Neurologic: Denies headache(s), Denies focal weakness and Denies numbness PMFSH Past Medical History Medical History Anxiety Back pain Bronchitis Chronic obstructive pulmonary disease Chronic respiratory failure with hypoxia and hypercapnia 1 prior intubation about 10 years ago Congestive heart failure Depression Emphysema of lung Essential hypertension History of rectal polyps Hyperlipidemia Morbid obesity Nonischemic cardiomyopathy Present since 2006, thought to be due to a viral myocarditis. EF was as low as 10% in June 2017 but patient reports improvement in her EF to 32% most recently. She is followed by Dr. Soliman. ICD in-situ. Obesity hypoventilation syndrome Obstructive sleep apnea On Trilogy unit, previously on BiPAP 22/02 with 3 L of oxygen bleed in. Rectal polyp Surgical History Surgical History Biventricular cardiac pacemaker in situ (2006) History of cardiac cath With no significant coronary artery disease noted with last cardiac catheterization June 2017 demonstrating only 30-40% lesion of the left anterior descending artery. History of colonoscopy (09/2017) History of dilation and curettage (11/2016) History of tubal ligation (1989) Family History Family History Mother Diabetes mellitus Acute myocardial infarction Hypertension Sibling Diabetes mellitus Acute myocardial infarction Cerebrovascular accident Hypertension Schizophrenia Father Congestive heart failure Cerebrovascular accident Hypertension Schizophrenia Social History Social History Social History: Surrogate decision maker: Kia Garcia, daughter. Code status: Full code Smoking packs per day: 1 Smoking cigarettes per day: 20.0 Years smoked: 25 Smoking pack-years: 25.00 Smoking status:
[2022-07-14 00:53] LABS: Influenza A QL RT-PCR Negative (Negative); Influenza B QL RT-PCR Negative (Negative); SARS-CoV-2 RNA PCR Negative
[2022-07-14] MEDS: HYDROcodone/acetaminophen (*CRX) 5-325 MG TABLET 1 TAB PO (03:09)
--- NOTE | 2022-07-14 03:53 | ADMGEN ---
This patient, Olivia Burdick, was admitted to IMU Room 214-01 at 0145. Patient/family oriented to hospital policies and general routines including ID bracelet, bed and alarms, visiting hours, pain management, procedures, bathroom and other care routines, personal items, smoking policy, room service/diet, and visiting hours. Information on how to activate the Rapid Response Team has been discussed. Patient/Family are encouraged to report perceived risks to care and to ask questions if they do not understand what they are told or what they should do.
[2022-07-14 06:21] LABS: Alveolar/Arterial O2 Gradient 43.8 mmHg; Base Excess ABG 13.7 mEq/l (+/-2.0); Carboxyhemoglobin 0.9 % THb (0-2.0); Fractional Inspired Oxygen 30 %; HCO3 ABG 43.8 mEq/l (22.0-26.0); Methemoglobin ABG 0.1 %THb (0-1.5); Oxygen Content ABG 15.6 %vol (16.0-22.0); Oxygen Saturation ABG 88.4 % (95.0-100.0); Oxyhemoglobin 90.7 % THb (90.0-100.0); PO2 ABG 63.4 mmHg (80.0-100.0); PO2 FiO2 Ratio Arterial Blood 2.11 %; Reduced Hemoglobin 8.3 %THb (0-5.0); Total Hemoglobin 12.2 g/dL (12.0-18.0); pH ABG 7.301 (7.350-7.450)
--- NOTE | 2022-07-14 06:24 | PCRCNOTE ---
Patient will not keep bipap mask on, she intermittently removes it, then reapplies it.
[2022-07-14 06:25] LABS: Device NON-INVASIVE VENT; Modified Allen's Test Pass; PCO2 ABG 90.8 mmHg (35.0-45.0); Site Drawn RIGHT RADIAL
[2022-07-14 06:26] LABS: Non-Invasive Vent Rate 4 /MIN
[2022-07-14 06:27] LABS: Non-Invasive Expiratory Pressure 8 CMH2O; Non-Invasive Inspiratory Pressure 14 CMH2O
[2022-07-14] MEDS: ALBUTEROL SULFATE NEB 2.5 MG/3 ML INH INHALATION ×4 (08:19→21:05)
[2022-07-14] MEDS: IPRATROPIUM BR 0.02% INH SOLN 0.5 MG/2.5 ML VIAL INHALATION ×4 (08:19→21:10)
[2022-07-14] MEDS: busPIRone HCL 5 MG TABLET 15 MG PO ×2 (10:09→18:19)
[2022-07-14] MEDS: CITALOPRAM HYDROBROMIDE 20 MG TABLET 40 MG PO (10:10)
[2022-07-14] MEDS: PANTOPRAZOLE 40 MG TABLET PO (10:10)
[2022-07-14] MEDS: ENOXAPARIN 40 MG/0.4 ML SYRINGE SUB-Q (10:10)
[2022-07-14] MEDS: traMADol HCL (*CRX) 50 MG TABLET PO ×2 (10:19→21:19)
[2022-07-14] MEDS: PERFLUTREN LIPID MICROSPHERES 1.5 ML VIAL DILUTED TO 10 ML TOTAL VOLUME IV PUSH (11:40)
--- NOTE | 2022-07-14 13:01 | PM.CNPUL ---
Assessment and Plan Assessment and plan (1) Acute respiratory failure with hypoxia and hypercarbia: Code(s): J96.01 - Acute respiratory failure with hypoxia; J96.02 - Acute respiratory failure with hypercapnia Status: Acute Assessment and Plan: Patient with worsening hypoxemic and hypercarbic respiratory failure after her home noninvasive ventilator broke 3 weeks ago and she over exerts herself at a week and wetting. She has been using BiPAP at home. There is no evidence of a bacterial pneumonia or COPD exacerbation at this time. On 01/17/2022 Home Trilogy AVAPS settings:? 500 mL, Max Pressure 30, EPAP minimum/maximum 5/15, Pressure Support minimum / maximum 5/25, RR 20, Rise 2, I time 1.5 seconds. I will attempt to obtain a download from [employer] to verify the above settings. In the meantime, I will place her on a hospital AVAPS setting with a rate of 20, tidal volume 500, EPAP 8, minimal inspiratory pressure 9, maximal inspiratory pressure 25 and 30% FiO2. I have told the patient to bring her home machine in so that we can assess it and hopefully repair the broken oxygen adapter. (2) Chronic obstructive pulmonary disease: Qualifiers: COPD type: unspecified COPD Qualified Code(s): J44.9 - Chronic obstructive pulmonary disease, unspecified Code(s): J44.9 - Chronic obstructive pulmonary disease, unspecified Status: Acute Assessment and Plan: 60-year-old woman with tobacco use (34 PY, quit 2003), Hypoxemic respiratory failure on oxygen 2 L Rest, 3 L ambulation and 2 L with BiPAP 15/10 (per inpatient notes), moderate apical predominant panlobular emphysema on a CT scan from 07/14/2022, 11/10/2017 and 04/19/2020, hypercarbic respiratory failure using noninvasive ventilation with an AVAPS mode at night. The patient states that recently she has minimal change in her cough but no worsening dyspnea on exertion and no change in her phlegm production or quality. I do not think there is a COPD exacerbation, pneumonia or tracheobronchitis at this time. Last clinic note the patient was on Anoro Ellipta and I will continue albuterol and ipratropium nebulizers q.4 hours for now. Will follow with you. History of Present Illness History of Present Illness Consult date: 07/14/22 Chief complaint: HYPERCAPNIA Narrative: 07/14/2022: This is a new pulmonary consult for acute on chronic hypercarbic and hypoxemic respiratory failure. 60-year-old woman with COPD for 12 years, ZAHEER for 5 years on oxygen 2 L Rest, 3 L ambulation and 2 L with BiPAP 15/10 (per inpatient notes), moderate apical predominant panlobular emphysema on a CT scan from 07/14/2022, 11/10/2017 and 04/19/2020, ZAHEER, obesity hypoventilation syndrome, nonischemic cardiomyopathy with biventricular AICD, hypertension, and hyperlipidemia. Patient was on BiPAP for obstructive sleep apnea but this was changed to a noninvasive ventilator with trilogy and AVAPS mode on 01/17/2022 Home Trilogy AVAPS settings:? 500 mL, Max Pressure 30, EPAP minimum/maximum 5/15, Pressure Support minimum / maximum 5/25, RR 20, Rise 2, I time 1.5 seconds. Regarding her COPD patient tells me she was diagnosed approximately 12 years ago.? she states her last PFTs were 1-2 years ago at [facility].? we called [facility] and they have no PFTs over the last 10 years. Patient has been on inhalers for the last 12 years and has been on Spiriva for the last 2 years and states that this does help her. Patient smoked tobacco from age [age] at 1 pack a day for 34 pack year history.? 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 Patient was exposed to secondhand smoke through her another mother but is exposed to no secondhand smoke now.? Patient currently lives with her daughter, and 3 children. Regarding patient's obstructive sleep apnea she states she has had
--- NOTE | 2022-07-14 16:27 | PM.IMPN ---
Progress Note: A&P Assessment and Plan (1) Acute on chronic respiratory failure with hypoxia and hypercapnia: Code(s): J96.21 - Acute and chronic respiratory failure with hypoxia; J96.22 - Acute and chronic respiratory failure with hypercapnia Status: Acute Assessment and Plan: Pt to continue on hospital BIPAP setting Pulmology consulted Appears secondary to COPD excerbation Continue breathing treatments CT angio negative for acute pulmonary embolism (2) General weakness: Code(s): R53.1 - Weakness Status: Acute Assessment and Plan: PT OT as needed (3) Obstructive sleep apnea: Code(s): G47.33 - Obstructive sleep apnea (adult) (pediatric) Status: Chronic Assessment and Plan: Bipap setting as per pulmology (4) COPD (chronic obstructive pulmonary disease): Qualifiers: COPD type: unspecified COPD Qualified Code(s): J44.9 - Chronic obstructive pulmonary disease, unspecified Code(s): J44.9 - Chronic obstructive pulmonary disease, unspecified Status: Chronic Assessment and Plan: scheduled breathing treatments (5) Morbid obesity with BMI of 50.0-59.9, adult: Code(s): E66.01 - Morbid (severe) obesity due to excess calories; Z68.43 - Body mass index [BMI] 50.0-59.9, adult Status: Acute Assessment and Plan: lifestyle and diet modifications Plan CHF chronic systolic Pt is on Lasix Entresto and Spironolactone Subjective Date/time seen: 07/14/22 16:27 61-year-old female with past medical history significant for COPD / emphysema, chronic hypoxic respiratory failure/ ZAHEER , chronic oxygen supplemental by nasal cannula 2 L at rest 3 L with activity, BiPAP at nighttime, dyslipidemia, hypertension, GERD. patient presents to the emergency room due to shortness of breath, fatigue, decreased stamina, after she returned from a trip to [place] for a waiting states that she was very active through the weekend. Pt admitted for COPD exacerbation seen by tommie this morning. Pulmonology consulted for BIPAP setting unfortunately home noninvasive ventilator broke 3 weeks. Pts wears a trilogy at home. Pt o continue with BIPAP with hospital settings. Review of Systems Review of Systems: SOB on BIPAP Exam Const: General: alert and awake Resp: Auscultation: clear to auscultation bilaterally Extrem: General: normal to inspection, full ROM, no joint enlargement and no pedal edema Objective Data Vital Signs Vital Signs: Vital Signs - 24 hr 07/13/22 21:40 07/13/22 21:53 07/13/22 22:06 Temperature 36.6 C Pulse Rate 96 Respiratory Rate Blood Pressure 93/55 L Pulse Oximetry 95 95 100 Oxygen Delivery Nasal Cannula Nasal Cannula Nasal Cannula Oxygen Flow Rate 3 6 3 Fraction of Inspired Oxygen 07/13/22 22:16 07/13/22 22:30 07/13/22 22:55 Temperature Pulse Rate 87 82 Respiratory Rate 24 H 17 21 H Blood Pressure Pulse Oximetry 93 92 96 Oxygen Delivery BiPAP Oxygen Flow Rate Fraction of Inspired Oxygen 07/13/22 22:45 07/13/22 23:07 07/13/22 23:15 Temperature Pulse Rate 84 85 81 Respiratory Rate 15 17 16 Blood Pressure Pulse Oximetry 93 95 Oxygen Delivery Oxygen Flow Rate Fraction of Inspired Oxygen 07/13/22 23:30 07/13/22 23:45 07/14/22 02:00 Temperature 36.4 C Pulse Rate 82 86 78 Respiratory Rate 18 16 20 Blood Pressure 128/63 Pulse Oximetry 95 98 95 Oxygen Delivery Oxygen Flow Rate Fraction of Inspired Oxygen 07/14/22 02:00 07/14/22 04:00 07/14/22 04:00 Temperature Pulse Rate 94 85 Respiratory Rate Blood Pressure Pulse Oximetry 99 Oxygen Delivery Nasal Cannula Oxygen Flow Rate 3 Fraction of Inspired Oxygen 07/14/22 06:06 07/14/22 06:00 07/14/22 08:15 Temperature 36.0 C L Pulse Rate 77 74 75 Respiratory Rate 16 20 Blood Pressure 114/60 Pulse Oximetry 91 95 Oxygen Delivery BiPAP Oxygen Flow Rat
[2022-07-14] MEDS: SACUBITRIL/VALSARTAN 49-51 MG TABLET 1 TABLET PO (21:19)
[2022-07-14] MEDS: diazePAM (*CRX) 5 MG TABLET PO (21:19)
[2022-07-14] MEDS: rOPINIRole HCL 0.25 MG TABLET PO (21:19)
[2022-07-15] VITALS (15 sets, daily range): BP systolic 108–141; BP diastolic 50–67; PULSE 72–89; RESP 14–22; TEMP 35.6–36.5; O2SAT 90–98
[2022-07-15] MEDS: ALBUTEROL SULFATE NEB 2.5 MG/3 ML INH INHALATION ×2 (00:03→04:37)
[2022-07-15] MEDS: IPRATROPIUM BR 0.02% INH SOLN 0.5 MG/2.5 ML VIAL INHALATION ×2 (00:04→04:37)
[2022-07-15 06:55] LABS: Hematocrit 44.6 % (37.0-47.0); Hemoglobin 12.2 g/dL (12.0-15.0); Mean Corpuscular HGB Conc 27.4 g/dl (32-36); Mean Corpuscular Volume 105.9 fl (80-100); Mean Platelet Volume 9.6 fl (7.4-10.4); Platelet Count Result 207 k/mm3 (150-375); Red Blood Count 4.21 M/mm3 (4.2-5.4); White Blood Count 6.2 K/mm3 (4.5-10.0)
[2022-07-15 07:02] LABS: Anion Gap 8 mmol/L (8-16); Blood Urea Nitrogen 17 mg/dL (7-17); Calcium 8.2 mg/dL (8.4-10.2); Carbon Dioxide 39 mmol/L (22-30); Chloride 90 mmol/L (98-107); Estimated CRCL calculation 81 ml/min; Estimated Glomerular Filt Rate > 60; Glucose 85 mg/dL (65-110); Potassium 4.7 mmol/L (3.4-5.0); Sodium 137 mmol/L (137-145)
[2022-07-15] MEDS: traMADol HCL (*CRX) 50 MG TABLET PO (09:32)
[2022-07-15] MEDS: ENOXAPARIN 40 MG/0.4 ML SYRINGE SUB-Q (09:32)
[2022-07-15] MEDS: SACUBITRIL/VALSARTAN 49-51 MG TABLET 1 TABLET PO ×2 (09:32→21:39)
[2022-07-15] MEDS: PANTOPRAZOLE 40 MG TABLET PO (09:33)
[2022-07-15] MEDS: busPIRone HCL 5 MG TABLET 15 MG PO ×3 (09:33→21:39)
[2022-07-15] MEDS: CITALOPRAM HYDROBROMIDE 20 MG TABLET 40 MG PO (09:33)
[2022-07-15] MEDS: SPIRONOLACTONE 25 MG TABLET PO (09:33)
--- NOTE | 2022-07-15 10:46 | PM.PNPUL ---
Progress Note: A&P Assessment and Plan (1) Acute respiratory failure with hypoxia and hypercarbia: Code(s): J96.01 - Acute respiratory failure with hypoxia; J96.02 - Acute respiratory failure with hypercapnia Status: Acute Assessment and Plan: COPD With chronic hypercarbic and hypoxemic respiratory failure at baseline on home Noninvasive ventilation. Patient with worsening hypoxemic and hypercarbic respiratory failure after her home noninvasive ventilator broke 3 weeks ago and she over exerted herself at a wedding. She has been using BiPAP at home. 07/14 There is no evidence of a bacterial pneumonia or COPD exacerbation at this time. On 01/17/2022 Home Trilogy AVAPS settings:? 500 mL, Max Pressure 30, EPAP minimum/maximum 5/15, Pressure Support minimum / maximum 5/25, RR 20, Rise 2, I time 1.5 seconds. I will attempt to obtain a download from [employer] to verify the above settings. In the meantime, I will place her on a hospital AVAPS setting with a rate of 20, tidal volume 500, EPAP 8, minimal inspiratory pressure 9, maximal inspiratory pressure 25 and 30% FiO2. I have told the patient to bring her home machine in so that we can assess it and hopefully repair the broken oxygen adapter. 07/15 Patient states that she has 70% back to her normal. She denies fever, cough, phlegm, hemoptysis or chest pain. Her dyspnea on exertion is similar to that at home. She does feel fatigued. White blood cell count is 6.2. Creatinine is 0.8. She has diuresed a net -2 0.8 L. patient wore the hospital noninvasive ventilator with the AVAPS mode last night and said she did well. Current she is on 2 L nasal cannula saturations 94%. the patient has brought her home noninvasive ventilator in and it has a broken oxygen adapter. [employer] her [email or web address] company will replace this and tonight we will place her on her home noninvasive ventilator and check overnight oximetry with 2 L bleed in and ABG prior to removal (2) Chronic obstructive pulmonary disease: Qualifiers: COPD type: unspecified COPD Qualified Code(s): J44.9 - Chronic obstructive pulmonary disease, unspecified Code(s): J44.9 - Chronic obstructive pulmonary disease, unspecified Status: Acute Assessment and Plan: 60-year-old woman with tobacco use (34 PY, quit 2003), Hypoxemic respiratory failure on oxygen 2 L Rest, 3 L ambulation and 2 L with BiPAP 15/10 (per inpatient notes), moderate apical predominant panlobular emphysema on a CT scan from 07/14/2022, 11/10/2017 and 04/19/2020, hypercarbic respiratory failure using noninvasive ventilation with an AVAPS mode at night. The patient states that recently she has minimal change in her cough but no worsening dyspnea on exertion and no change in her phlegm production or quality. I do not think there is a COPD exacerbation, pneumonia or tracheobronchitis at this time. Last clinic note the patient was on Anoro Ellipta and I will continue albuterol and ipratropium nebulizers q.4 hours for now. 07/15 no wheezing. I will switch her to an Anoro Ellipta if she remains stable with adequate ventilation on her home noninvasive ventilation tentative plans for dis charge home on 07/[address] Joshi. Will follow with you. Subjective Date/time seen: 07/15/22 10:46 Interval history: ?07/14/2022:? This is a new pulmonary consult for? acute on chronic hypercarbic and hypoxemic respiratory failure. 60-year-old woman with COPD for 12 years, ZAHEER for 5 years on oxygen 2 L Rest, 3 L ambulation and 2 L with BiPAP 15/10 (per inpatient notes), moderate apical predominant panlobular emphysema on a CT scan from 07/14/2022, 11/10/2017 and 04/19/2020, ZAHEER, obesity hypoventilation syndrome, nonischemic cardiomyopathy with biventricular AICD, hypertension, and hyperlipidemia. ? Patient was on BiPAP for obstructive sleep apnea but this was changed to a noninvasive ventilator with trilogy and AVAPS mod
--- NOTE | 2022-07-15 11:54 | PM.IMPN ---
Progress Note: A&P Assessment and Plan (1) Acute respiratory failure with hypoxia and hypercarbia: Code(s): J96.01 - Acute respiratory failure with hypoxia; J96.02 - Acute respiratory failure with hypercapnia Status: Acute Assessment and Plan: appreciate pulmonary input. COPD With chronic hypercarbic and hypoxemic respiratory failure at baseline on home Noninvasive ventilation. Patient with worsening hypoxemic and hypercarbic respiratory failure after her home noninvasive ventilator broke 3 weeks ago and she over exerted herself at a wedding. She has been using BiPAP at home. Current she is on 2 L nasal cannula saturations 94%. the patient has brought her home noninvasive ventilator in and it has a broken oxygen adapter. [employer] company will replace this and [employer] we will place her on her home noninvasive ventilator and check overnight oximetry with 2 L bleed in and ABG prior to removal (2) Chronic obstructive pulmonary disease: Qualifiers: COPD type: unspecified COPD Qualified Code(s): J44.9 - Chronic obstructive pulmonary disease, unspecified Code(s): J44.9 - Chronic obstructive pulmonary disease, unspecified Status: Acute Assessment and Plan: on Anoro Ellipta, albuterol, ipratropium if she remains stable with adequate ventilation on her home noninvasive ventilation tentative plans for dis charge home on 07/16, Per pulmonary recommendations. (3) Depression: Code(s): F32.9 - Major depressive disorder, single episode, unspecified Status: Acute Assessment and Plan: continue home medication (4) Congestive heart failure: Code(s): I50.9 - Heart failure, unspecified Status: Acute Assessment and Plan: stable. Continue Entresto, Aldactone Subjective Date/time seen: 07/15/22 11:54 breathing somewhat better Review of Systems Constitutional: Constitutional: Reports no additional constitutional complaints Eyes: Eyes: Reports no additional eye complaints ENT: Reports system reviewed and no additional complaints, except as documented Cardiovascular: Cardiovascular: Reports no additional cardiovascular complaints Respiratory: Respiratory: Reports no additional respiratory complaints Gastrointestinal: Gastrointestinal: Reports no additional gastrointestinal complaints Musculoskeletal: Musculoskeletal: Reports no additional musculoskeletal complaints Neurologic: Reports system reviewed and no additional complaints, except as documented Psychiatric: Psychiatric: Reports no additional psychiatric complaints Endocrine: Endocrine: Reports no additional endocrine complaints Hematologic/Lymphatic: Hematologic/Lymphatic: Reports no additional hematologic/lymphatic complaints Allergic/Immunologic: Allergic/Immunologic: Reports no additional allergic/immunologic complaints Exam Const: General: cooperative, healthy appearing and comfortable Orientation/consciousness: oriented to person, oriented to place and oriented to time HENMT: Head: normal to inspection Ears: hearing grossly normal bilaterally Eyes: General: appearance normal, both eyes and all related structures Neck: Neck: normal visual inspection Chest: Chest palpation & inspection: normal inspection of the chest Resp: Effort & Inspection: normal respiratory effort and able to speak in complete sentences Auscultation: no crackles, no rales, no rhonchi, no wheezes and diminished lung sounds Cardio: Jugular venous distension: no JVD GI: Inspection: normal to inspection Skin: General skin exam: normal color Neuro: General: oriented to person, oriented to place and oriented to time Extrem: General: normal to inspection and edema (trace) Psych: Appearance: grossly normal Objective Data Vital Signs Vital Signs: Vital Signs - 24 hr 07/14/22 12:27 07/14/22 13:00 07/14/22 13:13 Temperature 97.1 F L Pulse Rate 87 80 88 Respiratory Rat
[2022-07-15] MEDS: UMECLIDINIUM/VILANTEROL 62.5-25 MCG ELLIPTA 1 PUFF INHALATION (13:52)
[2022-07-15] MEDS: rOPINIRole HCL 0.25 MG TABLET PO (21:39)
[2022-07-15] MEDS: diazePAM (*CRX) 5 MG TABLET PO (21:39)
[2022-07-16] VITALS (8 sets, daily range): BP systolic 90–132; BP diastolic 56–61; PULSE 75–122; RESP 14–19; TEMP 35.8–36.2; O2SAT 86–94
[2022-07-16 05:41] LABS: Alveolar/Arterial O2 Gradient 55.5 mmHg; Base Excess ABG 15.7 mEq/l (+/-2.0); Fractional Inspired Oxygen 28 %; HCO3 ABG 44.2 mEq/l (22.0-26.0); Oxygen Content ABG 15.7 %vol (16.0-22.0); Oxyhemoglobin 89.9 % THb (90.0-100.0); PO2 ABG 55.3 mmHg (80.0-100.0); PO2 FiO2 Ratio Arterial Blood 1.98 %; Total Hemoglobin 12.4 g/dL (12.0-18.0); pH ABG 7.386 (7.350-7.450)
[2022-07-16 05:43] LABS: Oxygen Saturation ABG 86.8 % (95.0-100.0); PCO2 ABG 75.3 mmHg (35.0-45.0)
[2022-07-16 05:44] LABS: Modified Allen's Test Pass; Site Drawn RIGHT RADIAL
[2022-07-16 05:45] LABS: Device OTHER DEVICE
[2022-07-16] MEDS: UMECLIDINIUM/VILANTEROL 62.5-25 MCG ELLIPTA 1 PUFF INHALATION (08:25)
[2022-07-16] MEDS: ENOXAPARIN 40 MG/0.4 ML SYRINGE SUB-Q (09:18)
[2022-07-16] MEDS: busPIRone HCL 5 MG TABLET 15 MG PO (09:18)
[2022-07-16] MEDS: SPIRONOLACTONE 25 MG TABLET PO (09:19)
[2022-07-16] MEDS: CITALOPRAM HYDROBROMIDE 20 MG TABLET 40 MG PO (09:19)
[2022-07-16] MEDS: SACUBITRIL/VALSARTAN 49-51 MG TABLET 1 TABLET PO (09:19)
[2022-07-16] MEDS: PANTOPRAZOLE 40 MG TABLET PO (09:19)
--- NOTE | 2022-07-16 09:42 | PM.PNPUL ---
Progress Note: A&P Assessment and Plan (1) Acute respiratory failure with hypoxia and hypercarbia: Code(s): J96.01 - Acute respiratory failure with hypoxia; J96.02 - Acute respiratory failure with hypercapnia Status: Acute Assessment and Plan: COPD With chronic hypercarbic and hypoxemic respiratory failure at baseline on home Noninvasive ventilation. Patient with worsening hypoxemic and hypercarbic respiratory failure after her home noninvasive ventilator broke 3 weeks ago and she over exerted herself at a wedding. She has been using BiPAP at home. 07/14 There is no evidence of a bacterial pneumonia or COPD exacerbation at this time. On 01/17/2022 Home Trilogy AVAPS settings:? 500 mL, Max Pressure 30, EPAP minimum/maximum 5/15, Pressure Support minimum / maximum 5/25, RR 20, Rise 2, I time 1.5 seconds. I will attempt to obtain a download from [employer] to verify the above settings. In the meantime, I will place her on a hospital AVAPS setting with a rate of 20, tidal volume 500, EPAP 8, minimal inspiratory pressure 9, maximal inspiratory pressure 25 and 30% FiO2. I have told the patient to bring her home machine in so that we can assess it and hopefully repair the broken oxygen adapter. 07/15 Patient states that she has 70% back to her normal. She denies fever, cough, phlegm, hemoptysis or chest pain. Her dyspnea on exertion is similar to that at home. She does feel fatigued. White blood cell count is 6.2. Creatinine is 0.8. She has diuresed a net -2 0.8 L. patient wore the hospital noninvasive ventilator with the AVAPS mode last night and said she did well. Current she is on 2 L nasal cannula saturations 94%. the patient has brought her home noninvasive ventilator in and it has a broken oxygen adapter. [employer] her [employer] company will replace this and tonight we will place her on her home noninvasive ventilator and check overnight oximetry with 2 L bleed in and ABG prior to removal. I currently do not know her home noninvasive ventilator settings and I am waiting for a current download to get those settings. 07/16 Patient wore her home noninvasive ventilator with 2 L bleed in and she did well and slept well. Currently patient states she is breathing at her baseline. Currently she is on 4 L with saturations 90%. Patient had an overnight oximetry on her home noninvasive ventilator with 2 L bleed in demonstrating a average saturation 92%. Lowest saturation 76%, saturation less than or equal to 88% was 21 minutes or 6% of the monitored time. Patient had a blood gas prior to removal of her home noninvasive with 2 L with a pH of 7.39/75/55. From a pulmonary perspective patient is ready to be discharged home on these pulmonary medications. Steel toe Respimat 2.5-2.5 at 2 puffs q.day, Rescue albuterol 2 puffs q.4 hours p.r.n. shortness of breath or wheezing. Oxygen at rest and with ambulation per formal home O2 assessment which I have ordered. Noninvasive ventilator with her current settings and 3 L bleed in. Patient should follow in the Pulmonary Clinic in 4-5 weeks, I gave her business card and informed our manager of corporate. Discussed with Dr. Buckley. (2) Chronic obstructive pulmonary disease: Qualifiers: COPD type: unspecified COPD Qualified Code(s): J44.9 - Chronic obstructive pulmonary disease, unspecified Code(s): J44.9 - Chronic obstructive pulmonary disease, unspecified Status: Acute Assessment and Plan: 60-year-old woman with tobacco use (34 PY, quit 2003), Hypoxemic respiratory failure on oxygen 2 L Rest, 3 L ambulation and 2 L with BiPAP 15/10 (per inpatient notes), moderate apical predominant panlobular emphysema on a CT scan from 07/14/2022, 11/10/2017 and 04/19/2020, hypercarbic respiratory failure using noninvasive ventilation with an AVAPS mode at night. The patient states that recently she has minimal change in her cough but no worsening dyspnea on exe
--- NOTE | 2022-07-16 09:55 | PM.DS ---
DS: Admitting Diagnosis Discharge Date 07/16/2022 Admitting Diagnosis Acute respiratory failure with hypoxia and hypercarbia DS: Discharge Diagnosis Discharge Diagnosis (1) Acute respiratory failure with hypoxia and hypercarbia: Code(s): J96.01 - Acute respiratory failure with hypoxia; J96.02 - Acute respiratory failure with hypercapnia Status: Acute Assessment and Plan: appreciate pulmonary input. COPD With chronic hypercarbic and hypoxemic respiratory failure at baseline on home Noninvasive ventilation. Patient with worsening hypoxemic and hypercarbic respiratory failure after her home noninvasive ventilator broke 3 weeks ago and she over exerted herself at a wedding. She has been using BiPAP at home. Current she is on 2 L nasal cannula saturations 94%. the patient has brought her home noninvasive ventilator in and it has a broken oxygen adapter. [employer] will replace this and [employer] we will place her on her home noninvasive ventilator and check overnight oximetry with 2 L bleed in and ABG prior to removal (2) Chronic obstructive pulmonary disease: Qualifiers: COPD type: unspecified COPD Qualified Code(s): J44.9 - Chronic obstructive pulmonary disease, unspecified Code(s): J44.9 - Chronic obstructive pulmonary disease, unspecified Status: Acute Assessment and Plan: on Anoro Ellipta, albuterol, ipratropium if she remains stable with adequate ventilation on her home noninvasive ventilation tentative plans for dis charge home on 07/16, Per pulmonary recommendations. (3) Depression: Code(s): F32.9 - Major depressive disorder, single episode, unspecified Status: Acute Assessment and Plan: continue home medication (4) Congestive heart failure: Code(s): I50.9 - Heart failure, unspecified Status: Acute Assessment and Plan: stable. Continue Entresto, Aldactone DS: Summary Hospital Course Reason for hospitalization: acute respiratory failure with hypoxia and hypercarbia Hospital Course: 61 years old female admitted complained shortness of breath patient was found to have acute respiratory failure with hypoxia and hypercarbia. Pulmonology consulted. patient was given nebulizer treatment oxygen and vent support. Patient was also given diuretics. Today patient is feeling better patient has been stable condition. Status at Discharge Cognitive/behavioral status at discharge: Stable Time Spent with Patient Time attestation: Total time spent providing and/or coordinating discharge services: Exam Const: General: cooperative, healthy appearing, comfortable, no acute distress, well developed, alert, awake, ill appearing chronically, average body habitus and obese ( Morbid) Nutritional Appearance: average body habitus and obese ( Morbid) Orientation/consciousness: oriented to person, oriented to place, oriented to time and patient oriented x3 HENMT: Head: normal to inspection, normocephalic and atraumatic Ears: hearing grossly normal bilaterally Face/Nose/Sinus: normal facial exam Face and sinus: normal facial exam Eyes: General: appearance normal, both eyes and all related structures Pupils: Equal, round and reactive pupils present EOM: EOMs intact bilaterally Neck: Neck: normal visual inspection, full ROM, no lymphadenopathy and no JVD Thyroid: thyroid normal Lymphatic: no lymphadenopathy noted Chest: Chest palpation & inspection: normal inspection of the chest Resp: Effort & Inspection: normal respiratory effort and able to speak in complete sentences Auscultation: clear to auscultation bilaterally, no crackles, no rales, no rhonchi, no wheezes and diminished lung sounds Cardio: Jugular venous distension: no JVD Rate: regular rate Rhythm: regular rhythm Heart sounds: S1 normal heart sound present and S2 normal heart sound present GI: Inspection: normal to inspection, Pannus present and obesity
--- NOTE | 2022-07-16 11:41 | HOMEO2EVAL ---
Evaluation was performed at [facility] Home Oxygen Evaluation RC: Home Oxygen (O2) Evaluation Start: 07/16/22 09:08 Freq: ONCE Status: Active Protocol: RPE Activity Type Activity Date Activity User E-sign Co-sign Detail Recorded Client Recorded Date Recorded By Document 07/16/22 11:10 LUKAS [id number] 07/16/22 11:40 LUKAS Document 07/16/22 11:11 LUKAS [id number] 07/16/22 11:40 LUKAS Document 07/16/22 11:12 LUKAS [id number] 07/16/22 11:40 LUKAS Document 07/16/22 11:15 LUKAS [email or web address] 07/16/22 11:40 LUKAS Document 07/16/22 11:20 LUKAS [id number] 07/16/22 11:40 LUKAS 07/16/22 07/16/22 07/16/22 11:10 11:11 11:12 Home O2 Evaluation [Oxygen] -Test Phase Resting Resting Resting -Oxygen Delivery Room Air Nasal Cannula Nasal Cannula -Oxygen Flow Rate (L/min) 2 3 [Pulse Oximetry] -Pulse Oximetry (90-100 %) 86 L 87 L 94 [Pulse Rate] -Pulse Rate (60-100 beats/min) 84 [Exercise] -Ambulation Distance (feet) -Ambulation Distance (meters) [Comments] -Home Oxygen Evaluation Comments [Charges] -Treatment Charges O2 Evaluation - Inpatient 07/16/22 07/16/22 11:15 11:20 Home O2 Evaluation [Oxygen] -Test Phase Exercise Resting -Oxygen Delivery Nasal Cannula Nasal Cannula -Oxygen Flow Rate (L/min) 3 3 [Pulse Oximetry] -Pulse Oximetry (90-100 %) 90 93 [Pulse Rate] -Pulse Rate (60-100 beats/min) 122 H 89 [Exercise] -Ambulation Distance (feet) 75 -Ambulation Distance (meters) 22.85 [Comments] -Home Oxygen Evaluation Comments PT REQUIRES 3 L AT REST AND WITH EXERTION [Charges] -Treatment Charges
--- NOTE | 2022-07-16 11:41 | PCRCNOTE ---
HOME O2 EVAL COMPLETED. 3 L AT REST AND WITH ACTIVITY, ALSO WITH HOME NONINVASIVE VENT. [facility] IS PATIENTS DME. WILL UPDATE WITH CURRENT SETTINGS. PT HAS PORTABLE O2 FOR HOME
[2022-07-16] MEDS: traMADol HCL (*CRX) 50 MG TABLET PO (11:42)
== END 2022-07-16 13:04 | disposition home or self-care (01) | DRG 189 ==
LOC: ANHED 22:41 → ANHIMU 07-14 01:14 → ANH3MEDSUR 07-16 09:54 → ANHIMU 07-20 13:56
PROVIDERS: Family Medicine; Internal Medicine Pulmonary Disease; Admitting Provider Internal Medicine; Emergency Provider Emergency Medicine; Visit Provider Internal Medicine
DX: J96.21 Acute and chronic respiratory failure with hypoxia (principal); I42.8 Other cardiomyopathies; I50.22 Chronic systolic (congestive) heart failure; E66.2 Morbid (severe) obesity with alveolar hypoventilation; Z68.43 Body mass index [BMI] 50.0-59.9, adult; J96.22 Acute and chronic respiratory failure with hypercapnia; I11.0 Hypertensive heart disease with heart failure; J44.9 Chronic obstructive pulmonary disease, unspecified; E78.5 Hyperlipidemia, unspecified; M54.9 Dorsalgia, unspecified; F41.9 Anxiety disorder, unspecified; F32.A Depression, unspecified; Z20.822 Contact with and (suspected) exposure to COVID-19; Z99.81 Dependence on supplemental oxygen; Z95.810 Presence of automatic (implantable) cardiac defibrillator; Z86.010 Personal history of colon polyps; Z87.891 Personal history of nicotine dependence
CPT/HCPCS: 36415; 36600; 71046; 71275; 80048; 80053; 82375; 82805; 83050; 83880; 85025; 85027; 87636; 93005; 94002; 94003; 94618; 94640; 94762; 96372; 96374; 97161; 97165; 99285; A9270; C8929; G0378; J1650; Q9957; Q9967

== ENCOUNTER 2022-09-05 11:01 | Inpatient (IN) | payer MEDICARE, MEDICAID, SELFPAY ==
[2022-09-05] VITALS (17 sets, daily range): BP systolic 110–146; BP diastolic 44–75; PULSE 75–94; RESP 16–21; TEMP 36.1–37.1; O2SAT 95–100; BMI 51.5
--- NOTE | ~2022-09-05 | XR_ITS ---
EXAMINATION: XR chest 1V portable DATE: 09/05/2022 11:54 INDICATION: Shortness of breath. TECHNIQUE: A single frontal view of the chest was obtained. COMPARISON: Chest 2 views 07/13/2022, chest CT 07/14/2022 FINDINGS: There is no pneumonia, pleural effusion, or pneumothorax. Cardiomegaly is noted. There is a left chest pacer/defibrillator with leads in right atrium, right ventricle, and coronary sinus. IMPRESSION: 1. Cardiomegaly. Reviewed, dictated and finalized at location A. [employer] IMPRESSION: 1. Cardiomegaly.
--- NOTE | 2022-09-05 11:07 | ECG_ITS ---
Measurements Intervals [place] Rate: 83 P: 65 VT: 131 QRS: 261 QRSD: 238 T: 83 QT: 496 QTc: 584 Interpretive Statements ATRIAL SENSE- ELECTRONIC VENTRICULAR PACEMAKER BASELINE ARTIFACT- I NO FURTHER INTERPRETATION IS POSSIBLE ATYPICAL ECG COMPARED TO ECG 07/13/2022 22:28:43 NO SIGNIFICANT CHANGES Electronically Signed On 09-05-2022 15:22:42 [employer] by Juan R Avilez D.O.
[2022-09-05] MEDS: ALBUTEROL SULFATE NEB 2.5 MG/3 ML INH 15 MG INHALATION (11:18)
[2022-09-05] MEDS: IPRATROPIUM BR 0.02% INH SOLN 0.5 MG/2.5 ML VIAL 1.5 MG INHALATION (11:18)
[2022-09-05] MEDS: MAGNESIUM SULF 2 GM/WATER 50ML 2 GM/50 ML BAG IVPB (11:33)
[2022-09-05] MEDS: methylPREDNISolone SOD SUCC 125 MG VIAL IV PUSH (11:34)
[2022-09-05 11:53] LABS: Basophils Percent Auto 0.5 % (0.2-1.2); Eosinophils Percent Auto 0.2 % (0-4.4); Hematocrit 42.7 % (37.0-47.0); Hemoglobin 11.6 g/dL (12.0-15.0); Immature Granulocyte Absolute 0.07 K/mm3 (0.00-0.031); Immature Granulocyte Percent A 1.1 % (0-0.5); Lymphocytes Absolute Auto 0.73 K/mm3 (0.9-3.2); Lymphocytes Percent Auto 11.7 % (18.3-44.2); Mean Corpuscular HGB Conc 27.2 g/dl (32-36); Mean Corpuscular Volume 106.8 fl (80-100); Mean Platelet Volume 9.9 fl (7.4-10.4); Monocytes Absolute Auto 0.4 K/mm3 (0.1-0.6); Monocytes Percent Auto 6.7 % (2.6-8.5); Neutrophils Percent Auto 79.8 % (45.5-73.1); Platelet Count Result 174 k/mm3 (150-375); Red Cell Distribution Width 13.2 % (11.5-14.5); White Blood Count 6.2 K/mm3 (4.5-10.0)
[2022-09-05 12:03] LABS: Prothrombin Time 12.3 Seconds (11.1-14.7)
[2022-09-05 12:13] LABS: Alanine Aminotransferase 13 U/L (6-35); Albumin Level 3.8 g/dL (3.5-5.1); Alkaline Phosphatase 81 U/L (38-126); Aspartate Amino Transferase 21 U/L (14-36); Bilirubin,Total 0.2 mg/dL (0.2-1.3); Blood Urea Nitrogen 15 mg/dL (7-17); Calcium 7.8 mg/dL (8.4-10.2); Carbon Dioxide > 40 mmol/L (22-30); Chloride 92 mmol/L (98-107); Estimated CRCL calculation 102 ml/min; Estimated Glomerular Filt Rate > 60; Glucose 92 mg/dL (65-110); Potassium 4.7 mmol/L (3.4-5.0); Sodium 137 mmol/L (137-145)
[2022-09-05 12:24] LABS: Platelet Estimate Adequate (Adequate)
[2022-09-05 12:25] LABS: Anisocytosis 1+ (NORMAL); Schistocytes None Seen (NORMAL)
[2022-09-05 12:26] LABS: NT Pro B Type Natriuretic Pept 1410 pg/mL (5-100)
[2022-09-05 12:28] LABS: Partial Thromboplastin Time > 200.0 SECONDS (22.3-36.8)
--- NOTE | 2022-09-05 12:52 | ED.GENADULT ---
HPI - General Adult General Chief complaint: Shortness of Breath/Dyspnea Stated complaint: sob History of Present Illness HPI narrative: this is a 61-year-old female presenting ED with chief complaint of shortness of breath. Patient has history of COPD and is well known to our emergency department here patient started having shortness of breath yesterday that did not respond her breathing treatments. Earlier today she called EMS. When EMS arrived they placed her on BiPAP due to respiratory distress. At this time patient is breathing more comfortably. She denies fever, chills, productive cough, chest pain, abdominal pain, sick contacts at home or lower extremity edema. Related Data Home Medications Medication Instructions Recorded Confirmed atorvastatin 40 mg tablet 40 mg PO HS 07/29/19 07/14/22 buspirone 15 mg tablet 15 mg PO TID 07/29/19 07/14/22 diazepam 5 mg tablet 5 mg PO Q8H PRN Anxiety 07/29/19 07/14/22 ropinirole 0.25 mg tablet 0.25 mg PO HS 07/29/19 07/14/22 citalopram 40 mg tablet 40 mg PO DAILY 11/30/21 07/14/22 furosemide 20 mg tablet 20 mg PO DAILY 11/30/21 07/14/22 tramadol 50 mg tablet 50 mg PO Q6H PRN Pain 11/30/21 07/14/22 sacubitril 49 mg-valsartan 51 mg 1 tablet PO BID 07/14/22 07/14/22 tablet (Entresto) spironolactone 25 mg tablet 25 mg PO DAILY 07/14/22 07/14/22 Allergies Allergy/AdvReac Type Severity Reaction Status Date / Time No Known Allergies Allergy Verified 09/05/22 11:08 Review of Systems Review of Systems: All systems reviewed & are unremarkable except as noted in HPI and below PMFSH Past Medical History Medical History Anxiety Back pain Bronchitis Chronic obstructive pulmonary disease Chronic respiratory failure with hypoxia and hypercapnia 1 prior intubation about 10 years ago Congestive heart failure Depression Emphysema of lung Essential hypertension History of rectal polyps Hyperlipidemia Morbid obesity Nonischemic cardiomyopathy Present since 2006, thought to be due to a viral myocarditis. EF was as low as 10% in June 2017 but patient reports improvement in her EF to 32% most recently. She is followed by Dr. Soliman. ICD in-situ. Obesity hypoventilation syndrome Obstructive sleep apnea On Trilogy unit, previously on BiPAP 22/02 with 3 L of oxygen bleed in. Rectal polyp Surgical History Surgical History Biventricular cardiac pacemaker in situ (2006) History of cardiac cath With no significant coronary artery disease noted with last cardiac catheterization June 2017 demonstrating only 30-40% lesion of the left anterior descending artery. History of colonoscopy (09/2017) History of dilation and curettage (11/2016) History of tubal ligation (1989) Family History Family History Mother Diabetes mellitus Acute myocardial infarction Hypertension Sibling Diabetes mellitus Acute myocardial infarction Cerebrovascular accident Hypertension Schizophrenia Father Congestive heart failure Cerebrovascular accident Hypertension Schizophrenia Social History Social History Social History: Surrogate decision maker: Kia Garcia, daughter. Code status: Full code Smoking packs per day: 1 Smoking cigarettes per day: 20.0 Years smoked: 25 Smoking pack-years: 25.00 Smoking status: Former smoker Tobacco type: cigarettes Second hand tobacco smoke exposure: No Alcohol intake: former Substance use: never Substance use type: marijuana Other substance usage details: Edibles Last use: 07/10/22 Lack of Transportation: No Lack of Food: Never True Current Housing: I Have Housing Concerned About Future Housing: No Difficulty Paying Gas/Electric Bills: No Difficulty Paying for Meds: No Currently Unemployed: No Education:
[2022-09-05 13:23] LABS: Influenza A QL RT-PCR Negative (Negative); Influenza B QL RT-PCR Negative (Negative); SARS-CoV-2 RNA PCR Negative
--- NOTE | 2022-09-05 15:20 | PC.NURSE ---
Pt arrived to IMU from ER at 1431. Pt oriented to room and call light system. Pt has steady gait and walks independently. Notified Milagro Rowan NP of patient's arrival.
[2022-09-05 16:37] LABS: Prothrombin Time 12.3 Seconds (11.1-14.7)
[2022-09-05 16:38] LABS: Partial Thromboplastin Time 28.4 SECONDS (22.3-36.8)
[2022-09-05] MEDS: traMADol HCL (*CRX) 50 MG TABLET PO (17:33)
[2022-09-05] MEDS: busPIRone HCL 5 MG TABLET 15 MG PO (17:44)
--- NOTE | 2022-09-05 20:21 | PM.IMHP ---
H&P: HPI History of Present Illness Date/Time: 09/05/22 20:21 Chief Complaint: Shortness of breath Narrative: This is a 61-year-old female patient who has a history of COPD and is on oxygen at home. She states that she is on oxygen at 2 L per nasal cannula at rest and then 3 with activity. The patient stated that she was short of breath yesterday but had her grandkids and did not want to come to the emergency room last night. When EMS arrived they placed on a BiPAP due to respiratory distress. The patient was breathing more comfortable. Now she is down to oxygen at 4 L per nasal cannula and talking in full sentences. The patient was given nebulizer treatments steroids in the emergency room. She is also given magnesium. She was given IV Tylenol. When I saw her she was off of her BiPAP and on 4 L of oxygen. Her troponin was 0.040. Chest x-ray was read as cardiomegaly. The patient is being admitted to inpatient status on the date of service of 09/05/2022. Review of Systems Review of Systems: See HPI All systems reviewed & are unremarkable except as noted in HPI and below Constitutional: Constitutional: Reports as per HPI and Reports no additional constitutional complaints Eyes: Eyes: Reports as per HPI and Reports no additional eye complaints ENT: Reports system reviewed and no additional complaints, except as documented and Reports Normal hearing present Cardiovascular: Cardiovascular: Reports no additional cardiovascular complaints Respiratory: Respiratory: Reports no additional respiratory complaints and Reports no additional respiratory complaints Gastrointestinal: Gastrointestinal: Reports as per HPI and Reports no additional gastrointestinal complaints Musculoskeletal: Musculoskeletal: Reports no additional musculoskeletal complaints Integumentary/Breasts: Skin/Breast: Reports system reviewed and no additional complaints, except as docu and Reports as per HPI Neurologic: Reports system reviewed and no additional complaints, except as documented, Reports as per HPI and Reports Normal hearing present Psychiatric: Psychiatric: Reports no additional psychiatric complaints and Reports as per HPI Endocrine: Endocrine: Reports no additional endocrine complaints Hematologic/Lymphatic: Hematologic/Lymphatic: Reports no additional hematologic/lymphatic complaints Allergic/Immunologic: Allergic/Immunologic: Reports no additional allergic/immunologic complaints [facility] Past Medical History Medical History Anxiety Back pain Bronchitis Chronic obstructive pulmonary disease Chronic respiratory failure with hypoxia and hypercapnia 1 prior intubation about 10 years ago Congestive heart failure Depression Emphysema of lung Essential hypertension History of rectal polyps Hyperlipidemia Morbid obesity Nonischemic cardiomyopathy Present since 2006, thought to be due to a viral myocarditis. EF was as low as 10% in June 2017 but patient reports improvement in her EF to 32% most recently. She is followed by Dr. Soliman. ICD in-situ. Obesity hypoventilation syndrome Obstructive sleep apnea On Trilogy unit, previously on BiPAP 22/02 with 3 L of oxygen bleed in. Rectal polyp Surgical History Surgical History Biventricular cardiac pacemaker in situ (2006) History of cardiac cath With no significant coronary artery disease noted with last cardiac catheterization June 2017 demonstrating only 30-40% lesion of the left anterior descending artery. History of colonoscopy (09/2017) History of dilation and curettage (11/2016) History of tubal ligation (1989) Family History Family History Mother Diabetes mellitus Acute myocardial infarction Hypertension Sibling Diabetes mellitus Acute myocardial infarction Cerebrovascular accident Hypertension Schizophrenia Fat
[2022-09-05] MEDS: methylPREDNISolone SOD SUCC 125 MG VIAL 80 MG IV PUSH (21:40)
[2022-09-05] MEDS: ATORVASTATIN 40 MG TABLET PO (21:41)
[2022-09-05] MEDS: rOPINIRole HCL 0.25 MG TABLET PO (21:41)
[2022-09-05] MEDS: diazePAM (*CRX) 5 MG TABLET PO (21:43)
[2022-09-06] VITALS (23 sets, daily range): BP systolic 111–147; BP diastolic 56–68; PULSE 69–95; RESP 16–22; TEMP 36.1–36.8; O2SAT 93–100
[2022-09-06] MEDS: ALBUTEROL SULFATE NEB 2.5 MG/3 ML INH INHALATION ×4 (02:30→19:55)
[2022-09-06] MEDS: IPRATROPIUM BR 0.02% INH SOLN 0.5 MG/2.5 ML VIAL INHALATION ×4 (02:30→19:55)
[2022-09-06 04:34] LABS: Basophils Percent Auto 0.4 % (0.2-1.2); Hematocrit 44.5 % (37.0-47.0); Hemoglobin 12.4 g/dL (12.0-15.0); Immature Granulocyte Absolute 0.03 K/mm3 (0.00-0.031); Immature Granulocyte Percent A 0.6 % (0-0.5); Lymphocytes Absolute Auto 0.52 K/mm3 (0.9-3.2); Lymphocytes Percent Auto 10.4 % (18.3-44.2); Mean Corpuscular HGB Conc 27.9 g/dl (32-36); Mean Corpuscular Volume 104.2 fl (80-100); Mean Platelet Volume 10.2 fl (7.4-10.4); Monocytes Absolute Auto 0.1 K/mm3 (0.1-0.6); Neutrophils Absolute Auto 4.4 K/mm3 (1.3-6.7); Neutrophils Percent Auto 87.6 % (45.5-73.1); Platelet Count Result 169 k/mm3 (150-375); Red Blood Count 4.27 M/mm3 (4.2-5.4); Red Cell Distribution Width 13.1 % (11.5-14.5)
[2022-09-06 04:45] LABS: Lactic Acid Reflex 1.5 mmol/L (0.7-2.0)
[2022-09-06 04:54] LABS: Alanine Aminotransferase 14 U/L (6-35); Albumin Level 4.1 g/dL (3.5-5.1); Alkaline Phosphatase 89 U/L (38-126); Aspartate Amino Transferase 23 U/L (14-36); Bilirubin,Total 0.2 mg/dL (0.2-1.3); Blood Urea Nitrogen 16 mg/dL (7-17); Calcium 8.2 mg/dL (8.4-10.2); Carbon Dioxide > 40 mmol/L (22-30); Chloride 90 mmol/L (98-107); Estimated CRCL calculation 105 ml/min; Estimated Glomerular Filt Rate > 60; Glucose 121 mg/dL (65-110); Magnesium 2.5 mg/dL (1.6-2.3); Potassium 4.6 mmol/L (3.4-5.0); Sodium 134 mmol/L (137-145)
[2022-09-06] MEDS: methylPREDNISolone SOD SUCC 125 MG VIAL 80 MG IV PUSH (06:02)
[2022-09-06 08:15] LABS: Thyroid Stimulating Hormone Reflex 0.209 uIU/mL (0.465-4.68)
[2022-09-06] MEDS: CITALOPRAM HYDROBROMIDE 20 MG TABLET 40 MG PO (08:26)
[2022-09-06] MEDS: SPIRONOLACTONE 25 MG TABLET PO (08:26)
[2022-09-06] MEDS: ENOXAPARIN 40 MG/0.4 ML SYRINGE SUB-Q (08:26)
[2022-09-06] MEDS: FUROSEMIDE 20 MG TABLET PO (08:26)
[2022-09-06] MEDS: SACUBITRIL/VALSARTAN 49-51 MG TABLET 1 TABLET PO ×2 (08:26→16:35)
[2022-09-06] MEDS: PANTOPRAZOLE 40 MG TABLET PO (08:26)
[2022-09-06] MEDS: busPIRone HCL 5 MG TABLET 15 MG PO ×3 (08:26→16:35)
--- NOTE | 2022-09-06 09:36 | PCRCNOTE ---
Med is a new start and not in the resp. cart. I spoke with Chantell and she said that she didn't see it on their cart either.
[2022-09-06 12:27] LABS: Free T4 Free Thyroxine Reflex 0.71 ng/dL (0.78-2.19)
--- NOTE | 2022-09-06 13:04 | PM.IMPN ---
Progress Note: A&P Assessment and Plan (1) COPD exacerbation: Code(s): J44.1 - Chronic obstructive pulmonary disease with (acute) exacerbation Status: Acute Assessment and Plan: No signs of COPD exacerbation, will discontinue steroids Suspect symptoms were secondary to hypercapnia, pulmonology consult pending She likely needs her BiPAP titrated and to wear it more regularly (2) Congestive heart failure: Code(s): I50.9 - Heart failure, unspecified Status: Acute Assessment and Plan: Echo showed an EF of 35-40% with grade 1 diastolic dysfunction, continue Lasix, Aldactone and Entresto Appears euvolemic (3) Depression: Code(s): F32.9 - Major depressive disorder, single episode, unspecified Status: Acute Assessment and Plan: Would discontinue citalopram in favor of Cymbalta (4) Elevated troponin: Code(s): R77.8 - Other specified abnormalities of plasma proteins Status: Acute Assessment and Plan: Do not suspect cardiac etiology, monitor telemetry (5) Essential hypertension: Code(s): I10 - Essential (primary) hypertension Status: Chronic Assessment and Plan: Stable, continue home meds (6) Obstructive sleep apnea: Code(s): G47.33 - Obstructive sleep apnea (adult) (pediatric) Status: Chronic Assessment and Plan: Appreciate pulmonology consultation Plan DVT prophylaxis with Lovenox GI prophylaxis with PPI Code status full code Subjective Date/time seen: 09/06/22 13:04 Interval history: No overnight events noted. No chest pain or shortness of breath. No nausea, vomiting or diarrhea. No fevers or chills. Patient states she feels much better now. She thinks it is because her CO2 built up because she was not wearing her BiPAP as often unintentionally. Review of Systems Review of Systems: 12 point review of systems was assessed and was negative except as noted in the HPI Exam Narrative: General: No acute distress, alert and oriented per baseline HEENT: Atraumatic, normocephalic, mucous membranes moist CV: Regular rate and rhythm, S1, S2 Lungs: Diminished air entry, no wheeze or rhonchi noted Abdomen: Soft, nontender, nondistended Extremities: Normal to inspection Skin: No rashes noted, no lesions or wounds seen Psych: Euthymic, normal affect Objective Data Vital Signs Vital Signs: Vital Signs - 24 hr 09/05/22 14:01 09/05/22 14:39 09/05/22 16:00 Temperature 97.1 F L Pulse Rate 85 84 82 Respiratory Rate 18 20 Blood Pressure 117/71 110/46 L Pulse Oximetry 96 97 Oxygen Delivery Oxygen Flow Rate Fraction of Inspired Oxygen 09/05/22 16:00 09/05/22 18:00 09/05/22 19:57 Temperature 97.1 F L 96.9 F L Pulse Rate 80 92 75 Respiratory Rate 20 20 Blood Pressure 124/44 L 143/67 H Pulse Oximetry 97 95 Oxygen Delivery Oxygen Flow Rate Fraction of Inspired Oxygen 09/05/22 20:00 09/05/22 20:00 09/05/22 22:00 Temperature Pulse Rate 77 77 79 Respiratory Rate 20 Blood Pressure Pulse Oximetry 95 Oxygen Delivery Nasal Cannula Oxygen Flow Rate 4 Fraction of Inspired Oxygen 50 09/05/22 23:29 09/06/22 00:00 09/06/22 00:00 Temperature 97.6 F Pulse Rate 94 75 75 Respiratory Rate 20 20 Blood Pressure 146/74 H Pulse Oximetry 100 100 Oxygen Delivery Nasal Cannula Oxygen Flow Rate 4 Fraction of Inspired Oxygen 50 09/06/22 02:00 09/06/22 02:30 09/06/22 02:45 Temperature Pulse Rate 75 75 81 Respiratory Rate 18 20 Blood Pressure Pulse Oximetry Oxygen Delivery Oxygen Flow Rate Fraction of Inspired Oxygen 09/06/22 02:45 09/06/22 03:45 09/06/22 04:00 Temperature 97.2 F L Pulse Rate 78 85 76 Respiratory Rate 22 H 20 Blood Pressure 136/63 Pulse Oximetry 93 99 Oxygen Delivery BiPAP Oxygen Flow Rate Fraction of Inspired Oxygen 09/06/22 04:00 09/06/22 06:00 09/06/22 07:15 Temperature
--- NOTE | 2022-09-06 13:48 | PM.CNPUL ---
Assessment and Plan Assessment and plan (1) Chronic obstructive pulmonary disease: Code(s): J44.9 - Chronic obstructive pulmonary disease, unspecified Status: Acute Assessment and Plan: 60-year-old woman with COPD for 12 years, 34 PY (quit 2009), on oxygen 3 L Rest, 3 L ambulation, no PFTs available, moderate apical predominant panlobular emphysema on a CT scan from 07/14/2022, 11/10/2017 and 04/19/2020, ZAHEER, obesity hypoventilation syndrome, nonischemic cardiomyopathy with biventricular AICD, hypertension, and hyperlipidemia. ? 01/17/2022 changed from BiPAP to Home Trelegy AVAPS settings:? 500 mL, Max Pressure 30, EPAP minimum/maximum 5/15, Pressure Support minimum / maximum 5/25, RR 20, Rise 2, I time 1.5 seconds, 3 L bleed in. FX Aligned. 09/06/2022 Currently she was very active over the holidays and fell asleep on the couch resulting in noncompliance with her noninvasive ventilator. She denied any worsening shortness of breath, cough or change in sputum color. I do not feel she has a COPD exacerbation at this time. Will place the patient on ipratropium 0.5 mg nebulizers Q 6, albuterol 2.5 mg nebulizers Q 6 hours at this time. She received Solu-Medrol in the emergency room an 80 mg on 09/26/2022 and at this time I will hold any additional systemic steroids. She was not maintained on inhaled corticosteroids at home. I see no evidence of an infection and see no need for antibiotics at this time. (2) Acute and chronic respiratory failure: Qualifiers: Respiratory failure complication: hypoxia and hypercapnia Qualified Code(s): J96.21 - Acute and chronic respiratory failure with hypoxia; J96.22 - Acute and chronic respiratory failure with hypercapnia Code(s): J96.20 - Acute and chronic respiratory failure, unspecified whether with hypoxia or hypercapnia Status: Acute Assessment and Plan: She was previously admitted 07/14/2022 through 07/16/2022m for shortness of breath and chronic hypercarbic and hypoxemic respiratory failure because her NIV machine had a broken oxygen adapter. She brought in her noninvasive machine and we replace the adapter and she wore her home noninvasive ventilator with 2 L bleed in and she did well and slept well.? Currently patient states she is breathing at her baseline.? ?Patient had an overnight oximetry? on her home noninvasive ventilator with 2 L bleed in demonstrating a average saturation 92%.? Lowest saturation 76%, saturation less than or equal to 88% was 21 minutes or 6% of the monitored time.? Patient had a blood gas prior to removal of her home noninvasive with 2 L with a pH of 7.39/75/55. Noninvasive ventilator with her current settings and 3 L bleed in. 09/06/2022: She has brought her home machine in and I will place her on home machine with 3 L bleed in and obtain an overnight oximetry study and a blood gas prior to removal. I will attempt to obtain a download from [employer] on 09/07/2022. History of Present Illness History of Present Illness Consult date: 09/06/22 Chief complaint: COPD Narrative: 09/06/2022: This is a new pulmonary consult for chronic hypercarbic and hypoxemic respiratory failure from COPD. 60-year-old woman with COPD for 12 years, ZAHEER for 5 years on oxygen 3 L Rest, 3 L ambulation, moderate apical predominant panlobular emphysema on a CT scan from 07/14/2022, 11/10/2017 and 04/19/2020, ZAHEER, obesity hypoventilation syndrome, nonischemic cardiomyopathy with biventricular AICD, hypertension, and hyperlipidemia. ? 01/17/2022 changed from BiPAP to Home Trelegy AVAPS settings:? 500 mL, Max Pressure 30, EPAP minimum/maximum 5/15, Pressure Support minimum / maximum 5/25, RR 20, Rise 2, I time 1.5 seconds, 3 L bleed in. FX Aligned. She was admitted 07/14/2022 through 07/16/2022m for shortness of breath and chronic hypercarbic and hypoxemic respiratory failure because her NIV machine had a broken oxygen adapter. She brought in h
[2022-09-06] MEDS: diazePAM (*CRX) 5 MG TABLET PO (16:39)
[2022-09-06] MEDS: rOPINIRole HCL 0.25 MG TABLET PO (20:51)
[2022-09-06] MEDS: ATORVASTATIN 40 MG TABLET PO (20:51)
[2022-09-06] MEDS: DULoxetine HCL 20 MG CAPSULE.DR PO (20:51)
[2022-09-07] VITALS (15 sets, daily range): BP systolic 122–132; BP diastolic 62–67; PULSE 71–123; RESP 10–20; TEMP 36.1–36.3; O2SAT 87–100
[2022-09-07 05:49] LABS: Alveolar/Arterial O2 Gradient 82.9 mmHg; Base Excess ABG 13.3 mEq/l (+/-2.0); Fractional Inspired Oxygen 32 %; HCO3 ABG 39.4 mEq/l (22.0-26.0); Oxygen Content ABG 17.2 %vol (16.0-22.0); Oxygen Saturation ABG 96.1 % (95.0-100.0); Oxyhemoglobin 95.2 % THb (90.0-100.0); PCO2 ABG 56.1 mmHg (35.0-45.0); PO2 ABG 79.6 mmHg (80.0-100.0); PO2 FiO2 Ratio Arterial Blood 2.49 %; Total Hemoglobin 12.8 g/dL (12.0-18.0); pH ABG 7.464 (7.350-7.450)
[2022-09-07 05:50] LABS: Device OTHER DEVICE; Modified Allen's Test Pass; Site Drawn LEFT RADIAL
[2022-09-07] MEDS: IPRATROPIUM BR 0.02% INH SOLN 0.5 MG/2.5 ML VIAL INHALATION (08:15)
--- NOTE | 2022-09-07 08:15 | PM.DS ---
DS: Admitting Diagnosis Discharge Date 09/07/2022 Admitting Diagnosis Generalized weakness and shortness of breath DS: Discharge Diagnosis Discharge Diagnosis (1) COPD exacerbation: Code(s): J44.1 - Chronic obstructive pulmonary disease with (acute) exacerbation Status: Acute Assessment and Plan: No signs of COPD exacerbation, will discontinue steroids Suspect symptoms were secondary to hypercapnia, pulmonology consult pending She likely needs her BiPAP titrated and to wear it more regularly (2) Congestive heart failure: Code(s): I50.9 - Heart failure, unspecified Status: Acute Assessment and Plan: Echo showed an EF of 35-40% with grade 1 diastolic dysfunction, continue Lasix, Aldactone and Entresto Appears euvolemic (3) Depression: Code(s): F32.9 - Major depressive disorder, single episode, unspecified Status: Acute Assessment and Plan: Would discontinue citalopram in favor of Cymbalta (4) Elevated troponin: Code(s): R77.8 - Other specified abnormalities of plasma proteins Status: Acute Assessment and Plan: Do not suspect cardiac etiology, monitor telemetry (5) Essential hypertension: Code(s): I10 - Essential (primary) hypertension Status: Chronic Assessment and Plan: Stable, continue home meds (6) Obstructive sleep apnea: Code(s): G47.33 - Obstructive sleep apnea (adult) (pediatric) Status: Chronic Assessment and Plan: Appreciate pulmonology consultation Plan DVT prophylaxis with Lovenox GI prophylaxis with PPI Code status full code DS: Summary Hospital Course Hospital Course: 61-year-old female with past medical history significant for end-stage COPD on 2 L oxygen at baseline, 3 L with activity is presenting with shortness of breath. Patient states that she is supposed to wear a BiPAP at home while sleeping and napping but has not been able to do that as well over the holidays because she is often falling asleep on the couch. She states recently she has required 4 L of oxygen at rest. She was found to have hypercapnic respiratory failure and pulmonology was consulted to titrate her BiPAP. No signs of infection or exacerbation were found, so no antibiotics or steroids were deemed necessary. ABG in the morning on her BiPAP showed significant improvement of her hypercapnia she was discharged in good condition with close outpatient follow-up by pulmonology on current BiPAP settings per pulmonology's note. Of note, patient states her anxiety has been worsening lately and she would like to try different medication as she has been using her p.r.n. Valium multiple times a week. In light of the fact that she has chronic pain for which she takes tramadol but does not prefer to, we have discontinued her Celexa in favor of Cymbalta. This can help with chronic pain, anxiety and has a norepinephrine affect that Celexa does not can also help her with her energy. She was discharged with a 1 month supply of this medication at the starting dose of 20 mg. She should see her family doctor for refills and to titrate up to max benefit. Time Spent with Patient Time attestation: Total time spent providing and/or coordinating discharge services: Exam Narrative: General: No acute distress, alert and oriented per baseline HEENT: Atraumatic, normocephalic, mucous membranes moist CV: Regular rate and rhythm, S1, S2 Lungs: Diminished air entry, no wheeze or rhonchi noted Abdomen: Soft, nontender, nondistended Extremities: Normal to inspection Skin: No rashes noted, no lesions or wounds seen Psych: Euthymic, normal affect DS: Data Data Completed and Pending Labs on day of discharge: Labs from last 24 hours 09/07/22 09/06/22 09/06/22 05:21 03:34 03:34 Puncture Site Left radial ABG pH 7.464 H ABG pCO2 56.1 H ABG pO2 79.6 L ABG PO2/FiO2 Ratio 2.49 ABG HCO3 39.4 H ABG O2 Saturation 96.1
[2022-09-07] MEDS: ALBUTEROL SULFATE NEB 2.5 MG/3 ML INH INHALATION (08:16)
[2022-09-07] MEDS: FUROSEMIDE 20 MG TABLET PO (09:13)
[2022-09-07] MEDS: PANTOPRAZOLE 40 MG TABLET PO (09:13)
[2022-09-07] MEDS: busPIRone HCL 5 MG TABLET 15 MG PO ×2 (09:13→13:27)
[2022-09-07] MEDS: SACUBITRIL/VALSARTAN 49-51 MG TABLET 1 TABLET PO (09:13)
[2022-09-07] MEDS: SPIRONOLACTONE 25 MG TABLET PO (09:14)
--- NOTE | 2022-09-07 09:57 | PM.PNPUL ---
Progress Note: A&P Assessment and Plan (1) Chronic obstructive pulmonary disease: Code(s): J44.9 - Chronic obstructive pulmonary disease, unspecified Status: Acute Assessment and Plan: 60-year-old woman with COPD for 12 years, 34 PY (quit 2009), on oxygen 3 L Rest, 3 L ambulation, no PFTs available, moderate apical predominant panlobular emphysema on a CT scan from 07/14/2022, 11/10/2017 and 04/19/2020, ZAHEER, obesity hypoventilation syndrome, nonischemic cardiomyopathy with biventricular AICD, hypertension, and hyperlipidemia. ? 01/17/2022 changed from BiPAP to Home Trelegy AVAPS settings:? 500 mL, Max Pressure 30, EPAP minimum/maximum 5/15, Pressure Support minimum / maximum 5/25, RR 20, Rise 2, I time 1.5 seconds, 3 L bleed in. [employer] 09/06/2022 Currently she was very active over the holidays and fell asleep on the couch resulting in noncompliance with her noninvasive ventilator. She denied any worsening shortness of breath, cough or change in sputum color. I do not feel she has a COPD exacerbation at this time. Will place the patient on ipratropium 0.5 mg nebulizers Q 6, albuterol 2.5 mg nebulizers Q 6 hours at this time. She received Solu-Medrol in the emergency room an 80 mg on 09/26/2022 and at this time I will hold any additional systemic steroids. She was not maintained on inhaled corticosteroids at home. I see no evidence of an infection and see no need for antibiotics at this time. 09/07/2022. Patient states she is breathing normal and back to her baseline. She denies cough, phlegm, hemoptysis or wheezing. Patient states she is ready for discharge home today. From a pulmonary perspective patient can be discharged on these Pulmonary medications: Anoro Ellipta 62.5-25 at 1 puff q.day Rescue albuterol 2 puffs q.4 hours p.r.n. shortness of breath or wheezing. Oxygen per formal home O2 assessment which has been ordered. When she naps are sleeps she should use her home noninvasive ventilator: Home Trelegy AVAPS settings:? 500 mL, Max Pressure 30, EPAP minimum/maximum 5/15, Pressure Support minimum / maximum 5/25, RR 20, Rise 2, I time 1.5 seconds, 3 L bleed in. [facility]. follow-up in the Pulmonary Clinic in 3-4 weeks. 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 (2) Acute and chronic respiratory failure: Qualifiers: Respiratory failure complication: hypoxia and hypercapnia Qualified Code(s): J96.21 - Acute and chronic respiratory failure with hypoxia; J96.22 - Acute and chronic respiratory failure with hypercapnia Code(s): J96.20 - Acute and chronic respiratory failure, unspecified whether with hypoxia or hypercapnia Status: Acute Assessment and Plan: She was previously admitted 07/14/2022 through 07/16/2022m for shortness of breath and chronic hypercarbic and hypoxemic respiratory failure because her NIV machine had a broken oxygen adapter. She brought in her noninvasive machine and we replace the adapter and she wore her home noninvasive ventilator with 2 L bleed in and she did well and slept well.? Currently patient states she is breathing at her baseline.? ?Patient had an overnight oximetry? on her home noninvasive ventilator with 2 L bleed in demonstrating a average saturation 92%.? Lowest saturation 76%, saturation less than or equal to 88% was 21 minutes or 6% of the monitored time.? Patient had a blood gas prior to removal of her home noninvasive with 2 L with a pH of 7.39/75/55. Noninvasive ventilator with her current settings and 3 L bleed in. 09/06/2022: She has brought her home machine in and I will place her on home machine with 3 L bleed in and obtain an overnight oximetry study and a blood gas prior to removal. I will attempt to obtain a download from [facility] [employer] on 09/07/2022. 09/07/2022: Patient wore her home noninvasive ventilator overnight with 3 L bleed in and said she slept well. Patient had an overnight oximetr
[2022-09-07] MEDS: traMADol HCL (*CRX) 50 MG TABLET PO (13:27)
--- NOTE | 2022-09-07 14:46 | HOMEO2EVAL ---
Evaluation was performed at [facility] Home Oxygen Evaluation RC: Home Oxygen (O2) Evaluation Start: 09/07/22 08:51 Freq: ONCE Status: Discharge Protocol: RPE Activity Type Activity Date Activity User E-sign Co-sign Detail Recorded Client Recorded Date Recorded By Document 09/07/22 11:15 LUKAS [id number] 09/07/22 14:43 LUKAS Document 09/07/22 11:16 LUKAS [id number] 09/07/22 14:43 LUKAS Document 09/07/22 11:18 LUKAS [email or web address] 09/07/22 14:43 LUKAS Document 09/07/22 11:19 LUKAS [email or web address] 09/07/22 14:43 LUKAS Document 09/07/22 11:30 LUKAS [email or web address] 09/07/22 14:43 LUKAS 09/07/22 09/07/22 09/07/22 11:15 11:16 11:18 Home O2 Evaluation [Oxygen] -Test Phase Resting Resting Exercise -Oxygen Delivery Room Air Nasal Cannula Nasal Cannula -Oxygen Flow Rate (L/min) 2 2 [Pulse Oximetry] -Pulse Oximetry (90-100 %) 87 L 94 87 L [Pulse Rate] -Pulse Rate (60-100 beats/min) 99 100 [Comments] -Home Oxygen Evaluation Comments [Charges] -Treatment Charges O2 Evaluation - Inpatient 09/07/22 09/07/22 11:19 11:30 Home O2 Evaluation [Oxygen] -Test Phase Exercise Resting -Oxygen Delivery Nasal Cannula Nasal Cannula -Oxygen Flow Rate (L/min) 3 2 [Pulse Oximetry] -Pulse Oximetry (90-100 %) 92 94 [Pulse Rate] -Pulse Rate (60-100 beats/min) 123 H 101 H [Comments] -Home Oxygen Evaluation Comments PT REQUIRES 2 L HOME O2 REST AND 3 L WITH AMBULATION [Charges] -Treatment Charges
--- NOTE | 2022-09-07 14:48 | PCRCNOTE ---
PT HAS ALL REQUIRED HOME O2 EQUIPMENT WITH [facility]. NEW ORDER WRITTEN FOR INCREASED O2 NEEDS/BLEED-IN WITH TRILOGY UP TO 4L. PAPERWORK FAXED TO [facility]
== END 2022-09-07 14:20 | disposition home or self-care (01) | DRG 190 ==
LOC: ANHED 13:03 → ANHIMU 13:58
PROVIDERS: Internal Medicine Pulmonary Disease; Nurse Practitioner; Admitting Provider Internal Medicine; Emergency Provider Emergency Medicine; PCP Family Medicine; Visit Provider Student in an Organized Health Care Education/Training Program
DX: J43.9 Emphysema, unspecified (principal); J96.21 Acute and chronic respiratory failure with hypoxia; J96.22 Acute and chronic respiratory failure with hypercapnia; E66.2 Morbid (severe) obesity with alveolar hypoventilation; I42.8 Other cardiomyopathies; Z68.43 Body mass index [BMI] 50.0-59.9, adult; I50.30 Unspecified diastolic (congestive) heart failure; I11.0 Hypertensive heart disease with heart failure; F32.9 Major depressive disorder, single episode, unspecified; Z99.81 Dependence on supplemental oxygen; Z20.822 Contact with and (suspected) exposure to COVID-19; Z95.0 Presence of cardiac pacemaker; Z83.3 Family history of diabetes mellitus; Z82.49 Family history of ischemic heart disease and other diseases of the circulatory system; Z81.8 Family history of other mental and behavioral disorders; Z87.891 Personal history of nicotine dependence; Z79.899 Other long term (current) drug therapy
CPT/HCPCS: 36415; 36600; 71045; 80053; 82805; 83605; 83735; 83880; 84439; 84443; 84484; 85025; 85610; 85730; 87636; 93005; 94002; 94003; 94618; 94640; 94762; 96365; 96375; 99291; A9270; J0131; J1650; J2930; J3475

== ENCOUNTER 2022-10-12 17:34 | Inpatient (IN) | payer MEDICARE, MEDICAID, SELFPAY ==
[2022-10-12] VITALS (17 sets, daily range): BP systolic 121–138; BP diastolic 61–82; PULSE 83–94; RESP 14–24; TEMP 36.8–36.9; O2SAT 88–100; BMI 50.4
--- NOTE | ~2022-10-12 | US_ITS ---
EXAMINATION: US venous doppler [facility] DATE: 10/13/2022 17:10 INDICATION: Lower limb pain TECHNIQUE: Grayscale ultrasound images without and with compression and Doppler ultrasound images of the bilateral lower extremity veins were obtained. COMPARISON: None. FINDINGS: The visualized portions of right common femoral vein, profunda (deep) femoral vein, femoral vein, pop liteal vein, posterior tibial veins, peroneal veins, gastrocnemius vein and greater saphenous vein ou tflow are patent. The visualized portions of left common femoral vein, profunda femoral vein, femoral vein, popliteal v ein, posterior tibial veins, peroneal veins, gastrocnemius vein and greater saphenous vein outflow ar e patent. IMPRESSION: 1. No deep venous thrombosis in either lower limb. Reviewed, dictated and finalized at location A. ICAL PSYCHOLOGY PROFESSOR
--- NOTE | ~2022-10-12 | XR_ITS ---
EXAMINATION: XR chest 1V portable DATE: 10/12/2022 18:48 INDICATION: Shortness of breath and hypoxia TECHNIQUE: frontal view of the chest was obtained. COMPARISON: Chest radiograph dated 09/05/2022 FINDINGS: Opacity lateral left lower lung zone resulting from cardiomegaly and small left pericardial fat pad. Pulmonary vascular congestion without irineo pulmonary edema. No other airspace opacities, pleural eff usion or pneumothorax. Three lead pacemaker/AICD seen with leads projecting over the expected locatio ns of the right atrial appendage, apex of the right ventricle and overlying the left ventricle likely having traversed the coronary sinus. IMPRESSION: 1. Cardiomegaly. Reviewed, dictated and finalized at location A. RUCTOR KNITTING IMPRESSION: 1. Cardiomegaly.
--- NOTE | 2022-10-12 17:48 | ED.SOB ---
HPI - SOB/Dyspnea General Chief Complaint: Shortness of Breath/Dyspnea Stated Complaint: sob Time Seen by Provider: 10/12/22 17:46 History of Present Illness HPI Narrative: Patient is a 61-year-old female with a history of COPD with chronic hypoxic respiratory failure on 2 to 3 L nasal cannula, CHF, hyperlipidemia, hypertension, GERD presenting with dyspnea. Patient has been increasingly short of breath over the last 5 to 6 days. States that she feels like her CO2 is too high. According to family, they have been urging her to come in for the last several days due to her worsening respiratory status. Reports intermittent lightheadedness. Denies chest pain, palpitations, leg swelling. No abdominal pain, nausea or vomiting, diarrhea, dysuria. Related Data Home Medications Medication Instructions Recorded Confirmed atorvastatin 40 mg tablet 40 mg PO HS 07/29/19 10/12/22 buspirone 15 mg tablet 15 mg PO TID 07/29/19 10/12/22 diazepam 5 mg tablet 5 mg PO Q8H PRN Anxiety 07/29/19 10/12/22 ropinirole 0.25 mg tablet 0.25 mg PO HS 07/29/19 10/12/22 furosemide 20 mg tablet 20 mg PO DAILY 11/30/21 10/12/22 tramadol 50 mg tablet 50 mg PO Q6H PRN Pain 11/30/21 10/12/22 sacubitril 49 mg-valsartan 51 mg 1 tablet PO BID 07/14/22 10/12/22 tablet (Entresto) spironolactone 25 mg tablet 25 mg PO DAILY 07/14/22 10/12/22 Allergies Allergy/AdvReac Type Severity Reaction Status Date / Time No Known Allergies Allergy Verified 09/05/22 11:08 Review of Systems Review of Systems: All systems reviewed & are unremarkable except as noted in HPI and below PMFSH Past Medical History Medical History Anxiety Back pain Bronchitis Chronic obstructive pulmonary disease Chronic respiratory failure with hypoxia and hypercapnia 1 prior intubation about 10 years ago Congestive heart failure Depression Emphysema of lung Essential hypertension History of rectal polyps Hyperlipidemia Morbid obesity Nonischemic cardiomyopathy Present since 2006, thought to be due to a viral myocarditis. EF was as low as 10% in June 2017 but patient reports improvement in her EF to 32% most recently. She is followed by Dr. Soliman. ICD in-situ. Obesity hypoventilation syndrome Obstructive sleep apnea On Trilogy unit, previously on BiPAP 22/02 with 3 L of oxygen bleed in. Rectal polyp Surgical History Surgical History Biventricular cardiac pacemaker in situ (2006) History of cardiac cath With no significant coronary artery disease noted with last cardiac catheterization June 2017 demonstrating only 30-40% lesion of the left anterior descending artery. History of colonoscopy (09/2017) History of dilation and curettage (11/2016) History of tubal ligation (1989) Family History Family History Mother Diabetes mellitus Acute myocardial infarction Hypertension Sibling Diabetes mellitus Acute myocardial infarction Cerebrovascular accident Hypertension Schizophrenia Father Congestive heart failure Cerebrovascular accident Hypertension Schizophrenia Social History Social History Social History: The [place] lives her daughter and son-in-law. She has 4 children. 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 She is . She use the smoke and now she uses edible gummies. Surrogate decision maker: Kia Garcia, daughter. Code status: Full code Smoking packs per day: 1 Smoking cigarettes per day: 20.0 Years smoked: 25 Smoking pack-years: 25.00 Smoking status: Former smoker Tobacco type: cigarettes Second hand tobacco smoke exposure: No Alcohol intake: never Substance use: former Substance use type: marijuana Other substance usage details: Patient has history of edible consumption Last use:
[2022-10-12] MEDS: methylPREDNISolone SOD SUCC 125 MG VIAL IV PUSH (17:58)
--- NOTE | 2022-10-12 18:01 | ECG_ITS ---
Measurements Intervals [place] Rate: 86 P: 68 AL: 138 QRS: 251 QRSD: 246 T: 75 QT: 497 QTc: 597 Interpretive Statements ELECTRONIC VENTRICULAR PACEMAKER NO FURTHER INTERPRETATION POSSIBLE COMPARED TO ECG 09/05/2022 11:15:23 NO SIGNIFICANT CHANGES Electronically Signed On 10-13-2022 15:04:55 CLINICAL SPECIALIST VASCULAR by Cristo Rasmussen M.D.
[2022-10-12 18:03] LABS: Basophils Percent Auto 0.5 % (0.2-1.2); Eosinophils Percent Auto 0.3 % (0-4.4); Hematocrit 41.1 % (37.0-47.0); Hemoglobin 11.4 g/dL (12.0-15.0); Immature Granulocyte Absolute 0.09 K/mm3 (0.00-0.031); Immature Granulocyte Percent A 1.2 % (0-0.5); Lymphocytes Absolute Auto 1.05 K/mm3 (0.9-3.2); Lymphocytes Percent Auto 14.3 % (18.3-44.2); Mean Corpuscular HGB Conc 27.7 g/dl (32-36); Mean Corpuscular Hemoglobin 29.5 pg (26-34); Mean Corpuscular Volume 106.5 fl (80-100); Mean Platelet Volume 10.1 fl (7.4-10.4); Monocytes Absolute Auto 0.7 K/mm3 (0.1-0.6); Monocytes Percent Auto 9.7 % (2.6-8.5); Neutrophils Absolute Auto 5.4 K/mm3 (1.3-6.7); Platelet Count Result 202 k/mm3 (150-375); Red Blood Count 3.86 M/mm3 (4.2-5.4); Red Cell Distribution Width 12.9 % (11.5-14.5); White Blood Count 7.4 K/mm3 (4.5-10.0)
[2022-10-12 18:08] LABS: Base Excess ABG 16.7 mEq/l (+/-2.0); Fractional Inspired Oxygen 50 %; HCO3 ABG 50.1 mEq/l (22.0-26.0); Oxygen Content ABG 17.1 %vol (16.0-22.0); Oxygen Saturation ABG 99.4 % (95.0-100.0); Oxyhemoglobin 96.2 % THb (90.0-100.0); PO2 ABG 286.7 mmHg (80.0-100.0); PO2 FiO2 Ratio Arterial Blood 5.73 %; Total Hemoglobin 12.1 g/dL (12.0-18.0)
[2022-10-12 18:09] LABS: Device NASAL CANNULA; Modified Allen's Test Pass; PCO2 ABG 133.8 mmHg (35.0-45.0); Site Drawn RIGHT RADIAL; pH ABG 7.191 (7.350-7.450)
[2022-10-12 18:14] LABS: INR 0.9; Prothrombin Time 11.8 Seconds (11.1-14.7)
[2022-10-12 18:17] LABS: Alanine Aminotransferase 15 U/L (6-35); Albumin Level 3.7 g/dL (3.5-5.1); Alkaline Phosphatase 71 U/L (38-126); Aspartate Amino Transferase 27 U/L (14-36); Bilirubin,Total 0.5 mg/dL (0.2-1.3); Blood Urea Nitrogen 21 mg/dL (7-17); Calcium 7.8 mg/dL (8.4-10.2); Carbon Dioxide > 40 mmol/L (22-30); Chloride 92 mmol/L (98-107); Estimated CRCL calculation 121 ml/min; Estimated Glomerular Filt Rate > 60; Glucose 101 mg/dL (65-110); Potassium 4.8 mmol/L (3.4-5.0); Sodium 140 mmol/L (137-145)
[2022-10-12] MEDS: IPRATROPIUM BR 0.02% INH SOLN 0.5 MG/2.5 ML VIAL INHALATION (18:23)
[2022-10-12] MEDS: ALBUTEROL SULFATE NEB 2.5 MG/3 ML INH 10 MG INHALATION (18:23)
[2022-10-12 18:27] LABS: NT Pro B Type Natriuretic Pept 946 pg/mL (19.9-100); Troponin I 0.032 ng/mL (0.000-0.034)
[2022-10-12 18:38] LABS: Hypochromasia 1+ (NORMAL); Macrocytosis 1+ (NORMAL); Platelet Estimate Adequate (Adequate)
[2022-10-12 18:39] LABS: Schistocytes None Seen (NORMAL); Stomatocytes 2+ (NORMAL)
[2022-10-12 19:09] LABS: Influenza A QL RT-PCR Negative (Negative); Influenza B QL RT-PCR Negative (Negative); RSV RNA, RT-PCR Negative (Negative); SARS-CoV-2 RNA PCR Negative
--- NOTE | 2022-10-12 20:30 | PM.IMHP ---
H&P: HPI History of Present Illness Date/Time: 10/12/22 20:30 Chief Complaint: sob Narrative: This is a 61-year-old female with past medical history significant for chronic hypoxic respiratory failure and hypercarbic respiratory failure patient uses a trilogy at home with 3-4 L. patient recently discharged from [facility] in the month of September for similar reasons she comes back today due to worsening shortness of breath for the last several days history taking is somehow limited as patient is on BiPAP at the time of my visit. Preliminary workup was significant for ABG with pH is 7.91 pCO2 130 PO2 234. An x-ray was reported as: FINDINGS: Opacity lateral left lower lung zone resulting from cardiomegaly and small left pericardial fat pad. Pulmonary vascular congestion without irineo pulmonary edema. No other airspace opacities, pleural effusion or pneumothorax. Three lead pacemaker/AICD seen with leads projecting over the expected locations of the right atrial appendage, apex of the right ventricle and overlying the left ventricle likely having traversed the coronary sinus. IMPRESSION: 1. Cardiomegaly. Review of Systems Review of Systems: ROS unobtainable: Yes unobtainable due to medical condition (Patient is on BiPAP) [facility] Past Medical History Medical History Anxiety Back pain Bronchitis Chronic obstructive pulmonary disease Chronic respiratory failure with hypoxia and hypercapnia 1 prior intubation about 10 years ago Congestive heart failure Depression Emphysema of lung Essential hypertension History of rectal polyps Hyperlipidemia Morbid obesity Nonischemic cardiomyopathy Present since 2006, thought to be due to a viral myocarditis. EF was as low as 10% in June 2017 but patient reports improvement in her EF to 32% most recently. She is followed by Dr. Soliman. ICD in-situ. Obesity hypoventilation syndrome Obstructive sleep apnea On Trilogy unit, previously on BiPAP 22/02 with 3 L of oxygen bleed in. Rectal polyp Surgical History Surgical History Biventricular cardiac pacemaker in situ (2006) History of cardiac cath With no significant coronary artery disease noted with last cardiac catheterization June 2017 demonstrating only 30-40% lesion of the left anterior descending artery. History of colonoscopy (09/2017) History of dilation and curettage (11/2016) History of tubal ligation (1989) Family History Family History Mother Diabetes mellitus Acute myocardial infarction Hypertension Sibling Diabetes mellitus Acute myocardial infarction Cerebrovascular accident Hypertension Schizophrenia Father Congestive heart failure Cerebrovascular accident Hypertension Schizophrenia Social History Social History Social History: [place] lives her daughter and son-in-law. She has 4 children. 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 She is . She use the smoke and now she uses edible gummies. Surrogate decision maker: Kia Garcia, daughter. Code status: Full code Smoking packs per day: 1 Smoking cigarettes per day: 20.0 Years smoked: 25 Smoking pack-years: 25.00 Smoking status: Former smoker Tobacco type: cigarettes Second hand tobacco smoke exposure: No Alcohol intake: never Substance use: former Substance use type: marijuana Other substance usage details: Patient has history of edible consumption Last use: 07/2022 Lack of Transportation: No Lack of Food: Never True Current Housing: I Have Housing Concerned About Future Housing: No Difficulty Paying Gas/Electric Bills: No Difficulty Paying for Meds: No Currently Unemployed: No Education: Associate Degree Difficulty w/ Childcare or Family Care: No Living arra
[2022-10-12] MEDS: LORazepam INJ (*CRX) 2 MG/ML VIAL 0.5 MG IV PUSH (21:09)
[2022-10-12 22:12] LABS: Troponin I 0.035 ng/mL (0.000-0.034)
--- NOTE | 2022-10-12 22:39 | ADMGEN ---
This patient, Olivia Burdick, was admitted to IMU Room 202-01. Patient/family oriented to hospital policies and general routines including ID bracelet, bed and alarms, visiting hours, pain management, procedures, bathroom and other care routines, personal items, smoking policy, room service/diet, and visiting hours. Information on how to activate the Rapid Response Team has been discussed. Patient/Family are encouraged to report perceived risks to care and to ask questions if they do not understand what they are told or what they should do.
[2022-10-12] MEDS: methylPREDNISolone SOD SUCC 125 MG VIAL 60 MG IV PUSH (23:33)
[2022-10-13] VITALS (26 sets, daily range): BP systolic 97–142; BP diastolic 36–73; PULSE 71–99; RESP 18–26; TEMP 36.2–36.7; O2SAT 89–99
[2022-10-13] MEDS: cefTRIAXone 2 GM in SODIUM CHLORIDE 0.9% IV 100 ML 200 ML IVPB (01:14)
[2022-10-13 01:26] LABS: Troponin I 0.029 ng/mL (0.000-0.034)
[2022-10-13] MEDS: ALBUTEROL SULFATE NEB 2.5 MG/3 ML INH INHALATION ×4 (02:21→20:17)
[2022-10-13] MEDS: IPRATROPIUM BR 0.02% INH SOLN 0.5 MG/2.5 ML VIAL INHALATION ×4 (02:22→20:17)
[2022-10-13] MEDS: methylPREDNISolone SOD SUCC 125 MG VIAL 60 MG IV PUSH ×2 (05:05→12:35)
[2022-10-13 05:48] LABS: Glucose Point of Care 124 mg/dl (65-105)
[2022-10-13] MEDS: traMADol HCL (*CRX) 50 MG TABLET PO ×3 (08:25→22:07)
[2022-10-13] MEDS: ENOXAPARIN 40 MG/0.4 ML SYRINGE SUB-Q (08:26)
[2022-10-13] MEDS: PANTOPRAZOLE 40 MG TABLET PO (08:26)
[2022-10-13] MEDS: SPIRONOLACTONE 25 MG TABLET PO (08:26)
[2022-10-13] MEDS: SACUBITRIL/VALSARTAN 49-51 MG TABLET 1 TABLET PO ×2 (08:26→22:07)
[2022-10-13] MEDS: busPIRone HCL 5 MG TABLET 15 MG PO ×3 (08:26→16:12)
[2022-10-13] MEDS: UMECLIDINIUM/VILANTEROL 62.5-25 MCG ELLIPTA 1 PUFF INHALATION (09:25)
--- NOTE | 2022-10-13 11:38 | PM.CNPUL ---
Assessment and Plan Assessment and plan (1) Chronic obstructive pulmonary disease: Code(s): J44.9 - Chronic obstructive pulmonary disease, unspecified Status: Acute Assessment and Plan: 60-year-old woman with COPD for 12 years, 34 PY (quit 2009), on oxygen 3 L Rest, 3 L ambulation, no PFTs available, moderate apical predominant panlobular emphysema on a CT scan from 07/14/2022, 11/10/2017 and 04/19/2020, ZAHEER, obesity hypoventilation syndrome, nonischemic cardiomyopathy with biventricular AICD, hypertension, and hyperlipidemia. ? 01/17/2022 changed from BiPAP to Home Trelegy AVAPS settings:? 500 mL, Max Pressure 30, EPAP minimum/maximum 5/15, Pressure Support minimum / maximum 5/25, RR 20, Rise 2, I time 1.5 seconds, 3 L bleed in. [employer] She has had admission from 07/14/2022 through 07/16/2022 for a broken machine. She was admitted 09/05/2022 through 09/07/2022 for noncompliance. Currently she was Doing well and had no evidence of a COPD exacerbation, pneumonia and had altered mental status with acute on chronic hypercarbic and hypoxemic respiratory failure. Clinically she is responded to BiPAP and is currently awake and communicative. She denied any worsening shortness of breath, cough or change in sputum color.? I do not feel she has a COPD exacerbation at this time. I do not think she has had as a pneumonia at this time. I will discontinue Solu-Medrol. I will discontinue ceftriaxone and azithromycin at this time. I will continue albuterol and ipratropium nebulizers Q 6 hours. Patient with increased leg swelling, an elevated BNP, mild congestion on chest x-ray and I will give Lasix 40 IV q.day. Patient also complaining of right greater than left hip pain and I will order lower extremity Dopplers to exclude DVT. Discussed with Dr. Clemons. Will follow with you. (2) Acute respiratory failure with hypoxia and hypercarbia: Code(s): J96.01 - Acute respiratory failure with hypoxia; J96.02 - Acute respiratory failure with hypercapnia Status: Acute Assessment and Plan: 01/17/2022 changed from BiPAP to Home Trelegy AVAPS settings:? 500 mL, Max Pressure 30, EPAP minimum/maximum 5/15, Pressure Support minimum / maximum 5/25, RR 20, Rise 2, I time 1.5 seconds, 3 L bleed in. [employer] She has had admission from 07/14/2022 through 07/16/2022 for a broken machine. She was admitted 09/05/2022 through 09/07/2022 for noncompliance. 10/12/2022: Patient admitted with altered mental status and ABG on 50% FiO2 was 7.19/134/286. patient tells me she has been wearing her noninvasive ventilation at home with the AVAPS-AE mode through [facility] [employer]. I will attempt to obtain a download to confirm this. 10/13 When I enter the room the patient was on BiPAP 18/03 stating this was uncomfortable. I changed her to a hospital machine with AVAPS at a rate of 20, tidal volume 500, EPAP 5, minimal inspiratory pressure 6, maximal inspiratory pressure 25, inspiratory time 1.0 seconds, rise of 3 and 30% and she said this was more comfortable. This patient was awake and following commands and said she was breathing close to her baseline and the BiPAP was removed and she was placed on 2 L nasal cannula with saturations 93%. We will verify that the patient's home noninvasive ventilator is functioning and tonight I will place her on her home machine with 4 L bleed in and check an ABG in the morning prior to removal and an overnight oximetry. History of Present Illness History of Present Illness Consult date: 10/13/22 Chief complaint: COPD exacerbation Narrative: 10/13/2022 this is a new pulmonary consult for COPD with acute on chronic hypercarbic and hypoxemic respiratory failure. 60-year-old woman with COPD for 12 years, ZAHEER for 5 years on oxygen 2 L Rest, 3 L ambulation, moderate apical predominant panlobular emphysema on a CT scan from 07/14/2022, 11/10/2017 and 04/19/2020, ZAHEER, obesity hypov
--- NOTE | 2022-10-13 12:16 | PM.IMPN ---
Progress Note: A&P Assessment and Plan (1) Acute respiratory failure with hypoxia and hypercarbia: Code(s): J96.01 - Acute respiratory failure with hypoxia; J96.02 - Acute respiratory failure with hypercapnia Status: Acute Assessment and Plan: Admit to IMU Continuous BiPAP ABG reviewed Chest x-ray reviewed Pulmonary consult (2) Chronic obstructive pulmonary disease: Code(s): J44.9 - Chronic obstructive pulmonary disease, unspecified Status: Acute Assessment and Plan: Breathing treatments Systemic steroids (3) Nonischemic cardiomyopathy: Code(s): I42.8 - Other cardiomyopathies Status: Acute Assessment and Plan: Patient appears euvolemic -hold on diuretic for now Continue to monitor intake and output daily EF is around 40% on last echocardiogram. (4) Morbid obesity with BMI of 50.0-59.9, adult: Code(s): E66.01 - Morbid (severe) obesity due to excess calories; Z68.43 - Body mass index [BMI] 50.0-59.9, adult Status: Acute Assessment and Plan: Lifestyle and diet modifications Subjective Date/time seen: 10/13/22 12:16 No new complaints Exam Narrative: Patient is laying in a stretcher she is currently on BiPAP Const: General: cooperative, comfortable, well developed, alert, awake, acute distress mild, ill appearing acutely and obese Nutritional Appearance: obese morbidly obese Orientation/consciousness: patient oriented x3 HENMT: Head: normal to inspection, normocephalic and atraumatic Ears: hearing grossly normal bilaterally Face/Nose/Sinus: normal facial exam Face and sinus: normal facial exam Eyes: General: appearance normal, both eyes and all related structures Pupils: Equal, round and reactive pupils present EOM: EOMs intact bilaterally Neck: Neck: full ROM, no lymphadenopathy and no JVD Thyroid: thyroid normal Lymphatic: no lymphadenopathy noted Resp: Effort & Inspection: normal respiratory effort and able to speak in complete sentences Auscultation: clear to auscultation bilaterally, no crackles, no rales, no rhonchi, no wheezes and diminished lung sounds Cardio: Jugular venous distension: no JVD Rate: regular rate Rhythm: regular rhythm Heart sounds: S1 normal heart sound present and S2 normal heart sound present GI: Inspection: Pannus present and obesity : General: Yes deferred Skin: Rashes: no rashes Wounds: no wounds Neuro: General: patient oriented x3, CN's II-XI intact bilaterally and Unable to assess gait Cranial nerves: Yes CN's II-XII intact bilaterally and Yes Equal, round and reactive pupils present Cognition (Neuro): normal cognition Speech: normal speech Gait exam (Neuro): Unable to assess gait Motor exam (neuro): 5/5 motor strength present throughout Extrem: General: normal to inspection, full ROM, no joint enlargement and no pedal edema Objective Data Vital Signs Vital Signs: Vital Signs - 24 hr 10/12/22 17:40 10/12/22 18:01 10/12/22 18:10 Temperature 98.5 F Pulse Rate 93 Respiratory Rate 16 Blood Pressure 122/70 Pulse Oximetry 100 100 97 Oxygen Delivery Non-Rebreather Mask Non-Rebreather Mask Non-Rebreather Mask Oxygen Flow Rate 15 15 15 10/12/22 18:22 10/12/22 18:32 10/12/22 17:53 Temperature Pulse Rate 92 89 83 Respiratory Rate 18 16 14 Blood Pressure Pulse Oximetry 93 Oxygen Delivery BiPAP Oxygen Flow Rate 10/12/22 18:00 10/12/22 18:15 10/12/22 18:30 Temperature Pulse Rate 87 89 94 Respiratory Rate 17 16 18 Blood Pressure Pulse Oximetry 100 100 94 Oxygen Delivery Oxygen Flow Rate 10/12/22 18:45 10/12/22 19:00 10/12/22 19:30 Temperature Pulse Rate 93 89 89 Respiratory Rate 21 H 18 18 Blood Pressure Pulse Oximetry 95 90 88 L Oxygen Delivery Oxygen Flow Rate 10/12/22 21:57 10/12/22 19:40 10/12/22 22:34 Temperature Pulse Rate 88 89 Respiratory Rate 14 20 Blood Pressure 121/61 Pulse Oximetry 95 95 97 Ox
[2022-10-13] MEDS: FUROSEMIDE INJ 40 MG/4 ML VIAL IV PUSH (12:35)
[2022-10-13 17:25] LABS: Appearance Urine Clear (Clear); Bilirubin Urine Negative (Negative); Blood Urine Negative (Negative); Color Urine Yellow (Yellow); Glucose Urine UA Negative (Negative); Ketones Urine Negative (Negative); Leukocyte Esterase Ur Negative LEU/UL (Negative); Nitrate Urine Negative (Negative); Protein Urine Negative (Negative); Specific Grav Ur 1.015 (1.001-1.035); Urobilinogen Urine 0.2 mg/dL (<2.0); pH Urine 6.5 (5.0-9.0)
[2022-10-13 17:35] LABS: Add Urine Microscopic? NO
[2022-10-13] MEDS: diazePAM (*CRX) 5 MG TABLET PO (22:07)
[2022-10-13] MEDS: ATORVASTATIN 40 MG TABLET PO (22:08)
[2022-10-13] MEDS: DULoxetine HCL 20 MG CAPSULE.DR PO (22:08)
[2022-10-13] MEDS: rOPINIRole HCL 0.25 MG TABLET PO (22:08)
[2022-10-14] VITALS (10 sets, daily range): BP systolic 105–143; BP diastolic 51–77; PULSE 70–106; RESP 16–18; TEMP 36.3–36.7; O2SAT 93–99
[2022-10-14] MEDS: traMADol HCL (*CRX) 50 MG TABLET PO ×2 (05:14→11:07)
[2022-10-14 05:27] LABS: Alveolar/Arterial O2 Gradient 111.1 mmHg; Base Excess ABG 14.9 mEq/l (+/-2.0); Fractional Inspired Oxygen 36 %; Oxygen Content ABG 17.2 %vol (16.0-22.0); Oxygen Saturation ABG 96.2 % (95.0-100.0); Oxyhemoglobin 94.8 % THb (90.0-100.0); PCO2 ABG 56.8 mmHg (35.0-45.0); PO2 ABG 79.7 mmHg (80.0-100.0); PO2 FiO2 Ratio Arterial Blood 2.21 %; Total Hemoglobin 12.9 g/dL (12.0-18.0); pH ABG 7.476 (7.350-7.450)
[2022-10-14 05:28] LABS: Modified Allen's Test Pass; Site Drawn RIGHT RADIAL
[2022-10-14 05:29] LABS: Device NON-INVASIVE VENT
[2022-10-14] MEDS: ALBUTEROL SULFATE NEB 2.5 MG/3 ML INH INHALATION ×2 (08:22→13:57)
[2022-10-14] MEDS: IPRATROPIUM BR 0.02% INH SOLN 0.5 MG/2.5 ML VIAL INHALATION ×2 (08:23→13:57)
[2022-10-14] MEDS: FUROSEMIDE INJ 40 MG/4 ML VIAL IV PUSH (08:48)
[2022-10-14] MEDS: SPIRONOLACTONE 25 MG TABLET PO (08:48)
[2022-10-14] MEDS: PANTOPRAZOLE 40 MG TABLET PO (08:48)
[2022-10-14] MEDS: SACUBITRIL/VALSARTAN 49-51 MG TABLET 1 TABLET PO (08:48)
[2022-10-14] MEDS: busPIRone HCL 5 MG TABLET 15 MG PO ×2 (08:49→13:38)
[2022-10-14] MEDS: ENOXAPARIN 40 MG/0.4 ML SYRINGE SUB-Q (08:49)
[2022-10-14] MEDS: diazePAM (*CRX) 5 MG TABLET PO (09:01)
--- NOTE | 2022-10-14 10:07 | PM.PNPUL ---
Progress Note: A&P Assessment and Plan (1) Chronic obstructive pulmonary disease: Code(s): J44.9 - Chronic obstructive pulmonary disease, unspecified Status: Acute Assessment and Plan: 60-year-old woman with COPD for 12 years, 34 PY (quit 2009), on oxygen 2 L Rest, 3 L ambulation, no PFTs available, moderate apical predominant panlobular emphysema on a CT scan from 07/14/2022, 11/10/2017 and 04/19/2020, [facility], obesity hypoventilation syndrome, nonischemic cardiomyopathy with biventricular AICD, hypertension, and hyperlipidemia. ? 01/17/2022 changed from BiPAP to Home Trelegy AVAPS settings:? 500 mL, Max Pressure 30, EPAP minimum/maximum 5/15, Pressure Support minimum / maximum 5/25, RR 20, Rise 2, I time 1.5 seconds, 3 L bleed in. [facility] [employer].? She has had admission from 07/14/2022 through 07/16/2022 for a broken machine. She was admitted 09/05/2022 through 09/07/2022 for noncompliance. Currently she was Doing well and had no evidence of a COPD exacerbation, pneumonia and had altered mental status with acute on chronic hypercarbic and hypoxemic respiratory failure. Clinically she is responded to BiPAP and is currently awake and communicative. She denied any worsening shortness of breath, cough or change in sputum color.? I do not feel she has a COPD exacerbation at this time. I do not think she has had as a pneumonia at this time. I will discontinue Solu-Medrol. I will discontinue ceftriaxone and azithromycin at this time. I will continue albuterol and ipratropium nebulizers Q 6 hours. Patient with increased leg swelling, an elevated BNP, mild congestion on chest x-ray and I will give Lasix 40 IV q.day. Patient also complaining of right greater than left hip pain and I will order lower extremity Dopplers to exclude DVT. Lower extremity Dopplers were negative. 10/14 Currently the patient tells me she is breathing back to normal. She denies fever, chills, wheezing, phlegm production. She does have some shaking. Currently she is on 2 L nasal cannula saturation 96%. I do not think she had a COPD exacerbation this admission. This admission was due to noncompliance with her home noninvasive ventilator. Patient is ready to be discharged from a pulmonary perspective on these pulmonary medications: Anoro Ellipta 62.5-25 at 1 puff q.day. Rescue albuterol 2 puffs q.4 hours p.r.n. shortness of breath or wheezing. Oxygen 2 L at rest and 3 with ambulation. When she naps her sleeps: AVAPS-AE mode set at auto rate, tidal volume 500, minimum EPAP 5, maximum EPAP 15, minimum pressure support 5, maximum pressure support 25, speed of 5, rise of 2, 4 L bleed in. follow-up in pulmonary clinic 3-4 weeks. 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 Discussed with Dr. Clemons. I obtained a download from [employer] from 07/14/2022 through 10/11/2022: AVAPS-AE mode set at auto rate, tidal volume 500, minimum EPAP 5, maximum EPAP 15, minimum pressure support 5, maximum pressure support 25, speed of 5, rise of 2. % of days used is 76.7. % of days used greater than or equal to 4 hours is 25.6%. Average use on days used is 3.4 hours. average EPAP is 6, average peak pressure is 26, average tidal volume is 476, average respiratory rate is 13.1, average minute ventilation is 6.4, average leak is 36. I interpret this download as poor compliance, adequate pressures and moderate leak. Of note on 10/11/2022 the day before she was admitted she used the machine for [address] Clemons. Will follow with you. (2) Acute respiratory failure with hypoxia and hypercarbia: Code(s): J96.01 - Acute respiratory failure with hypoxia; J96.02 - Acute respiratory failure with hypercapnia Status: Acute Assessment and Plan: 01/17/2022 changed from BiPAP to Home Trelegy AVAPS settings:? 500 mL, Max Pressure 30, EPAP minimum/maximum 5/15, Pressure Support minimum / maximum 5/25, RR 20, Rise
--- NOTE | 2022-10-14 12:05 | PM.DS ---
DS: Admitting Diagnosis Discharge Date October 14, 2022 Admitting Diagnosis Hypercarbic respiratory failure DS: Discharge Diagnosis Discharge Diagnosis (1) Acute respiratory failure with hypoxia and hypercarbia: Code(s): J96.01 - Acute respiratory failure with hypoxia; J96.02 - Acute respiratory failure with hypercapnia Status: Acute Assessment and Plan: Admit to IMU Continuous BiPAP ABG reviewed Chest x-ray reviewed Pulmonary consult (2) Chronic obstructive pulmonary disease: Code(s): J44.9 - Chronic obstructive pulmonary disease, unspecified Status: Acute Assessment and Plan: Breathing treatments Systemic steroids (3) Nonischemic cardiomyopathy: Code(s): I42.8 - Other cardiomyopathies Status: Acute Assessment and Plan: Patient appears euvolemic -hold on diuretic for now Continue to monitor intake and output daily EF is around 40% on last echocardiogram. (4) Morbid obesity with BMI of 50.0-59.9, adult: Code(s): E66.01 - Morbid (severe) obesity due to excess calories; Z68.43 - Body mass index [BMI] 50.0-59.9, adult Status: Acute Assessment and Plan: Lifestyle and diet modifications DS: Summary Hospital Course Hospital Course: Patient is a 61-year-old female with numerous medical problems including hypercarbic respiratory failure came in with elevated CO2 and noncompliance to her home AVAPS. Pulmonary was consulted and some adjustments were made to home oxygen and once she started using her home machine her ABG improved. Patient need to continue this on discharge. Follow-up pulmonary as outpatient. Time Spent with Patient Time attestation: Total time spent providing and/or coordinating discharge services: Exam Narrative: Patient is laying in a stretcher she is currently on BiPAP Const: General: cooperative, comfortable, well developed, alert, awake, acute distress mild, ill appearing acutely and obese Nutritional Appearance: obese morbidly obese Orientation/consciousness: patient oriented x3 HENMT: Head: normal to inspection, normocephalic and atraumatic Ears: hearing grossly normal bilaterally Face/Nose/Sinus: normal facial exam Face and sinus: normal facial exam Eyes: General: appearance normal, both eyes and all related structures Pupils: Equal, round and reactive pupils present EOM: EOMs intact bilaterally Neck: Neck: full ROM, no lymphadenopathy and no JVD Thyroid: thyroid normal Lymphatic: no lymphadenopathy noted Resp: Effort & Inspection: normal respiratory effort and able to speak in complete sentences Auscultation: clear to auscultation bilaterally, no crackles, no rales, no rhonchi, no wheezes and diminished lung sounds Cardio: Jugular venous distension: no JVD Rate: regular rate Rhythm: regular rhythm Heart sounds: S1 normal heart sound present and S2 normal heart sound present GI: Inspection: Pannus present and obesity : General: Yes deferred Skin: Rashes: no rashes Wounds: no wounds Neuro: General: patient oriented x3, CN's II-XI intact bilaterally and Unable to assess gait Cranial nerves: Yes CN's II-XII intact bilaterally and Yes Equal, round and reactive pupils present Cognition (Neuro): normal cognition Speech: normal speech Gait exam (Neuro): Unable to assess gait Motor exam (neuro): 5/5 motor strength present throughout Extrem: General: normal to inspection, full ROM, no joint enlargement and no pedal edema DS: Data Data Completed and Pending Labs on day of discharge: Labs from last 24 hours 10/14/22 10/13/22 04:54 17:11 Puncture Site Right radial ABG pH 7.476 H ABG pCO2 56.8 H ABG pO2 79.7 L ABG PO2/FiO2 Ratio 2.21 ABG HCO3 41.0 H ABG O2 Saturation 96.2 ABG O2 Content 17.2 ABG Base Excess 14.9 A-a Gradient 111.1 Oxyhemoglobin 94.8 Total Hemoglobin 12.9 O2 Delivery Device Non-invasive vent O2 Liters/Min 4.0 Vent Rate Not Reportable FiO2 36 Expirat
== END 2022-10-14 14:30 | disposition home or self-care (01) | DRG 190 ==
LOC: ANHED 19:05 → ANHIMU 21:26
PROVIDERS: Internal Medicine Pulmonary Disease; Admitting Provider Internal Medicine; Emergency Provider Emergency Medicine; PCP Family Medicine; Visit Provider Chiropractor
DX: J43.1 Panlobular emphysema (principal); J96.02 Acute respiratory failure with hypercapnia; J96.21 Acute and chronic respiratory failure with hypoxia; J96.22 Acute and chronic respiratory failure with hypercapnia; E66.2 Morbid (severe) obesity with alveolar hypoventilation; Z68.43 Body mass index [BMI] 50.0-59.9, adult; I43 Cardiomyopathy in diseases classified elsewhere; I11.0 Hypertensive heart disease with heart failure; I50.9 Heart failure, unspecified; Z20.822 Contact with and (suspected) exposure to COVID-19; E78.5 Hyperlipidemia, unspecified; F41.9 Anxiety disorder, unspecified; F32.A Depression, unspecified; G25.81 Restless legs syndrome; K21.9 Gastro-esophageal reflux disease without esophagitis; Z99.81 Dependence on supplemental oxygen; Z87.891 Personal history of nicotine dependence; Z91.199 Patient's noncompliance with other medical treatment and regimen due to unspecified reason; Z95.810 Presence of automatic (implantable) cardiac defibrillator
CPT/HCPCS: 36415; 36600; 71045; 80053; 81003; 82805; 82948; 83880; 84484; 85025; 85610; 85730; 87637; 93005; 93970; 94002; 94640; 94660; 94762; 96365; 96367; 96372; 96375; 96376; 99285; A9270; G0378; J0131; J0456; J0696; J1650; J1940; J2060; J2930

== ENCOUNTER 2023-01-21 17:48 | Inpatient (IN) | payer MEDICARE, MEDICAID, SELFPAY ==
[2023-01-21] VITALS (7 sets, daily range): BP systolic 93–142; BP diastolic 49–73; PULSE 81–93; RESP 13–25; TEMP 36.2; O2SAT 97–100
--- NOTE | ~2023-01-21 | XR_ITS ---
EXAMINATION: XR chest 1V portable DATE: 01/21/2023 18:54 INDICATION: Shortness of breath TECHNIQUE: frontal view of the chest was obtained. COMPARISON: Chest radiograph dated 10/12/2022 FINDINGS: Unchanged opacity at the lateral left lower lung zone resulting from cardiomegaly and small left para cardial fat pad. Pulmonary vascular congestion without irineo pulmonary edema. No other airspace opaci ties, pleural effusion or pneumothorax. Three lead pacemaker/AICD seen with leads projecting over the expected locations of the right atrial appendage, apex of the right ventricle and overlying the left ventricle likely having traversed the coronary sinus. IMPRESSION: 1. Cardiomegaly. Reviewed, dictated and finalized at location A. IMPRESSION: 1. Cardiomegaly.
--- NOTE | 2023-01-21 18:17 | ECG_ITS ---
Measurements Intervals [place] Rate: 92 P: 36 HI: 104 QRS: 247 QRSD: 234 T: 70 QT: 480 QTc: 595 Interpretive Statements ATRIAL SENSE-ELECTRONIC VENTRICULAR PACEMAKER NO FURTHER INTERPRETATION IS POSSIBLE ATYPICAL ECG COMPARED TO ECG 10/12/2022 18:06:49 NO SIGNIFICANT CHANGES Electronically Signed On 01-21-2023 22:14:11 CDT by Juan R Avilez D.O.
--- NOTE | 2023-01-21 18:18 | ED.SOB ---
HPI - SOB/Dyspnea General Chief Complaint: Shortness of Breath/Dyspnea Stated Complaint: sob Time Seen by Provider: 01/21/23 17:56 Source: patient and old records reviewed Mode of arrival: ambulatory Limitations: no limitations History of Present Illness HPI Narrative: Patient is a 62 y/o female with PMH of morbid obesity, pacemaker/AICD, CHF, COPD, chronic respiratory failure on home O2, who presents to the ED with c/o increased SOB. Patient reports she had a busy week and exerted herself more than usual this week. She developed increased shortness of breath last night, which persisted into today. Patient wears home oxygen, anywhere from 2 to 4 L depending on activity. She has required mostly 3 to 4 L yesterday and today. Oxygen 97% on 4 L upon arrival to the ED. Patient also reports having a mild cough, fatigue, and generalized weakness, but denies chest pain, worsening lower extremity swelling, abdominal pain, nausea, vomiting, fevers. Related Data Home Medications Medication Instructions Recorded Confirmed atorvastatin 40 mg tablet 40 mg PO HS 07/29/19 11/11/22 buspirone 15 mg tablet 15 mg PO TID 07/29/19 11/11/22 diazepam 5 mg tablet 5 mg PO Q8H PRN Anxiety 07/29/19 11/11/22 ropinirole 0.25 mg tablet 0.25 mg PO HS 07/29/19 11/11/22 furosemide 20 mg tablet 20 mg PO DAILY 11/30/21 11/11/22 tramadol 50 mg tablet 50 mg PO Q6H PRN Pain 11/30/21 11/11/22 sacubitril 49 mg-valsartan 51 mg 1 tablet PO BID 07/14/22 11/11/22 tablet (Entresto) spironolactone 25 mg tablet 25 mg PO DAILY 07/14/22 11/11/22 Allergies Allergy/AdvReac Type Severity Reaction Status Date / Time No Known Allergies Allergy Verified 11/11/22 15:31 Review of Systems Review of Systems: CONSTITUTIONAL: Reports generalized weakness, fatigue. Denies fever, chills, or sweats. CARDIOVASCULAR: See HPI. RESPIRATORY: See HPI. GASTROINTESTINAL: Denies abdominal pain, nausea, vomiting, or diarrhea. GENITOURINARY: Denies dysuria or hematuria. SKIN: Denies rash or itching. MUSCULOSKELETAL: Denies back pain, joint pain, or myalgia. NEUROLOGIC: Denies headache, numbness, or weakness. All systems reviewed & are unremarkable except as noted in HPI and below PMFSH Past Medical History Medical History Anxiety Back pain Bronchitis Chronic obstructive pulmonary disease Chronic respiratory failure with hypoxia and hypercapnia 1 prior intubation about 10 years ago Congestive heart failure Depression Emphysema of lung Essential hypertension History of rectal polyps Hyperlipidemia Morbid obesity Nonischemic cardiomyopathy Present since 2006, thought to be due to a viral myocarditis. EF was as low as 10% in June 2017 but patient reports improvement in her EF to 32% most recently. She is followed by Dr. Soliman. ICD in-situ. Obesity hypoventilation syndrome Obstructive sleep apnea On Trilogy unit, previously on BiPAP 22/02 with 3 L of oxygen bleed in. Rectal polyp Surgical History Surgical History Biventricular cardiac pacemaker in situ (2006) History of cardiac cath With no significant coronary artery disease noted with last cardiac catheterization June 2017 demonstrating only 30-40% lesion of the left anterior descending artery. History of colonoscopy (09/2017) History of dilation and curettage (11/2016) History of tubal ligation (1989) Family History Family History Mother Diabetes mellitus Acute myocardial infarction Hypertension Sibling Diabetes mellitus Acute myocardial infarction Cerebrovascular accident Hypertension Schizophrenia Father Congestive heart failure Cerebrovascular accident Hypertension Schizophrenia Social History Social History Social History: The pedicle lives her daughter and son-
[2023-01-21 19:37] LABS: Alveolar/Arterial O2 Gradient 46.2 mmHg; Carboxyhemoglobin 1.6 % THb (0-2.0); Fractional Inspired Oxygen 40 %; Methemoglobin ABG 0.3 %THb (0-1.5); Oxygen Content ABG 16.5 %vol (16.0-22.0); Oxyhemoglobin 94.7 % THb (90.0-100.0); PO2 ABG 94.2 mmHg (80.0-100.0); PO2 FiO2 Ratio Arterial Blood 2.36 %; Reduced Hemoglobin 3.4 %THb (0-5.0); Total Hemoglobin 12.3 g/dL (12.0-18.0)
[2023-01-21 19:49] LABS: pH ABG 7.242 (7.350-7.450)
[2023-01-21 19:50] LABS: Device NASAL CANNULA; Modified Allen's Test Pass; PCO2 ABG 125.9 mmHg (35.0-45.0); Site Drawn LEFT RADIAL
[2023-01-21 19:51] LABS: Influenza A QL RT-PCR Negative (Negative); Influenza B QL RT-PCR Negative (Negative); SARS-CoV-2 RNA PCR Negative (Negative)
[2023-01-21 19:54] LABS: Basophils Percent Auto 0.5 % (0.2-1.2); Eosinophils Absolute Auto 0.1 K/mm3 (0-0.3); Eosinophils Percent Auto 0.7 % (0-4.4); Hematocrit 40.7 % (37.0-47.0); Hemoglobin 11.1 g/dL (12.0-15.0); Immature Granulocyte Absolute 0.03 K/mm3 (0.00-0.031); Immature Granulocyte Percent A 0.4 % (0-0.5); Lymphocytes Absolute Auto 0.79 K/mm3 (0.9-3.2); Lymphocytes Percent Auto 10.4 % (18.3-44.2); Mean Corpuscular HGB Conc 27.3 g/dl (32-36); Mean Corpuscular Hemoglobin 29.4 pg (26-34); Mean Corpuscular Volume 107.7 fl (80-100); Mean Platelet Volume 9.9 fl (7.4-10.4); Monocytes Absolute Auto 0.6 K/mm3 (0.1-0.6); Monocytes Percent Auto 7.9 % (2.6-8.5); Neutrophils Absolute Auto 6.1 K/mm3 (1.3-6.7); Neutrophils Percent Auto 80.1 % (45.5-73.1); Platelet Count Result 188 k/mm3 (150-375); Red Blood Count 3.78 M/mm3 (4.2-5.4); Red Cell Distribution Width 13.2 % (11.5-14.5); White Blood Count 7.6 K/mm3 (4.5-10.0)
[2023-01-21 20:04] LABS: INR 0.9; Partial Thromboplastin Time 24.7 SECONDS (22.3-36.8); Prothrombin Time 12.4 Seconds (11.1-14.7)
[2023-01-21 20:06] LABS: Hypochromasia 1+ (NORMAL); Platelet Estimate Adequate (Adequate); Schistocytes None Seen (NORMAL)
[2023-01-21 20:07] LABS: Magnesium 2.2 mg/dL (1.6-2.3)
[2023-01-21 21:06] LABS: D Dimer 0.55 ug/mL (<0.48)
[2023-01-21 21:24] LABS: Alanine Aminotransferase 15 U/L (6-35); Albumin Level 3.7 g/dL (3.5-5.1); Alkaline Phosphatase 79 U/L (38-126); Aspartate Amino Transferase 25 U/L (14-36); Bilirubin,Total 0.4 mg/dL (0.2-1.3); Blood Urea Nitrogen 15 mg/dL (7-17); Carbon Dioxide > 40 mmol/L (22-30); Chloride 87 mmol/L (98-107); Estimated CRCL calculation 106 ml/min; Estimated Glomerular Filt Rate > 60; Glucose 116 mg/dL (65-110); Potassium 4.8 mmol/L (3.4-5.0); Sodium 137 mmol/L (137-145)
[2023-01-21 21:29] LABS: NT Pro B Type Natriuretic Pept 654 pg/mL (19.9-100); Troponin I 0.033 ng/mL (0.000-0.034)
[2023-01-21 21:56] LABS: Alveolar/Arterial O2 Gradient 102.3 mmHg; Base Excess ABG 19.6 mEq/l (+/-2.0); Carboxyhemoglobin 1.4 % THb (0-2.0); Fractional Inspired Oxygen 40 %; HCO3 ABG 49.5 mEq/l (22.0-26.0); Methemoglobin ABG 0.1 %THb (0-1.5); Oxygen Content ABG 16.3 %vol (16.0-22.0); Oxygen Saturation ABG 94.5 % (95.0-100.0); Oxyhemoglobin 94.9 % THb (90.0-100.0); PO2 ABG 79.9 mmHg (80.0-100.0); Reduced Hemoglobin 3.6 %THb (0-5.0); Total Hemoglobin 12.2 g/dL (12.0-18.0)
--- NOTE | 2023-01-21 22:12 | PC.NURSE ---
[facility] phone number. [phone]
--- NOTE | 2023-01-21 22:55 | PM.IMHP ---
H&P: HPI History of Present Illness Date/Time: 01/21/23 22:55 Chief Complaint: SOB Narrative: This is a 62-year-old female with past medical history significant for hypercarbic and hypoxic respiratory failure patient uses trilogy at nighttime, COPD, emphysema, hypertension, morbid obesity, obesity hypoventilation syndrome, obstructive sleep apnea, biventricular cardiac pacemaker. patient presents via EMS due to shortness of breath which started the night before usually uses 2-4 L of supplemental oxygen by nasal cannula. History taking is limited as patient is on trilogy. had a productive cough of clear sputum, denies any fevers, rigors, chills. preliminary workup was significant for blood gas with pCO2 of 125 pH of 7.2 PO2 53. An x-ray was reported as: EXAMINATION: XR chest 1V portable DATE: 01/21/2023 18:54 INDICATION: Shortness of breath TECHNIQUE: frontal view of the chest was obtained. COMPARISON: Chest radiograph dated 10/12/2022 FINDINGS: Unchanged opacity at the lateral left lower lung zone resulting from cardiomegaly and small left paracardial fat pad. Pulmonary vascular congestion without irineo pulmonary edema. No other airspace opacities, pleural effusion or pneumothorax. Three lead pacemaker/AICD seen with leads projecting over the expected locations of the right atrial appendage, apex of the right ventricle and overlying the left ventricle likely having traversed the coronary sinus. IMPRESSION: 1. Cardiomegaly. Review of Systems Review of Systems: ROS unobtainable: Yes unobtainable due to medical condition ( respiratory failure on Trelegy) [facility] Past Medical History Medical History Anxiety Back pain Bronchitis Chronic obstructive pulmonary disease Chronic respiratory failure with hypoxia and hypercapnia 1 prior intubation about 10 years ago Congestive heart failure Depression Emphysema of lung Essential hypertension History of rectal polyps Hyperlipidemia Morbid obesity Nonischemic cardiomyopathy Present since 2006, thought to be due to a viral myocarditis. EF was as low as 10% in June 2017 but patient reports improvement in her EF to 32% most recently. She is followed by Dr. Soliman. ICD in-situ. Obesity hypoventilation syndrome Obstructive sleep apnea On Trilogy unit, previously on BiPAP 22/02 with 3 L of oxygen bleed in. Rectal polyp Surgical History Surgical History Biventricular cardiac pacemaker in situ (2006) History of cardiac cath With no significant coronary artery disease noted with last cardiac catheterization June 2017 demonstrating only 30-40% lesion of the left anterior descending artery. History of colonoscopy (09/2017) History of dilation and curettage (11/2016) History of tubal ligation (1989) Family History Family History Mother Diabetes mellitus Acute myocardial infarction Hypertension Sibling Diabetes mellitus Acute myocardial infarction Cerebrovascular accident Hypertension Schizophrenia Father Congestive heart failure Cerebrovascular accident Hypertension Schizophrenia Social History Social History Social History: The pedicle lives her daughter and son-in-law. She has 4 children. 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 She is . She use the smoke and now she uses edible gummies. Surrogate decision maker: Kia Garcia, daughter. Code status: Full code Smoking packs per day: 1 Smoking cigarettes per day: 20.0 Years smoked: 25 Smoking pack-years: 25.00 Smoking status: Former smoker Tobacco type: cigarettes Second hand tobacco smoke exposure: No Alcohol intake: never Substance use: current Substance use type: does not use Other substance usage details: Patient has history of lily
[2023-01-21] MEDS: ACETAMINOPHEN 500 MG TABLET 1000 MG PO (22:56)
[2023-01-21 23:14] LABS: Device OTHER DEVICE; Modified Allen's Test Pass; PCO2 ABG 89.6 mmHg (35.0-45.0); Site Drawn LEFT RADIAL
[2023-01-21 23:59] LABS: Troponin I 0.038 ng/mL (0.000-0.034)
[2023-01-22] VITALS (30 sets, daily range): BP systolic 79–137; BP diastolic 44–90; PULSE 70–102; RESP 16–24; TEMP 35.8–36.7; O2SAT 90–100; BMI 52.9
--- NOTE | 2023-01-22 00:07 | ADMGEN ---
This patient, Olivia Burdick, was admitted to IMU Room 214-01. Patient/family oriented to hospital policies and general routines including ID bracelet, bed and alarms, visiting hours, pain management, procedures, bathroom and other care routines, personal items, smoking policy, room service/diet, and visiting hours. Information on how to activate the Rapid Response Team has been discussed. Patient/Family are encouraged to report perceived risks to care and to ask questions if they do not understand what they are told or what they should do.
[2023-01-22 02:47] LABS: Troponin I 0.043 ng/mL (0.000-0.034)
[2023-01-22] MEDS: ALBUTEROL SULFATE NEB 2.5 MG/3 ML INH INHALATION ×4 (03:11→19:11)
[2023-01-22] MEDS: IPRATROPIUM BR 0.02% INH SOLN 0.5 MG/2.5 ML VIAL INHALATION ×4 (03:12→19:11)
[2023-01-22] MEDS: methylPREDNISolone SOD SUCC 125 MG VIAL 60 MG IV PUSH ×3 (05:51→23:16)
[2023-01-22] MEDS: UMECLIDINIUM/VILANTEROL 62.5-25 MCG ELLIPTA 1 PUFF INHALATION (08:37)
[2023-01-22] MEDS: busPIRone HCL 5 MG TABLET 15 MG PO ×2 (09:38→17:37)
[2023-01-22] MEDS: PANTOPRAZOLE 40 MG TABLET PO (09:39)
[2023-01-22] MEDS: SACUBITRIL/VALSARTAN 49-51 MG TABLET 1 TABLET PO ×2 (09:39→21:03)
[2023-01-22] MEDS: FUROSEMIDE 20 MG TABLET PO (09:39)
[2023-01-22] MEDS: carvediloL 6.25 MG TABLET PO ×2 (09:39→21:02)
--- NOTE | 2023-01-22 10:38 | PM.IMPN ---
Progress Note: A&P Assessment and Plan (1) Acute on chronic respiratory failure with hypoxia and hypercapnia: Code(s): J96.21 - Acute and chronic respiratory failure with hypoxia; J96.22 - Acute and chronic respiratory failure with hypercapnia Status: Acute Assessment and Plan: admit to IMU continuous Trilogy repeat ABG shows improvement NPO continuous telemetry continuous pulse ox (2) Obstructive sleep apnea: Code(s): G47.33 - Obstructive sleep apnea (adult) (pediatric) Status: Chronic Assessment and Plan: currently on trilogy (3) Chronic obstructive pulmonary disease: Qualifiers: COPD type: unspecified COPD Qualified Code(s): J44.9 - Chronic obstructive pulmonary disease, unspecified Code(s): J44.9 - Chronic obstructive pulmonary disease, unspecified Status: Acute Assessment and Plan: continue breathing treatments (4) Morbid obesity with BMI of 50.0-59.9, adult: Code(s): E66.01 - Morbid (severe) obesity due to excess calories; Z68.43 - Body mass index [BMI] 50.0-59.9, adult Status: Acute Assessment and Plan: lifestyle and diet modifications Subjective Date/time seen: 01/22/23 10:38 Interval history: breathing better Exam Narrative: in semi upright position Trelegy on Const: General: comfortable, no acute distress, well developed, alert, awake, average body habitus and obese Nutritional Appearance: average body habitus and obese morbidly obese Orientation/consciousness: patient oriented x3 HENMT: Head: normal to inspection, normocephalic and atraumatic Ears: hearing grossly normal bilaterally Face/Nose/Sinus: normal facial exam Face and sinus: normal facial exam Other: Trelegy mask on Eyes: General: appearance normal, both eyes and all related structures Pupils: Equal, round and reactive pupils present EOM: EOMs intact bilaterally Neck: Neck: full ROM, no lymphadenopathy and no JVD Thyroid: thyroid normal Lymphatic: no lymphadenopathy noted Resp: Effort & Inspection: normal respiratory effort and able to speak in complete sentences Auscultation: clear to auscultation bilaterally Cardio: Jugular venous distension: no JVD Rate: regular rate Rhythm: regular rhythm Heart sounds: S1 normal heart sound present and S2 normal heart sound present GI: Inspection: Pannus present and obesity : General: Yes deferred Skin: Rashes: no rashes Wounds: no wounds Neuro: General: patient oriented x3, CN's II-XI intact bilaterally and Unable to assess gait Cranial nerves: Yes CN's II-XII intact bilaterally and Yes Equal, round and reactive pupils present Cognition (Neuro): normal cognition Speech: normal speech Gait exam (Neuro): Normal gait present and Unable to assess gait Motor exam (neuro): 5/5 motor strength present throughout Extrem: General: normal to inspection, full ROM, no joint enlargement and no pedal edema Objective Data Vital Signs Vital Signs: Vital Signs - 24 hr 01/21/23 18:04 01/21/23 18:09 01/21/23 19:40 Temperature 97.1 F L Pulse Rate 93 87 Respiratory Rate 18 14 Blood Pressure 93/49 L Pulse Oximetry 97 98 100 Oxygen Delivery Nasal Cannula Nasal Cannula Oxygen Flow Rate 4 4 01/21/23 19:54 01/21/23 20:26 01/21/23 20:26 Temperature Pulse Rate 83 83 Respiratory Rate 15 Blood Pressure 114/69 Pulse Oximetry 100 99 Oxygen Delivery Nasal Cannula Oxygen Flow Rate 4 01/21/23 22:04 01/21/23 23:14 01/21/23 23:14 Temperature Pulse Rate 82 81 Respiratory Rate 13 25 H Blood Pressure 101/63 142/73 H Pulse Oximetry 100 100 100 Oxygen Delivery BiPAP Oxygen Flow Rate 01/22/23 00:00 01/22/23 00:20 01/22/23 00:20 Temperature 98.1 F Pulse Rate 89 90 90 Respiratory Rate 20 20 Blood Pressure 137/60 Pulse Oximetry 98 98 Oxygen Delivery Nasal Cannula Oxygen Flow Rate 4 01/22/23 02:02 01/22/23 02:00 01/22/23 01:30 Temp
[2023-01-22 11:34] LABS: Alveolar/Arterial O2 Gradient 16.7 mmHg; Base Excess ABG 18.5 mEq/l (+/-2.0); Carboxyhemoglobin 0.6 % THb (0-2.0); Fractional Inspired Oxygen 28 %; HCO3 ABG 49.1 mEq/l (22.0-26.0); Methemoglobin ABG 0.1 %THb (0-1.5); Oxygen Content ABG 14.7 %vol (16.0-22.0); Oxygen Saturation ABG 88.5 % (95.0-100.0); Oxyhemoglobin 91.7 % THb (90.0-100.0); PO2 ABG 64.1 mmHg (80.0-100.0); PO2 FiO2 Ratio Arterial Blood 2.29 %; Reduced Hemoglobin 7.6 %THb (0-5.0); Total Hemoglobin 11.4 g/dL (12.0-18.0); pH ABG 7.306 (7.350-7.450)
[2023-01-22 11:36] LABS: PCO2 ABG 100.7 mmHg (35.0-45.0)
[2023-01-22 11:37] LABS: Device NASAL CANNULA; Modified Allen's Test Pass; Site Drawn LEFT RADIAL
--- NOTE | 2023-01-22 14:29 | PC.NURSE ---
Notified Dr. Clemons of low BP reading. Per MD continue to monitor.
--- NOTE | 2023-01-22 15:38 | PCRCNOTE ---
Window of time for administration has passed. See next scheduled administration.
[2023-01-22] MEDS: traMADol HCL (*CRX) 50 MG TABLET PO (17:31)
[2023-01-22] MEDS: ATORVASTATIN 40 MG TABLET PO (21:02)
[2023-01-22] MEDS: DULoxetine HCL 20 MG CAPSULE.DR PO (21:03)
[2023-01-22] MEDS: rOPINIRole HCL 0.25 MG TABLET PO (21:03)
[2023-01-23] VITALS (20 sets, daily range): BP systolic 102–137; BP diastolic 38–69; PULSE 73–95; RESP 18–22; TEMP 35.7–36.3; O2SAT 91–100
[2023-01-23] MEDS: ALBUTEROL SULFATE NEB 2.5 MG/3 ML INH INHALATION ×4 (00:07→12:05)
[2023-01-23] MEDS: IPRATROPIUM BR 0.02% INH SOLN 0.5 MG/2.5 ML VIAL INHALATION ×4 (00:07→12:05)
[2023-01-23] MEDS: methylPREDNISolone SOD SUCC 125 MG VIAL 60 MG IV PUSH (05:40)
[2023-01-23 05:52] LABS: Base Excess ABG 14.3 mEq/l (+/-2.0); Carboxyhemoglobin 0.1 % THb (0-2.0); Fractional Inspired Oxygen 36 %; HCO3 ABG 42.7 mEq/l (22.0-26.0); Methemoglobin ABG 0.2 %THb (0-1.5); Oxygen Content ABG 16.2 %vol (16.0-22.0); Oxygen Saturation ABG 92.3 % (95.0-100.0); Oxyhemoglobin 93.4 % THb (90.0-100.0); PO2 FiO2 Ratio Arterial Blood 1.89 %; Reduced Hemoglobin 6.3 %THb (0-5.0); Total Hemoglobin 12.3 g/dL (12.0-18.0); pH ABG 7.375 (7.350-7.450)
[2023-01-23 05:54] LABS: Device OTHER DEVICE; Modified Allen's Test Pass; PCO2 ABG 74.7 mmHg (35.0-45.0); Site Drawn LEFT RADIAL
[2023-01-23] MEDS: UMECLIDINIUM/VILANTEROL 62.5-25 MCG ELLIPTA 1 PUFF INHALATION (08:32)
[2023-01-23] MEDS: busPIRone HCL 5 MG TABLET 15 MG PO (09:11)
[2023-01-23] MEDS: PANTOPRAZOLE 40 MG TABLET PO (09:11)
[2023-01-23] MEDS: carvediloL 6.25 MG TABLET PO (09:12)
[2023-01-23] MEDS: SACUBITRIL/VALSARTAN 49-51 MG TABLET 1 TABLET PO (09:12)
[2023-01-23] MEDS: FUROSEMIDE 20 MG TABLET PO (09:12)
--- NOTE | 2023-01-23 11:36 | PM.DS ---
DS: Admitting Diagnosis Discharge Date January 23, 2023 Admitting Diagnosis acute on chronic hypercarbic respiratory failure DS: Discharge Diagnosis Discharge Diagnosis (1) Acute on chronic respiratory failure with hypoxia and hypercapnia: Code(s): J96.21 - Acute and chronic respiratory failure with hypoxia; J96.22 - Acute and chronic respiratory failure with hypercapnia Status: Acute Assessment and Plan: admit to IMU continuous Trilogy repeat ABG shows improvement NPO continuous telemetry continuous pulse ox (2) Obstructive sleep apnea: Code(s): G47.33 - Obstructive sleep apnea (adult) (pediatric) Status: Chronic Assessment and Plan: currently on trilogy (3) Chronic obstructive pulmonary disease: Qualifiers: COPD type: unspecified COPD Qualified Code(s): J44.9 - Chronic obstructive pulmonary disease, unspecified Code(s): J44.9 - Chronic obstructive pulmonary disease, unspecified Status: Acute Assessment and Plan: continue breathing treatments (4) Morbid obesity with BMI of 50.0-59.9, adult: Code(s): E66.01 - Morbid (severe) obesity due to excess calories; Z68.43 - Body mass index [BMI] 50.0-59.9, adult Status: Acute Assessment and Plan: lifestyle and diet modifications DS: Summary Hospital Course Hospital Course: 62-year-old with history of hypercarbic respiratory failure uses a trilogy at home. According to her she has been intermittently compliant with her device. She was admitted for CO2 retention. Once on her device her CO2 is improved. She is breathing normally and can be sent home. Encourage compliance. Time Spent with Patient Time attestation: Total time spent providing and/or coordinating discharge services: Exam Narrative: in semi upright position Trelegy on Const: General: comfortable, no acute distress, well developed, alert, awake, average body habitus and obese Nutritional Appearance: average body habitus and obese morbidly obese Orientation/consciousness: patient oriented x3 HENMT: Head: normal to inspection, normocephalic and atraumatic Ears: hearing grossly normal bilaterally Face/Nose/Sinus: normal facial exam Face and sinus: normal facial exam Other: Trelegy mask on Eyes: General: appearance normal, both eyes and all related structures Pupils: Equal, round and reactive pupils present EOM: EOMs intact bilaterally Neck: Neck: full ROM, no lymphadenopathy and no JVD Thyroid: thyroid normal Lymphatic: no lymphadenopathy noted Resp: Effort & Inspection: normal respiratory effort and able to speak in complete sentences Auscultation: clear to auscultation bilaterally Cardio: Jugular venous distension: no JVD Rate: regular rate Rhythm: regular rhythm Heart sounds: S1 normal heart sound present and S2 normal heart sound present GI: Inspection: Pannus present and obesity : General: Yes deferred Skin: Rashes: no rashes Wounds: no wounds Neuro: General: patient oriented x3, CN's II-XI intact bilaterally and Unable to assess gait Cranial nerves: Yes CN's II-XII intact bilaterally and Yes Equal, round and reactive pupils present Cognition (Neuro): normal cognition Speech: normal speech Gait exam (Neuro): Normal gait present and Unable to assess gait Motor exam (neuro): 5/5 motor strength present throughout Extrem: General: normal to inspection, full ROM, no joint enlargement and no pedal edema DS: Data Data Completed and Pending Labs on day of discharge: Labs from last 24 hours 01/23/23 01/22/23 05:33 11:27 Puncture Site Left radial Left radial ABG pH 7.375 7.306 L ABG pCO2 74.7 H* 100.7 H* ABG pO2 68.0 L 64.1 L ABG PO2/FiO2 Ratio 1.89 2.29 ABG HCO3 42.7 H 49.1 H ABG O2 Saturation 92.3 L 88.5 L ABG O2 Content 16.2 14.7 L ABG Base Excess 14.3 18.5 A-a Gradient 102.0 16.7 Oxyhemoglobin 93.4 91.7 Carboxyhemoglobin 0.1 0.6 Methemoglobin
[2023-01-23] MEDS: diazePAM (*CRX) 5 MG TABLET PO (11:55)
[2023-01-23] MEDS: traMADol HCL (*CRX) 50 MG TABLET PO (11:56)
== END 2023-01-23 13:34 | disposition home or self-care (01) | DRG 189 ==
LOC: ANHED 22:49 → ANHIMU 23:15
PROVIDERS: Admitting Provider Internal Medicine; Emergency Provider Physician Assistant; PCP Family Medicine; Visit Provider Chiropractor
DX: J96.21 Acute and chronic respiratory failure with hypoxia (principal); Z68.43 Body mass index [BMI] 50.0-59.9, adult; E66.2 Morbid (severe) obesity with alveolar hypoventilation; Z20.822 Contact with and (suspected) exposure to COVID-19; J96.22 Acute and chronic respiratory failure with hypercapnia; J44.9 Chronic obstructive pulmonary disease, unspecified; E78.5 Hyperlipidemia, unspecified; I10 Essential (primary) hypertension; Z99.81 Dependence on supplemental oxygen; Z95.810 Presence of automatic (implantable) cardiac defibrillator; Z87.891 Personal history of nicotine dependence
CPT/HCPCS: 36415; 36600; 71045; 80053; 82375; 82805; 83050; 83735; 83880; 84484; 85025; 85380; 85610; 85730; 87636; 93005; 94640; 96365; 96375; 99285; A9270; G0378; J1956; J2930

== ENCOUNTER 2023-02-23 20:38 | Inpatient (IN) | payer MEDICARE, MEDICAID, SELFPAY ==
[2023-02-23] VITALS (21 sets, daily range): BP systolic 108–139; BP diastolic 61–72; PULSE 80–96; RESP 12–22; TEMP 36.6; O2SAT 89–100
--- NOTE | ~2023-02-23 | XR_ITS ---
EXAMINATION: XR chest 1V portable Exam Date/Time: 02/23/2023 20:58 CDT HISTORY: SOB, PACEMAKER OVER 10 YRS AGO Comparison: 01/21/2023. RESULT: Lines, tubes, and devices: Left chest pacer/AICD, with intact leads. Lungs and pleura: Congestive vessels. No focal consolidation, effusion, or pneumothorax. Cardiomediastinal silhouette: Stable cardiomegaly. Other: No acute osseous or upper abdominal finding. IMPRESSION: Pulmonary vascular congestion. Reviewed, dictated and finalized at location K.
--- NOTE | 2023-02-23 20:43 | ECG_ITS ---
Measurements Intervals [place] Rate: 83 P: 57 TX: 132 QRS: 248 QRSD: 201 T: 64 QT: 465 QTc: 549 Interpretive Statements NORMAL SINUS RHYTHM WITH PROBABLY AND eLECTRONIC VENTRICULAR PACEMAKER ABNORMAL RHYTHM ECG COMPARED TO ECG 01/21/2023 18:10:01 NO SIGNIFICANT CHANGES Electronically Signed On 02-24-2023 13:18:40 CDT by Sofia William M.D.
[2023-02-23 21:36] LABS: Basophils Percent Auto 0.6 % (0.2-1.2); Eosinophils Absolute Auto 0.1 K/mm3 (0-0.3); Eosinophils Percent Auto 0.8 % (0-4.4); Hematocrit 41.6 % (37.0-47.0); Hemoglobin 11.3 g/dL (12.0-15.0); Immature Granulocyte Absolute 0.03 K/mm3 (0.00-0.031); Immature Granulocyte Percent A 0.5 % (0-0.5); Lymphocytes Absolute Auto 0.76 K/mm3 (0.9-3.2); Lymphocytes Percent Auto 11.6 % (18.3-44.2); Mean Corpuscular HGB Conc 27.2 g/dl (32-36); Mean Corpuscular Volume 106.9 fl (80-100); Mean Platelet Volume 9.8 fl (7.4-10.4); Monocytes Absolute Auto 0.4 K/mm3 (0.1-0.6); Monocytes Percent Auto 6.4 % (2.6-8.5); Neutrophils Absolute Auto 5.2 K/mm3 (1.3-6.7); Neutrophils Percent Auto 80.1 % (45.5-73.1); Platelet Count Result 179 k/mm3 (150-375); Red Blood Count 3.89 M/mm3 (4.2-5.4); Red Cell Distribution Width 12.9 % (11.5-14.5); White Blood Count 6.5 K/mm3 (4.5-10.0)
[2023-02-23 21:54] LABS: Alanine Aminotransferase 18 U/L (6-35); Albumin Level 3.8 g/dL (3.5-5.1); Alkaline Phosphatase 89 U/L (38-126); Aspartate Amino Transferase 24 U/L (14-36); Bilirubin,Total 0.3 mg/dL (0.2-1.3); Blood Urea Nitrogen 23 mg/dL (7-17); Calcium 7.6 mg/dL (8.4-10.2); Carbon Dioxide > 40 mmol/L (22-30); Chloride 91 mmol/L (98-107); Estimated CRCL calculation 79 ml/min; Estimated Glomerular Filt Rate > 60; Glucose 110 mg/dL (65-110); Potassium 5.2 mmol/L (3.4-5.0); Sodium 137 mmol/L (137-145)
[2023-02-23 21:59] LABS: Platelet Estimate Adequate (Adequate)
[2023-02-23 22:00] LABS: Schistocytes None Seen (NORMAL)
[2023-02-23 22:01] LABS: Anisocytosis 1+ (NORMAL); Hypochromasia 1+ (NORMAL)
[2023-02-23] MEDS: MAGNESIUM SULF 2 GM/WATER 50ML 2 GM/50 ML BAG IVPB (22:17)
[2023-02-23] MEDS: ALBUTEROL SULFATE NEB 2.5 MG/3 ML INH 10 MG INHALATION (22:35)
[2023-02-23] MEDS: IPRATROPIUM BR 0.02% INH SOLN 0.5 MG/2.5 ML VIAL 1.5 MG INHALATION (22:36)
[2023-02-23] MEDS: HYDROcodone/acetaminophen (*CRX) 5-325 MG TABLET 2 TAB PO (22:45)
[2023-02-23 22:49] LABS: Base Excess ABG 18.7 mEq/l (+/-2.0); Fractional Inspired Oxygen 34 %; HCO3 ABG 51.4 mEq/l (22.0-26.0); Oxygen Content ABG 15.6 %vol (16.0-22.0); Oxygen Saturation ABG 92.6 % (95.0-100.0); Oxyhemoglobin 93.8 % THb (90.0-100.0); PO2 ABG 81.9 mmHg (80.0-100.0); PO2 FiO2 Ratio Arterial Blood 2.41 %; Total Hemoglobin 11.8 g/dL (12.0-18.0)
[2023-02-23 22:51] LABS: Device NASAL CANNULA; Liters per Minute 3.5 LPM; Modified Allen's Test Pass; PCO2 ABG 124.9 mmHg (35.0-45.0); Site Drawn RIGHT RADIAL; pH ABG 7.232 (7.350-7.450)
[2023-02-23 22:57] LABS: INR 0.9; Prothrombin Time 12.1 Seconds (11.1-14.7)
[2023-02-23 22:58] LABS: Partial Thromboplastin Time 28.8 SECONDS (22.3-36.8)
[2023-02-23 23:11] LABS: Lipase 60 U/L (23-300); Magnesium 2.2 mg/dL (1.6-2.3)
[2023-02-23 23:11] LABS: Lactic Acid Reflex 0.8 mmol/L (0.7-2.0)
[2023-02-23 23:14] LABS: Phosphorus 4.6 mg/dL (2.5-4.5)
[2023-02-23 23:21] LABS: NT Pro B Type Natriuretic Pept 378 pg/mL (19.9-100)
[2023-02-23 23:33] LABS: Troponin I 0.038 ng/mL (0.000-0.034)
[2023-02-23 23:57] LABS: Appearance Urine Clear (Clear); Bacteria Urine None Seen /hpf; Bilirubin Urine Negative (Negative); Blood Urine Negative (Negative); Color Urine Yellow (Yellow); Glucose Urine UA Negative (Negative); Ketones Urine Negative (Negative); Leukocyte Esterase Ur Trace LEU/UL (Negative); Nitrate Urine Negative (Negative); Non Pathogenic Casts 0-2; Protein Urine Negative (Negative); RBC Urine 0-2 /hpf (0-2); Specific Grav Ur 1.013 (1.001-1.035); Squamous Epithelial Cell Urine Occasional /hpf (Few); Urobilinogen Urine 0.2 mg/dL (<2.0); WBC Urine 0-5 /hpf; pH Urine 5.5 (5.0-9.0)
[2023-02-23 23:58] LABS: Add Urine Microscopic? YES
[2023-02-24] VITALS (29 sets, daily range): BP systolic 110–146; BP diastolic 35–85; PULSE 81–102; RESP 11–23; TEMP 36.7–36.9; O2SAT 91–99; BMI 54.1
--- NOTE | 2023-02-24 | ECHO_ITS ---
Patient Info Name: Olivia Burdick Age: 62 years : 1960 Gender: Female Ht: 61 in Wt: 286 lbs BSA: 2.45 m2 HR: 98 bpm BP: 123 / 62 mmHg Technical Quality: Poor Exam Date: 02/24/2023 10:21 AM Exam Location: [facility] Pulmonary Patient Status: Inpatient Admit Date: 02/24/2023 Staff Ordering Physician: Tavo Palmer MD Bell Valet: Sunshine Dinero RD Attending Provider: Tavo Palmer MD Referring Physician: Spencer FROST; Exam Type: CA echo dop color flow w con Study Info Indications - ELEVATED TROPONIN I50.9 - Heart failure, unspecified Complete two-dimensional, color flow and Doppler transthoracic echocardiogram is performed with contrast to opacify the left ventricle and to improve the deliniation of the left ventricle endocardial borders. Contrast/Agitated Saline Contrast/Ag. Saline: Definity Amount: 2.00 ml Administered By: Sunshine Dinero [facility] Existing IV Access: Yes IV Access Condition: patent with no signs of infiltration Reason for Poor Study: patient body habitus Summary 1. Left ventricular chamber dimension is severely enlarged. 2. Left ventricular systolic function is moderately reduced, estimated at 30-35%. 3. There is mildly increased left ventricular wall thickness. 4. Right ventricular systolic function is normal. 5. Left atrial chamber dimension is mildly enlarged. 6. There is trace mitral valve regurgitation. 7. There is mild tricuspid valve regurgitation. Left Ventricle Left ventricular chamber dimension is severely enlarged. Left ventricular systolic function is moderately reduced, estimated at 30-35%. There is mildly increased left ventricular wall thickness. Right Ventricle Linear artifact in right ventricle suggestive of catheter(s), pacemaker lead(s), or ICD lead(s). Right ventricular chamber dimension is normal. Right ventricular systolic function is normal. Left Atria Left atrial chamber dimension is mildly enlarged. Right Atria Linear artifact in the right atrium suggestive of catheter(s), pacemaker lead(s), or ICD lead(s). Right atrial chamber dimension is normal. Atrial Septum Intact interatrial septum visualized by color flow imaging. Aortic Valve The aortic valve is not well visualized. There is no aortic valve stenosis. There is no aortic valve regurgitation. There is mild aortic valve calcification. Pulmonic Valve The pulmonic valve is not well visualized. Mitral Valve There is trace mitral valve regurgitation. Tricuspid Valve There is mild tricuspid valve regurgitation. Pericardium/Pleural The pericardium appears epicardial fat pad. There is trivial pericardial effusion. Inferior Vena Cava Normal inferior vena cava with >50% collapse upon inspiration consistent with normal right atrial pressure, 3 mmHg. Aorta The aortic root size at the sinus of Valsalva is normal. Left Ventricular Outflow Tract Name Value Normal LVOT 2D LVOT Diameter 2.14 cm LVOT Doppler LVOT Peak Gradient 4 mmHg LVOT Mean Gradient 2 mmHg LVOT VTI 17.31 cm LVOT VTI/AV VTI Ratio
[2023-02-24 00:32] LABS: Influenza A QL RT-PCR Negative (Negative); Influenza B QL RT-PCR Negative (Negative); RSV RNA, RT-PCR Negative (Negative); SARS-CoV-2 RNA PCR Negative (Negative)
[2023-02-24 02:02] LABS: Troponin I 0.038 ng/mL (0.000-0.034)
--- NOTE | 2023-02-24 02:20 | PM.IMHP ---
H&P: HPI History of Present Illness Date/Time: 02/24/23 02:20 Chief Complaint: Shortness of breath, tingly feeling, patient thinks her CO2 is elevated Narrative: This is a 62-year-old female with past medical history significant for hypercarbic and hypoxic respiratory failure patient uses trilogy at nighttime, COPD, emphysema, hypertension, morbid obesity, obesity hypoventilation syndrome, obstructive sleep apnea, biventricular cardiac pacemaker. patient presents via EMS due to shortness of breath and tingly feeling in her arms which she usually means that her CO2 is elevated. Patient Usually uses 2-4 L of supplemental oxygen by nasal cannula.? Patient said that she fell asleep at home without her trilogy. Has minimal Productive cough of clear sputum, denies any fevers, rigors, chills. In the emergency room patient had normal mental status, awake alert oriented x4. She had ABG done which showed elevated CO2 of up to 120. On review of chart she has had chronically elevated CO2, sometimes as high as 133. Patient denies any chest pain. She says she has her pacemaker checked often and it is working fine. Patient seen in the ER. She is awake alert oriented x4. She is comfortable and talking in full sentences. No use of accessory muscles of respiration. No wheezing. She is tinkering with her phone. Review of Systems Review of Systems: no fever or weight loss no vision changes, no eye discharge no throat pain, no hoarseness, no lymphadenopathy no chest pain, no palpitations Minimal coughing, no wheezing no abdominal pain, no diarrhea, no nausea, no vomiting no dysuria, no vaginal discharge no leg swelling, no edema no suicidal or homicidal ideation PMFSH Past Medical History Medical History Anxiety Back pain Bronchitis Chronic obstructive pulmonary disease Chronic respiratory failure with hypoxia and hypercapnia 1 prior intubation about 10 years ago Congestive heart failure Depression Emphysema of lung Essential hypertension History of rectal polyps Hyperlipidemia Morbid obesity Nonischemic cardiomyopathy Present since 2006, thought to be due to a viral myocarditis. EF was as low as 10% in June 2017 but patient reports improvement in her EF to 32% most recently. She is followed by Dr. Soliman. ICD in-situ. Obesity hypoventilation syndrome Obstructive sleep apnea On Trilogy unit, previously on BiPAP 22/02 with 3 L of oxygen bleed in. Rectal polyp Surgical History Surgical History Biventricular cardiac pacemaker in situ (2006) History of cardiac cath With no significant coronary artery disease noted with last cardiac catheterization June 2017 demonstrating only 30-40% lesion of the left anterior descending artery. History of colonoscopy (09/2017) History of dilation and curettage (11/2016) History of tubal ligation (1989) Family History Family History Mother Diabetes mellitus Acute myocardial infarction Hypertension Sibling Diabetes mellitus Acute myocardial infarction Cerebrovascular accident Hypertension Schizophrenia Father Congestive heart failure Cerebrovascular accident Hypertension Schizophrenia Social History Social History Social History: The pedicle lives her daughter and son-in-law. She has 4 children. 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 She is . She use the smoke and now she uses edible gummies. Surrogate decision maker: Kia Garcia, daughter. Code status: Full code Smoking packs per day: 1 Smoking cigarettes per day: 20.0 Years smoked: 25 Smoking pack-years: 25.00 Smoking status: Former smoker Tobacco type: cigarettes Second hand tobacco smoke exposure: No Alcohol intake: never Substance use: current
[2023-02-24] MEDS: LACTATED RINGERS 1,000 ML 125 ML IV CONT (03:11)
[2023-02-24] MEDS: HYDROmorphone HCL INJ (*CRX) 1 MG/ML SYR 0.5 MG IV PUSH (03:11)
--- NOTE | 2023-02-24 04:19 | ADMIMU ---
This patient, Olivia Burdick, was admitted to IMU status, and placed in Intensive Care Unit-2 at 0400 on 02/24/2023. Patient/family oriented to hospital policies and general routines including ID bracelet, bed and alarms, visiting hours, pain management, procedures, bathroom and other care routines, personal items, smoking policy, room service/diet, and visiting hours. Valuables list has been completed. Information on how to activate the Rapid Response Team has been discussed. Patient/Family are encouraged to report perceived risks to care and to ask questions if they do not understand what they are told or what they should do.
--- NOTE | 2023-02-24 04:31 | ADMIMU ---
This patient, Olivia Burdick, was admitted to IMU status, and placed in Intensive Care Unit-2 on 02/24/23 at 0353. Patient/family oriented to hospital policies and general routines including ID bracelet, bed and alarms, visiting hours, pain management, procedures, bathroom and other care routines, personal items, smoking policy, room service/diet, and visiting hours. Valuables list has been completed. Information on how to activate the Rapid Response Team has been discussed. Patient/Family are encouraged to report perceived risks to care and to ask questions if they do not understand what they are told or what they should do.
[2023-02-24 05:39] LABS: Hemoglobin 11.2 g/dL (12.0-15.0); Mean Corpuscular HGB Conc 27.3 g/dl (32-36); Mean Corpuscular Hemoglobin 28.6 pg (26-34); Mean Corpuscular Volume 104.9 fl (80-100); Mean Platelet Volume 11.1 fl (7.4-10.4); Platelet Count Result 150 k/mm3 (150-375); Red Blood Count 3.91 M/mm3 (4.2-5.4); Red Cell Distribution Width 12.4 % (11.5-14.5); White Blood Count 6.3 K/mm3 (4.5-10.0)
[2023-02-24 06:02] LABS: Alanine Aminotransferase 22 U/L (6-35); Albumin Level 3.9 g/dL (3.5-5.1); Alkaline Phosphatase 86 U/L (38-126); Aspartate Amino Transferase 25 U/L (14-36); Bilirubin,Total 0.3 mg/dL (0.2-1.3); Blood Urea Nitrogen 23 mg/dL (7-17); Carbon Dioxide > 40 mmol/L (22-30); Chloride 94 mmol/L (98-107); Estimated CRCL calculation 107 ml/min; Estimated Glomerular Filt Rate > 60; Glucose 182 mg/dL (65-110); Potassium 4.7 mmol/L (3.4-5.0); Sodium 136 mmol/L (137-145)
[2023-02-24 06:08] LABS: Troponin I 0.035 ng/mL (0.000-0.034)
[2023-02-24 07:35] LABS: Alveolar/Arterial O2 Gradient 100.4 mmHg; Base Excess ABG 14.6 mEq/l (+/-2.0); Carboxyhemoglobin 0.7 % THb (0-2.0); Fractional Inspired Oxygen 36 %; HCO3 ABG 42.4 mEq/l (22.0-26.0); Methemoglobin ABG 0.3 %THb (0-1.5); Oxygen Content ABG 16.1 %vol (16.0-22.0); Oxygen Saturation ABG 94.3 % (95.0-100.0); Oxyhemoglobin 94.3 % THb (90.0-100.0); PO2 ABG 74.3 mmHg (80.0-100.0); PO2 FiO2 Ratio Arterial Blood 2.06 %; Reduced Hemoglobin 4.7 %THb (0-5.0); Total Hemoglobin 12.1 g/dL (12.0-18.0); pH ABG 7.396 (7.350-7.450)
[2023-02-24 07:39] LABS: Modified Allen's Test Pass; PCO2 ABG 70.7 mmHg (35.0-45.0); Site Drawn LEFT RADIAL
[2023-02-24 07:40] LABS: Device OTHER DEVICE
[2023-02-24] MEDS: FUROSEMIDE INJ 40 MG/4 ML VIAL IV PUSH (08:11)
[2023-02-24] MEDS: PERFLUTREN LIPID MICROSPHERES 1.5 ML VIAL DILUTED TO 10 ML TOTAL VOLUME IV PUSH (10:50)
--- NOTE | 2023-02-24 11:06 | PM.CNPUL ---
Assessment and Plan Assessment and plan (1) Chronic obstructive pulmonary disease: Qualifiers: COPD type: unspecified COPD Qualified Code(s): J44.9 - Chronic obstructive pulmonary disease, unspecified Code(s): J44.9 - Chronic obstructive pulmonary disease, unspecified Status: Acute Assessment and Plan: christine with a 34 year PY history of tobacco use (quit 2010), apical predominant panlobular emphysema on a CT scan from 04/19/2020, I have no PFTs, ? Chronic hypoxemic and hypercarbic respiratory failure requiring noninvasive ventilator with the AVAPS mode and 4 L bleed in,? 2 L at rest and 3 with ambulation,? with severe dyspnea on exertion? at 10 yd, M MRC grade 4,? CAT score of 31, with last COPD exacerbation requiring hospitalization 01/15/2022. 02/24/2023: Currently the patient has no evidence of a COPD exacerbation, pneumonia or bronchitis. she is at her baseline oxygen requirements with 2 L and saturations are 96%. Patient feels as if she is ready to go home. From a pulmonary perspective patient can be discharged on these pulmonary medications: Anoro Ellipta 62.5-25 at 1 puff q.day Albuterol 2 puffs q.4 hours p.r.n. shortness of breath or wheezing, Albuterol 2.5 mg nebulized q.4 hours p.r.n. shortness of breath or wheezing, she needs this medicine prescribed Oxygen 2 L at rest, 3 with activity and 4 bleed in with her noninvasive ventilator. When she naps or sleep she should wear her noninvasive ventilator with her previous settings: AVAPS-AE mode set at auto rate, tidal volume 500, minimum EPAP 5, maximum EPAP 15, minimum pressure support 5, maximum pressure support 25, speed of 5, rise of 2 on 4 L nasal cannula. I have instructed the patient to call the clinic should she have problems when she gets home. Patient should follow up in the Pulmonary Clinic with her previously scheduled appointment on 03/31/2023 at 2:45 p.m. with myself. I gave her our business card. Discussed with Dr. Escalera, call with questions. (2) Acute on chronic respiratory failure with hypoxia and hypercapnia: Code(s): J96.21 - Acute and chronic respiratory failure with hypoxia; J96.22 - Acute and chronic respiratory failure with hypercapnia Status: Acute Assessment and Plan: patient with a history of multiple admissions with acute on chronic hypercarbic respiratory failure from noncompliance with her noninvasive ventilator. She relies on her family to remind her to wear the machine when she takes naps and when she sleeps. I saw her in the clinic on 11/11/2022 and she had a compliance a greater than 4 hours at 80%. Patient had admission to the hospital 519 through 521 for acute on chronic hypercarbic respiratory failure with noncompliance. Currently patient's family has been out of town, she has been very active with a republican, her air conditioner broken she admits that she has not been compliant with her machine and I believe that is the etiology of her deterioration. I have told her is absolutely necessary that she wear this noninvasive ventilator when she naps and when she sleeps and she understands this and will increase her compliance. History of Present Illness History of Present Illness Consult date: 02/24/23 Chief complaint: Hypercarbic Resp Failure Narrative: 02/24/2023: This is a new pulmonary consult for acute on chronic hypercarbic and hypoxemic respiratory failure. 62-year-old with a history of COPD on 2 L at rest, 3 L with ambulation, 4 L with her noninvasive ventilator at night, hypertension, congestive heart failure was followed in the Pulmonary Clinic. Patient was last seen in clinic on 11/11/2021. patient was started on nocturnal noninvasive ventilation in January of 2022 and in October of 2022 she had had 3 admissions for noncompliance and I had a irineo discussion with her that she needed to wear her machine or that we would recommend she be admitted to a facility that could help her manage
[2023-02-24] MEDS: UMECLIDINIUM/VILANTEROL 62.5-25 MCG ELLIPTA 1 PUFF INHALATION (11:13)
[2023-02-24] MEDS: busPIRone HCL 5 MG TABLET PO ×2 (11:16→13:16)
[2023-02-24] MEDS: busPIRone HCL 10 MG TABLET PO ×2 (11:16→13:16)
[2023-02-24] MEDS: traMADol HCL (*CRX) 50 MG TABLET PO (11:16)
[2023-02-24] MEDS: PANTOPRAZOLE 40 MG TABLET PO (11:16)
[2023-02-24] MEDS: carvediloL 6.25 MG TABLET PO (11:16)
[2023-02-24] MEDS: SACUBITRIL/VALSARTAN 49-51 MG TABLET 1 TABLET PO (11:16)
[2023-02-24] MEDS: diazePAM (*CRX) 5 MG TABLET PO (13:16)
--- NOTE | 2023-02-24 14:00 | PM.DS ---
DS: Admitting Diagnosis Discharge Date 02/24/2023 Admitting Diagnosis Shortness of breath DS: Discharge Diagnosis Discharge Diagnosis (1) Acute on chronic respiratory failure with hypoxia and hypercapnia: Code(s): J96.21 - Acute and chronic respiratory failure with hypoxia; J96.22 - Acute and chronic respiratory failure with hypercapnia Status: Acute Assessment and Plan: -patient on review of chart has chronic CO2 retention with blood gases sometimes showing up to 133 of CO2. She is otherwise awake alert oriented x4 and in no distress. Continue with her trilogy. -monitor ABG (2) Chronic obstructive pulmonary disease: Qualifiers: COPD type: unspecified COPD Qualified Code(s): J44.9 - Chronic obstructive pulmonary disease, unspecified Code(s): J44.9 - Chronic obstructive pulmonary disease, unspecified Status: Acute Assessment and Plan: - patient with CO2 retention however on physical exam patient appears comfortable, talking in full sentences, is in no distress, has distant breath sounds but no wheezing -continue trilogy (3) Congestive heart failure: Code(s): I50.9 - Heart failure, unspecified Status: Acute Assessment and Plan: -on review of chart patient has chronically elevated troponins with EKG showing paced rhythm and is essentially unchanged from previous -patient denies any chest pain but on imaging has some pulmonary congestion -review of chart shows EF of 35-40% in 2021. Will get repeat echo to evaluate EF -she is supposed to be on Lasix 20 mg at home, will increase to 40 mg IV push daily -potassium currently 5.2, repeat BMP and replace electrolytes as needed (4) Morbid obesity: Code(s): E66.01 - Morbid (severe) obesity due to excess calories Status: Acute Assessment and Plan: -refer to weight loss program Plan PORenata is her son Full code DS: Summary Hospital Course Reason for hospitalization: Chief Complaint: Shortness of breath, tingly feeling, patient thinks her CO2 is elevated Narrative: This is a 62-year-old female with past medical history significant for hypercarbic and hypoxic respiratory failure patient uses trilogy at nighttime, COPD, emphysema, hypertension, morbid obesity, obesity hypoventilation syndrome, obstructive sleep apnea, biventricular cardiac pacemaker. patient presents via EMS due to shortness of breath and tingly feeling in her arms which she usually means that her CO2 is elevated.? Patient Usually uses 2-4 L of supplemental oxygen by nasal cannula.? Patient said that she fell asleep at home without her trilogy.? Has minimal Productive cough of clear sputum, denies any fevers, rigors, chills. In the emergency room patient had normal mental status, awake alert oriented x4.? She had ABG done which showed elevated CO2 of up to 120.? On review of chart she has had chronically elevated CO2, sometimes as high as 133.? Patient denies any chest pain.? She says she has her pacemaker checked often and it is working fine. Patient seen in the ER.? She is awake alert oriented x4.? She is comfortable and talking in full sentences.? No use of accessory muscles of respiration.? No wheezing.? She is tinkering with her phone.? Hospital Course: Morbidly obese patient with history of COPD her her and chronic respiratory failure with oxygen presented with shortness of breath, patient was seen by Dr. Lemons pulmonary does not suspect patient has exacerbation of COPD, patient is clinically baseline and can be discharged home Time Spent with Patient Time attestation: Total time spent providing and/or coordinating discharge services: Exam Narrative: general- awake, alert, oriented, no distress heent- perrl, no nystagmus, no throat swelling, no dicharge chest-decreased breath sounds, no wheezes, rales, no crackles heart- s1, s2, regular rate and rhythm, no gallops or murmurs abdomen- soft, bowel sounds heard, no rebound or tenderness extremi
--- NOTE | 2023-03-01 01:28 | ED.GENADULT ---
HPI - General Adult General Chief complaint: Shortness of Breath/Dyspnea Stated complaint: SOB (high CO2) Time Seen by Provider: 02/23/23 21:33 History of Present Illness HPI narrative: This is a 62-year-old female with past medical history significant for hypercarbic and hypoxic respiratory failure patient uses trilogy at nighttime, COPD, emphysema, hypertension, morbid obesity, obesity hypoventilation syndrome, obstructive sleep apnea, biventricular cardiac pacemaker. patient presents via EMS due to shortness of breath and tingly feeling in her arms which she usually means that her CO2 is elevated.? Patient Usually uses 2-4 L of supplemental oxygen by nasal cannula.? Patient said that she fell asleep at home without her trilogy.? Has minimal productive cough of clear sputum, denies any fevers, rigors, chills. Related Data Home Medications Medication Instructions Recorded Confirmed atorvastatin 40 mg tablet 40 mg PO HS 07/29/19 02/24/23 buspirone 15 mg tablet 15 mg PO TID 07/29/19 02/24/23 diazepam 5 mg tablet 5 mg PO Q8H PRN Anxiety 07/29/19 02/24/23 ropinirole 0.25 mg tablet 0.25 mg PO HS 07/29/19 02/24/23 furosemide 20 mg tablet 20 mg PO DAILY 11/30/21 02/24/23 tramadol 50 mg tablet 50 mg PO Q6H PRN Pain (Scale Score 11/30/21 02/24/23 4-6) sacubitril 49 mg-valsartan 51 mg 1 tablet PO BID 07/14/22 02/24/23 tablet (Entresto) carvedilol 6.25 mg tablet 6.25 mg PO Q12H 01/22/23 02/24/23 Allergies Allergy/AdvReac Type Severity Reaction Status Date / Time No Known Allergies Allergy Verified 11/11/22 15:31 [facility] Past Medical History Medical History Anxiety Back pain Bronchitis Chronic obstructive pulmonary disease Chronic respiratory failure with hypoxia and hypercapnia 1 prior intubation about 10 years ago Congestive heart failure Depression Emphysema of lung Essential hypertension History of rectal polyps Hyperlipidemia Morbid obesity Nonischemic cardiomyopathy Present since 2006, thought to be due to a viral myocarditis. EF was as low as 10% in June 2017 but patient reports improvement in her EF to 32% most recently. She is followed by Dr. Soliman. ICD in-situ. Obesity hypoventilation syndrome Obstructive sleep apnea On Trilogy unit, previously on BiPAP 22/02 with 3 L of oxygen bleed in. Rectal polyp Surgical History Surgical History Biventricular cardiac pacemaker in situ (2006) History of cardiac cath With no significant coronary artery disease noted with last cardiac catheterization June 2017 demonstrating only 30-40% lesion of the left anterior descending artery. History of colonoscopy (09/2017) History of dilation and curettage (11/2016) History of tubal ligation (1989) Family History Family History Mother Diabetes mellitus Acute myocardial infarction Hypertension Sibling Diabetes mellitus Acute myocardial infarction Cerebrovascular accident Hypertension Schizophrenia Father Congestive heart failure Cerebrovascular accident Hypertension Schizophrenia Social History Social History Social History: The ped[place] lives her daughter and son-in-law. She has 4 children. 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 She is . She use the smoke and now she uses edible gummies. Surrogate decision maker: Kia Garcia, daughter. Code status: Full code Smoking packs per day: 1.5 Smoking cigarettes per day: 30.0 Years smoked: 35 Smoking pack-years: 52.50 Smoking status: Former smoker Tobacco type: cigarettes Second hand tobacco smoke exposure: No Alcohol intake: never Substance use: current Substance use type: does not use Other substance usage details: Patient has history of edible consumption Lack of Transportation: No Lack of Food: Never
== END 2023-02-24 15:40 | disposition home or self-care (01) | DRG 189 ==
LOC: ANHED 21:33 → ANHICU 02-24 04:58 → ANHIMU 02-25 14:14
PROVIDERS: Emergency Medicine; Admitting Provider Internal Medicine; Emergency Provider Emergency Medicine; PCP Family Medicine; Visit Provider Family Medicine
DX: J96.21 Acute and chronic respiratory failure with hypoxia (principal); E66.2 Morbid (severe) obesity with alveolar hypoventilation; I42.8 Other cardiomyopathies; Z68.43 Body mass index [BMI] 50.0-59.9, adult; J96.22 Acute and chronic respiratory failure with hypercapnia; J44.9 Chronic obstructive pulmonary disease, unspecified; I11.0 Hypertensive heart disease with heart failure; I50.9 Heart failure, unspecified; E78.5 Hyperlipidemia, unspecified; F32.A Depression, unspecified; F41.9 Anxiety disorder, unspecified; Z20.822 Contact with and (suspected) exposure to COVID-19; Z95.0 Presence of cardiac pacemaker; Z87.891 Personal history of nicotine dependence; Z91.199 Patient's noncompliance with other medical treatment and regimen due to unspecified reason
CPT/HCPCS: 36415; 36600; 71045; 80053; 81001; 82375; 82805; 83050; 83605; 83690; 83735; 83880; 84100; 84484; 85025; 85027; 85610; 85730; 87040; 87637; 93005; 94640; 96365; 96375; 99285; A9270; C8929; J1100; J1170; J1940; J3475; J7120; Q9957

== ENCOUNTER 2023-05-18 00:48 | Inpatient (IN) | payer MEDICARE, MEDICAID, SELFPAY ==
[2023-05-18] VITALS (34 sets, daily range): BP systolic 127–155; BP diastolic 67–109; PULSE 82–102; RESP 10–27; TEMP 36.1–36.7; O2SAT 92–100; BMI 53.2
--- NOTE | ~2023-05-18 | XR_ITS ---
Portable chest x-ray Comparison: 02/23/2023 Clinical History: Dyspnea Findings: Muscle mild central pulmonary venous congestive change present. No definite pleural effusi on or pneumothorax. Cardiomediastinal silhouette is stable stable, with pacemaker device. Bones and soft tissues are unremarkable. Impression: Mild central venous congestive change. Pacemaker device. Reviewed, dictated and finalized at location . Impression: Mild central venous congestive change. Pacemaker device.
--- NOTE | 2023-05-18 01:13 | ECG_ITS ---
Measurements Intervals [place] Rate: 95 P: 66 [place]: 120 QRS: 260 QRSD: 192 T: 74 QT: 426 QTc: 537 Interpretive Statements ATRIAL SENSE- ELECTRONIC VENTRICULAR PACEMAKER NO FURTHER INTERPRETATION IS POSSIBLE ATYPICAL ECG COMPARED TO ECG 02/23/2023 20:49:05 NO SIGNIFICANT CHANGES Electronically Signed On 05-18-2023 6:28:05 CDT by Juan R Avilez D.O.
[2023-05-18 01:40] LABS: Basophils Percent Auto 0.6 % (0.2-1.2); Eosinophils Percent Auto 0.6 % (0-4.4); Hematocrit 44.5 % (37.0-47.0); Immature Granulocyte Absolute 0.03 K/mm3 (0.00-0.031); Immature Granulocyte Percent A 0.4 % (0-0.5); Lymphocytes Absolute Auto 0.87 K/mm3 (0.9-3.2); Mean Corpuscular Hemoglobin 28.5 pg (26-34); Mean Corpuscular Volume 105.7 fl (80-100); Mean Platelet Volume 10.4 fl (7.4-10.4); Monocytes Absolute Auto 0.7 K/mm3 (0.1-0.6); Monocytes Percent Auto 10.1 % (2.6-8.5); Neutrophils Absolute Auto 5.5 K/mm3 (1.3-6.7); Neutrophils Percent Auto 76.3 % (45.5-73.1); Platelet Count Result 176 k/mm3 (150-375); Red Blood Count 4.21 M/mm3 (4.2-5.4); Red Cell Distribution Width 13.2 % (11.5-14.5); White Blood Count 7.2 K/mm3 (4.5-10.0)
[2023-05-18] MEDS: ALBUTEROL SULFATE NEB 2.5 MG/3 ML INH INHALATION ×4 (01:48→20:29)
[2023-05-18] MEDS: IPRATROPIUM BR 0.02% INH SOLN 0.5 MG/2.5 ML VIAL INHALATION ×4 (01:48→20:29)
[2023-05-18 01:49] LABS: INR 0.9; Prothrombin Time 12.5 Seconds (11.1-14.7)
[2023-05-18 01:50] LABS: Partial Thromboplastin Time 21.9 SECONDS (22.3-36.8)
[2023-05-18] MEDS: methylPREDNISolone SOD SUCC 125 MG VIAL IV PUSH (01:55)
[2023-05-18] MEDS: MORPHINE SULFATE (*CRX) 2 MG/ML INJ IV PUSH (01:56)
[2023-05-18 02:00] LABS: Anisocytosis 1+ (NORMAL); Hypochromasia 1+ (NORMAL); Platelet Estimate Adequate (Adequate); Polychromasia 1+ (NORMAL); Schistocytes Rare (NORMAL)
[2023-05-18 02:01] LABS: Basophilic Stippling 1+ (NORMAL)
[2023-05-18 02:06] LABS: Alveolar/Arterial O2 Gradient 15.8 mmHg; Base Excess ABG 24.4 mEq/l (+/-2.0); Fractional Inspired Oxygen 36 %; HCO3 ABG 58.5 mEq/l (22.0-26.0); Oxygen Saturation ABG 90.1 % (95.0-100.0); Oxyhemoglobin 92.3 % THb (90.0-100.0); PO2 FiO2 Ratio Arterial Blood 2.08 %; Total Hemoglobin 12.3 g/dL (12.0-18.0)
[2023-05-18 02:07] LABS: Device NASAL CANNULA; Modified Allen's Test Pass; Site Drawn LEFT RADIAL
[2023-05-18 02:09] LABS: Alanine Aminotransferase 19 U/L (6-35); Albumin Level 3.8 g/dL (3.5-5.1); Alkaline Phosphatase 86 U/L (38-126); Aspartate Amino Transferase 25 U/L (14-36); Bilirubin,Total 0.3 mg/dL (0.2-1.3); Blood Urea Nitrogen 17 mg/dL (7-17); Calcium 8.4 mg/dL (8.4-10.2); Carbon Dioxide > 40 mmol/L (22-30); Chloride 86 mmol/L (98-107); Estimated CRCL calculation 95 ml/min; Estimated Glomerular Filt Rate > 60; Glucose 93 mg/dL (65-110); Magnesium 2.3 mg/dL (1.6-2.3); NT Pro B Type Natriuretic Pept 719 pg/mL (19.9-100); Potassium 5.2 mmol/L (3.4-5.0); Sodium 137 mmol/L (137-145); Troponin I 0.044 ng/mL (0.000-0.034)
[2023-05-18 02:29] LABS: Influenza A QL RT-PCR Negative (Negative); Influenza B QL RT-PCR Negative (Negative); SARS-CoV-2 RNA PCR Negative (Negative)
[2023-05-18 02:41] LABS: Procalcitonin 0.1 ng/mL
--- NOTE | 2023-05-18 02:54 | ED.GENADULT ---
HPI - General Adult General Chief complaint: Shortness of Breath/Dyspnea Stated complaint: sob Time Seen by Provider: 05/18/23 01:15 History of Present Illness HPI narrative: Patient is 62-year-old female who presents the emergency department with chief complaint of shortness of breath. Patient has history of COPD and also history of hypercapnic respiratory failure patient came in today after her oxygen levels were running low. Patient states that she uses an oxygen concentrator. Patient also reports that she is been a little bit more confused at home similar to whenever her carbon dioxide levels get high. Patient denies fever Related Data Home Medications Medication Instructions Recorded Confirmed atorvastatin 40 mg tablet 40 mg PO HS 07/29/19 02/24/23 buspirone 15 mg tablet 15 mg PO TID 07/29/19 02/24/23 diazepam 5 mg tablet 5 mg PO Q8H PRN Anxiety 07/29/19 02/24/23 ropinirole 0.25 mg tablet 0.25 mg PO HS 07/29/19 02/24/23 furosemide 20 mg tablet 20 mg PO DAILY 11/30/21 02/24/23 tramadol 50 mg tablet 50 mg PO Q6H PRN Pain (Scale Score 11/30/21 02/24/23 4-6) sacubitril 49 mg-valsartan 51 mg 1 tablet PO BID 07/14/22 02/24/23 tablet (Entresto) carvedilol 6.25 mg tablet 6.25 mg PO Q12H 01/22/23 02/24/23 Allergies Allergy/AdvReac Type Severity Reaction Status Date / Time No Known Allergies Allergy Verified 11/11/22 15:31 Review of Systems Review of Systems: A 10 system review of systems was completed on the patient and is negative except for what is stated in the HPI. Nursing and ancillary documentation was reviewed. [facility] Past Medical History Medical History Anxiety Back pain Bronchitis Chronic obstructive pulmonary disease Chronic respiratory failure with hypoxia and hypercapnia 1 prior intubation about 10 years ago Congestive heart failure Depression Emphysema of lung Essential hypertension History of rectal polyps Hyperlipidemia Morbid obesity Nonischemic cardiomyopathy Present since 2006, thought to be due to a viral myocarditis. EF was as low as 10% in June 2017 but patient reports improvement in her EF to 32% most recently. She is followed by Dr. Soliman. ICD in-situ. Obesity hypoventilation syndrome Obstructive sleep apnea On Trilogy unit, previously on BiPAP 20/6 with 3 L of oxygen bleed in. Rectal polyp Surgical History Surgical History Biventricular cardiac pacemaker in situ (2006) History of cardiac cath With no significant coronary artery disease noted with last cardiac catheterization June 2017 demonstrating only 30-40% lesion of the left anterior descending artery. History of colonoscopy (09/2017) History of dilation and curettage (11/2016) History of tubal ligation (1989) Family History Family History Mother Diabetes mellitus Acute myocardial infarction Hypertension Sibling Diabetes mellitus Acute myocardial infarction Cerebrovascular accident Hypertension Schizophrenia Father Congestive heart failure Cerebrovascular accident Hypertension Schizophrenia Social History Social History Social History: The [place] lives her daughter and son-in-law. She has 4 children. 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 She is . She use the smoke and now she uses edible gummies. Surrogate decision maker: Kia Garcia, daughter. Code status: Full code Smoking packs per day: 1.5 Smoking cigarettes per day: 30.0 Years smoked: 35 Smoking pack-years: 52.50 Smoking status: Former smoker Tobacco type: cigarettes Second hand tobacco smoke exposure: No Alcohol intake: never Substance use: current Substance use type: does not use Other substance usage details: Patient has history of edible
--- NOTE | 2023-05-18 03:50 | ECG_ITS ---
Measurements Intervals [place] Rate: 98 P: 69 AL: 177 QRS: 252 QRSD: 139 T: 74 QT: 375 QTc: 479 Interpretive Statements ATRIAL SENSE- ELECTRONIC VENTRICULAR PACEMAKER BASELINE ARTIFACT- I, III, AVR, AVL, V1-V2 NO FURTHER INTERPRETATION IS POSSIBLE ATYPICAL ECG COMPARED TO ECG 05/18/2023 01:08:06 NO SIGNIFICANT CHANGES Electronically Signed On 05-18-2023 15:44:28 CDT by Juan R Avilez D.O.
[2023-05-18] MEDS: MORPHINE SULFATE (*CRX) 4 MG/ML INJ IV PUSH (04:02)
[2023-05-18 04:16] LABS: Alveolar/Arterial O2 Gradient 92.4 mmHg; Base Excess ABG 15.8 mEq/l (+/-2.0); Carboxyhemoglobin 1.7 % THb (0-2.0); Fractional Inspired Oxygen 36 %; HCO3 ABG 46.3 mEq/l (22.0-26.0); Methemoglobin ABG 0.1 %THb (0-1.5); Oxygen Content ABG 15.2 %vol (16.0-22.0); PO2 ABG 54.1 mmHg (80.0-100.0); Reduced Hemoglobin 10.9 %THb (0-5.0); Total Hemoglobin 12.4 g/dL (12.0-18.0); pH ABG 7.306 (7.350-7.450)
[2023-05-18 04:21] LABS: Oxygen Saturation ABG 82.5 % (95.0-100.0)
[2023-05-18 04:22] LABS: Device NON-INVASIVE VENT; Modified Allen's Test Pass; Non-Invasive Inspiratory Pressure 24 CMH2O; Oxyhemoglobin 87.3 % THb (90.0-100.0); Site Drawn LEFT RADIAL
[2023-05-18 04:23] LABS: Non-Invasive Expiratory Pressure 14 CMH2O; Non-Invasive Vent Rate 26 /MIN
--- NOTE | 2023-05-18 06:11 | ADMGEN ---
This patient, Olivia Burdick, was admitted to IMU Room 200-01 at 0535. Patient/family oriented to hospital policies and general routines including ID bracelet, bed and alarms, visiting hours, pain management, procedures, bathroom and other care routines, personal items, smoking policy, room service/diet, and visiting hours. Information on how to activate the Rapid Response Team has been discussed. Patient/Family are encouraged to report perceived risks to care and to ask questions if they do not understand what they are told or what they should do.
[2023-05-18] MEDS: methylPREDNISolone SOD SUCC 125 MG VIAL 60 MG IV PUSH ×3 (06:37→21:04)
[2023-05-18 07:35] LABS: Troponin I 0.045 ng/mL (0.000-0.034)
[2023-05-18 08:59] LABS: Alveolar/Arterial O2 Gradient 76.8 mmHg; Base Excess ABG 17.2 mEq/l (+/-2.0); Fractional Inspired Oxygen 32 %; HCO3 ABG 46.1 mEq/l (22.0-26.0); Oxygen Content ABG 15.3 %vol (16.0-22.0); Oxyhemoglobin 90.9 % THb (90.0-100.0); PO2 ABG 57.2 mmHg (80.0-100.0); PO2 FiO2 Ratio Arterial Blood 1.79 %; pH ABG 7.376 (7.350-7.450)
[2023-05-18 09:01] LABS: Device NON-INVASIVE VENT; Modified Allen's Test Pass; Oxygen Saturation ABG 87.4 % (95.0-100.0); PCO2 ABG 80.5 mmHg (35.0-45.0); Site Drawn RIGHT RADIAL
[2023-05-18 09:02] LABS: Non-Invasive Expiratory Pressure 14 CMH2O; Non-Invasive Inspiratory Pressure 24 CMH2O; Non-Invasive Vent Rate 20 /MIN
--- NOTE | 2023-05-18 09:20 | PM.IMHP ---
H&P: HPI History of Present Illness Date/Time: 05/18/23 09:20 Chief Complaint: shortness of breath Narrative: 62F w/ PMH anxiety, COPD, chronic respiratory failure, CHF, HTN, HLD, obesity, OHS/ZAHEER, presents from home with SOB. She was running low on oxygen in her concentrator, felt short of breath and confused as she usually does when she has high co2. ER course: pco2 140 with primary respiratory acidosis. pt given solumedrol, BIPAP and sent to IMU. she had slightly elevated troponin In IMU 200 she requests for BIPAP to be taken off. She reports breathing is much better. pCO2 now down to 80 Review of Systems Constitutional: Constitutional: Denies fatigue and Denies poor appetite Eyes: Eyes: Denies blurry vision and Denies change in vision ENT: Denies dizziness Cardiovascular: Cardiovascular: Denies chest pain, Denies diaphoresis, Denies syncope, Denies irregular heart rhythm, Denies leg edema and Denies dyspnea Respiratory: Respiratory: Denies cough, Reports dyspnea and Denies wheezing Gastrointestinal: Gastrointestinal: Denies abdominal pain, Denies constipation, Denies diarrhea, Denies nausea and Denies vomiting Genitourinary: Genitourinary: Denies urinary urgency Neurologic: Denies dizziness, Denies syncope, Denies focal weakness, Denies seizure-like activity and Denies Sensory deficit (Neuro) Endocrine: Endocrine: Denies fatigue Allergic/Immunologic: Allergic/Immunologic: Denies wheezing [facility] Past Medical History Medical History Anxiety Back pain Bronchitis Chronic obstructive pulmonary disease Chronic respiratory failure with hypoxia and hypercapnia 1 prior intubation about 10 years ago Congestive heart failure Depression Emphysema of lung Essential hypertension History of rectal polyps Hyperlipidemia Morbid obesity Nonischemic cardiomyopathy Present since 2006, thought to be due to a viral myocarditis. EF was as low as 10% in June 2017 but patient reports improvement in her EF to 32% most recently. She is followed by Dr. Soliman. ICD in-situ. Obesity hypoventilation syndrome Obstructive sleep apnea On Trilogy unit, previously on BiPAP 22/02 with 3 L of oxygen bleed in. Rectal polyp Surgical History Surgical History Biventricular cardiac pacemaker in situ (2006) History of cardiac cath With no significant coronary artery disease noted with last cardiac catheterization June 2017 demonstrating only 30-40% lesion of the left anterior descending artery. History of colonoscopy (09/2017) History of dilation and curettage (11/2016) History of tubal ligation (1989) Family History Family History Mother Diabetes mellitus Acute myocardial infarction Hypertension Sibling Diabetes mellitus Acute myocardial infarction Cerebrovascular accident Hypertension Schizophrenia Father Congestive heart failure Cerebrovascular accident Hypertension Schizophrenia Social History Social History Social History: The [place] lives her daughter and son-in-law. She has 4 children. 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 She is . She use the smoke and now she uses edible gummies. Surrogate decision maker: Kia Garcia, daughter. Code status: Full code Smoking packs per day: 1.5 Smoking cigarettes per day: 30.0 Years smoked: 35 Smoking pack-years: 52.50 Smoking status: Former smoker Tobacco type: cigarettes Second hand tobacco smoke exposure: No Alcohol intake: never Substance use: never Substance use type: does not use Other substance usage details: Patient has history of edible consumption Lack of Transportation: No Lack of Food: Never True Current Housing: I Have Housing Concerned About Future Housing: No Diffic
[2023-05-18] MEDS: SACUBITRIL/VALSARTAN 49-51 MG TABLET 1 TABLET PO ×2 (10:03→16:48)
[2023-05-18] MEDS: diazePAM (*CRX) 5 MG TABLET PO ×2 (10:04→21:04)
[2023-05-18] MEDS: FUROSEMIDE 20 MG TABLET PO (10:04)
[2023-05-18] MEDS: carvediloL 6.25 MG TABLET PO ×2 (10:05→21:04)
[2023-05-18] MEDS: SPIRONOLACTONE 25 MG TABLET PO (10:05)
[2023-05-18] MEDS: PANTOPRAZOLE 40 MG TABLET PO (10:05)
[2023-05-18 10:06] LABS: Troponin I 0.032 ng/mL (0.000-0.034)
[2023-05-18] MEDS: traMADol HCL (*CRX) 50 MG TABLET PO ×2 (10:07→16:47)
[2023-05-18] MEDS: CITALOPRAM HYDROBROMIDE 20 MG TABLET 40 MG PO (10:22)
[2023-05-18 12:47] LABS: Troponin I 0.032 ng/mL (0.000-0.034)
[2023-05-18] MEDS: busPIRone HCL 5 MG TABLET 15 MG PO ×2 (13:33→16:46)
--- NOTE | 2023-05-18 17:09 | PC.NURSE ---
On 05/18/23, the student, Darren [facility], provided care and completed [facility] documentation on this patient. I have reviewed the student's documentation and agree with the findings.
[2023-05-18] MEDS: rOPINIRole HCL 0.25 MG TABLET PO (21:04)
[2023-05-18] MEDS: ATORVASTATIN 40 MG TABLET PO (21:05)
[2023-05-19] VITALS (18 sets, daily range): BP systolic 144–151; BP diastolic 73–81; PULSE 82–102; RESP 18–22; TEMP 35.7–36.4; O2SAT 93–97
[2023-05-19 01:16] LABS: Appearance Urine Clear (Clear); Bacteria Urine None Seen /hpf; Bilirubin Urine Negative (Negative); Blood Urine Negative (Negative); Color Urine Yellow (Yellow); Glucose Urine UA Negative (Negative); Ketones Urine Negative (Negative); Leukocyte Esterase Ur Negative LEU/UL (Negative); Nitrate Urine Negative (Negative); Non Pathogenic Casts 0-2; Protein Urine 1+ mg/dL (Negative); RBC Urine 0-2 /hpf (0-2); Specific Grav Ur 1.017 (1.001-1.035); Squamous Epithelial Cell Urine None seen /hpf (Few); Urobilinogen Urine 0.2 mg/dL (<2.0); WBC Urine 0-5 /hpf; pH Urine 8.5 (5.0-9.0)
[2023-05-19 01:19] LABS: Add Urine Microscopic? YES
[2023-05-19] MEDS: ALBUTEROL SULFATE NEB 2.5 MG/3 ML INH INHALATION ×3 (02:15→13:25)
[2023-05-19] MEDS: IPRATROPIUM BR 0.02% INH SOLN 0.5 MG/2.5 ML VIAL INHALATION ×3 (02:15→13:26)
[2023-05-19 05:00] LABS: Hematocrit 43.3 % (37.0-47.0); Hemoglobin 12.2 g/dL (12.0-15.0); Mean Corpuscular HGB Conc 28.2 g/dl (32-36); Mean Corpuscular Hemoglobin 28.2 pg (26-34); Mean Platelet Volume 10.6 fl (7.4-10.4); Platelet Count Result 223 k/mm3 (150-375); Red Blood Count 4.33 M/mm3 (4.2-5.4); Red Cell Distribution Width 12.9 % (11.5-14.5); White Blood Count 6.1 K/mm3 (4.5-10.0)
[2023-05-19 05:01] LABS: Blood Urea Nitrogen 26 mg/dL (7-17); Calcium 8.8 mg/dL (8.4-10.2); Carbon Dioxide > 40 mmol/L (22-30); Chloride 85 mmol/L (98-107); Estimated CRCL calculation 92 ml/min; Estimated Glomerular Filt Rate > 60; Glucose 109 mg/dL (65-110); Potassium 5.3 mmol/L (3.4-5.0); Sodium 133 mmol/L (137-145)
[2023-05-19] MEDS: methylPREDNISolone SOD SUCC 125 MG VIAL 60 MG IV PUSH (05:38)
[2023-05-19] MEDS: traMADol HCL (*CRX) 50 MG TABLET PO (05:38)
[2023-05-19] MEDS: CITALOPRAM HYDROBROMIDE 20 MG TABLET 40 MG PO (08:54)
[2023-05-19] MEDS: busPIRone HCL 5 MG TABLET 15 MG PO ×2 (08:54→12:35)
[2023-05-19] MEDS: carvediloL 6.25 MG TABLET PO (08:55)
[2023-05-19] MEDS: PANTOPRAZOLE 40 MG TABLET PO (08:55)
[2023-05-19] MEDS: FUROSEMIDE 20 MG TABLET PO (08:55)
[2023-05-19] MEDS: SPIRONOLACTONE 25 MG TABLET PO (08:55)
[2023-05-19] MEDS: SACUBITRIL/VALSARTAN 49-51 MG TABLET 1 TABLET PO (08:55)
--- NOTE | 2023-05-19 13:48 | PM.DS ---
DS: Admitting Diagnosis Discharge Date 05/19/23 Admitting Diagnosis acute hypoxic respiratory failure DS: Discharge Diagnosis Discharge Diagnosis (1) Acute on chronic respiratory failure with hypoxia and hypercapnia: Code(s): J96.21 - Acute and chronic respiratory failure with hypoxia; J96.22 - Acute and chronic respiratory failure with hypercapnia Status: Acute (2) COPD exacerbation: Code(s): J44.1 - Chronic obstructive pulmonary disease with (acute) exacerbation Status: Acute DS: Summary Hospital Course Hospital Course: 62F w/ PMH anxiety, COPD, chronic respiratory failure, CHF, HTN, HLD, obesity, OHS/ZAHEER, presents from home with SOB. Admitted on 05/18 for acute on chronic hypoxic and hypercapnic respiratory failure 2/2 acute copd exacerbation due to oxygen under-management. She had went to a comedy show and ran out of her portable oxygen which she believe exacerbated the COPD attack. She was treated with nebs and solumedrol as inpatient and improved back to her baseline. She is discharged home in stable condition with another 3 days of prednisone 50mg qday to complete a 5 day course. She has a repeat BMP in 2 days for mild elevation of potassium whilst we held her entresto and spironolactone until her PCP can review those results. More than 30 minutes spent on discharge planning and documentation. Time Spent with Patient Time attestation: Total time spent providing and/or coordinating discharge services: Exam Const: General: cooperative and no acute distress Resp: Effort & Inspection: normal respiratory effort Auscultation: clear to auscultation bilaterally Cardio: Rate: regular rate Rhythm: regular rhythm Heart sounds: S1 normal heart sound present and S2 normal heart sound present GI: GI Palp: No abdominal tenderness Auscultation: normal bowel sounds DS: Data Data Completed and Pending Labs on day of discharge: Labs from last 24 hours 05/19/23 05/19/23 04:08 01:03 WBC 6.1 RBC 4.33 Hgb 12.2 Hct 43.3 MCV 100.0 D MCH 28.2 MCHC 28.2 L RDW 12.9 Plt Count 223 MPV 10.6 H Sodium 133 L Potassium 5.3 H Chloride 85 L Carbon Dioxide > 40 H Anion Gap BUN 26 H Creatinine 0.70 Estim Creat Clear Calc 92 Estimated GFR > 60 Glucose 109 Calcium 8.8 Urine Color Yellow Urine Appearance Clear Urine pH 8.5 Ur Specific [place] 1.017 Urine Protein 1+ H Urine Glucose (UA) Negative Urine Ketones Negative Ur Blood (Man) Negative Urine Nitrate Negative Urine Bilirubin Negative Urine Urobilinogen 0.2 Leukocyte Esterase Rfl Negative Urine RBC 0-2 Urine WBC 0-5 Ur Squamous Epith Cells None seen Urine Bacteria None seen Urine Casts 0-2 Discharge Plan Discharge Attending physician on discharge: Phoebe Rhoades Discharging Clinician: Phoebe Rhoades Patient Disposition: Home, Self-Care Activity: may shower Diet: heart healthy Patient Instructions: Using Oxygen at Home (DC), COPD (Chronic Obstructive Pulmonary Disease) (DC) Stand Alone Forms: General Discharge Information Follow-up/Referrals: Darren Barnes [Other] - 1 Week Discharge Medications: New prednisone 50 mg tablet 50 mg PO DAILY 3 Days Qty: 3 0RF Continued tramadol 50 mg tablet 50 mg PO Q6H PRN (Reason: Pain (Scale Score 4-6)) furosemide 20 mg tablet 20 mg PO DAILY pantoprazole 40 mg Tablet,Delayed Release (Dr/Ec) 40 mg PO QAM Qty: 30 2RF citalopram 40 mg tablet 40 mg PO DAILY albuterol sulfate [Ventolin HFA] 90 mcg/actuation HFA aerosol inhaler 2 puff INHALATION Q4H PRN (Reason: wheezing) atorvastatin 40 mg tablet 40 mg PO HS ropinirole 0.25 mg tablet 0.25 mg PO HS diazepam 5 mg tablet 5 mg PO Q8H PRN (Reason: Anxiety) buspirone 15 mg tablet 15 mg PO TID carvedilol 6.25 mg tablet 6.25 mg PO Q12H albuterol sulfate 2.5 mg /3 mL (0.083 %
== END 2023-05-19 14:45 | disposition home or self-care (01) | DRG 189 ==
LOC: ANHED 02:57 → ANHIMU 04:38
PROVIDERS: Admitting Provider Internal Medicine; Emergency Provider Emergency Medicine; Visit Provider General Practice
DX: J96.21 Acute and chronic respiratory failure with hypoxia (principal); J44.1 Chronic obstructive pulmonary disease with (acute) exacerbation; Z68.43 Body mass index [BMI] 50.0-59.9, adult; I42.8 Other cardiomyopathies; E66.2 Morbid (severe) obesity with alveolar hypoventilation; J96.22 Acute and chronic respiratory failure with hypercapnia; I11.0 Hypertensive heart disease with heart failure; I50.9 Heart failure, unspecified; F41.9 Anxiety disorder, unspecified; F32.A Depression, unspecified; Z20.822 Contact with and (suspected) exposure to COVID-19; Z95.0 Presence of cardiac pacemaker; Z99.81 Dependence on supplemental oxygen; Z87.891 Personal history of nicotine dependence
CPT/HCPCS: 36415; 36600; 71045; 80048; 80053; 81001; 82375; 82805; 83050; 83605; 83735; 83880; 84145; 84484; 85025; 85027; 85610; 85730; 87636; 93005; 94002; 94003; 94640; 96374; 96375; 99285; A9270; J2270; J2930

== ENCOUNTER 2023-09-24 21:12 | Observation (INO) | payer MEDICARE, SELFPAY ==
--- NOTE | ~2023-09-24 | XR_ITS ---
EXAMINATION: XR chest 1V portable Exam Date/Time: 09/24/2023 21:40 ARCHEOLOGIST CLASSICAL HISTORY: CP Comparison: 05/18/2023. RESULT: Lines, tubes, and devices: Left chest pacer/AICD with intact leads. Lungs and pleura: Moderate diffuse reticular opacities. Subsegmental left basilar opacity and mild l eft costophrenic angle blunting. Cardiomediastinal silhouette: Stable. Other: No acute osseous or upper abdominal finding. IMPRESSION: Moderate interstitial edema. Left basilar atelectasis/consolidation. Possible small left pleural effu miya versus chronic pleural blunting. Reviewed, dictated and finalized at location K. EOLOGIST CLASSICAL IMPRESSION: Moderate interstitial edema. Left basilar atelectasis/consolidation. Possible s mall left pleural effusion versus chronic pleural blunting.
[2023-09-24 21:19] VITALS: BP 136/118; PULSE 100; RESP 15; TEMP 36.9; O2SAT 90
--- NOTE | 2023-09-24 21:26 | ECG_ITS ---
Measurements Intervals [place] Rate: 101 P: 58 MT: 133 QRS: 253 QRSD: 204 T: 101 QT: 444 QTc: 578 Interpretive Statements ATRIAL SENSE- ELECTRONIC VENTRICULAR PACEMAKER UNDERLYING SINUS TACHYCARDIA BASELINE ARTIFACT- I, III, AVR, AVL, AVF, V2, V4-V6 NO FURTHER INTERPRETATION IS POSSIBLE BORDERLINE ECG COMPARED TO ECG 05/18/2023 03:50:50 SINUS TACHYCARDIA NOW PRESENT Electronically Signed On 09-25-2023 7:59:09 [employer] by Juan R Avilez D.O.
[2023-09-24 21:34] LABS: Basophils Percent Auto 0.3 % (0.2-1.2); Eosinophils Absolute Auto 0.1 K/mm3 (0-0.3); Eosinophils Percent Auto 0.7 % (0-4.4); Hematocrit 39.3 % (37.0-47.0); Hemoglobin 10.3 g/dL (12.0-15.0); Immature Granulocyte Absolute 0.02 K/mm3 (0.00-0.031); Immature Granulocyte Percent A 0.3 % (0-0.5); Lymphocytes Percent Auto 12.2 % (18.3-44.2); Mean Corpuscular HGB Conc 26.2 g/dl (32-36); Mean Corpuscular Hemoglobin 27.9 pg (26-34); Mean Corpuscular Volume 106.5 fl (80-100); Mean Platelet Volume 9.9 fl (7.4-10.4); Monocytes Absolute Auto 0.5 K/mm3 (0.1-0.6); Monocytes Percent Auto 6.8 % (2.6-8.5); Neutrophils Absolute Auto 5.9 K/mm3 (1.3-6.7); Neutrophils Percent Auto 79.7 % (45.5-73.1); Platelet Count Result 160 k/mm3 (150-375); Red Blood Count 3.69 M/mm3 (4.2-5.4); Red Cell Distribution Width 13.7 % (11.5-14.5); White Blood Count 7.4 K/mm3 (4.5-10.0)
[2023-09-24 21:50] LABS: INR 0.9; Partial Thromboplastin Time 27.8 SECONDS (22.3-36.8); Prothrombin Time 12.5 Seconds (11.1-14.7)
[2023-09-24 21:52] LABS: Alanine Aminotransferase 15 U/L (6-35); Albumin Level 3.4 g/dL (3.5-5.1); Alkaline Phosphatase 82 U/L (38-126); Aspartate Amino Transferase 20 U/L (14-36); Bilirubin,Total 0.5 mg/dL (0.2-1.3); Blood Urea Nitrogen 20 mg/dL (7-17); Calcium 8.3 mg/dL (8.4-10.2); Carbon Dioxide > 40 mmol/L (22-30); Chloride 89 mmol/L (98-107); Estimated CRCL calculation 68 ml/min; Estimated Glomerular Filt Rate > 60; Glucose 118 mg/dL (65-110); Lipase 86 U/L (23-300); Potassium 4.4 mmol/L (3.4-5.0); Sodium 136 mmol/L (137-145)
[2023-09-24 21:52] LABS: Lactic Acid Reflex 1.2 mmol/L (0.7-2.0)
[2023-09-24 21:57] LABS: Macrocytosis 1+ (NORMAL); Platelet Estimate Adequate (Adequate); Schistocytes None Seen (NORMAL)
[2023-09-24 21:58] LABS: Hypochromasia 1+ (NORMAL)
[2023-09-24 22:11] LABS: Troponin I 0.067 ng/mL (0.000-0.034)
[2023-09-24] MEDS: SODIUM CHLORIDE 0.9% IV 1,000 ML 999 ML IV CONT (22:13)
[2023-09-24 22:23] VITALS: BP 94/70; PULSE 99; RESP 20; O2SAT 92
[2023-09-24 22:36] LABS: NT Pro B Type Natriuretic Pept 1670 pg/mL (19.9-100)
--- NOTE | 2023-09-24 23:22 | ED.GENADULT ---
HPI - General Adult General Chief complaint: Chest Pain Stated complaint: chest pain Time Seen by Provider: 09/24/23 21:50 History of Present Illness HPI narrative: patient is a 62-year-old female who presents emergency department with chief complaint of chest pain. Patient reports that she was at home had episode of midsternal chest pressure and felt as though her heart was beating fast. The patient has prior history of congestive heart failure also history of hypercapnic respiratory failure the patient reports that she has a pacemaker AICD. Patient reports that she felt as our heart was beating fast but did not have a defibrillator shocked Delivered Related Data Home Medications Medication Instructions Recorded Confirmed atorvastatin 40 mg tablet 40 mg PO HS 07/29/19 05/18/23 buspirone 15 mg tablet 15 mg PO TID 07/29/19 05/18/23 diazepam 5 mg tablet 5 mg PO Q8H PRN Anxiety 07/29/19 05/18/23 ropinirole 0.25 mg tablet 0.25 mg PO HS 07/29/19 05/18/23 furosemide 20 mg tablet 20 mg PO DAILY 11/30/21 05/18/23 tramadol 50 mg tablet 50 mg PO Q6H PRN Pain (Scale Score 11/30/21 05/18/23 4-6) sacubitril 49 mg-valsartan 51 mg 1 tablet PO BID 07/14/22 05/18/23 tablet (Entresto) carvedilol 6.25 mg tablet 6.25 mg PO Q12H 01/22/23 05/18/23 albuterol sulfate 90 mcg/actuation 2 puff inhalation Q4H PRN wheezing 05/18/23 05/18/23 aerosol inhaler (Ventolin HFA) citalopram 40 mg tablet 40 mg PO DAILY 05/18/23 05/18/23 spironolactone 25 mg tablet 25 mg PO DAILY 05/18/23 05/18/23 Allergies Allergy/AdvReac Type Severity Reaction Status Date / Time No Known Allergies Allergy Verified 11/11/22 15:31 Review of Systems Review of Systems: A 10 system review of systems was completed on the patient and is negative except for what is stated in the HPI. Nursing and ancillary documentation was reviewed. [facility] Past Medical History Medical History Anxiety Back pain Bronchitis Chronic obstructive pulmonary disease Chronic respiratory failure with hypoxia and hypercapnia 1 prior intubation about 10 years ago Congestive heart failure Depression Emphysema of lung Essential hypertension History of rectal polyps Hyperlipidemia Morbid obesity Nonischemic cardiomyopathy Present since 2006, thought to be due to a viral myocarditis. EF was as low as 10% in June 2017 but patient reports improvement in her EF to 32% most recently. She is followed by Dr. Soliman. ICD in-situ. Obesity hypoventilation syndrome Obstructive sleep apnea On Trilogy unit, previously on BiPAP 22/02 with 3 L of oxygen bleed in. Rectal polyp Surgical History Surgical History Biventricular cardiac pacemaker in situ (2006) History of cardiac cath With no significant coronary artery disease noted with last cardiac catheterization June 2017 demonstrating only 30-40% lesion of the left anterior descending artery. History of colonoscopy (09/2017) History of dilation and curettage (11/2016) History of tubal ligation (1989) Family History Family History Mother Diabetes mellitus Acute myocardial infarction Hypertension Sibling Diabetes mellitus Acute myocardial infarction Cerebrovascular accident Hypertension Schizophrenia Father Congestive heart failure Cerebrovascular accident Hypertension Schizophrenia Social History Social History Social History: The pedicle lives her daughter and son-in-law. She has 4 children. 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 She is . She use the smoke and now she uses edible gummies. Surrogate decision maker: Kia Garcia, daughter. Code status: Full code Smoking packs per day: 1.5 Smoking cigarettes per day: 30.0 Years smoked: 35 Smoking
[2023-09-24] MEDS: METOCLOPRAMIDE HCL INJ 10 MG/2 ML VIAL IV PUSH (23:31)
[2023-09-25] VITALS (29 sets, daily range): BP systolic 72–144; BP diastolic 48–65; PULSE 71–102; RESP 18–24; TEMP 35.8–36.7; O2SAT 95–100; BMI 53.8
--- NOTE | 2023-09-25 00:43 | ECG_ITS ---
Measurements Intervals [place] Rate: 87 P: 76 RI: 139 QRS: 255 QRSD: 213 T: 72 QT: 455 QTc: 548 Interpretive Statements ATRIAL SENSE- ELECTRONIC VENTRICULAR PACEMAKER BASELINE ARTIFACT- I, III, AVR, AVL NO FURTHER INTERPRETATION IS POSSIBLE ATYPICAL ECG COMPARED TO ECG 09/24/2023 21:25:14 HEART RATE HAS DECREASED Electronically Signed On 09-25-2023 8:06:29 LICENSED ESTHETICIAN by Juan R Avilez D.O.
[2023-09-25 01:20] LABS: Troponin I 0.082 ng/mL (0.000-0.034)
--- NOTE | 2023-09-25 02:28 | ADMGEN ---
This patient, Olivia Burdick, was admitted to IMU Room 211-01. Patient/family oriented to hospital policies and general routines including ID bracelet, bed and alarms, visiting hours, pain management, procedures, bathroom and other care routines, personal items, smoking policy, room service/diet, and visiting hours. Information on how to activate the Rapid Response Team has been discussed. Patient/Family are encouraged to report perceived risks to care and to ask questions if they do not understand what they are told or what they should do.
--- NOTE | 2023-09-25 07:33 | PM.IMHP ---
H&P: HPI History of Present Illness Date/Time: 09/25/23 07:33 Chief Complaint: Chest pain palpitation Narrative: 62 years old lady with history of systolic heart failure EF 30-35% hot echocardiogram February 24, 2023 hypertension, hyperlipidemia, anxiety, COPD, chronic respiratory failure present ED with chief complaint of chest pain and palpitation. Patient had episode of midsternal chest pressure and and also had palpitation. Patient denies fever, chills, productive cough, abdomen pain, nausea vomiting diarrhea dysuria headache focal weakness. Patient did not have a defibrillator shocked. In the ED, patient was afebrile, blood pressure stable, patient need 4 L oxygen,, EKG showed paced rhythm, no specific ST T-wave changes in the ED, mildly elevated troponin at 0.067.? BNP is mildly elevated at 1670. X-ray showed moderate interstitial edema, the basilar atelectasis, the pacemaker was interrogated that showed some episodes of atrial tachycardia and a episode of VF? that lasted about 12 seconds Review of Systems Review of Systems: ROS negative except above PMFSH Past Medical History Medical History (Updated 09/25/23 @ 07:48 by Chen Davis MD) Acute on chronic systolic heart failure Anxiety Back pain Bronchitis Chronic obstructive pulmonary disease Chronic respiratory failure with hypoxia and hypercapnia 1 prior intubation about 10 years ago Congestive heart failure Depression Emphysema of lung Essential hypertension History of rectal polyps Hyperlipidemia Morbid obesity Nonischemic cardiomyopathy Present since 2006, thought to be due to a viral myocarditis. EF was as low as 10% in June 2017 but patient reports improvement in her EF to 32% most recently. She is followed by Dr. Soliman. ICD in-situ. Obesity hypoventilation syndrome Obstructive sleep apnea On Trilogy unit, previously on BiPAP 22/02 with 3 L of oxygen bleed in. Rectal polyp Surgical History Surgical History Biventricular cardiac pacemaker in situ (2006) History of cardiac cath With no significant coronary artery disease noted with last cardiac catheterization June 2017 demonstrating only 30-40% lesion of the left anterior descending artery. History of colonoscopy (09/2017) History of dilation and curettage (11/2016) History of tubal ligation (1989) Family History Family History Mother Diabetes mellitus Acute myocardial infarction Hypertension Sibling Diabetes mellitus Acute myocardial infarction Cerebrovascular accident Hypertension Schizophrenia Father Congestive heart failure Cerebrovascular accident Hypertension Schizophrenia Social History Social History Social History: The [place] lives her daughter and son-in-law. She has 4 children. 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 She is . She use the smoke and now she uses edible gummies. Surrogate decision maker: Kia Garcia, daughter. Code status: Full code Smoking packs per day: 1.5 Smoking cigarettes per day: 30.0 Years smoked: 35 Smoking pack-years: 52.50 Smoking status: Former smoker Tobacco type: cigarettes Second hand tobacco smoke exposure: No Alcohol intake: never Substance use: never Substance use type: does not use Other substance usage details: Patient has history of edible consumption Do You Feel Safe in your Home?: Yes Lack of Transportation: No Lack of Food: Never True Current Housing: I Have Housing Concerned About Future Housing: No Difficulty Paying Gas/Electric Bills: No Difficulty Paying for Meds: No Currently Unemployed: No Education: Associate Degree Difficulty w/ Childcare or Family Care: No Living arrangements: with family Additional living arrangements comments: She lives with her daughter and son
--- NOTE | 2023-09-25 08:28 | PCRCNOTE ---
Pt. is eating breakfast. Will return to draw ABG and give treatment after pt. is finished.
[2023-09-25] MEDS: busPIRone HCL 5 MG TABLET 15 MG PO ×3 (09:32→17:35)
[2023-09-25] MEDS: PANTOPRAZOLE 40 MG TABLET PO (09:33)
[2023-09-25] MEDS: carvediloL 6.25 MG TABLET PO (09:33)
[2023-09-25] MEDS: SPIRONOLACTONE 25 MG TABLET PO (09:33)
[2023-09-25] MEDS: IPRATROPIUM 0.5 MG/ALBUTEROL SULFATE 2.5 MG AMPUL.NEB 3 ML INHALATION ×3 (09:34→20:30)
[2023-09-25] MEDS: traMADol HCL (*CRX) 50 MG TABLET PO ×2 (09:34→17:40)
[2023-09-25] MEDS: FUROSEMIDE INJ 40 MG/4 ML VIAL IV PUSH (09:34)
[2023-09-25] MEDS: SACUBITRIL/VALSARTAN 49-51 MG TABLET 1 TABLET PO ×2 (09:34→20:00)
[2023-09-25] MEDS: CITALOPRAM HYDROBROMIDE 20 MG TABLET 40 MG PO (09:34)
[2023-09-25] MEDS: ASPIRIN 81 MG CHEWABLE TABLET 324 MG PO (09:42)
[2023-09-25 09:57] LABS: Alveolar/Arterial O2 Gradient 33.8 mmHg; Base Excess ABG 8.4 mEq/l (+/-2.0); Carboxyhemoglobin 0.7 % THb (0-2.0); Fractional Inspired Oxygen 36 %; HCO3 ABG 39.6 mEq/l (22.0-26.0); Methemoglobin ABG 0.1 %THb (0-1.5); Oxygen Content ABG 15.1 %vol (16.0-22.0); Oxygen Saturation ABG 95.5 % (95.0-100.0); Oxyhemoglobin 95.9 % THb (90.0-100.0); PO2 ABG 100.3 mmHg (80.0-100.0); PO2 FiO2 Ratio Arterial Blood 2.79 %; Reduced Hemoglobin 3.3 %THb (0-5.0); Total Hemoglobin 11.1 g/dL (12.0-18.0)
[2023-09-25 10:05] LABS: PCO2 ABG 105.7 mmHg (35.0-45.0)
[2023-09-25 10:06] LABS: Modified Allen's Test Pass; Site Drawn LEFT RADIAL; pH ABG 7.192 (7.350-7.450)
[2023-09-25 10:07] LABS: Device NASAL CANNULA
[2023-09-25] MEDS: SODIUM CHLORIDE 0.9% IV 500 ML IV CONT (13:12)
--- NOTE | 2023-09-25 13:16 | PM.CNCAR ---
Assessment and Plan Assessment and plan (1) Chest pain: Code(s): R07.9 - Chest pain, unspecified Status: Acute (2) Nonischemic cardiomyopathy: Code(s): I42.8 - Other cardiomyopathies Status: Acute Plan This is a 62-year-old lady known to have a nonischemic cardiomyopathy. She is hemodynamically stable from that perspective and not in a state of decompensated heart failure. Her chest pain symptoms are of uncertain etiology possibly related to her hypercarbic respiratory failure but she is not known to have any coronary artery disease and at this time her troponin levels are not elevated enough in my opinion to warrant initiating ischemia workup. Her heart failure medication is appropriate and should be continued there I do not see any clinical reason to make adjustments on that at this time. We will see her/follow her with you in the hospital and ensure that appropriate/timely follow-up with my partner is scheduled in the office upon discharge. The unfortunately this patient appears to be chronically having difficulty with recurrent admissions with hypercarbic respiratory failure Patrick Mccabe MD [facility] History of Present Illness History of Present Illness Consult date/time: 09/25/23 13:16 Reason For Visit: Chest Pain, Palpitations, Elevated Troponin Narrative: This is a 62-year-old woman who is not known to me but follows with my partner, Dr. Soliman the established diagnosis of a nonischemic cardiomyopathy. She is known to have severely depressed left ventricular systolic function, no coronary artery disease and is being managed with guideline directed medical therapy as well as a chronically implanted pacemaker/ICD cardiac resynchronization device. She came to the emergency room yesterday here at [facility] because of some chest pain. She describes a onset of a dull aching like sensation in the center of the chest in the substernal region that did not radiate it was not associated with any other symptomatology and this symptom was self-limited she thinks after about 15-20 minutes resolved on its own. She however became concerned and came to the emergency room for evaluation. In the emergency department her EKG demonstrates atrial sensing with ventricular pacing, her troponin levels were sampled of course x3 sets in they are slightly elevated but flat at 0.1. She has not had any recurrence of chest pain and when I came in the room to see her she was actually sleeping with BiPAP in place. Upon awakening she does answer questions appropriately but after a very short time of stimulation falls back to sleep. Looking at her chart earlier the this morning a couple of hours ago her pCO2 was 105 indicating reason for somnolescence. We do have records in the office chart of her being frequently admitted recently to [facility] with symptoms of shortness of breath. The similarly they have had problems with respiratory insufficiency and hypercarbic respiratory failure. She was just in the hospital there about 2 weeks ago according to the records. Once again this patient is known not to have coronary artery disease at the time of her cardiomyopathy diagnosis. Review of Systems Review of Systems: ROS unobtainable: Yes unobtainable due to mental status PENDING SALE TO [facility] Past Medical History Medical History (Updated 09/25/23 @ 07:48 by Chen Davis MD) Acute on chronic systolic heart failure Anxiety Back pain Bronchitis Chronic obstructive pulmonary disease Chronic respiratory failure with hypoxia and hypercapnia 1 prior intubation about 10 years ago Congestive heart failure Depression Emphysema of lung Essential hypertension History of rectal polyps Hyperlipidemia Morbid obesity Nonischemic cardiomyopathy Present since 2006, thought to be due to a viral myocarditis. EF was as low as 10% in June 2017 but patient reports improvement in her EF to 32% most recently. She is followed by Dr. Soliman. ICD in-situ
[2023-09-25 14:28] LABS: Alveolar/Arterial O2 Gradient 72.5 mmHg; Base Excess ABG 19.3 mEq/l (+/-2.0); Fractional Inspired Oxygen 32 %; HCO3 ABG 47.8 mEq/l (22.0-26.0); Oxygen Content ABG 13.4 %vol (16.0-22.0); Oxygen Saturation ABG 88.7 % (95.0-100.0); Oxyhemoglobin 91.2 % THb (90.0-100.0); PO2 ABG 59.5 mmHg (80.0-100.0); PO2 FiO2 Ratio Arterial Blood 1.86 %; Total Hemoglobin 10.4 g/dL (12.0-18.0); pH ABG 7.382 (7.350-7.450)
[2023-09-25 14:30] LABS: Device OTHER DEVICE; Modified Allen's Test Pass; PCO2 ABG 82.2 mmHg (35.0-45.0); Site Drawn LEFT RADIAL
--- NOTE | 2023-09-25 14:48 | PCOTNOTE ---
Attempted OT evaluation x3. Per RN pt. has high CO2 levels. Hold until tomorrow. Will evaluation as able tomorrow.
--- NOTE | 2023-09-25 14:55 | PCPTNOTE ---
Checked with nursing regarding patient stats at 1130, 1300, and 1455. Pt numbers appear to be trending appropriately however pt is currently resting. Will reassess tomorrow and attempt evaluation as able.
[2023-09-25] MEDS: FUROSEMIDE INJ 40 MG/4 ML VIAL 20 MG IV PUSH (17:36)
[2023-09-25] MEDS: rOPINIRole HCL 0.25 MG TABLET PO (19:59)
[2023-09-25] MEDS: ATORVASTATIN 40 MG TABLET PO (20:00)
[2023-09-25] MEDS: ACETAMINOPHEN 500 MG TABLET 1000 MG PO (21:46)
[2023-09-26] VITALS (17 sets, daily range): BP systolic 105–134; BP diastolic 54–83; PULSE 79–98; RESP 16–20; TEMP 36.2–36.7; O2SAT 94–99
[2023-09-26] MEDS: IPRATROPIUM 0.5 MG/ALBUTEROL SULFATE 2.5 MG AMPUL.NEB 3 ML INHALATION ×2 (02:35→08:30)
[2023-09-26] MEDS: traMADol HCL (*CRX) 50 MG TABLET PO (05:12)
--- NOTE | 2023-09-26 08:01 | ECHO_ITS ---
Patient Info Name: Olivia Burdick Age: 62 years : 1960 Gender: Female Ht: 61 in Wt: 286 lbs BSA: 2.45 m2 HR: 91 bpm BP: 134 / 83 mmHg Heart Rhythm: Sinus Rhythm, Paced Technical Quality: Poor Exam Date: 09/26/2023 9:28 AM Exam Location: Echo Lab Patient Status: Inpatient Admit Date: 09/25/2023 Staff Ordering Physician: Chen Davis MD Public Transportation Inspector: Angela Vilchis RDCS Attending Provider: Rosalva Limon DO Exam Type: CA echo dop color flow w con Study Info Indications - dizziness Complete two-dimensional, color flow and Doppler transthoracic echocardiogram is performed with contrast to opacify the left ventricle and to improve the deliniation of the left ventricle endocardial borders. Contrast/Agitated Saline Contrast/Ag. Saline: Definity Amount: 2.00 ml Administered By: Angela Vilchis RDCS Existing IV Access: Yes IV Access Condition: patent with no signs of infiltration Summary 1. LVH with left ventricular dilation and moderately reduced systolic contractility. 2. Severe left atrial enlargement. 3. Pacemaker/ICD leads identified. 4. Trivial mitral regurgitation. Left Ventricle Left ventricular chamber dimension is moderately enlarged. Left ventricular systolic function is moderately reduced, estimated at 30-35%. There is mild concentric increased left ventricular wall thickness. The left ventricular diastolic function is indeterminate. Right Ventricle Right ventricular chamber dimension is normal. Linear artifact in right ventricle suggestive of catheter(s), pacemaker lead(s), or ICD lead(s). Left Atria Left atrial chamber dimension is severely enlarged. Right Atria Right atrial chamber dimension is mildly enlarged. Linear artifact in the right atrium suggestive of catheter(s), pacemaker lead(s), or ICD lead(s). Aortic Valve The aortic valve is normal. Pulmonic Valve The pulmonic valve is not well visualized. Mitral Valve The mitral valve has normal leaflets. There is trace mitral valve regurgitation. The mitral valve annulus is mildly calcified. Tricuspid Valve The tricuspid valve leaflets are normal. Pericardium/Pleural The pericardium appears normal. Aorta The aortic root size at the sinus of Valsalva is normal. Left Ventricular Outflow Tract Name Value Normal LVOT 2D LVOT Diameter 2.15 cm LVOT Doppler LVOT Peak Gradient 2 mmHg LVOT Mean Gradient 1 mmHg LVOT VTI 13.55 cm LVOT VTI/AV VTI Ratio 0.42 LVOT Stroke Volume 48.97 ml LVOT CO 4.26 l/min LVOT CI 1.74 L/min/m2 Mitral Valve Name Value Normal MV Doppler MV Peak Gradient 12 mmHg MV Mean Gradient 5 mmHg MV Decel [place]
--- NOTE | 2023-09-26 09:23 | PM.IMPN ---
Progress Note: A&P Assessment and Plan (1) Nonsustained monomorphic ventricular tachycardia: Code(s): I47.29 - Other ventricular tachycardia Status: Acute (2) Chest pain: Code(s): R07.9 - Chest pain, unspecified Status: Acute (3) Elevated troponin: Code(s): R79.89 - Other specified abnormal findings of blood chemistry Status: Acute (4) Acute on chronic respiratory failure with hypoxia and hypercapnia: Code(s): J96.21 - Acute and chronic respiratory failure with hypoxia; J96.22 - Acute and chronic respiratory failure with hypercapnia Status: Acute (5) Chronic obstructive pulmonary disease: Code(s): J44.9 - Chronic obstructive pulmonary disease, unspecified Status: Acute (6) Morbid obesity with BMI of 50.0-59.9, adult: Code(s): E66.01 - Morbid (severe) obesity due to excess calories; Z68.43 - Body mass index [BMI] 50.0-59.9, adult Status: Acute (7) COPD exacerbation: Code(s): J44.1 - Chronic obstructive pulmonary disease with (acute) exacerbation Status: Acute Plan Nonsustained V-tach Unclear etiologies, history of systolic heart failure status post AICD pacemaker, may be related to acute on chronic heart failure, respiratory failure, COPD Pacemaker interrogation suggest nonsustained V-tach Repeat echocardiogram Continue carvedilol 6.25 mg q.12 hours Telemetry monitoring Consult facility coordinator for evaluation treatment, management per facility coordinator Chest pain Patient has elevated troponins, EKG showed paced rhythm, nonspecific ST T-wave changes NSTEMI versus demand ischemia due to sustained V-tach Follow echocardiogram Start aspirin 325 mg once, aspirin 81 mg daily p.o. Lipitor 40 mg daily p.o. 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 No further intervention workup per facility coordinator Acute chronic systolic heart failure X-ray shows pulmonary congestion, elevated BNP above baseline Start Lasix 20 mg b.i.d. IV push Continue spironolactone 25 mg daily p.o. Follow-up input output 07/27 ordered echocardiog, reports pending Lungs clear, compensated Change back to home diuretic medications, discontinue IV Lasix Hypertension Continue carvedilol 6.25 mg b.i.d., Entresto 49/511 tablet b.i.d. p.o. Acute on chronic respiratory failure Patient has chronic respiratory failure with hypoxemia and hypercapnia Chronic patient's on 4 L oxygen in the ED Possible due to acute on chronic heart failure, COPD obesity hypoventilation syndrome Continue O2 therapy to keep pulse ox 94 Morning ABG showed pH 7.19, pCO2 105, PaO2 103. Placed patient back on Trelegy, repeated ABG showed pH 7.382, pCO2 82.2, PO2 59.2 Consult ophthalmic medical technician for evaluation treatment Appreciate ophthalmic medical technician consultation, continue ?AVAPS-AE E mode set at auto rate, tidal volume 500, minimum EPAP 5, maximum EPAP 15, minimum pressure support 5, maximum pressure support 25, speed of 5, rise of 2 and 4 L bleed in. Per ophthalmic medical technician, patient has compensated respiratory acidosis, COPD History of COPD, x-ray shows pulmonary interstitial changes Continue prednisone 50 mg daily p.o., DuoNeb q.6 are scheduled, albuterol nebulizer q.i.d. p.r.n. No obvious sign of exacerbation Anxiety Continue home medication Morbid obesity, ZAHEER Continue home AVAPS-AE Subjective Date/time seen: 09/26/23 09:23 Interval history: Patient feels better today, denies chest pain, shortness off breath. Patient is afebrile, hemodynamically stable, Exam Narrative: GENERAL: Pleasant, in no acute distress. Well-nourished. Morbid obesity - EYES: EOMI. Anicteric. - HENT: Moist mucous membranes. - LUNGS: Lungs clear bilaterally, no wheezing, rhonchi, or rales. - CARDIOVASCULAR: Regular rate and rhythm. No murmur. No JVD. - AB
--- NOTE | 2023-09-26 09:27 | PCPTNOTE ---
Attempted PT evaluation, pt getting an echo. Will follow
[2023-09-26] MEDS: SPIRONOLACTONE 25 MG TABLET PO (09:49)
[2023-09-26] MEDS: carvediloL 6.25 MG TABLET PO (09:49)
[2023-09-26] MEDS: ASPIRIN 81 MG CHEWABLE TABLET PO (09:49)
[2023-09-26] MEDS: PANTOPRAZOLE 40 MG TABLET PO (09:49)
[2023-09-26] MEDS: SACUBITRIL/VALSARTAN 49-51 MG TABLET 1 TABLET PO (09:49)
[2023-09-26] MEDS: busPIRone HCL 5 MG TABLET 15 MG PO ×2 (09:49→12:59)
[2023-09-26] MEDS: CITALOPRAM HYDROBROMIDE 20 MG TABLET 40 MG PO (09:49)
[2023-09-26] MEDS: ACETAMINOPHEN 500 MG TABLET 1000 MG PO (09:50)
[2023-09-26] MEDS: FUROSEMIDE INJ 40 MG/4 ML VIAL 20 MG IV PUSH (09:50)
--- NOTE | 2023-09-26 09:51 | PM.PNCARD ---
Progress Note: A&P Assessment and Plan (1) Chest pain: Code(s): R07.9 - Chest pain, unspecified Status: Acute Assessment and Plan: continues to deny any CP (2) Nonischemic cardiomyopathy: Code(s): I42.8 - Other cardiomyopathies Status: Acute Assessment and Plan: Continue home regimen including Entresto and Coreg (3) Congestive heart failure: Code(s): I50.9 - Heart failure, unspecified Status: Acute Assessment and Plan: compensated. WIll reduce IV lasix to 20 mg once daily. BMP today (4) Acute on chronic respiratory failure with hypoxia and hypercapnia: Code(s): J96.21 - Acute and chronic respiratory failure with hypoxia; J96.22 - Acute and chronic respiratory failure with hypercapnia Status: Acute Assessment and Plan: Patient has significant sleep apnea and what appears to be obesity hypoventilation. Still is significantly elevated CO2 at last evaluation. Repeat ABG today. If pulmonology is not involved, would recommend involvement Plan This is a 62-year-old lady known to have a nonischemic cardiomyopathy. She is hemodynamically stable from that perspective and not in a state of decompensated heart failure. Her chest pain symptoms are of uncertain etiology possibly related to her hypercarbic respiratory failure but she is not known to have any coronary artery disease and at this time her troponin levels are not elevated enough in my opinion to warrant initiating ischemia workup. Her heart failure medication is appropriate and should be continued there I do not see any clinical reason to make adjustments on that at this time. We will see her/follow her with you in the hospital and ensure that appropriate/timely follow-up with my partner is scheduled in the office upon discharge. The unfortunately this patient appears to be chronically having difficulty with recurrent admissions with hypercarbic respiratory failure Patrick Mccabe MD [facility] Subjective Date/time seen: 09/26/23 09:51 Interval history: This is a 62-year-old woman who is not known to me but follows with my partner, Dr. Soliman the established diagnosis of a nonischemic cardiomyopathy. Date of service 09/26/2023: She continues to complain of no chest pain. No shortness of breath at rest but still significant CO2 retention. Review of Systems Cardiovascular: Comments: No chest pain Respiratory: Comments: No shortness of breath Gastrointestinal: Comments: No abdominal pain Exam Narrative: Awake alert Const: Other: Somnolent morbidly obese white female appears to be her stated age wearing a BiPAP device HENMT: Mouth: Yes moist mucous membranes Eyes: Sclera: sclerae normal Neck: Neck: supple Other: Unable to comment upon JVD given her body habitus Resp: Effort & Inspection: normal respiratory effort Auscultation: clear to auscultation bilaterally Other: Breath sounds are distant but essentially clear bilaterally no wheezing no rales Cardio: Rate: regular rate Rhythm: regular rhythm Other: No audible murmur, PMI is not palpable because of her size GI: Auscultation: normal bowel sounds Skin: General skin exam: normal color Neuro: Other: Alert and oriented x3 Extrem: Other: Obese but no significant pitting edema at this time Objective Data Vital Signs Vital Signs: Vital Signs - 24 hr 09/25/23 10:13 09/25/23 11:50 09/25/23 12:00 Temperature 35.8 C L Pulse Rate 86 102 H Respiratory Rate 24 H Blood Pressure 75/48 L Pulse Oximetry 96 95 100 Oxygen Delivery Nasal Cannula Oxygen Flow Rate 3 09/25/23 12:25 09/25/23 14:27 09/25/23 14:40 Temperature Pulse Rate 72 73 Respiratory Rate 20 20 Blood Pressure 72/48 L Pulse Oximetry Oxygen Delivery Oxygen Flow Rate 09/25/23 10:00 09/25/23 12:00 09/25/23 14:00 Temperature Pulse Rate 90 83 72 Respiratory
[2023-09-26] MEDS: PERFLUTREN LIPID MICROSPHERES 1.5 ML VIAL DILUTED TO 10 ML TOTAL VOLUME IV PUSH (10:00)
[2023-09-26 10:16] LABS: Basophils Percent Auto 0.4 % (0.2-1.2); Eosinophils Absolute Auto 0.2 K/mm3 (0-0.3); Eosinophils Percent Auto 2.5 % (0-4.4); Hemoglobin 9.8 g/dL (12.0-15.0); Immature Granulocyte Absolute 0.02 K/mm3 (0.00-0.031); Immature Granulocyte Percent A 0.3 % (0-0.5); Lymphocytes Absolute Auto 0.89 K/mm3 (0.9-3.2); Lymphocytes Percent Auto 12.9 % (18.3-44.2); Mean Corpuscular HGB Conc 25.8 g/dl (32-36); Mean Corpuscular Hemoglobin 27.3 pg (26-34); Mean Corpuscular Volume 105.8 fl (80-100); Mean Platelet Volume 10.1 fl (7.4-10.4); Monocytes Absolute Auto 0.5 K/mm3 (0.1-0.6); Monocytes Percent Auto 7.5 % (2.6-8.5); Neutrophils Absolute Auto 5.3 K/mm3 (1.3-6.7); Neutrophils Percent Auto 76.4 % (45.5-73.1); Platelet Count Result 144 k/mm3 (150-375); Red Blood Count 3.59 M/mm3 (4.2-5.4); Red Cell Distribution Width 13.9 % (11.5-14.5); White Blood Count 6.9 K/mm3 (4.5-10.0)
[2023-09-26 10:28] LABS: Blood Urea Nitrogen 21 mg/dL (7-17); Calcium 8.1 mg/dL (8.4-10.2); Carbon Dioxide > 40 mmol/L (22-30); Chloride 88 mmol/L (98-107); Estimated CRCL calculation 92 ml/min; Estimated Glomerular Filt Rate > 60; Glucose 120 mg/dL (65-110); Potassium 4.3 mmol/L (3.4-5.0); Sodium 137 mmol/L (137-145)
[2023-09-26 10:36] LABS: Anisocytosis 2+ (NORMAL); Hypochromasia 1+ (NORMAL); Macrocytosis 1+ (NORMAL); Microcytosis 1+ (NORMAL); Platelet Estimate Adequate (Adequate); Schistocytes None Seen (NORMAL)
--- NOTE | 2023-09-26 10:50 | IVDEFINITY ---
Prior to administration of IV Definity the patient was educated on the risks and benefits of the imaging enhancing agent including potential adverse side effects. The patient verbalized understanding. Allergies were verified. No exclusion criteria were identified and at least one of the following inclusion criteria were met: 1) physician request, 2) patient technically difficult to image (per the [place] [employer] guidelines of two or more segments not discernable within the apical view), or 3) questionable left ventricular function. ?
[2023-09-26 11:22] LABS: Alveolar/Arterial O2 Gradient 28.5 mmHg; Base Excess ABG 17.7 mEq/l (+/-2.0); Fractional Inspired Oxygen 28 %; HCO3 ABG 46.1 mEq/l (22.0-26.0); Oxygen Content ABG 15.3 %vol (16.0-22.0); Oxyhemoglobin 94.9 % THb (90.0-100.0); PO2 ABG 79.2 mmHg (80.0-100.0); PO2 FiO2 Ratio Arterial Blood 2.83 %; Total Hemoglobin 11.4 g/dL (12.0-18.0)
[2023-09-26 11:23] LABS: Device NASAL CANNULA; Modified Allen's Test Pass; PCO2 ABG 77.9 mmHg (35.0-45.0); Site Drawn RIGHT RADIAL
--- NOTE | 2023-09-26 11:53 | PM.CNPUL ---
Assessment and Plan Assessment and plan (1) Chronic obstructive pulmonary disease: Code(s): J44.9 - Chronic obstructive pulmonary disease, unspecified Status: Acute Assessment and Plan: Patient with a 34 year PY history of tobacco use (quit 2010), apical predominant panlobular emphysema on a CT scan from 04/19/2020, I have no PFTs, ? Chronic hypoxemic and hypercarbic respiratory failure requiring noninvasive ventilator with the AVAPS mode and 4 L bleed in,? 2 L at rest and 3 with ambulation,? with severe dyspnea on exertion? at 10 yd, M MRC grade 4,? CAT score of 31, with last COPD exacerbation requiring hospitalization 01/15/2022, and 05/18/2023. 09/26/23: Patient currently admitted with chest pain. She has no evidence of a COPD exacerbation, pneumonia or bronchitis. she is at her baseline oxygen requirements with 2 L and saturations are 92%. Patient feels as if she is ready to go home. He her blood gas on her home noninvasive ventilator is 7.38/82/60 with 3 L bleed in. This provides adequate ventilation and oxygenation. Her blood gas during the day today off of BiPAP for approximately 6 hours 7.39/78/79 on 2 L. this is a compensated respiratory acidosis. From a pulmonary perspective patient can be discharged on these pulmonary medications: Trelegy 100/62.5/25 at 1 puff q.day Albuterol 2 puffs q.4 hours p.r.n. shortness of breath or wheezing, Albuterol 2.5 mg nebulized q.4 hours p.r.n. shortness of breath or wheezing, she needs this medicine prescribed Oxygen 2 L at rest, 3 with activity and 4 bleed in with her noninvasive ventilator. When she naps or sleep she should wear her noninvasive ventilator with settings: AVAPS-AE mode set at auto rate, tidal volume 500, minimum EPAP 5, maximum EPAP 15, minimum pressure support 5, maximum pressure support 25, speed of 5, rise of 2 and 4 L bleed in. I have instructed the patient to call the clinic should she have problems when she gets home. Patient should follow up in the Pulmonary Clinic in 3-4 weeks. I have given her our business card and informed our building insulation installer. Discussed with Dr. Davis, call with questions. (2) Acute on chronic respiratory failure with hypoxia and hypercapnia: Code(s): J96.21 - Acute and chronic respiratory failure with hypoxia; J96.22 - Acute and chronic respiratory failure with hypercapnia Status: Acute Assessment and Plan: The patient tells me she has been wearing her home noninvasive ventilator with the fullface mask and 4 L bleed in and that this provides her adequate sleep and she has a good clinical benefit from this. When she naps or sleep she should wear her noninvasive ventilator with her previous settings: AVAPS-AE mode set at auto rate, tidal volume 500, minimum EPAP 5, maximum EPAP 15, minimum pressure support 5, maximum pressure support 25, speed of 5, rise of 2 on 4 L nasal cannula. I will attempt to obtain a recent download from [employer]. History of Present Illness History of Present Illness Consult date: 09/26/23 Chief complaint: Chest Pain, Palpitations, Elevated Troponin Narrative: 09/26/2023: This is a new pulmonary consult for COPD with chronic hypercarbic and hypoxemic respiratory failure on home noninvasive ventilator. 62-year-old with a history of COPD on 2 L at rest, 3 L with ambulation, 4 L with her noninvasive ventilator at night (AVAPS-AE, through [employer]), hypertension, congestive heart failure with AICD is followed in the Pulmonary Clinic.? Patient was last seen in clinic on 11/11/2022.? patient was started on nocturnal noninvasive ventilation in January of 2022 and in October of 2022 she had had 3 admissions for noncompliance and I had a irineo discussion with her that she needed to wear her machine or that we would recommend she be admitted to a facility that could help her manage the machine or that she should consider hospice.? On 11/11/2021 patient had a download with good compliance at 80%, adequate pressures a
--- NOTE | 2023-09-26 13:11 | PM.DS ---
DS: Admitting Diagnosis Discharge Date 09/26/23 Admitting Diagnosis (1) Nonsustained monomorphic ventricular tachycardia: ?Code(s): I47.29 - Other ventricular tachycardia ?Status:?Acute (2) Chest pain: ?Code(s): R07.9 - Chest pain, unspecified ?Status:?Acute (3) Elevated troponin: ?Code(s): R79.89 - Other specified abnormal findings of blood chemistry ?Status:?Acute (4) Acute on chronic respiratory failure with hypoxia and hypercapnia: ?Code(s): J96.21 - Acute and chronic respiratory failure with hypoxia; J96.22 - Acute and chronic respiratory failure with hypercapnia ?Status:?Acute (5) Chronic obstructive pulmonary disease: ?Code(s): J44.9 - Chronic obstructive pulmonary disease, unspecified ?Status:?Acute (6) Morbid obesity with BMI of 50.0-59.9, adult: ?Code(s): E66.01 - Morbid (severe) obesity due to excess calories; Z68.43 - Body mass index [BMI] 50.0-59.9, adult ?Status:?Acute (7) COPD exacerbation: ?Code(s): J44.1 - Chronic obstructive pulmonary disease with (acute) exacerbation ?Status:?Acute DS: Discharge Diagnosis Discharge Diagnosis (1) Nonsustained monomorphic ventricular tachycardia: Code(s): I47.29 - Other ventricular tachycardia Status: Acute (2) Chest pain: Code(s): R07.9 - Chest pain, unspecified Status: Acute (3) Elevated troponin: Code(s): R79.89 - Other specified abnormal findings of blood chemistry Status: Acute (4) Acute on chronic respiratory failure with hypoxia and hypercapnia: Code(s): J96.21 - Acute and chronic respiratory failure with hypoxia; J96.22 - Acute and chronic respiratory failure with hypercapnia Status: Acute (5) Chronic obstructive pulmonary disease: Code(s): J44.9 - Chronic obstructive pulmonary disease, unspecified Status: Acute (6) Morbid obesity with BMI of 50.0-59.9, adult: Code(s): E66.01 - Morbid (severe) obesity due to excess calories; Z68.43 - Body mass index [BMI] 50.0-59.9, adult Status: Acute (7) COPD exacerbation: Code(s): J44.1 - Chronic obstructive pulmonary disease with (acute) exacerbation Status: Acute DS: Summary Hospital Course Hospital Course: 62 years old lady with history of systolic heart failure EF 30-35% hot echocardiogram February 24, 2023 hypertension, hyperlipidemia, anxiety, COPD, chronic respiratory failure present ED with chief complaint of chest pain and palpitation.? Patient had episode of midsternal chest pressure and and also had palpitation.? Patient denies fever, chills, productive cough, abdomen pain, nausea vomiting diarrhea dysuria headache focal weakness.? Patient did not have a defibrillator shocked.? In the ED, patient was afebrile, blood pressure stable, patient need 4 L oxygen,, EKG showed paced rhythm, no specific ST T-wave changes in the ED, mildly elevated troponin at 0.067.? BNP is mildly elevated at 1670.? X-ray showed moderate interstitial edema, the basilar atelectasis, the pacemaker was interrogated that showed some episodes of atrial tachycardia and a episode of VF? that lasted about 12 seconds The following med issues have been addressed during hospitalization Nonsustained V-tach Unclear etiologies, history of systolic heart failure status post AICD pacemaker, may be related to acute on chronic heart failure, respiratory failure, COPD Pacemaker interrogation suggest nonsustained V-tach Repeat echocardiogram Continue carvedilol 6.25 mg q.12 hours Telemetry monitoring Consult retail security professional for evaluation treatment, management per retail security professional Chest pain Patient has elevated troponins, EKG showed paced rhythm, nonspecific ST T-wave changes NSTEMI versus demand ischemia due to sustained V-tach Follow echocardiogram Start aspirin 325 mg once, aspirin 81 mg daily p.o. Lipitor 40 mg daily p.o. Follow-up serial troponin, EKG as needed quality assurance monitor chassis Consult cardiologis
== END 2023-09-26 16:10 | disposition home or self-care (01) ==
LOC: ANHED 09-25 00:17 → ANHIMU 09-25 05:39
PROVIDERS: Internal Medicine Cardiovascular Disease; Admitting Provider Internal Medicine; Emergency Provider Emergency Medicine; Visit Provider Hospitalist
DX: I47.29 Other ventricular tachycardia (principal); R07.9 Chest pain, unspecified; R79.89 Other specified abnormal findings of blood chemistry; J96.21 Acute and chronic respiratory failure with hypoxia; J96.22 Acute and chronic respiratory failure with hypercapnia; E66.2 Morbid (severe) obesity with alveolar hypoventilation; I42.8 Other cardiomyopathies; J44.1 Chronic obstructive pulmonary disease with (acute) exacerbation; Z68.43 Body mass index [BMI] 50.0-59.9, adult; I11.0 Hypertensive heart disease with heart failure; I50.23 Acute on chronic systolic (congestive) heart failure; Z95.810 Presence of automatic (implantable) cardiac defibrillator; Z99.89 Dependence on other enabling machines and devices; F41.9 Anxiety disorder, unspecified; F32.A Depression, unspecified; E78.5 Hyperlipidemia, unspecified; Z87.891 Personal history of nicotine dependence; Z79.1 Long term (current) use of non-steroidal anti-inflammatories (NSAID); Z79.51 Long term (current) use of inhaled steroids; Z79.52 Long term (current) use of systemic steroids; Z79.891 Long term (current) use of opiate analgesic; Z82.49 Family history of ischemic heart disease and other diseases of the circulatory system
CPT/HCPCS: 36415; 36600; 71045; 80048; 80053; 82375; 82805; 83050; 83605; 83690; 83880; 84484; 85025; 85610; 85730; 93005; 94640; 96361; 96374; 96375; 97161; 97165; 99285; A9270; C8929; G0378; J1940; J2765; J7030; J7040; Q9957